=== PATIENT | male | born 1935 | race Caucasian/White ===

== ENCOUNTER 2020-07-11 10:08 | Emergency (ER) | payer OTHER ==
--- OUTSIDE RECORDS SUMMARY | 2020-07-11 10:10 | XMS REPORT | Continuity of Care Document ---
:1935 Author Organization [facility] t Address [address] [place] [address] Dr. L[address] [place] [address] Care Team Providers Name Role Phone Elmo Nj MD Attending Clinician Problems This patient has no known problems. Allergies, Adverse Reactions, Alerts This patient has no known allergies or adverse reactions. Medications This patient has no known medications. Procedures This patient has no known procedures. Encounters Start End Encounter Admission Attending Care Care Encounter Source Date/Time Date/Time Type Type Clinicians Facility Department ID 2020-07-10 2020-07-10 Office RON Nj [id number] 09:38:20 10:08:20 Visit [facility] [id number] Elmo Goldstein [id number] Professkimberly [phone] nal 044 Office [address] One Results This patient has no known results.
--- NOTE | 2020-07-11 11:11 | RAD REPORT ---
EXAM DESCRIPTION: RAD - Chest Single View - 07/11/2020 11:02 am CLINICAL HISTORY: MALAISE Chest pain. COMPARISON: Chest Single View dated 06/30/2017; Chest Pa And Lat (2 Views) dated 07/28/2016; Chest Sing le View dated 01/02/2016; Chest Single View dated 01/01/2016 FINDINGS: Portable technique limits examination quality. The lungs are mildly emphysematous but grossly clear. The heart is moderately enlarged in size. No di splaced fractures.
[2020-07-11 11:32] LABS: Absolute Lymphocytes (CBC) 1.1 K/uL (0.7-4.9); Basophils % 0.8 % (0-1.3); Hematocrit 38.9 % (39.6-49.0); Lymphocytes % 11.7 % (15.3-44.8); MPV 8.4 fL (7.6-11.3); RBC Red Blood Cell Count 4.16 M/uL (4.33-5.43)
[2020-07-11 11:40] LABS: Protime INR 3.34
[2020-07-11 12:02] LABS: Albumin 3.4 g/dL (3.4-5.0); Bilirubin Direct 0.4 mg/dL (0-0.2); Bilirubin Total 1.6 mg/dL (0.2-1.0); Magnesium 2.8 mg/dL (1.8-2.4); Potassium 3.9 mmol/L (3.5-5.1); Protein, Total 7.4 g/dL (6.4-8.2); Troponin (Emerg Dept Use Only) 0.04 ng/mL (0.0-0.045)
[2020-07-11 13:00] LABS: Urine Blood TRACE (NEG); Urine Glucose NEGATIVE (NEG); Urine Protein NEGATIVE (NEG)
[2020-07-11 13:02] LABS: Urine Bacteria NONE SEEN /HPF (NONE SEEN); Urine RBC <5 /HPF (NONE SEEN)
--- NOTE | 2020-07-11 13:24 | RAD REPORT ---
EXAM DESCRIPTION: CT - Abdomen Pelvis Wo Contrast - 07/11/2020 1:06 pm CLINICAL HISTORY: Abdominal pain. hip pain COMPARISON: No comparisons TECHNIQUE: CT imaging of the abdomen and pelvis was performed without contrast. Solid organ, bowel a nd vascular assessment is limited due to lack of IV and oral contrast. All CT scans are performed using dose optimization technique as appropriate and may include automated exposure control or mA/KV adjustment according to patient size. FINDINGS: Small focus of atelectasis is seen in the medial right lung base. The liver, spleen, pancreas, adrenal glands and kidneys within normal limits.No renal stone or hydron ephrosis is seen. 3 cm duodenal diverticulum is noted. There is enlargement of the right iliopsoas muscle relative to the left. There is mild inflammatory c hanges surrounding the iliopsoas in the right lower quadrant. Etiology for this is not clear however there are several focal areas of hyperdensity within the iliopsoas which suggests hematoma. Bilateral fat containing inguinal hernias are present, slightly larger on the right. Lumbar degenerative changes are present.No fracture is evident. IMPRESSION: Moderate enlargement of the right iliopsoas muscle with areas of intramuscular hematoma. This may be related to traumatic muscle injury/strain or less likely spontaneous. A limited non-contrast examination was performed as detailed.
--- NOTE | 2020-07-11 14:09 | EDPHYS ---
Physician Documentation [facility] Name: Blas Ferreira Age: 85 yrs Sex: Male : 1935 Arrival Date: 07/11/2020 Time: 10:11 Bed 7 Private MD: ED Physician Anirudh Blanc HPI: 07/11 15:36 This 85 yrs old Male presents to ER via Wheelchair with complaints of Pain tw4 All Over. 15:36 The patient or guardian reports an injury, pain. that occurred at home, sustained from tw4 a fall, from wheelchair, There is no obvious deformity, The patient is not able to ambulate. occurred 2 weeks ago. The complaints affect the right femoral area and right hip. Onset: The symptoms/episode began/occurred 2 week(s) ago. Modifying factors: The symptoms are alleviated by. Associated signs and symptoms: Loss of consciousness: the patient experienced no loss of consciousness. The patient has not experienced similar symptoms in the past. Historical: - Allergies: 10:29 No Known Allergies; ll1 - PMHx: 10:29 Atrial Fib; CVA (December 2014); CHF; Gout; High Cholesterol; Hypertension; ll1 - PSHx: 10:29 Knee surgery; ll1 - Immunization history:: Flu vaccine is not up to date. - Social history:: Smoking status: Patient denies any tobacco usage or history of. ROS: 15:36 Constitutional: Negative for fever, chills, and weight loss, Eyes: Negative for injury, tw4 pain, redness, and discharge, Cardiovascular: Negative for chest pain, palpitations, and edema, Respiratory: Negative for shortness of breath, cough, wheezing, and pleuritic chest pain, Abdomen/GI: Negative for abdominal pain, nausea, vomiting, diarrhea, and constipation, Back: Negative for injury and pain. 15:36 MS/extremity: Positive for injury or acute deformity, decreased range of motion, ecchymosis, pain, tenderness, Negative for abrasion, bite, deformity, erythema, laceration, paresthesias, puncture, rash, swelling, tingling, warmth. Exam: 15:36 Constitutional: This is a well developed, well nourished patient who is awake, alert, tw4 and in no acute distress. Head/Face: Normocephalic, atraumatic. Chest/axilla: Normal chest wall appearance and motion. Nontender with no deformity. No lesions are appreciated. Cardiovascular: Regular rate and rhythm with a normal S1 and S2. No gallops, murmurs, or rubs. Normal PMI, no JVD. No pulse deficits. Respiratory: Lungs have equal breath sounds bilaterally, clear to auscultation and percussion. No rales, rhonchi or wheezes noted. No increased work of breathing, no retractions or nasal flaring. Abdomen/GI: Soft, non-tender, with normal bowel sounds. No distension or tympany. No guarding or rebound. No evidence of tenderness throughout. Back: No spinal tenderness. No costovertebral tenderness. Full range of motion. Skin: Warm, dry with normal turgor. Normal color with no rashes, no lesions, and no evidence of cellulitis. Neuro: Awake and alert, GCS 15, oriented to person, place, time, and situation. Cranial nerves II-XII grossly intact. Motor strength 5/5 in all extremities. Sensory grossly intact. Cerebellar exam normal. Normal gait. 15:36 Musculoskeletal/extremity: Extremities: noted in the right femoral area and right hip: ecchymosis, swelling, tenderness, There is no evidence of abrasion, bite, deformity, erythema, laceration, puncture, rash. Vital Signs: 10:29 BP 118 / 61; Pulse 70; Resp 19; Temp 97.9; Pulse Ox 95% on R/A; Weight 104.33 kg; ll1 Height 6 ft. 0 in. (182.88 cm); Pain 6/10; 13:27 BP 167 / 89; Pulse 62; Resp 18; Pulse Ox 96% on R/A; ph 14:30 BP 158 / 78; Pulse 68; Resp 18; Temp 98.0; Pulse Ox 95% on R/A; ph 10:29 Body Mass Index 31.19 (104.33 kg, 182.88 cm) ll1 MDM: 14:09 Patient medically screened. tw4 15:36 Differential diagnosis: hip fracture, intertrochanteric fracture. Data reviewed: vital tw4 signs, nurses notes. Data reviewed: lab test result(s), CBC, electrolytes, radiologic studies, CT scan. Data interpreted: Pulse oximetry: Interpretation: normal. Test interpretation: by ED physician or midlevel provider: ECG, plain radiologic studies. Counseling: I had a detailed discussion with the patient and/or guardian regarding: the historical points, exam findings, and any diagnostic results supporting the discharge/admit diagnosis, lab results, radiology results. Special discussion: I discussed with the patient/guardian in detail that at this point there is no indication for admission to the hospital. It is understood, however, that if the symptoms persist or worsen the patient needs to return immediately for re-evaluation. 07/11 10:32 Order name: Basic Metabolic Panel; Complete Time: 12:13 07/11 12:13 Interpretation: Normal except: NA 148; CL 111; GLUC 114; BUN 41; CRE 1.82; GFR 35. 07/11 10:32 Order name: CBC with Diff; Complete Time: 11:39 07/11 10:32 Order name: LFT's; Complete Time: 12:13 07/11 12:14 Interpretation: Normal except: A/G 0.9; BILID 0.4; GLOB 4.0; BILIT 1.6; ALK 123. 07/11 10:32 Order name: Magnesium; Complete Time: 12:13 07/11 10:32 Order name: NT PRO-BNP; Complete Time: 12:13 07/11 12:40 Interpretation: Abnormal: NT PRO-BNP 2855. 07/11 10:32 Order name: PT-INR; Complete Time: 12:13 07/11 12:40 Interpretation: PT 38.9. 07/11 10:32 Order name: Troponin (emerg Dept Use Only); Complete Time: 12:13 07/11 10:32 Order name: XRAY Chest (1 view); Complete Time: 11:39 07/11 10:32 Order name: EKG; Complete Time: 10:33 07/11 10:32 Order name: Cardiac monitoring; Complete Time: 13:58 07/11 10:32 Order name: EKG - Nurse/Tech; Complete Time: 13:58 07/11 12:17 Order name: Urine Microscopic Only; Complete Time: 14:11 07/11 12:45 Order name: CT Abd/Pelvis - Without Contrast; Complete Time: 13:27 07/11 12:58 Order name: Urine Dipstick--Ancillary (enter results); Complete Time: 13:42 mt 07/11 13:42 Interpretation: Normal except: UBLD TRACE. 07/11 10:32 Order name: IV Saline Lock; Complete Time: 11:17 tw4 07/11 10:32 Order name: Labs collected and sent; Complete Time: 11:17 tw4 07/11 10:32 Order name: O2 Per Protocol; Complete Time: 11:17 4 07/11 10:32 Order name: O2 Sat Monitoring; Complete Time: 11:17 4 07/11 12:17 Order name: Urine Dipstick-Ancillary (obtain specimen); Complete Time: 13:56 tw4 EC:36 Rate is 108 beats/min. Rhythm is irregularly irregular, A fib. Left axis deviation tw4 noted. IL interval is normal. QRS interval is normal. QT interval is normal. No Q waves. T waves are Inverted in lead I. No ST changes noted. Clinical impression: Atrial Fibrillation. Interpreted by me. Reviewed by me. Administered Medications: No medications were administered Disposition: 07/11/20 14:09 Discharged to Home. Impression: Low back pain, hematoma thigh. - Condition is Stable. - Discharge Instructions: Chronic Back Pain, Hematoma. - Medication Reconciliation Form, Thank You Letter, Antibiotic Education, Prescription Opioid Use form. - Follow up: Private Physician; When: Upon discharge from the Emergency Department; Reason: Recheck today's complaints, Continuance of care, Re-evaluation by your physician. - Problem is new. - Symptoms have improved. Signatures: Dispatcher [employer] Sherry Dennison RN RN ph Anirudh Blanc MD MD tw4 Zenon Stephens RN RN ll1 Corrections: (The following items were deleted from the chart) 15:04 14:09 07/11/2020 14:09 Discharged to Home. Impression: Low back pain; hematoma thigh. ph Condition is Stable. Forms are Medication Reconciliation Form, Thank You Letter, Antibiotic Education, Prescription Opioid Use. Follow up: Private Physician; When: Upon discharge from the Emergency Department; Reason: Recheck today's complaints, Continuance of care, Re-evaluation by your physician. Problem is new. Symptoms have improved. tw4
--- NOTE | 2020-07-11 14:09 | ER ---
Nurse's Notes [facility] Name: Blas Ferreira Age: 85 yrs Sex: Male : 1935 Arrival Date: 07/11/2020 Time: 10:11 Bed 7 Private MD: Diagnosis: Low back pain;hematoma thigh Presentation: 07/11 10:29 Chief complaint: Patient states: Pain to back and groin area for over 2 weeks. No ll1 fever. Son noticed bruising to R thigh and L foot recently. Has been seen at [place] on the and PCP Dr. Nj on the . CT showed spondylosis. Coronavirus screen: Client denies travel out of the [place] in the last 14 days. At this time, the client does not indicate any symptoms associated with coronavirus-19. Ebola Screen: Patient denies travel to an Ebola-affected area in the 21 days before illness onset. Initial Sepsis Screen: Does the patient meet any 2 criteria? No. Patient's initial sepsis screen is negative. Does the patient have a suspected source of infection? No. Patient's initial sepsis screen is negative. Risk Assessment: Do you want to hurt yourself or someone else? Patient reports no desire to harm self or others. Onset of symptoms was June 29, 2020. 10:29 Method Of Arrival: Wheelchair ll1 10:29 Acuity: KAREL 3 ll1 Historical: - Allergies: 10:29 No Known Allergies; ll1 - PMHx: 10:29 Atrial Fib; CVA (December 2014); CHF; Gout; High Cholesterol; Hypertension; ll1 - PSHx: 10:29 Knee surgery; ll1 - Immunization history:: Flu vaccine is not up to date. - Social history:: Smoking status: Patient denies any tobacco usage or history of. Screenin:17 Abuse screen: Denies threats or abuse. Denies injuries from another. Nutritional ph screening: No deficits noted. Tuberculosis screening: No symptoms or risk factors identified. Fall Risk None identified. Assessment: 11:45 General: Appears in no apparent distress. comfortable, obese, Behavior is. Pain: ph Complains of pain in right femoral area. Neuro: Level of Consciousness is awake, alert, obeys commands, Oriented to person, place. Cardiovascular: Capillary refill < 3 seconds in bilateral fingers Patient's skin is warm and dry. Respiratory: Airway is patent Respiratory effort is even, unlabored. GI: Abdomen is round Patient currently denies abdominal pain, diarrhea, nausea, vomiting. Derm: Skin is intact, is fragile, is thin, Skin is pink, warm \T\ dry. Musculoskeletal: Circulation, motion, and sensation intact. Range of motion: intact in all extremities. 13:27 Reassessment: Patient appears in no apparent distress at this time. Patient and/or ph family updated on plan of care and expected duration. Pain level reassessed. Patient is alert, oriented x 3, equal unlabored respirations, skin warm/dry/pink. 15:04 Reassessment: Patient appears in no apparent distress at this time. Patient and/or ph family updated on plan of care and expected duration. Pain level reassessed. Patient is alert, oriented x 3, equal unlabored respirations, skin warm/dry/pink. Pt d/c home w/son, instructed by Dr Blanc to hold today's dose of warfarin. Vital Signs: 10:29 BP 118 / 61; Pulse 70; Resp 19; Temp 97.9; Pulse Ox 95% on R/A; Weight 104.33 kg; ll1 Height 6 ft. 0 in. (182.88 cm); Pain 6/10; 13:27 BP 167 / 89; Pulse 62; Resp 18; Pulse Ox 96% on R/A; ph 14:30 BP 158 / 78; Pulse 68; Resp 18; Temp 98.0; Pulse Ox 95% on R/A; ph 10:29 Body Mass Index 31.19 (104.33 kg, 182.88 cm) ll1 ED Course: 10:11 Patient arrived in ED. mr 10:27 Arm band placed on Patient placed in an exam room, on a stretcher. ll1 10:30 Anirudh Blanc MD is Attending Physician. tw4 10:32 Triage completed. ll1 10:47 Sherry Martins, NAVIN is Primary Nurse. ph 10:58 Initial lab(s) drawn, by me, sent to lab. Inserted saline lock: 22 gauge in right kj1 antecubital area, using aseptic technique. Blood collected. 11:03 XRAY Chest (1 view) In Process Unspecified. EDMS 11:17 Patient has correct armband on for positive identification. Bed in low position. Call ph light in reach. Side rails up X 1. school bus monitor on. Pulse ox on. NIBP on. 13:05 CT Abd/Pelvis - Without Contrast In Process Unspecified. EDMS 15:02 No provider procedures requiring assistance completed. IV discontinued, intact, ph bleeding controlled, No redness/swelling at site. Pressure dressing applied. Administered Medications: No medications were administered Outcome: 14:09 Discharge ordered by . nagi 15:02 Discharged to home via wheelchair, with family. ph 15:02 Condition: good 15:02 Discharge instructions given to patient, family, Instructed on discharge instructions, follow up and referral plans. instructed to hold today's warfarin dose Demonstrated understanding of instructions, follow-up care. 15:04 Patient left the ED. ph Signatures: Dispatcher [employer] EDHI Joanne Lainez Patricia, RN RN ph Anirudh Blanc MD MD tw4 Lyle, Katiana kj1 Zenon Stephens RN RN ll1
[2020-07-11 15:19] VITALS: BP 158/78; TEMP 98; O2SAT 95
== END 2020-07-11 15:04 | disposition home or self-care (01) ==
LOC: ER 10:08
DX: S70.11XA Contusion of right thigh, initial encounter (principal); I10 Essential (primary) hypertension; Z86.73 Personal history of transient ischemic attack (TIA), and cerebral infarction without residual deficits
CPT/HCPCS: 36415; 71045; 74176; 80048; 80076; 81003; 81015; 83735; 83880; 84484; 85025; 85610; 93005; 99284

== ENCOUNTER 2020-10-14 10:41 | Observation (INO) | payer OTHER ==
--- OUTSIDE RECORDS SUMMARY | 2020-10-14 10:44 | XMS REPORT | Continuity of Care Document ---
:1935 Author Organization [facility] t Address [address] [place] [address] Care Team Providers Name Role Phone Elmo Nj MD Primary Care Physician Elmo Nj MD Attending Clinician Helen SCHAFER Attending Clinician Doctor Unassigned, Name Attending Clinician Unavailable Payers Payer Name Policy Type Policy Effective Date Expiration Date Sour ce Number HUMANA - MANAGED [id number] 2015 Universi ty of MEDICAREHUMANA 00:00:00 [place] [facility] [id number]/ [facility] h 05/2015-PresentMedic are Adv FFS Problems Condition Condition Condition Status Onset Resolution Last Treating Co mments Source Name Details Category Date Date Treatment Clinician Date Acute Acute Disease Active Univers right-side right-side 3-12 it y of d low back d [place] back 00:00[place] pain pain 00 Medical without without Branch sciatica sciatica Allergies, Adverse Reactions, Alerts This patient has no known allergies or adverse reactions. Social History Social Habit Start Date Stop Date Quantity Comments Source History of Cigarette Smoker Universi ty of tobacco use [facility] Exposure to Not sure [facility] SARS-CoV-2 [facility] (event) [place] Tobacco use and 2019-11-16 2019-11-16 Never used Universit y of exposure 00:00:00 00:00:00 [facility] Alcohol intake 2019-11-16 2019-11-16 Ex-drinker [facility] 00:00:00 00:00:00 (finding) [facility] Sex Assigned At [birth year] Universit y of 00:00:00 00:00:00 [facility] Smoking Status Start Date Stop Date Source Former smoker 2019-11-16 00:00:00 2019-11-16 00:00:00 Universi ty of [facility] Medications Ordered Filled Start Stop Current Ordering Indication Dosage Frequency Signature Comments Components Source Medication Medication Date Date Medication? Clinician (SIG) Name Name collagenase Yes Open wound Apply to Univers 250 4-07 of left affected ity of unit/gram 00:00: lower area(s) 2 [place] ointment 00 extremity, (two) Medi diane subsequent times Branch encounter daily. methocarbam Yes Acute 500mg Take 1 Un yeny oL 500 mg 3-12 right-sided tablet by ity of tablet 00:00: [place] back mouth 3 [place] pain (three) Medical without times Branch sciatica daily as needed (back pain). atorvastati Yes 10mg Take 10 mg Univers n 10 mg 3-10 by mouth ity of tablet 14:51: at [place] 15 bedtime. Medical Branch tamsulosin Yes Take by Uni vers 0.4 mg 24 3-10 mouth ity of hr capsule 14:50: daily. [place] [address] Medical Branch warfarin 2019-0 Yes Take by Unive rs sodium 3-10 mouth. 3.5 ity of ([place]ADIN 14:49: mg daily [place] [address] [place] [address] losartan 50 2019-0 Yes 50mg Take 50 mg Univers mg tablet 3-10 by mouth ity of 14:49: daily. [place] [address] Medical Branch pantoprazol 2019-0 Yes 40mg Take 40 mg Univers e 40 mg EC 3-10 by mouth ity o f tablet 14:49: daily. [place] [address] Medical [place] furosemide 2019-0 Yes 40mg Take 40 mg U nivers 40 mg 3-10 by mouth. ity of tablet 14:49: Takes 80 [place] 49 mg am and Medical 40 mg Branch afternoon metoprolol 2019-0 Yes 50mg Take 50 mg U nivers tartrate 50 3-10 by mouth ity of mg tablet 14:49: daily. [address] Branch allopurinoL 2019-0 Yes 300mg Take 300 U nivers 300 mg 3-10 mg by ity of tablet 14:48: mouth [place] 41 daily. Medical Branch Procedures Procedure Date / Time Performed Performing Clinician [facility] e HOME HEALTH - OTHER 2020-08-07 05:01:00 Doctor Unassigned, No [facility] [place] [facility] Plan of Care Planned Activity Planned Date Details Comments Source Future Scheduled 2021-07-10 Depression screening [facility] [place] [facility] 00:00:00 (procedure) [code = Medical Branch [id number]] Future Scheduled 2020-12-30 INFLUENZA VACCINE Univer sity [facility] Test 00:00:00 (Season Ended) [code Medical Branch = INFLUENZA VACCINE (Season Ended)] Future Scheduled 1999 Medicare Annual Universi ty [facility] Test 00:00:00 Wellness Visit Medical [facility] h (procedure) [code = [id number]] Future Scheduled 1999 PNEUMOCOCCAL VACCINES [facility] [place] [facility] Test 00:00:00 65+ (1 of 1 - PPSV23) Medica l Branch [code = PNEUMOCOCCAL VACCINES 65+ (1 of 1 - PPSV23)] Future Scheduled 1984 Zoster Recombinant [facility] [place] [facility] Test 00:00:00 Vaccine (SHINGRIX) (1 Medica l Branch of 2) [code = Zoster Recombinant Vaccine (SHINGRIX) (1 of 2)] Future Scheduled 1953 DTaP,Tdap,and Td Univers ity [facility] Test 00:00:00 Vaccines (1 - Tdap) Medical Branch [code = DTaP,Tdap,and Td Vaccines (1 - Tdap)] Encounters Start End Encounter Admission Attending Care Care Encounter Source Date/Time Date/Time Type Type Clinicians Facility Department ID 2020-10-13 2020-10-13 Telephone [facility] [id number] 00:00:00 00:00:00 [facility] [id number] Elmo Goldstein [id number] Jazmin [id number] nal 044 [address] One 2020-10-12 2020-10-12 [facility] [id number] 16:34:50 16:49:50 ne Visit [facility] [id number] Angelita [id number] Luiio [phone] nal 044 Office [address] 2020-10-09 2020-10-09 Telephone [facility] [id number] 00:00:00 00:00:00 [facility] [id number] [facility] [id number] [facility] [phone] nal 044 Office [address] One Results This patient has no known results.
[2020-10-14 12:28] LABS: Urine Blood Negative (Negative); Urine Glucose Negative (Negative); Urine Protein Negative (Negative); Urine Specific Gravity 1.015 (1.005-1.030)
[2020-10-14 12:31] LABS: Absolute Lymphocytes (CBC) 1.1 K/uL (0.7-4.9); Basophils % 1.2 % (0-1.3); Hematocrit 39.3 % (39.6-49.0); Lymphocytes % 18.3 % (15.3-44.8); MPV 8.4 fL (7.6-11.3); RBC Red Blood Cell Count 4.36 M/uL (4.33-5.43)
[2020-10-14 12:37] LABS: Protime INR 2.49
[2020-10-14 12:51] LABS: Albumin 3.2 g/dL (3.4-5.0); Bilirubin Direct 0.2 mg/dL (0-0.2); Bilirubin Total 0.7 mg/dL (0.2-1.0); Magnesium 2.5 mg/dL (1.8-2.4); Potassium 3.8 mmol/L (3.5-5.1); Protein, Total 6.9 g/dL (6.4-8.2); Troponin (Emerg Dept Use Only) 0.03 ng/mL (0.0-0.045)
[2020-10-14] MEDS ORDERED: LEVALBUTEROL 1.25 MG/3 ML NEB ONE ×2 (13:01→14:33)
--- NOTE | 2020-10-14 13:35 | RAD REPORT ---
EXAM DESCRIPTION: RAD - Chest Single View - 10/14/2020 1:24 pm CLINICAL HISTORY: SOB Chest pain. COMPARISON: Chest Single View dated 07/11/2020; Chest Single View dated 06/30/2017; Chest Pa And Lat (2 Views) dated 07/28/2016; Chest Single View dated 01/02/2016 FINDINGS: Portable technique limits examination quality. Mild interstitial pulmonary edema noted. The heart is moderately enlarged in size. No displaced fract ures. IMPRESSION: Mild CHF.
--- NOTE | 2020-10-14 13:59 | EDPHYS ---
Physician Documentation [facility] Name: Blas Ferreira Age: 85 yrs Sex: Male : 1935 Arrival Date: 10/14/2020 Time: 10:43 Bed 5 Private MD: ED Physician Fede Vizcarra HPI: 10/15 07:21 This 85 yrs old Male presents to ER via Wheelchair with complaints of Chest kdr Congestion, Shortness Of Breath, Cough. 07:21 The patient has shortness of breath at rest. Onset: The symptoms/episode began/occurred kdr gradually, 1 week(s) ago. Duration: The symptoms are continuous, and are steadily getting worse. The patient's shortness of breath is aggravated by exertion, light activity, talking, walking. Associated signs and symptoms: Pertinent positives: productive cough, Pertinent negatives: diaphoresis, dizziness, fever, hemoptysis, loss of consciousness, nausea, numbness in extremities, visual changes, vomiting. Severity of symptoms: At their worst the symptoms were mild moderate just prior to arrival, in the emergency department the symptoms are unchanged. The patient has not experienced similar symptoms in the past. The patient has been recently seen by a physician: the patient's primary care provider. The patient had recently been put on abx and Tessalon Perls by PCP without relief or improvement and the patient seems to be getting worse. He looks uncomfortable and SOB at rest in bed. 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 Pneumococcal vaccine is not up to date, Flu vaccine is not up to date. Patient has never been vaccinated. - Social history:: Smoking status: Patient/guardian denies using tobacco, the patient reports quitting approximately 53 years ago. ROS: 10/15 07:21 Constitutional: Negative for fever, chills, and weight loss, Eyes: Negative for injury, kdr pain, redness, and discharge, ENT: Negative for injury, pain, and discharge, Neck: Negative for injury, pain, and swelling, Cardiovascular: Negative for chest pain, palpitations, and edema, Abdomen/GI: Negative for abdominal pain, nausea, vomiting, diarrhea, and constipation, Back: Negative for injury and pain, : Negative for injury, bleeding, discharge, and swelling, MS/Extremity: Negative for injury and deformity, Skin: Negative for injury, rash, and discoloration, Neuro: Negative for headache, weakness, numbness, tingling, and seizure activity. Psych: Negative for depression, anxiety, suicide ideation, homicidal ideation, and hallucinations, Allergy/Immunology: Negative for hives, rash, and allergies, Endocrine: Negative for neck swelling, polydipsia, polyuria, polyphagia, and marked weight changes, Hematologic/Lymphatic: Negative for swollen nodes, abnormal bleeding, and unusual bruising. Respiratory: Positive for cough, "sounds productive", dyspnea on exertion, shortness of breath, wheezing, expiratory. Exam: 10/14 14:26 ECG was reviewed by the Attending Physician. kdr 10/15 07:21 Constitutional: This is a well developed, well nourished patient who is awake, alert, kdr and in no acute distress. Head/Face: Normocephalic, atraumatic. Eyes: Pupils equal round and reactive to light, extra-ocular motions intact. Lids and lashes normal. Conjunctiva and sclera are non-icteric and not injected. Cornea within normal limits. Periorbital areas with no swelling, redness, or edema. Neck: Trachea midline, no thyromegaly or masses palpated, and no cervical lymphadenopathy. Supple, full range of motion without nuchal rigidity, or vertebral point tenderness. No Meningismus. Chest/axilla: Normal chest wall appearance and motion. Nontender with no deformity. No lesions are appreciated. Cardiovascular: Regular rate and rhythm with a normal S1 and S2. No gallops, murmurs, or rubs. Normal PMI, no JVD. No pulse deficits. Abdomen/GI: Soft, non-tender, with normal bowel sounds. No distension or tympany. No guarding or rebound. No evidence of tenderness throughout. Back: No spinal tenderness. No costovertebral tenderness. Full range of motion. Skin: Warm, dry with normal turgor. Normal color with no rashes, no lesions, and no evidence of cellulitis. MS/ Extremity: Pulses equal, no cyanosis. Neurovascular intact. Full, normal range of motion. Neuro: Awake and alert, GCS 15, oriented to person, place, time, and situation. Cranial nerves II-XII grossly intact. Motor strength 5/5 in all extremities. Sensory grossly intact. Cerebellar exam normal. Normal gait. Respiratory: mild respiratory distress is noted, Respirations: labored breathing, that is mild, that is moderate, Breath sounds: rales, that are moderate, are scattered, bronchial sounds, that are mild, are scattered, are heard diffusely, stridor, is not appreciated, + upper airway congestion. wheezing: expiratory that is moderate, is heard diffusely. Vital Signs: 10/14 11:15 BP 123 / 68; Pulse 80; Resp 18 S; Temp 97.5(TE); Pulse Ox 95% on R/A; Weight 104.33 kg ca1 (R); Height 6 ft. 0 in. (182.88 cm) (R); Pain 0/10; 11:30 BP 124 / 82; Pulse 82; Resp 17; Pulse Ox 98% ; bp 12:30 BP 103 / 79; Pulse 57; Resp 18; Pulse Ox 100% ; bp 13:30 BP 139 / 80; Pulse 92; Resp 19; Pulse Ox 95% ; bp 15:30 BP 127 / 88; Pulse 65; Resp 16; Pulse Ox 97% ; bp 17:30 BP 107 / 64; Pulse 62; Resp 16; Pulse Ox 95% ; bp 19:30 BP 115 / 63; Pulse 55; Resp 19; Pulse Ox 90% ; rr5 11:15 Body Mass Index 31.19 (104.33 kg, 182.88 cm) ca1 MDM: 13:58 Patient medically screened. [facility] 10/15 07:21 Differential diagnosis: asthma, Bronchitis CHF exacerbation, Chronic Obstructive kdr Pulmonary Disease Myocardial Infarction pneumonia, pulmonary edema, reactive airway disease. Data reviewed: vital signs, nurses notes, lab test result(s), radiologic studies. Counseling: I had a detailed discussion with the patient and/or guardian regarding: the historical points, exam findings, and any diagnostic results supporting the discharge/admit diagnosis, lab results, radiology results, the need for further work-up and treatment in the hospital. 10/14 12:01 Order name: Basic Metabolic Panel; Complete Time: 13:36 kdr 10/14 12:01 Order name: CBC with Diff; Complete Time: 13:36 kdr 10/14 12:01 Order name: LFT's; Complete Time: 13:36 [facility] 10/14 12:02 Order name: Magnesium; Complete Time: 13:36 [facility] 10/14 12:02 Order name: NT PRO-BNP; Complete Time: 13:36 [facility] 10/14 12:02 Order name: PT-INR; Complete Time: 13:36 [facility] 10/14 12:02 Order name: Troponin (emerg Dept Use Only); Complete Time: 13:36 [facility] 10/14 12:02 Order name: XRAY Chest (1 view); Complete Time: 13:44 [facility] 10/14 12:27 Order name: Urine Dipstick-Ancillary; Complete Time: 13:36 EDMS 10/14 15:43 Order name: SARS-COV-2 RT PCR EDVT 10/14 12:02 Order name: EKG; Complete Time: 12:02 [facility] 10/14 12:02 Order name: Cardiac monitoring; Complete Time: 12:20 [facility] 10/14 12:02 Order name: EKG - Nurse/Tech; Complete Time: 12:17 [facility] 10/14 12:02 Order name: IV Saline Lock; Complete Time: 12:20 [facility] 10/14 12:02 Order name: Labs collected and sent; Complete Time: 12:20 [facility] 10/14 12:02 Order name: O2 Per Protocol; Complete Time: 12:20 [facility] 10/14 12:02 Order name: O2 Sat Monitoring; Complete Time: 12:06 [facility] 10/14 14:52 Order name: Diet Heart Healthy; Complete Time: 14:53 jm EC/16 14:26 Rate is 96 beats/min. Rhythm is irregularly irregular, A fib with No ectopy. QRS [place] kdr is Normal. [place] interval is normal. QRS interval is normal. Clinical impression: Atrial Fibrillation. Administered Medications: 12:40 Drug: Xopenex (levalbuterol) (3) 1.25 mg Route: Inhalation; bp 14:00 Drug: predniSONE 60 mg Route: PO; bp 14:00 Drug: Lasix (furosemide) 40 mg Route: IVP; Site: right hand; bp 14:00 Drug: Xopenex (levalbuterol) (3) 1.25 mg Route: Inhalation; bp Disposition: 10/14/20 13:58 Hospitalization ordered by Maxi Shields for Inpatient Admission. Preliminary diagnosis is COPD, CHF exacerbation. - Bed requested for Telemetry/MedSurg (Inpatient). - Status is Inpatient Admission. rr5 - Condition is Fair. - Problem is an acute exacerbation. - Symptoms have improved. Signatures: Dispatcher [employer] EDVT Fede Vizcarra MD MD [facility] James Bianchi RN RN bp Delores Bauer Raymond RN RN rr5 Acsavage, Kia RN RN ca1 Corrections: (The following items were deleted from the chart) 14:35 14:04 CORONAVIRUS+MR.LAB.BRZ ordered. [facility] EDVT 18:42 13:58 Hospitalization Ordered by Maxi Shields for Inpatient Admission. Preliminary eb diagnosis is COPD, CHF exacerbation. Bed requested for Telemetry/MedSurg (Inpatient). Status is Inpatient Admission. Condition is Fair. Problem is an acute exacerbation. Symptoms have improved. kdr 19:47 18:42 10/14/2020 13:58 Hospitalization Ordered by Maxi Shields for Inpatient rr5 Admission. Preliminary diagnosis is COPD, CHF exacerbation. Bed requested for Telemetry/MedSurg (Inpatient). Status is Inpatient Admission. Condition is Fair. Problem is an acute exacerbation. Symptoms have improved. eb
--- NOTE | 2020-10-14 13:59 | ER ---
Nurse's Notes [facility] Name: Blas Ferreira Age: 85 yrs Sex: Male : 1935 Arrival Date: 10/14/2020 Time: 10:43 Bed 5 Private MD: Diagnosis: COPD, CHF exacerbation Presentation: 10/14 11:15 Chief complaint: Patient's son or daughter states: Cough and congestion x 1 week. Been ca1 on ABX and Tessalon prescribed by PCP. Reports SOB at this time and S/S not improving. Denies fever. Coronavirus screen: Client denies travel out of the [place] in the last 14 days. congestion, cough unrelated to allergies, Client presents with at least one sign or symptom that may indicate coronavirus-19. Standard/surgical mask placed on the client. Provider contacted for isolation considerations. Ebola Screen: Patient negative for fever greater than or equal to 101.5 degrees Fahrenheit, and additional compatible Ebola Virus Disease symptoms Patient denies exposure to infectious person. Patient denies travel to an Ebola-affected area in the 21 days before illness onset. No symptoms or risks identified at this time. Initial Sepsis Screen: Does the patient meet any 2 criteria? No. Patient's initial sepsis screen is negative. Does the patient have a suspected source of infection? No. Patient's initial sepsis screen is negative. Risk Assessment: Do you want to hurt yourself or someone else? Patient reports no desire to harm self or others. Onset of symptoms was October 14, 2020. 11:15 Method Of Arrival: Wheelchair ca1 11:15 Acuity: KAREL 3 ca1 Triage Assessment: 11:15 General: Appears distressed, uncomfortable, obese, Behavior is cooperative, anxious. bp Pain: Denies pain. EENT: No deficits noted. Neuro: Level of Consciousness is awake, alert, obeys commands, Oriented to person, place. Cardiovascular: No deficits noted. Respiratory: Reports shortness of breath cough that is Breath sounds with crackles Breath sounds with wheezes Onset: The symptoms/episode began/occurred at an unknown time. the patient has moderate shortness of breath. GI: No signs and/or symptoms were reported involving the gastrointestinal system. : No signs and/or symptoms were reported regarding the genitourinary system. Derm: No deficits noted. Musculoskeletal: R SIDED DEFICITS AFTER CVA. Historical: - Allergies: 11:19 No Known Allergies; ca1 - PMHx: 11:19 Atrial Fib; CHF; CVA (December 2014); Gout; High Cholesterol; Hypertension; COPD; ca1 - PSHx: 11:19 Knee surgery; ca1 - Immunization history:: Client reports having NOT received the Covid vaccine. Pneumococcal vaccine is not up to date, Flu vaccine is not up to date. Patient has never been vaccinated. - Social history:: Smoking status: Patient/guardian denies using tobacco, the patient reports quitting approximately 53 years ago. Screenin:02 Abuse screen: Denies threats or abuse. Denies injuries from another. Nutritional bp screening: No deficits noted. Tuberculosis screening: No symptoms or risk factors identified. Fall Risk None identified. Assessment: 11:15 General: SEE TRIAGE NOTE. bp 12:30 Reassessment: RESULTS PENDING. Cardiovascular: Rhythm is sinus bradycardia. bp Respiratory: Airway is patent Respiratory effort is even, labored. 19:30 Reassessment: Patient appears in no apparent distress at this time. Patient is alert, rr5 oriented x 3, equal unlabored respirations, skin warm/dry/pink. sitting on the side of the bed not in distress no complaints made,for transfer to room 426. Vital Signs: 11:15 BP 123 / 68; Pulse 80; Resp 18 S; Temp 97.5(TE); Pulse Ox 95% on R/A; Weight 104.33 kg ca1 (R); Height 6 ft. 0 in. (182.88 cm) (R); Pain 0/10; 11:30 BP 124 / 82; Pulse 82; Resp 17; Pulse Ox 98% ; bp 12:30 BP 103 / 79; Pulse 57; Resp 18; Pulse Ox 100% ; bp 13:30 BP 139 / 80; Pulse 92; Resp 19; Pulse Ox 95% ; bp 15:30 BP 127 / 88; Pulse 65; Resp 16; Pulse Ox 97% ; bp 17:30 BP 107 / 64; Pulse 62; Resp 16; Pulse Ox 95% ; bp 19:30 BP 115 / 63; Pulse 55; Resp 19; Pulse Ox 90% ; rr5 11:15 Body Mass Index 31.19 (104.33 kg, 182.88 cm) ca1 ED Course: 10:43 Patient arrived in ED. as 10:47 Fede Vizcarra MD is Attending Physician. kdr 11:18 Triage completed. ca1 11:19 Arm band placed on right wrist. ca1 11:55 James Bianchi, RN is Primary Nurse. bp 12:02 Patient has correct armband on for positive identification. Bed in low position. Call bp light in reach. Side rails up X2. Adult w/ patient. 12:22 Inserted saline lock: 22 gauge in right wrist, using aseptic technique. bp 13:24 XRAY Chest (1 view) In Process Unspecified. EDMS 13:57 Maxi Shields is Hospitalizing Provider. kdr 19:45 No provider procedures requiring assistance completed. Patient admitted, IV remains in rr5 place. intact, No redness/swelling at site. Administered Medications: 12:40 Drug: Xopenex (levalbuterol) (3) 1.25 mg Route: Inhalation; bp 14:00 Drug: predniSONE 60 mg Route: PO; bp 14:00 Drug: Lasix (furosemide) 40 mg Route: IVP; Site: right hand; bp 14:00 Drug: Xopenex (levalbuterol) (3) 1.25 mg Route: Inhalation; bp Outcome: 13:58 Decision to Hospitalize by Provider. kdr 19:45 Admitted to Tele accompanied by tech, via wheelchair, room 426, with chart, Report rr5 called to jennifer 19:45 Condition: stable 19:45 Instructed on the need for admit. 19:47 Patient left the ED. rr5 Signatures: Dispatcher [employer] EDCO Fede Vizcarra MD MD kdr Shreya Saucedo as James Bianchi, RN RN bp Rene Green RN RN rr5 Kia Cisse RN RN ca1
[2020-10-14] MEDS ORDERED: FUROSEMIDE 40 MG/4 ML VIAL ONE (14:32)
[2020-10-14] MEDS ORDERED: predniSONE 20 MG TAB ONE (14:32)
--- NOTE | 2020-10-14 14:37 | P.HP ---
Certification for Inpatient Patient admitted to: Inpatient With expected LOS: >2 Midnights Practitioner: I am a practitioner with admitting privileges, knowledge of patient current condition, hospital course, and medical plan of care. Services: Services provided to patient in accordance with Admission requirements found in Title 42 Section 412.3 of the Code of Federal Regulations Patient History Date of Service: 10/14/20 Reason for admission: Shortness of breath History of Present Illness: 85-year-old gentleman with a history of systolic heart failure was severe LV dysfunction, history of CVA with right-sided weakness, chronic atrial fibrillation Coumadin anticoagulation was brought to the emergency department due to progressive shortness of breath, associated with wheezing, coughing and congestion. Patient saw his PCP Dr. Alexander this morning who referred him to the emergency department. He denies any chest pain, or palpitation. Chest x-ray done in the ED demonstrated mild CHF, no acute infiltrate. Initial troponin negative. Patient given breathing treatment and IV Lasix in the ED. He is admitted for further management. Allergies NKDA Allergy (Uncoded 06/12/15 20:24) Unknown No Known Allergies Allergy (Uncoded 01/01/16 20:58) Unknown Home Medications: Allopurinol 100 mg PO DAILY 01/28/15 Atorvastatin Calcium [Lipitor*] 10 mg PO BEDTIME 01/02/16 Losartan Potassium [Cozaar] 25 mg PO BID 01/02/16 Warfarin Sodium [Coumadin*] 5 mg PO DAILY 5 PM 01/02/16 Furosemide [Lasix*] 80 mg PO DAILY #30 tab 01/06/16 Metoprolol Tartrate [Lopressor*] 25 mg PO BID 07/28/16 Pantoprazole [Protonix Tab*] 40 mg PO [id number] 07/28/16 Spironolactone [Aldactone] 25 mg PO DAILY #30 tab 07/01/17 Thiamine Mononitrate (Vit B1) [Vitamin B-1] 100 mg PO DAILY #30 tablet 07/01/17 - Past Medical/Surgical History Diabetic: No -: Congetive Heart Failure -: CVA (01/13) -: Hypertension -: A-fib -: High Cholesterol -: Gout -: Right sided weakness -: BILATERAL KNEE REPLACEMENT - Family History Father -: Heart disease, Hypertension - Social History Alcohol use: No CD- Drugs: No Caffeine use: No Review of Systems Other: Except as documented, all other systems reviewed and negative. Physical Examination - Physical Exam General: Alert, In no apparent distress, Oriented x3 HEENT: Atraumatic, PERRLA, Mucous membr. moist/pink, Other (Dobr-yl-alvneif.), EOMI, Sclerae nonicteric Neck: Supple, JVD not distended Respiratory: Normal air movement, Crackles/rales (Bilateral.), Other (Upper airway transmitted sounds) Cardiovascular: No edema, Regular rate/rhythm, Normal S1 S2 Gastrointestinal: Normal bowel sounds, Soft and benign, Non-distended, No tenderness Musculoskeletal: No swelling, No tenderness Integumentary: Erythema (Spots of erythematous rash/scratch lowe on bilateral lower extremities.) Neurological: Normal speech, Normal strength at 5/5 x4 extr, Other (Moves all extremities.) Lymphatics: No axilla or inguinal lymphadenopathy - Studies Laboratory Data (last 24 hrs) 10/14/20 12:20: PT 28.9 H, INR 2.49 10/14/20 12:20: WBC 5.90, Hgb 12.7 L, Hct 39.3 L, Plt Count 169 10/14/20 12:20: Sodium 144, Potassium 3.8, BUN 39 H, Creatinine 1.72 H, Glucose 91, Magnesium 2.5 H, Total Bilirubin 0.7, AST 25, ALT 25, Alkaline Phosphatase 124 H Assessment and Plan - Problems (Diagnosis) (1) Acute on chronic systolic heart failure Current Visit: Yes Status: Acute (2) Chronic atrial fibrillation Current Visit: Yes Status: Acute (3) History of CVA (cerebrovascular accident) Current Visit: Yes Status: Acute (4) Chronic kidney disease, stage 3 Current Visit: Yes Status: Acute (5) Hypertension Onset Date: 01/29/15 Current Visit: No Status: Acute - Plan Admit patient to the medical floor. Start IV Lasix for diuresis. Patient with EF of 10 to 15% on his last echocardiogram. Straight intake and output. Continue to trend troponin. Obtain echocardiogram. Bronchodilators p.r.n.. Continue Coumadin for AFib anticoagulation Monitor PT/INR. - Advance Directives Does patient have a Living Will: Yes Does patient have a Durable POA for Healthcare: Yes
[2020-10-14] MEDS: FUROSEMIDE 40 MG/4 ML VIAL IV SCH (20:03)
[2020-10-14] MEDS ORDERED: ONDANSETRON 4 MG/2 ML VIAL IV PRN (20:03)
[2020-10-14] MEDS ORDERED: WARFARIN SODIUM 5 MG TAB PO SCH (20:03)
[2020-10-14] MEDS: IPRATROPIUM BROM 0.5MG/2.5ML NEB SCH (20:45)
[2020-10-14] MEDS: ALBUTEROL 2.5 MG/3 ML NEB SOL NEB SCH (20:45)
[2020-10-14 21:09] VITALS: BMI 31.1
[2020-10-15] MEDS: ALBUTEROL 2.5 MG/3 ML NEB SOL NEB SCH ×3 (00:10→14:27)
[2020-10-15] MEDS: IPRATROPIUM BROM 0.5MG/2.5ML NEB SCH ×5 (00:10→16:00)
[2020-10-15 05:34] LABS: Absolute Lymphocytes (CBC) 0.5 K/uL (0.7-4.9); Basophils % 0.1 % (0-1.3); Hematocrit 35.6 % (39.6-49.0); MPV 8.1 fL (7.6-11.3); RBC Red Blood Cell Count 4.01 M/uL (4.33-5.43)
[2020-10-15 05:50] LABS: Magnesium 2.5 mg/dL (1.8-2.4); Phosphorus 3.9 mg/dL (2.5-4.9)
[2020-10-15 05:54] LABS: Protime INR 2.37
[2020-10-15 07:10] LABS: Blood Morphology Comment NOT SEEN (NOT SEEN); Platelet Estimate ADEQ; White Blood Cell Scan OK (OK)
[2020-10-15] MEDS ORDERED: PNEUMOCOCCAL VACCINE 0.5 ML IMVAC ONE (08:00)
[2020-10-15] MEDS: FUROSEMIDE 40 MG/4 ML VIAL IV SCH (08:07)
--- NOTE | 2020-10-15 08:19 | EKG ---
Test Date: 2020-10-14 Test Time: 12:13:43 Log Grader: HEMA MEASUREMENT RESULTS: Intervals: Rate: 96 PA: QRSD: 110 QT: 392 QTc: 495 [place]: P: PA: QRS: -46 T: 95 INTERPRETIVE STATEMENTS: Atrial fibrillation Left axis deviation Moderate voltage criteria for LVH, may be normal variant Possible Lateral infarct, age undetermined Inferior infarct, age undetermined Abnormal ECG Compared to ECG 07/11/2020 13:16:03 T-wave abnormality no longer present Possible ischemia no longer present Myocardial infarct finding still present Electronically Signed On 10-15-20 08:18:13 CDT by Toro Chadwick
[2020-10-15 12:41] VITALS: BP 125/67; TEMP 97.7
--- NOTE | 2020-10-15 14:34 | RAD REPORT ---
EXAM DESCRIPTION: RAD - Chest Single View - 10/15/2020 2:27 pm CLINICAL HISTORY: CHF Chest pain. COMPARISON: Chest Single View dated 10/14/2020; Chest Single View dated 07/11/2020; Chest Single View dated 06/30/2017; Chest Pa And Lat (2 Views) dated 07/28/2016 FINDINGS: Portable technique limits examination quality. Mild improvement in pulmonary edema pattern seen since the comparative study. The heart is moderately enlarged with a tortuous thoracic aorta. No displaced fractures. IMPRESSION: Mild improvement in CHF pattern since comparative examination.
--- NOTE | 2020-10-15 15:21 | P.DS ---
Admission Date: 10/14/20 Discharge Date: 10/15/20 Disposition: ROUTINE DISCHARGE Discharge Condition: FAIR Reason for Admission: Shortness of breath - Problems (1) Acute on chronic systolic heart failure Current Visit: Yes Status: Acute (2) Chronic atrial fibrillation Current Visit: Yes Status: Acute (3) History of CVA (cerebrovascular accident) Current Visit: Yes Status: Acute (4) Chronic kidney disease, stage 3 Current Visit: Yes Status: Acute (5) Hypertension Onset Date: 01/29/15 Current Visit: No Status: Acute Brief History of Present Illness: 85-year-old gentleman with a history of systolic heart failure was severe LV dysfunction, history of CVA with right-sided weakness, chronic atrial fibrillation Coumadin anticoagulation was brought to the emergency department due to progressive shortness of breath, associated with wheezing, coughing and congestion. Patient saw his PCP Dr. Alexander this morning who referred him to the emergency department. He denies any chest pain, or palpitation. Chest x-ray done in the ED demonstrated mild CHF, no acute infiltrate. Initial troponin negative. Patient given breathing treatment and IV Lasix in the ED. He was hospitalized for further management. Hospital Course: Patient placed under observation on the medical floor. His troponin trended negative. He was treated with IV Lasix for diuresis. Patient symptoms resolved with diuresis. He feels he is back to baseline. He denies any complain today. He is not orthopneic. Repeat chest x-ray shows improvement in the vascular congestion. Patient requested to go home. He is stable for discharge. No changes made in his home dose Lasix and other medications. Echocardiogram was done and the result is pending to be followed as an outpatient. Vital Signs/Physical Exam: Temp Pulse Resp BP Pulse Ox 97.7 F 108 H 22 H 125/67 94 10/15/20 12:00 10/15/20 12:00 10/15/20 12:00 10/15/20 12:00 10/15/20 12:00 General: Alert, In no apparent distress, Oriented x3 HEENT: Mucous membr. moist/pink Neck: JVD not distended Respiratory: Clear to auscultation bilaterally, Diminished Cardiovascular: No edema, Regular rate/rhythm, Normal S1 S2 Gastrointestinal: Normal bowel sounds, Soft and benign, Non-distended, No tender ness Musculoskeletal: No contractures, No tenderness Neurological: Other (Mild right-sided weakness.) Laboratory Data at Discharge: WBC 5.80 K/uL (4.3-10.9) 10/15/20 04:58 Hgb 12.2 g/dL (13.6-17.9) L 10/15/20 04:58 Hct 35.6 % (39.6-49.0) L 10/15/20 04:58 Plt Count 161 K/uL (152-406) 10/15/20 04:58 PT 27.5 SECONDS (9.5-12.5) H 10/15/20 04:58 INR 2.37 10/15/20 04:58 Sodium 144 mmol/L (136-145) 10/15/20 04:58 Potassium 4.0 mmol/L (3.5-5.1) 10/15/20 04:58 BUN 40 mg/dL (7-18) H 10/15/20 04:58 Creatinine 1.83 mg/dL (0.55-1.3) H 10/15/20 04:58 Glucose 163 mg/dL (74-106) H 10/15/20 04:58 Phosphorus 3.9 mg/dL (2.5-4.9) 10/15/20 04:58 Magnesium 2.5 mg/dL (1.8-2.4) H 10/15/20 04:58 Total Bilirubin 0.7 mg/dL (0.2-1.0) 10/14/20 12:20 AST 25 U/L (15-37) 10/14/20 12:20 ALT 25 U/L (12-78) 10/14/20 12:20 Alkaline Phosphatase 124 U/L (45-117) H 10/14/20 12:20 Troponin I 0.04 ng/mL (0.0-0.045) 10/15/20 00:52 Home Medications: Allopurinol 100 mg PO DAILY 01/28/15 Atorvastatin Calcium [Lipitor*] 10 mg PO BEDTIME 01/02/16 Losartan Potassium [Cozaar] 25 mg PO DAILY 6PM 01/02/16 Warfarin Sodium [Coumadin*] 3.5 mg PO DAILY 01/02/16 Furosemide [Lasix*] 80 mg PO DAILY #30 tab 01/06/16 Metoprolol Tartrate [Lopressor*] 25 mg PO DAILY 6PM 07/28/16 Pantoprazole [Protonix Tab*] 40 mg PO [id number] 07/28/16 Cranberry Fruit Concentrate [Azo Cranberry] 250 mg PO TID 10/14/20 L.acidoph,Paracsamsoni, B.lactis [Probiotic] 1 cap BREAKFAST 10/14/20 Mecobalamin [B12 Active] 5,000 mcg PO DAILY 10/14/20 Tamsulosin HCl [Flomax] 0.4 mg PO BEDTIME 10/14/20 Ubidecarenone/Vit E Acet [Co Q-10 100 mg Softgel] 100 mg PO BID 10/14/20 Furosemide [Lasix] 40 mg PO BEDTIME #30 10/15/20 New Medications: Furosemide [Lasix] 40 mg PO BEDTIME #30 Physician Discharge Instructions: Place adhere to low-salt diet and restrict fluid to 2000 mL per day. Diet: AHA Activity: Ad ina Followup: Jamie Nj MD [Primary Care Provider] - 1 Week
[2020-10-15 15:36] VITALS: O2SAT 96
--- NOTE | 2020-10-16 08:51 | ECHO ---
HEIGHT: 6 ft 0 in WEIGHT: 230 lb 0 oz DATE OF STUDY: 10/15/[address]: shae warner 2-DIMENSIONAL: YES M.MODE: YES DOPPLER: YES COLOR FLOW: YES TDS: NO PORTABLE: NO DEFINITY: NO BUBBLE STUDY: NO DIAGNOSIS: CONESTIVE HEART FAILURE EXACERBATION CARDIAC HISTORY: CATHERIZATION: NO SURGERY: NO PROSTHETIC VALVE: NO PACEMAKER: NO MEASUREMENTS (cm) DIASTOLIC (NORMALS) SYSTOLIC (NORMALS) IVSd 1.3 (0.6-1.2) LA Diam 3.4 (1.9-4.0) LVEF 24% LVIDd 5.5 (3.5-5.7) LVIDs 4.9 (2.0-3.5) %FS 11% LVPWd 1.3 (0.6-1.2) Ao Diam (2.0-3.7) 2 DIMENSIONAL ASSESSMENT: RIGHT ATRIUM: NORMAL LEFT ATRIUM: NORMAL RIGHT VENTRICLE: NORMAL LEFT VENTRICLE: NORMAL SIZE TRICUSPID VALVE: NORMAL MITRAL VALVE: NORMAL PULMONIC VALVE: NORMAL AORTIC VALVE: SCLEROSIS PERICARDIAL EFFUSION: NONE AORTIC ROOT: NORMAL LEFT VENTRICULAR WALL MOTION: SEVERE GLOBAL HYPOKINESIS. DOPPLER/COLOR FLOW: MILD MITRAL AND TRICUSPID REGURGITATION. COMMENTS: SEVERE GLOBAL HYPOKINESIS. MILD MITRAL AND TRICUSPID REGURGITATION. LEFT VENTRICULAR EJECTION FRACTION 20-25%. TECHNOLOGIST: Rui PANIAGUA
== END 2020-10-15 17:00 | disposition home or self-care (01) ==
LOC: ER 10:41 → ERHOLD 14:30 → 4TH 19:19
PROVIDERS: ADMIT Internal Medicine; ATTEND Internal Medicine
DX: I13.0 Hypertensive heart and chronic kidney disease with heart failure and stage 1 through stage 4 chronic kidney disease, or unspecified chronic kidney disease (principal); I50.23 Acute on chronic systolic (congestive) heart failure; N18.30 Chronic kidney disease, stage 3 unspecified; I48.20 Chronic atrial fibrillation, unspecified; I69.351 Hemiplegia and hemiparesis following cerebral infarction affecting right dominant side; Z79.01 Long term (current) use of anticoagulants; Z20.822 Contact with and (suspected) exposure to COVID-19; E78.00 Pure hypercholesterolemia, unspecified; M10.9 Gout, unspecified; Z96.653 Presence of artificial knee joint, bilateral
CPT/HCPCS: 93005; 93306; 85025 ×2; 80048 ×2; 36415; 83735 ×2; 84100; 85610 ×2; 80076; 81003; 84484 ×3; 83880; 71045 ×2; 97161; 97530 ×2; 94640; 94760 ×3; U0003; J1940 ×2; G0378 ×3; 96374; 99285; J7512

== ENCOUNTER 2022-10-14 11:36 | Inpatient (IN) | payer OTHER ==
--- OUTSIDE RECORDS SUMMARY | 2022-10-14 11:58 | XMS REPORT | Continuity of Care Document ---
:1935 Author Organization [facility] t Address [address] [place] [address] [address] [place] [address] Care Team Providers Name Role Phone Raymond Comer MD Primary Care Physician [phone] RAYMOND COMER Attending Clinician Unavailable FERNANDA VALENTINE Attending Clinician Unavailable MARIAMA CERVANTES Attending Clinician Unavailable Raymond Comer MD Attending Clinician CLEVELAND ROBLEDO Attending Clinician Unavailable CLEVELAND ROBLEDO Attending Clinician Unavailable Cleveland Robledo MD Attending Clinician Colin Roger Attending Clinician Unavailable Mariama Walton Attending Clinician Doctor Unassigned, [place] Attending Clinician Unavailable OSACR CHAPA Attending Clinician Unavailable ARLETTE GREEN Attending Clinician Unavailable [facility] Attending Clinician Unavailable Arlette Irvin Attending Clinician Jenn Gallegos MD Attending Clinician RAYMOND COMER Admitting Clinician Unavailable Payers Payer Name Policy Type Policy Number Effective Date Expiration Date [place] [employer] MEDICARE [id number] 2015 00:00:00 Problems Condition Condition Condition Status Onset Resolution Last Treating Co mments Source Name Details Category Date Date Treatment Clinician Date Acute Acute Disease Active Univers right-side right-side 3-12 it y of d [place] 00:[place] pain pain 00 Medical without without Branch sciatica sciatica No known No known Disease Unive rs active active ity of problems problems [facility] Allergies, Adverse Reactions, Alerts Allergy Allergy Status Severity Reaction(s) Onset Inactive Treating Comm ents Source Name Type Date Date Clinician NO KNOWN Drug Active Univers ALLERGIE Class ity of S [facility] Social History Social Habit Start Date Stop Date Quantity Comments Source History of Cigarette Smoker Universi ty of tobacco use [facility] Alcohol intake 2022-10-03 2022-10-03 Ex-drinker [facility] 00:00:00 00:00:00 (finding) [facility] Exposure to 2022-09-10 2022-09-20 Not sure [facility] SARS-CoV-2 00:00:00 12:32:00 [facility] (event) [place] Tobacco use and 2022-06-02 2022-06-02 Smokeless tobacco Un iversity of exposure 00:00:00 00:00:00 non-user [facility] Sex Assigned [birth year] Universit y of 00:00:00 00:00:00 [facility] Smoking Status Start Date Stop Date Source Ex-smoker 2022-06-02 00:00:00 2022-06-02 00:00:00 Universi of [facility] Medications Ordered Filled Start Stop Current Ordering Indication Dosage Frequency Signature Comments Components Source Medication Medication Date Date Medication? Clinician (SIG) Name Name warfarin Yes Take by Univer s sodium 5-23 mouth. 3.5 ity of ([place] 13[place] [facility] warfarin Yes Take by Univer s sodium 5-23 mouth. 3.5 ity of [place] 13:[place] [facility] warfarin Yes Take by Univer s sodium 5-23 mouth. 3.5 ity of [place] 13:[place] [facility] warfarin Yes Take by Univer s sodium 5-23 mouth. 3.5 ity of [place] 13:[place] [facility] warfarin Yes Take by Univer s sodium 5-23 mouth. 3.5 ity of ([place] 13:11: [place] 19 [facility] warfarin 2022-0 Yes Take by Univer s sodium 5-23 mouth. 3.5 ity of ([place] 13:11: [place] 19 [facility] warfarin 2022-0 Yes Take by Univer s sodium 5-23 mouth. 3.5 ity of ([place] 13:11: [place] 19 [facility] warfarin 2022-0 Yes Take by Univer s sodium 5-23 mouth. 3.5 ity of ([place] 13:11: [place] 19 [facility] warfarin 2022-0 Yes Take by Univer s sodium 5-23 mouth. 3.5 ity of ([place] 13:11: [place] 19 [facility] cephALEXin 2023-0 Yes [id number] 500mg Take 1 [facility] 500 mg 5-23 capsule by ity of capsule 00:00: mouth in [address] and 1 capsule at noon and 1 capsule in the evening. cephALEXin 2023-0 Yes [id number] 500mg Take 1 [facility] 500 mg 5-23 capsule by ity of capsule 00:00: mouth in [address] and 1 capsule at noon and 1 capsule in the evening. cephALEXin 2023-0 Yes [id number] 500mg Take 1 [facility] 500 mg 5-23 capsule by ity of capsule 00:00: mouth in [address] and 1 capsule at noon and 1 capsule in the evening. cephALEXin 2023-0 Yes [id number] 500mg Take 1 [facility] 500 mg 5-23 capsule by ity of capsule 00:00: mouth in [address] and 1 capsule at noon and 1 capsule in the evening. cephALEXin 2023-0 Yes [id number] 500mg Take 1 [facility] 500 mg 5-23 capsule by ity of capsule 00:00: mouth in [address] and 1 capsule at noon and 1 capsule in the evening. cephALEXin 2023-0 Yes [id number] 500mg Take 1 [facility] 500 mg 5-23 capsule by ity of capsule 00:00: mouth in [address] and 1 capsule at noon and 1 capsule in the evening. cephALEXin 2023-0 Yes [id number] 500mg Take 1 [facility] 500 mg 5-23 capsule by ity of capsule 00:00: mouth in [place] 00 the Medical morning Branch and 1 capsule at noon and 1 capsule in the evening. cephALEXin 3-0 Yes [id number] 500mg Take 1 [facility] 500 mg 5-23 capsule by ity of capsule 00:00: mouth in [place] 00 the Medical morning Branch and 1 capsule at noon and 1 capsule in the evening. cephALEXin 3-0 Yes [id number] 500mg Take 1 [facility] 500 mg 5-23 capsule by ity of capsule 00:00: mouth in [place] 00 the Medical morning Branch and 1 capsule at noon and 1 capsule in the evening. mirtazapine 2022-0 Yes [id number] 15mg Take 1 Univers 15 mg 5-15 tablet by ity of tablet 00:00: mouth at [place] [address] [facility] mirtazapine 2022-0 Yes [id number] 15mg Take 1 Univers 15 mg 5-15 tablet by ity of tablet 00:00: mouth at [place] [address] [facility] mirtazapine 2022-0 Yes [id number] 15mg Take 1 Univers 15 mg 5-15 tablet by ity of tablet 00:00: mouth at [place] [address] [facility] mirtazapine 2022-0 Yes [id number] 15mg Take 1 Univers 15 mg 5-15 tablet by ity of tablet 00:00: mouth at [place] [address] [facility] mirtazapine 2022-0 Yes [id number] 15mg Take 1 Univers 15 mg 5-15 tablet by ity of tablet 00:00: mouth at [place] [address] [facility] mirtazapine 2022-0 3- No [id number] 15mg Take 1 Univers 15 mg 5-15 05-23 tablet by ity of tablet 00:00: 00:00 mouth at [place] 00 :[address] [facility] mirtazapine 2022-0 3- No [id number] 15mg Take 1 Univers 15 mg 5-15 05-23 tablet by ity of tablet 00:00: 00:00 mouth at [place] 00 :[address] [facility] mirtazapine 3-0 2023- No [id number] 15mg Take 1 Univers 15 mg 5-15 05-23 tablet by ity of tablet 00:00: 00:00 mouth at [place] 00 :00 bedtime. Medical Branch furosemide 2023-0 2023- No 40mg Take 40 mg Univers 40 mg 06-02 by mouth. ity of tablet 11:41: 00:00 Takes 80 [place] 48 :00 mg am and Medical 40 mg Branch afternoon furosemide 2023-0 2023- No 40mg Take 40 mg Univers 40 mg 06-02 by mouth. ity of tablet 11:41: 00:00 Takes 80 [place] 48 :00 mg am and Medical 40 mg Branch afternoon furosemide 2023-0 Yes 40mg Take 1 Unive rs 40 mg 2-02 tablet by ity of tablet 00:00: mouth. 00 Takes 80 Medical mg am and Branch 40 mg afternoon Take 40 mg by mouth. Takes 80 mg am and 40 mg afternoon furosemide 2023-0 Yes 40mg Take 1 Unive rs 40 mg 2-02 tablet by ity of tablet 00:00: mouth. [place] 00 Takes 80 Medical mg am and Branch 40 mg afternoon Take 40 mg by mouth. Takes 80 mg am and 40 mg afternoon furosemide 2023-0 Yes 40mg Take 1 Unive rs 40 mg 2-02 tablet by ity of tablet 00:00: mouth. [place] 00 Takes 80 Medical mg am and Branch 40 mg afternoon Take 40 mg by mouth. Takes 80 mg am and 40 mg afternoon furosemide 2023-0 Yes 40mg Take 1 Unive rs 40 mg 2-02 tablet by ity of tablet 00:00: mouth. [place] 00 Takes 80 Medical mg am and Branch 40 mg afternoon Take 40 mg by mouth. Takes 80 mg am and 40 mg afternoon furosemide 2023-0 Yes 40mg Take 1 Unive rs 40 mg 2-02 tablet by ity of tablet 00:00: mouth. [place] 00 Takes 80 Medical mg am and Branch 40 mg afternoon Take 40 mg by mouth. Takes 80 mg am and 40 mg afternoon furosemide 2023-0 Yes 40mg Take 1 Unive rs 40 mg 2-02 tablet by ity of tablet 00:00: mouth. [place] 00 Takes 80 Medical mg am and Branch 40 mg afternoon Take 40 mg by mouth. Takes 80 mg am and 40 mg afternoon furosemide 2023-0 Yes 40mg Take 1 Unive rs 40 mg 2-02 tablet by ity of tablet 00:00: mouth. [place] 00 Takes 80 Medical mg am and Branch 40 mg afternoon Take 40 mg by mouth. Takes 80 mg am and 40 mg afternoon furosemide 2023-0 Yes 40mg Take 1 Unive rs 40 mg 2-02 tablet by ity of tablet 00:00: mouth. 00 Takes 80 Medical mg am and Branch 40 mg afternoon Take 40 mg by mouth. Takes 80 mg am and 40 mg afternoon furosemide 2023-0 Yes 40mg Take 1 Unive rs 40 mg 2-02 tablet by ity of tablet 00:00: mouth. Takes 80 Medical mg am and Branch 40 mg afternoon Take 40 mg by mouth. Takes 80 mg am and 40 mg afternoon furosemide 2023-0 Yes 40mg Take 1 Unive rs 40 mg 2-02 tablet by ity of tablet 00:00: mouth. Takes 80 Medical mg am and Branch 40 mg afternoon Take 40 mg by mouth. Takes 80 mg am and 40 mg afternoon furosemide 2023-0 Yes 40mg Take 1 Unive rs 40 mg 2-02 tablet by ity of tablet 00:00: mouth. Takes 80 Medical mg am and Branch 40 mg afternoon Take 40 mg by mouth. Takes 80 mg am and 40 mg afternoon furosemide 2023-0 Yes 40mg Take 1 Unive rs 40 mg 2-02 tablet by ity of tablet 00:00: mouth. Takes 80 Medical mg am and Branch 40 mg afternoon Take 40 mg by mouth. Takes 80 mg am and 40 mg afternoon furosemide 2023-0 Yes 40mg Take 1 Unive rs 40 mg 2-02 tablet by ity of tablet 00:00: mouth. Takes 80 Medical mg am and Branch 40 mg afternoon Take 40 mg by mouth. Takes 80 mg am and 40 mg afternoon furosemide 2023-0 Yes 40mg Take 1 Unive rs 40 mg 2-02 tablet by ity of tablet 00:00: mouth. Takes 80 Medical mg am and Branch 40 mg afternoon Take 40 mg by mouth. Takes 80 mg am and 40 mg afternoon furosemide 2023-0 Yes 40mg Take 1 Unive rs 40 mg 2-02 tablet by ity of tablet 00:00: mouth. Takes 80 Medical mg am and Branch 40 mg afternoon Take 40 mg by mouth. Takes 80 mg am and 40 mg afternoon furosemide 2023-0 Yes 40mg Take 1 Unive rs 40 mg 2-02 tablet by ity of tablet 00:00: mouth. Takes 80 Medical mg am and Branch 40 mg afternoon Take 40 mg by mouth. Takes 80 mg am and 40 mg afternoon furosemide 2023-0 Yes 40mg Take 1 Unive rs 40 mg 2-02 tablet by ity of tablet 00:00: mouth. Takes 80 Medical mg am and Branch 40 mg afternoon Take 40 mg by mouth. Takes 80 mg am and 40 mg afternoon furosemide 3-0 Yes 40mg Take 1 Unive rs 40 mg 2-02 tablet by ity of tablet 00:00: mouth. Takes 80 Medical mg am and Branch 40 mg afternoon Take 40 mg by mouth. Takes 80 mg am and 40 mg afternoon furosemide 3-0 Yes 40mg Take 1 Unive rs 40 mg 2-02 tablet by ity of tablet 00:00: mouth. Takes 80 Medical mg am and Branch 40 mg afternoon Take 40 mg by mouth. Takes 80 mg am and 40 mg afternoon furosemide 3-0 Yes 40mg Take 1 Unive rs 40 mg 2-02 tablet by ity of tablet 00:00: mouth. Takes 80 Medical mg am and Branch 40 mg afternoon Take 40 mg by mouth. Takes 80 mg am and 40 mg afternoon furosemide 3-0 Yes 40mg Take 1 Unive rs 40 mg 2-02 tablet by ity of tablet 00:00: mouth. Takes 80 Medical mg am and Branch 40 mg afternoon Take 40 mg by mouth. Takes 80 mg am and 40 mg afternoon furosemide 3-0 Yes 40mg Take 1 Unive rs 40 mg 2-02 tablet by ity of tablet 00:00: mouth. Takes 80 Medical mg am and Branch 40 mg afternoon Take 40 mg by mouth. Takes 80 mg am and 40 mg afternoon furosemide 3-0 Yes 40mg Take 1 Unive rs 40 mg 2-02 tablet by ity of tablet 00:00: mouth. Takes 80 Medical mg am and Branch 40 mg afternoon Take 40 mg by mouth. Takes 80 mg am and 40 mg afternoon cefUROXime 2020-05- No 500mg Take 1 Uni vers 500 mg 2-30 - tablet by ity of tablet 00:00: 05:59 mouth 2 [place] 00 :00 (two) Medical times Branch daily for 10 days. benzonatate 2020- No [id number] 100mg Take 1 Univers (TESSALON 6-14 - capsule by ity of [place]) 100 00:00: 04:59 mouth 3 [place] mg capsule 00 :00 (three) Medica l times Branch daily for 14 days. benzonatate 2020- No [id number] 100mg Take 1 Univers (TESSALON 6-14 -29 capsule by itdave of [place]) 100 00:00: 04:59 mouth 3 [place] mg capsule 00 :00 (three) Medica l times Branch daily for 14 days. benzonatate 2020- No [id number] 100mg Take 1 Univers (TESSALON 6-14 - capsule by itdave of [place]) 100 00:00: 04:59 mouth 3 [place] mg capsule 00 :00 (three) Medica l times Branch daily for 14 days. benzonatate 2020- No [id number] 100mg Take 1 Univers (TESSALON 610-27 capsule by itdave [place]) 100 00:00: 04:59 mouth 3 [place] mg capsule 00 :00 (three) Medica l times Branch daily for 14 days. azithromyci Yes [id number] 500mg Take 1 Univers n 500 mg 6-11 tablet by ity of tablet 00:00: mouth [place] 00 daily. Medical Branch azithromyci 0 Yes [id number] 500mg Take 1 Univers n 500 mg 6-11 tablet by ity of tablet 00:00: mouth [place] 00 daily. Medical Branch azithromyci 0 Yes [id number] 500mg Take 1 Univers n 500 mg 6-11 tablet by ity of tablet 00:00: mouth [place] 00 daily. Medical Branch azithromyci 0 Yes [id number] 500mg Take 1 Univers n 500 mg 6-11 tablet by ity of tablet 00:00: mouth [place] 00 daily. Medical Branch azithromyci 0 Yes [id number] 500mg Take 1 Univers n 500 mg 6-11 tablet by ity of tablet 00:00: mouth [place] 00 daily. Medical Branch azithromyci 0 Yes [id number] 500mg Take 1 Univers n 500 mg 6-11 tablet by ity of tablet 00:00: mouth [place] 00 daily. Medical Branch azithromyci 2020-0 Yes [id number] 500mg Take 1 Univers n 500 mg 6-11 tablet by ity of tablet 00:00: mouth [place] 00 daily. [facility] 2020-0 Yes [id number] 500mg Take 1 Univers n 500 mg 6-11 tablet by ity of tablet 00:00: mouth [place] [address] [facility] 2020-0 Yes [id number] 500mg Take 1 Univers n 500 mg 6-11 tablet by ity of tablet 00:00: mouth [place] 00 daily. [facility] 2020-0 Yes [id number] 500mg Take 1 Univers n 500 mg 6-11 tablet by ity of tablet 00:00: mouth [place] 00 daily. [facility] 2020-0 Yes [id number] 500mg Take 1 Univers n 500 mg 6-11 tablet by ity of tablet 00:00: mouth [place] 00 daily. [facility] 2020-0 Yes [id number] 500mg Take 1 Univers n 500 mg 6-11 tablet by ity of tablet 00:00: mouth [place] 00 daily. [facility] 2020-0 Yes [id number] 500mg Take 1 Univers n 500 mg 6-11 tablet by ity of tablet 00:00: mouth [place] 00 daily. [facility] 2020-0 Yes [id number] 500mg Take 1 Univers n 500 mg 6-11 tablet by ity of tablet 00:00: mouth [place] 00 daily. [facility] 2020-0 Yes [id number] 500mg Take 1 Univers n 500 mg 6-11 tablet by ity of tablet 00:00: mouth [place] 00 daily. [facility] 2020-0 Yes [id number] 500mg Take 1 Univers n 500 mg 6-11 tablet by ity of tablet 00:00: mouth [place] 00 daily. [facility] 2020-0 Yes [id number] 500mg Take 1 Univers n 500 mg 6-11 tablet by ity of tablet 00:00: mouth [place] 00 daily. [facility] 2020-0 Yes [id number] 500mg Take 1 Univers n 500 mg 6-11 tablet by ity of tablet 00:00: mouth [place] 00 daily. [facility] 2020-0 Yes [id number] 500mg Take 1 Univers n 500 mg 6-11 tablet by ity of tablet 00:00: mouth [place] 00 daily. Medical Branch azithromyci 2020-3- No [id number] 500mg Take 1 Univers n 500 mg 606-02 tablet by ity o f tablet 00:00: 00:00 mouth [place] 00 :00 daily. Medical Branch azithromyci 3- No [id number] 500mg Take 1 Univers n 500 mg 606-02 tablet by ity o f tablet 00:00: 00:00 mouth [place] 00 :00 daily. Medical Branch collagenase 2020-0 Yes [id number] Apply to Univers 250 4-07 affected ity of unit/gram 00:00: area(s) 2 [place] ointment 00 (two) Medical times Branch daily. collagenase 2020-0 Yes [id number] Apply to Univers 250 4-07 affected ity of unit/gram 00:00: area(s) 2 [place] ointment 00 (two) Medical times Branch daily. collagenase 2020-0 Yes [id number] Apply to Univers 250 4-07 affected ity of unit/gram 00:00: area(s) 2 [place] ointment 00 (two) Medical times Branch daily. collagenase 2020-0 Yes [id number] Apply to Univers 250 4-07 affected ity of unit/gram 00:00: area(s) 2 [place] ointment 00 (two) Medical times Branch daily. collagenase 2020-0 Yes [id number] Apply to Univers 250 4-07 affected ity of unit/gram 00:00: area(s) 2 [place] ointment 00 (two) Medical times Branch daily. collagenase 2020-0 Yes [id number] Apply to Univers 250 4-07 affected ity of unit/gram 00:00: area(s) 2 [place] as ointment 00 (two) Medical times Branch daily. collagenase 2020-0 Yes [id number] Apply to Univers 250 4-07 affected ity of unit/gram 00:00: area(s) 2 [place] as ointment 00 (two) Medical times Branch daily. collagenase 2020-0 Yes [id number] Apply to Univers 250 4-07 affected ity of unit/gram 00:00: area(s) 2 [place] ointment 00 (two) Medical times Branch daily. collagenase 2020-0 Yes [id number] Apply to Univers 250 4-07 affected ity of unit/gram 00:00: area(s) 2 [place] ointment 00 (two) Medical times Branch daily. collagenase 2020-0 Yes [id number] Apply to Univers 250 4-07 affected ity of unit/gram 00:00: area(s) 2 [place] as ointment 00 (two) Medical times Branch daily. collagenase 2020-0 Yes [id number] Apply to Univers 250 4-07 affected ity of unit/gram 00:00: area(s) 2 [place] as ointment 00 (two) Medical times Branch daily. collagenase 2020-0 Yes [id number] Apply to Univers 250 4-07 affected ity of unit/gram 00:00: area(s) 2 [place] ointment 00 (two) Medical times Branch daily. collagenase 2020-0 Yes [id number] Apply to Univers 250 4-07 affected ity of unit/gram 00:00: area(s) 2 [place] ointment 00 (two) Medical times Branch daily. collagenase 2020-0 Yes [id number] Apply to Univers 250 4-07 affected ity of unit/gram 00:00: area(s) 2 [place] oint[place] 00 (two) Medical times Branch daily. collagenase 2020-0 Yes [id number] Apply to Univers 250 4-07 affected ity of unit/gram 00:00: area(s) 2 [place] oint[place] 00 (two) Medical times Branch daily. collagenase 2020-0 Yes [id number] Apply to Univers 250 4-07 affected ity of unit/gram 00:00: area(s) 2 [place] oint[place] 00 (two) Medical times Branch daily. collagenase 2020-0 Yes [id number] Apply to Univers 250 4-07 affected ity of unit/gram 00:00: area(s) 2 [place] ointment 00 (two) Medical times Branch daily. collagenase 2020-0 Yes [id number] Apply to Univers 250 4-07 affected ity of unit/gram 00:00: area(s) 2 [place] ointment 00 (two) Medical times Branch daily. collagenase 202-0 Yes [id number] Apply to Univers 250 4-07 affected ity of unit/gram 00:00: area(s) 2 [place] as ointment 00 (two) Medical times Branch daily. collagenase 202-0 Yes [id number] Apply to Univers 250 4-07 affected ity of unit/gram 00:00: area(s) 2 [place]x as ointment 00 (two) Medical times Branch daily. collagenase 2020-0 Yes [id number] Apply to Univers 250 4-07 affected ity of unit/gram 00:00: area(s) 2 [place]x as ointment 00 (two) Medical times Branch daily. collagenase 0 Yes [id number] Apply to Univers 250 4-07 affected ity of unit/gram 00:00: area(s) 2 [place] as ointment 00 (two) Medical times Branch daily. collagenase 0 Yes [id number] Apply to Univers 250 4-07 affected ity of unit/gram 00:00: area(s) 2 Maxx as ointment 00 (two) Medical times Branch daily. collagenase 0 Yes [id number] Apply to [facility] 250 4-07 affected ity of unit/gram 00:00: area(s) 2 Maxx as ointment 00 (two) Medical times Branch daily. collagenase 0 Yes [id number] Apply to Univers 250 4-07 affected ity of unit/gram 00:00: area(s) 2 Maxx as ointment 00 (two) Medical times Branch daily. collagenase 0 Yes [id number] Apply to [facility] 250 4-07 affected ity of unit/gram 00:00: area(s) 2 Maxx as ointment 00 (two) Medical times Branch daily. collagenase 0 Yes [id number] Apply to [facility] 250 4-07 affected ity of unit/gram 00:00: area(s) 2 Maxx as ointment 00 (two) Medical times Branch daily. collagenase 2020-0 2022- No [id number] Apply to [place] [address] 4-07 -02 affected ity of unit/gram 00:00: 00:00 area(s) 2 [place] ointment 00 :00 (two) Medical times Branch daily. collagenase 2020-0 2022- No [id number] Apply to [place] [address] 4-07 -02 affected ity of unit/gram 00:00: 00:00 area(s) 2 [place] ointment 00 :00 (two) Medical times Branch daily. methocarbam 2020-0 Yes [id number] 500mg Take 1 Univers oL 500 mg 3-12 tablet by ity o f tablet 00:00: mouth (three) Medical times Branch daily as needed (back pain). methocarbam 2020-0 Yes [id number] 500mg Take 1 Univers oL 500 mg 3-12 tablet by ity o f tablet 00:00: mouth 3 (three) Medical times Branch daily as needed (back pain). methocarbam 2020-0 Yes [id number] 500mg Take 1 Univers oL 500 mg 3-12 tablet by ity o f tablet 00:00: mouth (three) Medical times Branch daily as needed (back pain). methocarbam 2020-0 Yes [id number] 500mg Take 1 Univers oL 500 mg 3-12 tablet by ity o f tablet 00:00: mouth (three) Medical times Branch daily as needed (back pain). methocarbam 2020-0 Yes [id number] 500mg Take 1 Univers oL 500 mg 3-12 tablet by ity o f tablet 00:00: mouth (three) Medical times Branch daily as needed (back pain). methocarbam 2020-0 Yes [id number] 500mg Take 1 Univers oL 500 mg 3-12 tablet by ity o f tablet 00:00: mouth (three) Medical times Branch daily as needed (back pain). methocarbam 2020-0 Yes [id number] 500mg Take 1 Univers oL 500 mg 3-12 tablet by ity o f tablet 00:00: mouth (three) Medical times Branch daily as needed (back pain). methocarbam 2020-0 Yes [id number] 500mg Take 1 Univers oL 500 mg 3-12 tablet by ity o f tablet 00:00: mouth (three) Medical times Branch daily as needed (back pain). methocarbam 2020-0 Yes [id number] 500mg Take 1 Univers oL 500 mg 3-12 tablet by ity o f tablet 00:00: mouth (three) Medical times Branch daily as needed (back pain). methocarbam 1-0 Yes [id number] 500mg Take 1 Univers oL 500 mg 3-12 tablet by ity o f tablet 00:00: mouth (three) Medical times Branch daily as needed (back pain). methocarbam 2020-0 Yes [id number] 500mg Take 1 Univers oL 500 mg 3-12 tablet by ity o f tablet 00:00: mouth (three) Medical times Branch daily as needed (back pain). methocarbam 2020-0 Yes [id number] 500mg Take 1 Univers oL 500 mg 3-12 tablet by ity o f tablet 00:00: mouth 3 (three) Medical times Branch daily as needed (back pain). methocarbam 2020-0 Yes [id number] 500mg Take 1 Univers oL 500 mg 3-12 tablet by ity o f tablet 00:00: mouth (three) Medical times Branch daily as needed (back pain). methocarbam 2020-0 Yes [id number] 500mg Take 1 Univers oL 500 mg 3-12 tablet by ity o f tablet 00:00: mouth (three) Medical times Branch daily as needed (back pain). methocarbam 2020-0 Yes [id number] 500mg Take 1 Univers oL 500 mg 3-12 tablet by ity o f tablet 00:00: mouth (three) Medical times Branch daily as needed (back pain). methocarbam 2020-0 Yes [id number] 500mg Take 1 Univers oL 500 mg 3-12 tablet by ity o f tablet 00:00: mouth (three) Medical times Branch daily as needed (back pain). methocarbam 2020-0 Yes [id number] 500mg Take 1 Univers oL 500 mg 3-12 tablet by ity o f tablet 00:00: mouth (three) Medical times Branch daily as needed (back pain). methocarbam 2020-0 Yes [id number] 500mg Take 1 [facility] oL 500 mg 3-12 tablet by ity o f tablet 00:00: mouth (three) Medical times Branch daily as needed (back pain). methocarbam 2020-0 Yes [id number] 500mg Take 1 [facility] oL 500 mg 3-12 tablet by ity o f tablet 00:00: mouth (three) Medical times Branch daily as needed (back pain). methocarbam 1-0 Yes [id number] 500mg Take 1 Univers oL 500 mg 3-12 tablet by ity o f tablet 00:00: mouth (three) Medical times Branch daily as needed (back pain). methocarbam 2020-0 Yes [id number] 500mg Take 1 Univers oL 500 mg 3-12 tablet by ity o f tablet 00:00: mouth (three) Medical times Branch daily as needed (back pain). methocarbam 2020-0 Yes [id number] 500mg Take 1 [facility] oL 500 mg 3-12 tablet by ity o f tablet 00:00: mouth (three) Medical times Branch daily as needed (back pain). methocarbam 2020-0 Yes [id number] 500mg Take 1 [facility] oL 500 mg 3-12 tablet by ity o f tablet 00:00: mouth (three) Medical times Branch daily as needed (back pain). methocarbam 1-0 Yes [id number] 500mg Take 1 [facility] 500 mg 3-12 tablet by [facility] o f tablet 00:00: mouth (three) Medical times Branch daily as needed (back pain). methocarbam 2020-0 Yes [id number] 500mg Take 1 [facility] o[facility] 500 mg 3-12 tablet by [facility] o f tablet 00:00: mouth (three) Medical times Branch daily as needed (back pain). methocarbam 2020-0 Yes [id number] 500mg Take 1 [facility] o[facility] 500 mg 3-12 tablet by [facility] o f tablet 00:00: mouth (three) Medical times Branch daily as needed (back pain). methocarbam 1-0 Yes [id number] 500mg Take 1 [facility] o[facility] 500 mg 3-12 tablet by [facility]y o f tablet 00:00: mouth (three) Medical times Branch daily as needed (back pain). methocarbam 1-0 Yes [id number] 500mg Take 1 [facility] oL 500 mg 3-12 tablet by ity o f tablet 00:00: mouth (three) Medical times Branch daily as needed (back pain). methocarbam 2021-0 Yes [id number] 500mg Take 1 [facility] o[facility] 500 mg 3-12 tablet by ity o f tablet 00:00: mouth (three) Medical times Branch daily as needed (back pain). methocarbam 1-0 Yes [id number] 500mg Take 1 [facility] o[facility] 500 mg 3-12 tablet by ity o f tablet 00:00: mouth 3 (three) Medical times Branch daily as needed (back pain). methocarbam 2020-0 Yes [id number] 500mg Take 1 [facility] o[facility] 500 mg 3-12 tablet by [facility]y o f tablet 00:00: mouth 3 (three) Medical times Branch daily as needed (back pain). methocarbam 2020-0 Yes [id number] 500mg Take 1 [facility] o[facility] 500 mg 3-12 tablet by ity o f tablet 00:00: mouth (three) Medical times Branch daily as needed (back pain). methocarbam 2020-0 Yes [id number] 500mg Take 1 [facility] o[facility] 500 mg 3-12 tablet by ity o f tablet 00:00: mouth (three) Medical times Branch daily as needed (back pain). methocarbam 2020-0 Yes [id number] 500mg Take 1 [facility] o[facility] 500 mg 3-12 tablet by ity o f tablet 00:00: mouth (three) Medical times Branch daily as needed (back pain). methocarbam 2020-0 Yes [id number] 500mg Take 1 [facility] o[facility] 500 mg 3-12 tablet by ity o f tablet 00:00: mouth (three) Medical times Branch daily as needed (back pain). methocarbam 2020-0 Yes [id number] 500mg Take 1 [facility] o[facility] 500 mg 3-12 tablet by ity o f tablet 00:00: mouth (three) Medical times Branch daily as needed (back pain). methocarbam 2020-0 Yes [id number] 500mg Take 1 [facility] o[facility] 500 mg 3-12 tablet by ity o f tablet 00:00: mouth (three) Medical times Branch daily as needed (back pain). methocarbam 2020-0 Yes [id number] 500mg Take 1 [facility] o[facility] 500 mg 3-12 tablet by [facility]y o f tablet 00:00: mouth (three) Medical times Branch daily as needed (back pain). methocarbam 2020-0 Yes [id number] 500mg Take 1 [facility] o[facility] 500 mg 3-12 tablet by ity o f tablet 00:00: mouth (three) Medical times Branch daily as needed (back pain). methocarbam 2020-0 Yes [id number] 500mg Take 1 [facility] o[facility] 500 mg 3-12 tablet by ity o f tablet 00:00: mouth 3 (three) Medical times Branch daily as needed (back pain). methocarbam 2020-0 Yes [id number] 500mg Take 1 [facility] o[facility] 500 mg 3-12 tablet by [facility]y o f tablet 00:00: mouth 3 00 (three) Medical times Branch daily as needed (back pain). methocarbam 2020-0 Yes [id number] 500mg Take 1 [facility] o[facility] 500 mg 3-12 tablet by ity o f tablet 00:00: mouth 3 00 (three) Medical times Branch daily as needed (back pain). methocarbam 2020-0 Yes [id number] 500mg Take 1 [facility] o[facility] 500 mg 3-12 tablet by ity o f tablet 00:00: mouth 3 (three) Medical times Branch daily as needed (back pain). methocarbam 2020-0 Yes [id number] 500mg Take 1 [facility] o[facility] 500 mg 3-12 tablet by ity o f tablet 00:00: mouth (three) Medical times Branch daily as needed (back pain). methocarbam 0 Yes [id number] 500mg Take 1 [facility] o[facility] 500 mg 3-12 tablet by ity o f tablet 00:00: mouth (three) Medical times Branch daily as needed (back pain). methocarbam 2020-0 Yes [id number] 500mg Take 1 [facility] o[facility] 500 mg 3-12 tablet by ity o f tablet 00:00: mouth 3 (three) Medical times Branch daily as needed (back pain). methocarbam 0 3- No [id number] 500mg Take 1 [facility] o[facility] 500 mg 3-12 02-02 tablet by ity of tablet 00:00: 00:00 mouth 3 [place] 00 :00 (three) Medical times Branch daily as needed (back pain). methocarbam 2020-0 3- No [id number] 500mg Take 1 [facility] o[facility] 500 mg 3-12 02-02 tablet by ity of tablet 00:00: 00:00 mouth 3 [place] 00 :00 (three) Medical times Branch daily as needed (back pain). ketorolac 2021-0 2021- No 15mg 15 mg, [facility] rs (TORADOL) 07-05- Slow IV ity of injection 21:45: 20:50 Push, [place] 15 mg 00 :00 ONCE, 1 Medical dose, [place] [facility] 07/05/20 at 1545, HIGINIO
[facility] member approving Restricted medication : JENN GALLEGOS methocarbam Yes [id number] 500mg Take 1 [facility] oL 500 mg - tablet by ity o f tablet 00:00: mouth 4 [place] 00 (four) Medical times Branch daily. predniSONE Yes [id number] 10mg Take 1 [facility] 10 mg - tablet by ity of tablet 00:00: mouth [place] 00 daily. Medical Branch methocarbam 2020- No [id number] 500mg Take 1 [facility] oL 500 mg 07-05-12 tablet by ity of tablet 00:00: 00:00 mouth 4 [place] 00 :00 (four) Medical times Branch daily. predniSONE 2020- No [id number] 10mg Take 1 [facility] 10 mg 07-05-12 tablet by ity of tablet 00:00: 00:00 mouth [place] 00 :00 daily. Medical Branch methocarbam 2020- No [id number] 500mg Take 1 [facility] oL 500 mg 07-05- tablet by ity of tablet 00:00: 00:00 mouth 4 [place] 00 :00 (four) Medical times Branch daily. predniSONE 2020- No [id number] 10mg Take 1 [facility] 10 mg 07-05-12 tablet by ity of tablet 00:00: 00:00 mouth [place] 00 :00 daily. Medical Branch cephALEXin 2020- No [id number] 500mg Take 1 [facility] 500 mg 11-15- capsule by ity of capsule 00:00: 04:59 mouth 2 [place] 00 :00 (two) Medical times Branch daily for 7 days. atorvastati Yes 10mg Take 10 mg [facility] n 10 mg 3-10 by mouth ity of tablet 14:51: at [place] 15 bedtime. Medical Branch atorvastati Yes 10mg Take 10 mg [facility] n 10 mg 3-10 by mouth ity of tablet 14:51: at [place] 15 bedtime. Medical Branch atorvastati 2020-0 Yes 10mg Take 10 mg [facility] n 10 mg 3-10 by mouth ity of tablet 14:51: at [place] 15 bedtime. Medical Branch atorvastati 2020-0 Yes 10mg Take 10 mg [facility] n 10 mg 3-10 by mouth ity of tablet 14:51: at [place] 15 bedtime. Medical Branch atorvastati 2020-0 Yes 10mg Take 10 mg [facility] n 10 mg 3-10 by mouth ity of tablet 14:51: at [place] 15 bedtime. Medical Branch atorvastati 2020-0 Yes 10mg Take 10 mg [facility] n 10 mg 3-10 by mouth ity of tablet 14:51: at [place] 15 bedtime. Medical Branch atorvastati 2020-0 Yes 10mg Take 10 mg [facility] n 10 mg 3-10 by mouth ity of tablet 14:51: at [place] 15 bedtime. Medical Branch atorvastati 2020-0 Yes 10mg Take 10 mg [facility] n 10 mg 3-10 by mouth ity of tablet 14:51: at [place] 15 bedtime. Medical Branch atorvastati 2020-0 Yes 10mg Take 10 mg [facility] n 10 mg 3-10 by mouth ity of tablet 14:51: at [place] 15 bedtime. Medical Branch atorvastati 2020-0 Yes 10mg Take 10 mg [facility] n 10 mg 3-10 by mouth ity of tablet 14:51: at [place] 15 bedtime. Medical Branch atorvastati 2020-0 Yes 10mg Take 10 mg [facility] n 10 mg 3-10 by mouth ity of tablet 14:51: at [place] 15 bedtime. Medical Branch atorvastati 2020-0 Yes 10mg Take 10 mg [facility] n 10 mg 3-10 by mouth ity of tablet 14:51: at [place] 15 bedtime. Medical Branch atorvastati 2020-0 Yes 10mg Take 10 mg [facility] n 10 mg 3-10 by mouth ity of tablet 14:51: at [place] 15 bedtime. Medical Branch atorvastati 2020-0 Yes 10mg Take 10 mg [facility] n 10 mg 3-10 by mouth ity of tablet 14:51: at [place] 15 bedtime. Medical Branch atorvastati 2020-0 Yes 10mg Take 10 mg [facility] n 10 mg 3-10 by mouth ity of tablet 14:51: at [place] 15 bedtime. Medical Branch atorvastati 2020-0 Yes 10mg Take 10 mg [facility] n 10 mg 3-10 by mouth ity of tablet 14:51: at [place] 15 bedtime. Medical Branch atorvastati 2020-0 Yes 10mg Take 10 mg [facility] n 10 mg 3-10 by mouth ity of tablet 14:51: at [place] 15 bedtime. Medical Branch atorvastati 2020-0 Yes 10mg Take 10 mg [facility] n 10 mg 3-10 by mouth ity of tablet 14:51: at [place] 15 bedtime. Medical Branch atorvastati 2020-0 Yes 10mg Take 10 mg [facility] n 10 mg 3-10 by mouth ity of tablet 14:51: at [place] 15 bedtime. Medical Branch atorvastati 2020-0 Yes 10mg Take 10 mg [facility] n 10 mg 3-10 by mouth ity of tablet 14:51: at [place] 15 bedtime. Medical Branch atorvastati 2020-0 Yes 10mg Take 10 mg [facility] n 10 mg 3-10 by mouth ity of tablet 14:51: at [place] 15 bedtime. Medical Branch atorvastati 2020-0 Yes 10mg Take 10 mg [facility] n 10 mg 3-10 by mouth ity of tablet 14:51: at [place] 15 bedtime. Medical Branch atorvastati 2020-0 Yes 10mg Take 10 mg [facility] n 10 mg 3-10 by mouth ity of tablet 14:51: at [place] 15 bedtime. Medical Branch atorvastati 2020-0 Yes 10mg Take 10 mg [facility] n 10 mg 3-10 by mouth ity of tablet 14:51: at [place] 15 bedtime. Medical Branch atorvastati 2020-0 Yes 10mg Take 10 mg [facility] n 10 mg 3-10 by mouth ity of tablet 14:51: at [place] 15 bedtime. Medical Branch atorvastati 2020-0 Yes 10mg Take 10 mg [facility] n 10 mg 3-10 by mouth ity of tablet 14:51: at [place] 15 bedtime. Medical Branch atorvastati 2020-0 Yes 10mg Take 10 mg [facility] n 10 mg 3-10 by mouth ity of tablet 14:51: at [place] 15 bedtime. Medical Branch atorvastati 2020-0 Yes 10mg Take 10 mg [facility] n 10 mg 3-10 by mouth ity of tablet 14:51: at [place] 15 bedtime. Medical Branch atorvastati 2020-0 Yes 10mg Take 10 mg [facility] n 10 mg 3-10 by mouth ity of tablet 14:51: at [place] 15 bedtime. Medical Branch atorvastati 2020-0 Yes 10mg Take 10 mg [facility] n 10 mg 3-10 by mouth ity of tablet 14:51: at [place] 15 bedtime. Medical Branch atorvastati 2020-0 Yes 10mg Take 10 mg [facility] n 10 mg 3-10 by mouth ity of tablet 14:51: at [place] 15 bedtime. Medical Branch atorvastati 2020-0 Yes 10mg Take 10 mg [facility] n 10 mg 3-10 by mouth ity of tablet 14:51: at [place] 15 bedtime. Medical Branch atorvastati 2020-0 Yes 10mg Take 10 mg [facility] n 10 mg 3-10 by mouth ity of tablet 14:51: at [place] 15 bedtime. Medical Branch atorvastati 2020-0 Yes 10mg Take 10 mg [facility] n 10 mg 3-10 by mouth ity of tablet 14:51: at [place] 15 bedtime. Medical Branch atorvastati 2020-0 Yes 10mg Take 10 mg [facility] n 10 mg 3-10 by mouth ity of tablet 14:51: at [place] 15 bedtime. Medical Branch atorvastati 2020-0 Yes 10mg Take 10 mg [facility] n 10 mg 3-10 by mouth ity of tablet 14:51: at [place] 15 bedtime. Medical Branch atorvastati 2020-0 Yes 10mg Take 10 mg [facility] n 10 mg 3-10 by mouth ity of tablet 14:51: at [place] 15 bedtime. Medical Branch atorvastati 2020-0 Yes 10mg Take 10 mg [facility] n 10 mg 3-10 by mouth ity of tablet 14:51: at [place] 15 bedtime. Medical Branch atorvastati 2020-0 Yes 10mg Take 10 mg [facility] n 10 mg 3-10 by mouth ity of tablet 14:51: at [place] 15 bedtime. Medical Branch atorvastati 2020-0 Yes 10mg Take 10 mg [facility] n 10 mg 3-10 by mouth ity of tablet 14:51: at [place] 15 bedtime. Medical Branch atorvastati 2020-0 Yes 10mg Take 10 mg [facility] n 10 mg 3-10 by mouth ity of tablet 14:51: at [place] 15 bedtime. Medical Branch atorvastati 2020-0 Yes 10mg Take 10 mg [facility] n 10 mg 3-10 by mouth ity of tablet 14:51: at [place] 15 bedtime. Medical Branch atorvastati 2020-0 Yes 10mg Take 10 mg [facility] n 10 mg 3-10 by mouth ity of tablet 14:51: at [place] 15 bedtime. Medical Branch tamsulosin 2020-0 Yes Take by [facility] ers 0.4 mg 24 3-10 mouth ity of hr capsule 14:50: daily. [place] [address] Medical Branch tamsulosin 2020-0 Yes Take by [facility] ers 0.4 mg 24 3-10 mouth ity of hr capsule 14:50: daily. [place] [address] [facility] Branch tamsulosin 2020-0 Yes Take by [facility] ers 0.4 mg 24 3-10 mouth ity of hr capsule 14:50: daily. [place] [address] [facility] Branch tamsulosin 2020-0 Yes Take by [facility] ers 0.4 mg 24 3-10 mouth ity of hr capsule 14:50: daily. [place] [address] [facility] Branch tamsulosin 2020-0 Yes Take by [facility] ers 0.4 mg 24 3-10 mouth ity of hr capsule 14:50: daily. [place] [address] [facility] Branch tamsulosin 2020-0 Yes Take by [facility] ers 0.4 mg 24 3-10 mouth ity of hr capsule 14:50: daily. [place] [address] [facility] Branch tamsulosin 2020-0 Yes Take by [facility] ers 0.4 mg 24 3-10 mouth ity of hr capsule 14:50: daily. [place] [address] Medical Branch tamsulosin 2020-0 Yes Take by [facility] ers 0.4 mg 24 3-10 mouth ity of hr capsule 14:50: daily. [place] [address] Medical Branch tamsulosin 2020-0 Yes Take by [facility] ers 0.4 mg 24 3-10 mouth ity of hr capsule 14:50: daily. [place] [address] Medical Branch tamsulosin 2020-0 Yes Take by [facility] ers 0.4 mg 24 3-10 mouth ity of hr capsule 14:50: daily. [place] [address] [facility] Branch tamsulosin 2020-0 Yes Take by [facility] ers 0.4 mg 24 3-10 mouth ity of hr capsule 14:50: daily. [place] [address] Medical Branch tamsulosin 2020-0 Yes Take by [facility] ers 0.4 mg 24 3-10 mouth ity of hr capsule 14:50: daily. [place] [address] Medical Branch tamsulosin 2020-0 Yes Take by [facility] ers 0.4 mg 24 3-10 mouth ity of hr capsule 14:50: daily. [place] [address] [facility] Branch tamsulosin 2020-0 Yes Take by [facility] ers 0.4 mg 24 3-10 mouth ity of hr capsule 14:50: daily. [place] [address] [facility] Branch tamsulosin 2020-0 Yes Take by [facility] ers 0.4 mg 24 3-10 mouth ity of hr capsule 14:50: daily. [place] [address] [facility] Branch tamsulosin 2020-0 Yes Take by [facility] ers 0.4 mg 24 3-10 mouth ity of hr capsule 14:50: daily. [place] [address] [facility] Branch tamsulosin 2020-0 Yes Take by [facility] ers 0.4 mg 24 3-10 mouth ity of hr capsule 14:50: daily. [place] [address] [facility] Branch tamsulosin 2020-0 Yes Take by [facility] ers 0.4 mg 24 3-10 mouth ity of hr capsule 14:50: daily. [place] [address] [facility] Branch tamsulosin 2020-0 Yes Take by [facility] ers 0.4 mg 24 3-10 mouth ity of hr capsule 14:50: daily. [place] [address] [facility] Branch tamsulosin 2020-0 Yes Take by [facility] ers 0.4 mg 24 3-10 mouth ity of hr capsule 14:50: daily. [place] [address] [facility] Branch tamsulosin 2020-0 Yes Take by [facility] ers 0.4 mg 24 3-10 mouth ity of hr capsule 14:50: daily. [place] [address] [facility] Branch tamsulosin 2020-0 Yes Take by [facility] ers 0.4 mg 24 3-10 mouth ity of hr capsule 14:50: daily. [place] [address] [facility] Branch tamsulosin 2020-0 Yes Take by [facility] ers 0.4 mg 24 3-10 mouth ity of hr capsule 14:50: daily. [place] [address] [facility] Branch tamsulosin 2020-0 Yes Take by [facility] ers 0.4 mg 24 3-10 mouth ity of hr capsule 14:50: daily. [place] [address] [facility] Branch tamsulosin 2020-0 Yes Take by [facility] ers 0.4 mg 24 3-10 mouth ity of hr capsule 14:50: daily. [place] [address] [facility] Branch tamsulosin 2020-0 Yes Take by [facility] ers 0.4 mg 24 3-10 mouth ity of hr capsule 14:50: daily. [place] [address] [facility] Branch tamsulosin 2020-0 Yes Take by [facility] ers 0.4 mg 24 3-10 mouth ity of hr capsule 14:50: daily. [place] [address] [facility] Branch tamsulosin 2020-0 Yes Take by [facility] ers 0.4 mg 24 3-10 mouth ity of hr capsule 14:50: daily. [place] [address] [facility] Branch tamsulosin 2020-0 Yes Take by [facility] ers 0.4 mg 24 3-10 mouth ity of hr capsule 14:50: daily. [place] [address] [facility] Branch tamsulosin 2020-0 Yes Take by [facility] ers 0.4 mg 24 3-10 mouth ity of hr capsule 14:50: daily. [place] [address] [facility] Branch tamsulosin 2020-0 Yes Take by [facility] ers 0.4 mg 24 3-10 mouth ity of hr capsule 14:50: daily. [place] [address] [facility] Branch tamsulosin 2020-0 Yes Take by [facility] ers 0.4 mg 24 3-10 mouth ity of hr capsule 14:50: daily. [place] [address] [facility] Branch tamsulosin 2020-0 Yes Take by [facility] ers 0.4 mg 24 3-10 mouth ity of hr capsule 14:50: daily. [place] [address] [facility] Branch tamsulosin 2020-0 Yes Take by [facility] ers 0.4 mg 24 3-10 mouth ity of hr capsule 14:50: daily. [place] [address] [facility] Branch tamsulosin 2020-0 Yes Take by [facility] ers 0.4 mg 24 3-10 mouth ity of hr capsule 14:50: daily. [place] [address] [facility] Branch tamsulosin 2020-0 Yes Take by [facility] ers 0.4 mg 24 3-10 mouth ity of hr capsule 14:50: daily. [place] [address] [facility] Branch tamsulosin 2020-0 Yes Take by [facility] ers 0.4 mg 24 3-10 mouth ity of hr capsule 14:50: daily. [place] [address] [facility] Branch tamsulosin 2020-0 Yes Take by [facility] ers 0.4 mg 24 3-10 mouth ity of hr capsule 14:50: daily. [place] [address] [facility] Branch tamsulosin 2020-0 Yes Take by [facility] ers 0.4 mg 24 3-10 mouth ity of hr capsule 14:50: daily. [place] [address] Medical Branch tamsulosin 2020-0 Yes Take by [facility] ers 0.4 mg 24 3-10 mouth ity of hr capsule 14:50: daily. [place] [address] Medical Branch tamsulosin 2020-0 Yes Take by [facility] ers 0.4 mg 24 3-10 mouth ity of hr capsule 14:50: daily. [place] [address] [facility] Branch tamsulosin 2020-0 Yes Take by [facility] ers 0.4 mg 24 3-10 mouth ity of hr capsule 14:50: daily. [place] [address] [facility] Branch tamsulosin 2020-0 Yes Take by [facility] ers 0.4 mg 24 3-10 mouth ity of hr capsule 14:50: daily. [address] furosemide 2020-0 Yes 40mg Take 40 mg U nivers 40 mg 3-10 by mouth. ity of tablet 14:49: Takes 80 [place] 49 mg am and Medical 40 mg Branch afternoon metoprolol 2020-0 Yes 50mg Take 50 mg U nivers tartrate 50 3-10 by mouth ity of mg tablet 14:49: daily. [address] warfarin 2020-0 Yes Take by [facility] s sodium 3-10 mouth. 3.5 ity of (COUMADIN 14:49: mg daily [place]AL[place] [address] [place] [address] losartan 50 2020-0 Yes 50mg Take 50 mg [facility] mg tablet 3-10 by mouth ity of 14:49: daily. [address] pantoprazol 2020-0 Yes 40mg Take 40 mg [facility] e 40 mg EC 3-10 by mouth ity o f tablet 14:49: daily. [address] furosemide 2020-0 Yes 40mg Take 40 mg U nivers 40 mg 3-10 by mouth. ity of tablet 14:49: Takes 80 [place] 49 mg am and Medical 40 mg Branch afternoon metoprolol 2020-0 Yes 50mg Take 50 mg U nivers tartrate 50 3-10 by mouth ity of mg tablet 14:49: daily. [address] warfarin 2020-0 Yes Take by [facility] s sodium 3-10 mouth. 3.5 ity of (COUMADIN 14:49: mg daily [place] [address] [place] [address] losartan 50 2020-0 Yes 50mg Take 50 mg [facility] mg tablet 3-10 by mouth ity of 14:49: daily. [address] pantoprazol 2020-0 Yes 40mg Take 40 mg [facility] e 40 mg EC 3-10 by mouth ity o f tablet 14:49: daily. [address] furosemide 2020-0 Yes 40mg Take 40 mg U nivers 40 mg 3-10 by mouth. ity of tablet 14:49: Takes 80 [place] 49 mg am and Medical 40 mg Branch afternoon metoprolol 2020-0 Yes 50mg Take 50 mg U nivers tartrate 50 3-10 by mouth ity of mg tablet 14:49: daily. [place] [address] [facility] Branch warfarin 2020-0 Yes Take by [facility] sodium 3-10 mouth. 3.5 ity of (COUMADIN 14:49: mg daily [place]AL[place] [facility] losartan 50 2020-0 Yes 50mg Take 50 mg [facility] mg tablet 3-10 by mouth ity of 14:49: daily. [place] [address] [facility] Branch pantoprazol 2020-0 Yes 40mg Take 40 mg [facility] e 40 mg EC 3-10 by mouth ity o f tablet 14:49: daily. [place] [address] [facility] Branch furosemide 2020-0 Yes 40mg Take 40 mg U nivers 40 mg 3-10 by mouth. ity of tablet 14:49: Takes 80 [place] 49 mg am and Medical 40 mg Branch afternoon metoprolol 2020-0 Yes 50mg Take 50 mg U nivers tartrate 50 3-10 by mouth ity of mg tablet 14:49: daily. [address] warfarin 2020-0 Yes Take by [facility] sodium 3-10 mouth. 3.5 ity of (COUMADIN 14:49: mg daily [place] [facility] [place] losartan 50 2020-0 Yes 50mg Take 50 mg [facility] mg tablet 3-10 by mouth ity of 14:49: daily. [address] pantoprazol 2020-0 Yes 40mg Take 40 mg [facility] e 40 mg EC 3-10 by mouth ity o f tablet 14:49: daily. [address] furosemide 2020-0 Yes 40mg Take 40 mg U nivers 40 mg 3-10 by mouth. ity of tablet 14:49: Takes 80 [place] 49 mg am and Medical 40 mg Branch afternoon metoprolol 2020-0 Yes 50mg Take 50 mg U nivers tartrate 50 3-10 by mouth ity of mg tablet 14:49: daily. [address] warfarin 2020-0 Yes Take by [facility] sodium 3-10 mouth. 3.5 ity of (COUMADIN 14:49: mg daily [place]AL[place] [facility] losartan 50 2020-0 Yes 50mg Take 50 mg [facility] mg tablet 3-10 by mouth ity of 14:49: daily. [address] pantoprazol 2020-0 Yes 40mg Take 40 mg [facility] e 40 mg EC 3-10 by mouth ity o f tablet 14:49: daily. [place] 49 [facility] Branch furosemide 2020-0 Yes 40mg Take 40 mg U nivers 40 mg 3-10 by mouth. ity of tablet 14:49: Takes 80 [place] 49 mg am and Medical 40 mg Branch afternoon metoprolol 2020-0 Yes 50mg Take 50 mg U nivers tartrate 50 3-10 by mouth ity of mg tablet 14:49: daily. [place] [address] [facility] warfarin 2020-0 Yes Take by [facility] sodium 3-10 mouth. 3.5 ity of (COUMADIN 14:49: mg daily [place]AL[place] [facility] losartan 50 2020-0 Yes 50mg Take 50 mg [facility] mg tablet 3-10 by mouth ity of 14:49: daily. [place] [address] [facility] Branch pantoprazol 2020-0 Yes 40mg Take 40 mg [facility] e 40 mg EC 3-10 by mouth ity o f tablet 14:49: daily. [place] [address] [facility] furosemide 2020-0 Yes 40mg Take 40 mg U nivers 40 mg 3-10 by mouth. ity of tablet 14:49: Takes 80 [place] 49 mg am and Medical 40 mg Branch afternoon metoprolol 2020-0 Yes 50mg Take 50 mg U nivers tartrate 50 3-10 by mouth ity of mg tablet 14:49: daily. [place] [address] [facility] Branch warfarin 2020-0 Yes Take by [facility] sodium 3-10 mouth. 3.5 ity of (COUMADIN 14:49: mg daily [place]AL[place] [facility] losartan 50 2020-0 Yes 50mg Take 50 mg [facility] mg tablet 3-10 by mouth ity of 14:49: daily. [place] [address] [facility] Branch pantoprazol 2020-0 Yes 40mg Take 40 mg [facility] e 40 mg EC 3-10 by mouth ity o f tablet 14:49: daily. [place] [address] [facility] Branch furosemide 2020-0 Yes 40mg Take 40 mg U nivers 40 mg 3-10 by mouth. ity of tablet 14:49: Takes 80 [place] 49 mg am and Medical 40 mg Branch afternoon metoprolol 2020-0 Yes 50mg Take 50 mg U nivers tartrate 50 3-10 by mouth ity of mg tablet 14:49: daily. [place] [address] [facility] Branch warfarin 2020-0 Yes Take by [facility] sodium 3-10 mouth. 3.5 ity of (COUMADIN 14:49: mg daily [place]AL[place] [facility] losartan 50 2020-0 Yes 50mg Take 50 mg [facility] mg tablet 3-10 by mouth ity of 14:49: daily. [address] pantoprazol 2020-0 Yes 40mg Take 40 mg [facility] e 40 mg EC 3-10 by mouth ity o f tablet 14:49: daily. [address] furosemide 2020-0 Yes 40mg Take 40 mg U nivers 40 mg 3-10 by mouth. ity of tablet 14:49: Takes 80 [place] 49 mg am and Medical 40 mg Branch afternoon metoprolol 2020-0 Yes 50mg Take 50 mg U nivers tartrate 50 3-10 by mouth ity of mg tablet 14:49: daily. [address] warfarin 2020-0 Yes Take by [facility] sodium 3-10 mouth. 3.5 ity of (COUMADIN 14:49: mg daily [place] [address] [place] [address] losartan 50 2020-0 Yes 50mg Take 50 mg [facility] mg tablet 3-10 by mouth ity of 14:49: daily. [address] pantoprazol 2020-0 Yes 40mg Take 40 mg [facility] e 40 mg EC 3-10 by mouth ity o f tablet 14:49: daily. [address] furosemide 2020-0 Yes 40mg Take 40 mg U nivers 40 mg 3-10 by mouth. ity of tablet 14:49: Takes 80 [place] 49 mg am and Medical 40 mg Branch afternoon metoprolol 2020-0 Yes 50mg Take 50 mg U nivers tartrate 50 3-10 by mouth ity of mg tablet 14:49: daily. [address] warfarin 2020-0 Yes Take by [facility] sodium 3-10 mouth. 3.5 ity of (COUMADIN 14:49: mg daily [place] [address] [place] [address] losartan 50 2020-0 Yes 50mg Take 50 mg [facility] mg tablet 3-10 by mouth ity of 14:49: daily. [address] pantoprazol 2020-0 Yes 40mg Take 40 mg [facility] e 40 mg EC 3-10 by mouth ity o f tablet 14:49: daily. [address] furosemide 2020-0 Yes 40mg Take 40 mg U nivers 40 mg 3-10 by mouth. ity of tablet 14:49: Takes 80 [place] 49 mg am and Medical 40 mg Branch afternoon metoprolol 2020-0 Yes 50mg Take 50 mg U nivers tartrate 50 3-10 by mouth ity of mg tablet 14:49: daily. [address] warfarin 2020-0 Yes Take by [facility] sodium 3-10 mouth. 3.5 ity of (COUMADIN 14:49: mg daily [place] [facility] losartan 50 2020-0 Yes 50mg Take 50 mg [facility] mg tablet 3-10 by mouth ity of 14:49: daily. [address] Branch pantoprazol 2020-0 Yes 40mg Take 40 mg [facility] e 40 mg EC 3-10 by mouth ity o f tablet 14:49: daily. [place] [address] Medical [place] furosemide 2020-0 Yes 40mg Take 40 mg U nivers 40 mg 3-10 by mouth. ity of tablet 14:49: Takes 80 [place] 49 mg am and Medical 40 mg Branch afternoon metoprolol 2020-0 Yes 50mg Take 50 mg U nivers tartrate 50 3-10 by mouth ity of mg tablet 14:49: daily. [address] warfarin 2020-0 Yes Take by [facility] sodium 3-10 mouth. 3.5 ity of (COUMADIN 14:49: mg daily [place] [address] [place] [id number] losartan 50 2020-0 Yes 50mg Take 50 mg [facility] mg tablet 3-10 by mouth ity of 14:49: daily. [address] pantoprazol 2020-0 Yes 40mg Take 40 mg [facility] 40 mg EC 3-10 by mouth ity o f tablet 14:49: daily. [address] furosemide 2020-0 Yes 40mg Take 40 mg [facility] 40 mg 3-10 by mouth. ity of tablet 14:49: Takes 80 [place] 49 mg am and [facility] 40 mg Branch afternoon metoprolol 2020-0 Yes 50mg Take 50 mg [facility] tartrate 50 3-10 by mouth ity of mg tablet 14:49: daily. [address] warfarin 2020-0 Yes Take by [facility] sodium 3-10 mouth. 3.5 ity of (COUMADIN 14:49: mg daily [place] [facility] [facility] losartan 50 2020-0 Yes 50mg Take 50 mg [facility] mg tablet 3-10 by mouth ity of 14:49: daily. [address] pantoprazol 2020-0 Yes 40mg Take 40 mg [facility] 40 mg EC 3-10 by mouth ity o f tablet 14:49: daily. [address] furosemide 2020-0 Yes 40mg Take 40 mg [facility] 40 mg 3-10 by mouth. ity of tablet 14:49: Takes 80 [place] 49 mg am and [facility] 40 mg Branch afternoon metoprolol 2020-0 Yes 50mg Take 50 mg [facility] tartrate 50 3-10 by mouth ity of mg tablet 14:49: daily. [place] [address] [facility] warfarin 2020-0 Yes Take by [facility] sodium 3-10 mouth. 3.5 ity of (COUMADIN 14:49: mg daily [place] [facility] losartan 50 2020-0 Yes 50mg Take 50 mg [facility] mg tablet 3-10 by mouth ity of 14:49: daily. [place] [address] [facility] pantoprazol 2020-0 Yes 40mg Take 40 mg [facility] 40 mg EC 3-10 by mouth ity o f tablet 14:49: daily. [place] [address] [facility] furosemide 2020-0 Yes 40mg Take 40 mg [facility] 40 mg 3-10 by mouth. ity of tablet 14:49: Takes 80 [place] 49 mg am and [facility] 40 mg Branch afternoon metoprolol 2020-0 Yes 50mg Take 50 mg [facility] tartrate 50 3-10 by mouth ity of mg tablet 14:49: daily. [place] [address] [facility] [place] warfarin 2020-0 Yes Take by [facility] sodium 3-10 mouth. 3.5 ity of (COUMADIN 14:49: mg daily [place] [facility] [facility] losartan 50 2020-0 Yes 50mg Take 50 mg [facility] mg tablet 3-10 by mouth ity of 14:49: daily. [place] [address] [facility] pantoprazol 2020-0 Yes 40mg Take 40 mg [facility] 40 mg EC 3-10 by mouth ity o f tablet 14:49: daily. [place] [address] [facility] furosemide 2020-0 Yes 40mg Take 40 mg [facility] 40 mg 3-10 by mouth. ity of tablet 14:49: Takes 80 [place] 49 mg am and [facility] 40 mg Branch afternoon metoprolol 2020-0 Yes 50mg Take 50 mg [facility] tartrate 50 3-10 by mouth ity of mg tablet 14:49: daily. [place] [address] [facility] warfarin 2020-0 Yes Take by [facility] sodium 3-10 mouth. 3.5 ity of (COUMADIN 14:49: mg daily [place] [facility] losartan 50 2020-0 Yes 50mg Take 50 mg [facility] mg tablet 3-10 by mouth ity of 14:49: daily. [address] pantoprazol 2020-0 Yes 40mg Take 40 mg [facility] 40 mg EC 3-10 by mouth ity o f tablet 14:49: daily. [address] furosemide 2020-0 Yes 40mg Take 40 mg [facility] 40 mg 3-10 by mouth. ity of tablet 14:49: Takes 80 [place] 49 mg am and [facility] 40 mg Branch afternoon metoprolol 2020-0 Yes 50mg Take 50 mg [facility] tartrate 50 3-10 by mouth ity of mg tablet 14:49: daily. [address] warfarin 2020-0 Yes Take by [facility] sodium 3-10 mouth. 3.5 ity of (COUMADIN 14:49: mg daily [place] [address] [place] [address] losartan 50 2020-0 Yes 50mg Take 50 mg [facility] mg tablet 3-10 by mouth ity of 14:49: daily. [address] pantoprazol 2020-0 Yes 40mg Take 40 mg [facility] 40 mg EC 3-10 by mouth ity o f tablet 14:49: daily. [address] furosemide 2020-0 Yes 40mg Take 40 mg [facility] 40 mg 3-10 by mouth. ity of tablet 14:49: Takes 80 [place] 49 mg am and [facility] 40 mg Branch afternoon metoprolol 2020-0 Yes 50mg Take 50 mg [facility] tartrate 50 3-10 by mouth ity of mg tablet 14:49: daily. [address] warfarin 2020-0 Yes Take by [facility] sodium 3-10 mouth. 3.5 ity of (COUMADIN 14:49: mg daily [place] [address] [place] [id number] losartan 50 2020-0 Yes 50mg Take 50 mg [facility] mg tablet 3-10 by mouth ity of 14:49: daily. [address] pantoprazol 2020-0 Yes 40mg Take 40 mg [facility] 40 mg EC 3-10 by mouth ity o f tablet 14:49: daily. [address] furosemide 2020-0 Yes 40mg Take 40 mg [facility] 40 mg 3-10 by mouth. ity of tablet 14:49: Takes 80 [place] 49 mg am and [facility] 40 mg Branch afternoon metoprolol 2020-0 Yes 50mg Take 50 mg [facility] tartrate 50 3-10 by mouth ity of mg tablet 14:49: daily. [address] warfarin 2020-0 Yes Take by [facility] sodium 3-10 mouth. 3.5 ity of (COUMADIN 14:49: mg daily [place] [address] [place] [id number] losartan 50 2020-0 Yes 50mg Take 50 mg [facility] mg tablet 3-10 by mouth ity of 14:49: daily. [address] pantoprazol 2020-0 Yes 40mg Take 40 mg [facility] 40 mg EC 3-10 by mouth ity o f tablet 14:49: daily. [address] furosemide 2020-0 Yes 40mg Take 40 mg [facility] 40 mg 3-10 by mouth. ity of tablet 14:49: Takes 80 [place] 49 mg am and [facility] 40 mg Branch afternoon metoprolol 2020-0 Yes 50mg Take 50 mg [facility] tartrate 50 3-10 by mouth ity of mg tablet 14:49: daily. [address] warfarin 2020-0 Yes Take by [facility] sodium 3-10 mouth. 3.5 ity of (COUMADIN 14:49: mg daily [place] [address] [place] [id number] losartan 50 2020-0 Yes 50mg Take 50 mg [facility] mg tablet 3-10 by mouth ity of 14:49: daily. [address] pantoprazol 2020-0 Yes 40mg Take 40 mg [facility] 40 mg EC 3-10 by mouth ity o f tablet 14:49: daily. [address] furosemide 2020-0 Yes 40mg Take 40 mg [facility] 40 mg 3-10 by mouth. ity of tablet 14:49: Takes 80 [place] 49 mg am and [facility] 40 mg Branch afternoon metoprolol 2020-0 Yes 50mg Take 50 mg [facility] tartrate 50 3-10 by mouth ity of mg tablet 14:49: daily. [address] warfarin 2020-0 Yes Take by [facility] sodium 3-10 mouth. 3.5 ity of (COUMADIN 14:49: mg daily [place] [address] [place] [address] losartan 50 2020-0 Yes 50mg Take 50 mg [facility] mg tablet 3-10 by mouth ity of 14:49: daily. [address] pantoprazol 2020-0 Yes 40mg Take 40 mg [facility] 40 mg EC 3-10 by mouth ity o f tablet 14:49: daily. [address] furosemide 2020-0 Yes 40mg Take 40 mg [facility] 40 mg 3-10 by mouth. ity of tablet 14:49: Takes 80 [place] 49 mg am and [facility] 40 mg Branch afternoon metoprolol 2020-0 Yes 50mg Take 50 mg [facility] tartrate 50 3-10 by mouth ity of mg tablet 14:49: daily. [place] [address] [facility] warfarin 2020-0 Yes Take by [facility] sodium 3-10 mouth. 3.5 ity of (COUMADIN 14:49: mg daily [place] [facility] [facility] losartan 50 2020-0 Yes 50mg Take 50 mg [facility] mg tablet 3-10 by mouth ity of 14:49: daily. [place] [address] [facility] pantoprazol 2020-0 Yes 40mg Take 40 mg [facility] 40 mg EC 3-10 by mouth ity o f tablet 14:49: daily. [place] [address] [facility] furosemide 2020-0 Yes 40mg Take 40 mg [facility] 40 mg 3-10 by mouth. ity of tablet 14:49: Takes 80 [place] 49 mg am and [facility] 40 mg Branch afternoon metoprolol 2020-0 Yes 50mg Take 50 mg [facility] tartrate 50 3-10 by mouth ity of mg tablet 14:49: daily. [place] [address] [facility] warfarin 2020-0 Yes Take by [facility] sodium 3-10 mouth. 3.5 ity of (COUMADIN 14:49: mg daily [place] [facility] [facility] losartan 50 2020-0 Yes 50mg Take 50 mg [facility] mg tablet 3-10 by mouth ity of 14:49: daily. [place] [address] [facility] pantoprazol 2020-0 Yes 40mg Take 40 mg [facility] 40 mg EC 3-10 by mouth ity o f tablet 14:49: daily. [place] [address] [facility] furosemide 2020-0 Yes 40mg Take 40 mg [facility] 40 mg 3-10 by mouth. ity of tablet 14:49: Takes 80 [place] 49 mg am and [facility] 40 mg Branch afternoon metoprolol 2020-0 Yes 50mg Take 50 mg [facility] tartrate 50 3-10 by mouth ity of mg tablet 14:49: daily. [place] [address] [facility] warfarin 2020-0 Yes Take by [facility] sodium 3-10 mouth. 3.5 ity of (COUMADIN 14:49: mg daily [place] [facility] [facility] losartan 50 2020-0 Yes 50mg Take 50 mg [facility] mg tablet 3-10 by mouth ity of 14:49: daily. [address] pantoprazol 2020-0 Yes 40mg Take 40 mg [facility] 40 mg EC 3-10 by mouth ity o f tablet 14:49: daily. [address] furosemide 2020-0 Yes 40mg Take 40 mg [facility] 40 mg 3-10 by mouth. ity of tablet 14:49: Takes 80 [place] 49 mg am and [facility] 40 mg Branch afternoon metoprolol 2020-0 Yes 50mg Take 50 mg [facility] tartrate 50 3-10 by mouth ity of mg tablet 14:49: daily. [address] warfarin 2020-0 Yes Take by [facility] sodium 3-10 mouth. 3.5 ity of (COUMADIN 14:49: mg daily [place] [address] [place] [address] losartan 50 2020-0 Yes 50mg Take 50 mg [facility] mg tablet 3-10 by mouth ity of 14:49: daily. [address] pantoprazol 2020-0 Yes 40mg Take 40 mg [facility] 40 mg EC 3-10 by mouth ity o f tablet 14:49: daily. [address] furosemide 2020-0 Yes 40mg Take 40 mg [facility] 40 mg 3-10 by mouth. ity of tablet 14:49: Takes 80 [place] 49 mg am and [facility] 40 mg Branch afternoon metoprolol 2020-0 Yes 50mg Take 50 mg [facility] tartrate 50 3-10 by mouth ity of mg tablet 14:49: daily. [address] warfarin 2020-0 Yes Take by [facility] sodium 3-10 mouth. 3.5 ity of (COUMADIN 14:49: mg daily [place] [address] [place] [id number] losartan 50 2020-0 Yes 50mg Take 50 mg [facility] mg tablet 3-10 by mouth ity of 14:49: daily. [address] pantoprazol 2020-0 Yes 40mg Take 40 mg [facility] 40 mg EC 3-10 by mouth ity o f tablet 14:49: daily. [address] furosemide 2020-0 Yes 40mg Take 40 mg [facility] 40 mg 3-10 by mouth. ity of tablet 14:49: Takes 80 [place] 49 mg am and [facility] 40 mg Branch afternoon metoprolol 2020-0 Yes 50mg Take 50 mg [facility] tartrate 50 3-10 by mouth ity of mg tablet 14:49: daily. [address] warfarin 2020-0 Yes Take by [facility] sodium 3-10 mouth. 3.5 ity of (COUMADIN 14:49: mg daily [place] [address] [place] [id number] losartan 50 2020-0 Yes 50mg Take 50 mg [facility] mg tablet 3-10 by mouth ity of 14:49: daily. [address] pantoprazol 2020-0 Yes 40mg Take 40 mg [facility] 40 mg EC 3-10 by mouth ity o f tablet 14:49: daily. [address] furosemide 2020-0 Yes 40mg Take 40 mg [facility] 40 mg 3-10 by mouth. ity of tablet 14:49: Takes 80 [place] 49 mg am and [facility] 40 mg Branch afternoon metoprolol 2020-0 Yes 50mg Take 50 mg [facility] tartrate 50 3-10 by mouth ity of mg tablet 14:49: daily. [address] warfarin 2020-0 Yes Take by [facility] sodium 3-10 mouth. 3.5 ity of (COUMADIN 14:49: mg daily [place] [address] [place] [address] losartan 50 2020-0 Yes 50mg Take 50 mg [facility] mg tablet 3-10 by mouth ity of 14:49: daily. [address] pantoprazol 2020-0 Yes 40mg Take 40 mg [facility] 40 mg EC 3-10 by mouth ity o f tablet 14:49: daily. [address] furosemide 2020-0 Yes 40mg Take 40 mg [facility] 40 mg 3-10 by mouth. ity of tablet 14:49: Takes 80 [place] 49 mg am and [facility] 40 mg Branch afternoon metoprolol 2020-0 Yes 50mg Take 50 mg [facility] tartrate 50 3-10 by mouth ity of mg tablet 14:49: daily. [address] warfarin 2020-0 Yes Take by [facility] sodium 3-10 mouth. 3.5 ity of (COUMADIN 14:49: mg daily [place] [address] [place] [address] losartan 50 2020-0 Yes 50mg Take 50 mg [facility] mg tablet 3-10 by mouth ity of 14:49: daily. [address] pantoprazol 2020-0 Yes 40mg Take 40 mg [facility] 40 mg EC 3-10 by mouth ity o f tablet 14:49: daily. [address] furosemide 2020-0 Yes 40mg Take 40 mg [facility] 40 mg 3-10 by mouth. ity of tablet 14:49: Takes 80 [place] 49 mg am and [facility] 40 mg Branch afternoon metoprolol 2020-0 Yes 50mg Take 50 mg [facility] tartrate 50 3-10 by mouth ity of mg tablet 14:49: daily. [place] [address] [facility] warfarin 2020-0 Yes Take by [facility] sodium 3-10 mouth. 3.5 ity of (COUMADIN 14:49: mg daily [place] [facility] [facility] losartan 50 2020-0 Yes 50mg Take 50 mg [facility] mg tablet 3-10 by mouth ity of 14:49: daily. [place] [address] [facility] pantoprazol 2020-0 Yes 40mg Take 40 mg [facility] e 40 mg EC 3-10 by mouth ity o f tablet 14:49: daily. [place] [address] [facility] furosemide 2020-0 Yes 40mg Take 40 mg [facility] 40 mg 3-10 by mouth. ity of tablet 14:49: Takes 80 [place] 49 mg am and Medical 40 mg Branch afternoon metoprolol 2020-0 Yes 50mg Take 50 mg [facility] tartrate 50 3-10 by mouth ity of mg tablet 14:49: daily. [place] [address] [facility] warfarin 2020-0 Yes Take by [facility] sodium 3-10 mouth. 3.5 ity of (COUMADIN 14:49: mg daily [place] [facility] [facility] losartan 50 2020-0 Yes 50mg Take 50 mg [facility] mg tablet 3-10 by mouth ity of 14:49: daily. [place] [address] [facility] pantoprazol 2020-0 Yes 40mg Take 40 mg [facility] 40 mg EC 3-10 by mouth ity o f tablet 14:49: daily. [place] [address] [facility] furosemide 2020-0 Yes 40mg Take 40 mg [facility] 40 mg 3-10 by mouth. ity of tablet 14:49: Takes 80 [place] 49 mg am and [facility] 40 mg Branch afternoon metoprolol 2020-0 Yes 50mg Take 50 mg [facility] tartrate 50 3-10 by mouth ity of mg tablet 14:49: daily. [place] [address] [facility] warfarin 2020-0 Yes Take by [facility] sodium 3-10 mouth. 3.5 ity of (COUMADIN 14:49: mg daily [place] [facility] [facility] losartan 50 2020-0 Yes 50mg Take 50 mg [facility] mg tablet 3-10 by mouth ity of 14:49: daily. [address] pantoprazol 2020-0 Yes 40mg Take 40 mg [facility] e 40 mg EC 3-10 by mouth ity o f tablet 14:49: daily. [address] furosemide 2020-0 Yes 40mg Take 40 mg [facility] 40 mg 3-10 by mouth. ity of tablet 14:49: Takes 80 [place] 49 mg am and [facility] 40 mg Branch afternoon metoprolol 2020-0 Yes 50mg Take 50 mg [facility] tartrate 50 3-10 by mouth ity of mg tablet 14:49: daily. [address] warfarin 2020-0 Yes Take by [facility] sodium 3-10 mouth. 3.5 ity of (COUMADIN 14:49: mg daily [place] [address] [place] [address] losartan 50 2020-0 Yes 50mg Take 50 mg [facility] mg tablet 3-10 by mouth ity of 14:49: daily. [address] pantoprazol 2020-0 Yes 40mg Take 40 mg [facility] 40 mg EC 3-10 by mouth ity o f tablet 14:49: daily. [address] furosemide 2020-0 Yes 40mg Take 40 mg [facility] 40 mg 3-10 by mouth. ity of tablet 14:49: Takes 80 [place] 49 mg am and [facility] 40 mg Branch afternoon metoprolol 2020-0 Yes 50mg Take 50 mg [facility] tartrate 50 3-10 by mouth ity of mg tablet 14:49: daily. [address] warfarin 2020-0 Yes Take by [facility] sodium 3-10 mouth. 3.5 ity of (COUMADIN 14:49: mg daily [place] [facility] [address] [place] [address] losartan 50 2020-0 Yes 50mg Take 50 mg [facility] mg tablet 3-10 by mouth ity of 14:49: daily. [address] pantoprazol 2020-0 Yes 40mg Take 40 mg [facility] 40 mg EC 3-10 by mouth ity o f tablet 14:49: daily. [address] furosemide 2020-0 Yes 40mg Take 40 mg [facility] 40 mg 3-10 by mouth. ity of tablet 14:49: Takes 80 [place] 49 mg am and Medical 40 mg Branch afternoon metoprolol 2020-0 Yes 50mg Take 50 mg [facility] tartrate 50 3-10 by mouth ity of mg tablet 14:49: daily. [place] 49 [facility] warfarin 2020-0 Yes Take by [facility] sodium 3-10 mouth. 3.5 ity of (COUMADIN 14:49: mg daily [place] [facility] [facility] [place] losartan 50 2020-0 Yes 50mg Take 50 mg [facility] mg tablet 3-10 by mouth ity of 14:49: daily. [address] Branch pantoprazol 2020-0 Yes 40mg Take 40 mg [facility] e 40 mg EC 3-10 by mouth ity o f tablet 14:49: daily. [place] [address] [facility] furosemide 2020-0 Yes 40mg Take 40 mg [facility] 40 mg 3-10 by mouth. ity of tablet 14:49: Takes 80 [place] 49 mg am and Medical 40 mg Branch afternoon metoprolol 2020-0 Yes 50mg Take 50 mg [facility] tartrate 50 3-10 by mouth ity of mg tablet 14:49: daily. [address] warfarin 2020-0 Yes Take by [facility] sodium 3-10 mouth. 3.5 ity of (COUMADIN 14:49: mg daily [place] [address] [place] [id number] losartan 50 2020-0 Yes 50mg Take 50 mg [facility] mg tablet 3-10 by mouth ity of 14:49: daily. [address] pantoprazol 2020-0 Yes 40mg Take 40 mg [facility] 40 mg EC 3-10 by mouth ity o f tablet 14:49: daily. [address] furosemide 2020-0 Yes 40mg Take 40 mg [facility] 40 mg 3-10 by mouth. ity of tablet 14:49: Takes 80 [place] 49 mg am and [facility] 40 mg Branch afternoon metoprolol 2020-0 Yes 50mg Take 50 mg [facility] tartrate 50 3-10 by mouth ity of mg tablet 14:49: daily. [address] warfarin 2020-0 Yes Take by [facility] sodium 3-10 mouth. 3.5 ity of (COUMADIN 14:49: mg daily [place] [address] [place] [id number] losartan 50 2020-0 Yes 50mg Take 50 mg [facility] mg tablet 3-10 by mouth ity of 14:49: daily. [address] pantoprazol 2020-0 Yes 40mg Take 40 mg [facility] e 40 mg EC 3-10 by mouth ity o f tablet 14:49: daily. [address] furosemide 2020-0 Yes 40mg Take 40 mg [facility] 40 mg 3-10 by mouth. ity of tablet 14:49: Takes 80 [place] 49 mg am and [facility] 40 mg Branch afternoon metoprolol 2020-0 Yes 50mg Take 50 mg [facility] tartrate 50 3-10 by mouth ity of mg tablet 14:49: daily. [place] [address] [facility] warfarin 2020-0 Yes Take by [facility] sodium 3-10 mouth. 3.5 ity of (COUMADIN 14:49: mg daily [place] [facility] losartan 50 2020-0 Yes 50mg Take 50 mg [facility] mg tablet 3-10 by mouth ity of 14:49: daily. [place] [address] [facility] pantoprazol 2020-0 Yes 40mg Take 40 mg [facility] e 40 mg EC 3-10 by mouth ity o f tablet 14:49: daily. [place] [address] [facility] furosemide 2020-0 Yes 40mg Take 40 mg [facility] 40 mg 3-10 by mouth. ity of tablet 14:49: Takes 80 [place] 49 mg am and Medical 40 mg Branch afternoon metoprolol 2020-0 Yes 50mg Take 50 mg [facility] tartrate 50 3-10 by mouth ity of mg tablet 14:49: daily. [place] [address] [facility] warfarin 2020-0 Yes Take by [facility] sodium 3-10 mouth. 3.5 ity of (COUMADIN 14:49: mg daily [place] [facility] [facility] losartan 50 2020-0 Yes 50mg Take 50 mg [facility] mg tablet 3-10 by mouth ity of 14:49: daily. [place] [address] [facility] [place] pantoprazol 2020-0 Yes 40mg Take 40 mg [facility] e 40 mg EC 3-10 by mouth ity o f tablet 14:49: daily. [place] [address] [facility] furosemide 2020-0 Yes 40mg Take 40 mg [facility] 40 mg 3-10 by mouth. ity of tablet 14:49: Takes 80 [place] 49 mg am and [facility] 40 mg Branch afternoon metoprolol 2020-0 Yes 50mg Take 50 mg [facility] tartrate 50 3-10 by mouth ity of mg tablet 14:49: daily. [place] [address] [facility] [place] warfarin 2020-0 Yes Take by [facility] sodium 3-10 mouth. 3.5 ity of (COUMADIN 14:49: mg daily [place] [facility] losartan 50 2020-0 Yes 50mg Take 50 mg [facility] mg tablet 3-10 by mouth ity of 14:49: daily. [address] pantoprazol 2020-0 Yes 40mg Take 40 mg [facility] e 40 mg EC 3-10 by mouth ity o f tablet 14:49: daily. [place] [address] [facility] furosemide 2020-0 Yes 40mg Take 40 mg [facility] 40 mg 3-10 by mouth. ity of tablet 14:49: Takes 80 [place] 49 mg am and [facility] 40 mg Branch afternoon metoprolol 2020-0 Yes 50mg Take 50 mg [facility] tartrate 50 3-10 by mouth ity of mg tablet 14:49: daily. [address] warfarin 2020-0 Yes Take by [facility] sodium 3-10 mouth. 3.5 ity of (COUMADIN 14:49: mg daily [place] [address] [place] [id number] losartan 50 2020-0 Yes 50mg Take 50 mg [facility] mg tablet 3-10 by mouth ity of 14:49: daily. [address] pantoprazol 2020-0 Yes 40mg Take 40 mg [facility] e 40 mg EC 3-10 by mouth ity o f tablet 14:49: daily. [address] furosemide 2020-0 Yes 40mg Take 40 mg [facility] 40 mg 3-10 by mouth. ity of tablet 14:49: Takes 80 [place] 49 mg am and [facility] 40 mg Branch afternoon metoprolol 2020-0 Yes 50mg Take 50 mg [facility] tartrate 50 3-10 by mouth ity of mg tablet 14:49: daily. [address] warfarin 2020-0 Yes Take by [facility] sodium 3-10 mouth. 3.5 ity of (COUMADIN 14:49: mg daily [place] [address] [place] [id number] losartan 50 2020-0 Yes 50mg Take 50 mg [facility] mg tablet 3-10 by mouth ity of 14:49: daily. [address] pantoprazol 2020-0 Yes 40mg Take 40 mg [facility] e 40 mg EC 3-10 by mouth ity o f tablet 14:49: daily. [address] furosemide 2020-0 Yes 40mg Take 40 mg [facility] 40 mg 3-10 by mouth. ity of tablet 14:49: Takes 80 [place] 49 mg am and Medical 40 mg Branch afternoon metoprolol 2020-0 Yes 50mg Take 50 mg [facility] tartrate 50 3-10 by mouth ity of mg tablet 14:49: daily. [address] warfarin 2020-0 Yes Take by [facility] sodium 3-10 mouth. 3.5 ity of (COUMADIN 14:49: mg daily [place] [facility] losartan 50 2020-0 Yes 50mg Take 50 mg [facility] mg tablet 3-10 by mouth ity of 14:49: daily. [place] [address] [facility] pantoprazol 2020-0 Yes 40mg Take 40 mg [facility] e 40 mg EC 3-10 by mouth ity o f tablet 14:49: daily. [place] [address] [facility] allopurinoL 2020-0 Yes 300mg Take 300 [facility] 300 mg 3-10 mg by ity of tablet 14:48: mouth [place] 41 daily. [facility] allopurinoL 2020-0 Yes 300mg Take 300 [facility] 300 mg 3-10 mg by ity of tablet 14:48: mouth [place] 41 daily. [facility] allopurinoL 2020-0 Yes 300mg Take 300 [facility] 300 mg 3-10 mg by ity of tablet 14:48: mouth [place] 41 daily. [facility] allopurinoL 2020-0 Yes 300mg Take 300 [facility] 300 mg 3-10 mg by ity of tablet 14:48: mouth [place] 41 daily. [facility] allopurinoL 2020-0 Yes 300mg Take 300 [facility] 300 mg 3-10 mg by ity of tablet 14:48: mouth [place] 41 daily. [facility] allopurinoL 2020-0 Yes 300mg Take 300 [facility] 300 mg 3-10 mg by ity of tablet 14:48: mouth [place] 41 daily. [facility] allopurinoL 2020-0 Yes 300mg Take 300 [facility] 300 mg 3-10 mg by ity of tablet 14:48: mouth [place] 41 daily. [facility] allopurinoL 2020-0 Yes 300mg Take 300 [facility] 300 mg 3-10 mg by ity of tablet 14:48: mouth [place] 41 daily. [facility] allopurinoL 2020-0 Yes 300mg Take 300 [facility] 300 mg 3-10 mg by ity of tablet 14:48: mouth [place] 41 daily. [facility] allopurinoL 2020-0 Yes 300mg Take 300 [facility] 300 mg 3-10 mg by ity of tablet 14:48: mouth [place] 41 daily. [facility] allopurinoL 2020-0 Yes 300mg Take 300 [facility] 300 mg 3-10 mg by ity of tablet 14:48: mouth [place] 41 daily. [facility] allopurinoL 2020-0 Yes 300mg Take 300 [facility] 300 mg 3-10 mg by ity of tablet 14:48: mouth [place] 41 daily. [facility] allopurinoL 2020-0 Yes 300mg Take 300 [facility] 300 mg 3-10 mg by ity of tablet 14:48: mouth [place] 41 daily. [facility] allopurinoL 2020-0 Yes 300mg Take 300 [facility] 300 mg 3-10 mg by ity of tablet 14:48: mouth [place] 41 daily. [facility] allopurinoL 2020-0 Yes 300mg Take 300 [facility] 300 mg 3-10 mg by ity of tablet 14:48: mouth [place] 41 daily. [facility] allopurinoL 2020-0 Yes 300mg Take 300 [facility] 300 mg 3-10 mg by ity of tablet 14:48: mouth [place] 41 daily. [facility] allopurinoL 2020-0 Yes 300mg Take 300 [facility] 300 mg 3-10 mg by ity of tablet 14:48: mouth [place] 41 daily. [facility] allopurinoL 2020-0 Yes 300mg Take 300 [facility] 300 mg 3-10 mg by ity of tablet 14:48: mouth [place] 41 daily. [facility] allopurinoL 2020-0 Yes 300mg Take 300 [facility] 300 mg 3-10 mg by ity of tablet 14:48: mouth [place] 41 daily. [facility] allopurinoL 2020-0 Yes 300mg Take 300 [facility] 300 mg 3-10 mg by ity of tablet 14:48: mouth [place] 41 daily. [facility] allopurinoL 2020-0 Yes 300mg Take 300 [facility] 300 mg 3-10 mg by ity of tablet 14:48: mouth [place] 41 daily. [facility] allopurinoL 2020-0 Yes 300mg Take 300 [facility] 300 mg 3-10 mg by ity of tablet 14:48: mouth [place] 41 daily. [facility] allopurinoL 2020-0 Yes 300mg Take 300 [facility] 300 mg 3-10 mg by ity of tablet 14:48: mouth [place] 41 daily. [facility] allopurinoL 2020-0 Yes 300mg Take 300 [facility] 300 mg 3-10 mg by ity of tablet 14:48: mouth [place] 41 daily. [facility] allopurinoL 2020-0 Yes 300mg Take 300 [facility] 300 mg 3-10 mg by ity of tablet 14:48: mouth [place] 41 daily. [facility] allopurinoL 2020-0 Yes 300mg Take 300 [facility] 300 mg 3-10 mg by ity of tablet 14:48: mouth [place] 41 daily. [facility] allopurinoL 2020-0 Yes 300mg Take 300 [facility] 300 mg 3-10 mg by ity of tablet 14:48: mouth [place] 41 daily. [facility] allopurinoL 2020-0 Yes 300mg Take 300 [facility] 300 mg 3-10 mg by ity of tablet 14:48: mouth [place] 41 daily. [facility] allopurinoL 2020-0 Yes 300mg Take 300 [facility] n[facility] 300 mg 3-10 mg by ity of tablet 14:48: mouth [place] 41 daily. [facility] allopurinoL 2020-0 Yes 300mg Take 300 U nivers 300 mg 3-10 mg by ity of tablet 14:48: mouth [place] 41 daily. [facility] allopurinoL 2020-0 Yes 300mg Take 300 [facility] nivers 300 mg 3-10 mg by ity of tablet 14:48: mouth [place] 41 daily. [facility] allopurinoL 2020-0 Yes 300mg Take 300 [facility] n[facility] 300 mg 3-10 mg by ity of tablet 14:48: mouth [place] 41 daily. [facility] allopurinoL 2020-0 Yes 300mg Take 300 [facility] n[facility] 300 mg 3-10 mg by ity of tablet 14:48: mouth [place] 41 daily. [facility] allopurinoL 2020-0 Yes 300mg Take 300 [facility] nivers 300 mg 3-10 mg by ity of tablet 14:48: mouth [place] 41 daily. [facility] allopurinoL 2020-0 Yes 300mg Take 300 [facility] nivers 300 mg 3-10 mg by ity of tablet 14:48: mouth [place] 41 daily. [facility] allopurinoL 2020-0 Yes 300mg Take 300 [facility] nivers 300 mg 3-10 mg by ity of tablet 14:48: mouth [place] 41 daily. [facility] allopurinoL 2020-0 Yes 300mg Take 300 [facility] nivers 300 mg 3-10 mg by ity of tablet 14:48: mouth [place] 41 daily. [facility] allopurinoL 2020-0 Yes 300mg Take 300 [facility] nivers 300 mg 3-10 mg by ity of tablet 14:48: mouth [place] 41 daily. [facility] allopurinoL 2020-0 Yes 300mg Take 300 [facility] nivers 300 mg 3-10 mg by ity of tablet 14:48: mouth [place] 41 daily. [facility] allopurinoL 2020-0 Yes 300mg Take 300 [facility] nivers 300 mg 3-10 mg by ity of tablet 14:48: mouth [place] 41 daily. [facility] allopurinoL 2020-0 Yes 300mg Take 300 [facility] nivers 300 mg 3-10 mg by ity of tablet 14:48: mouth [place] 41 daily. [facility] allopurinoL 2020-0 Yes 300mg Take 300 [facility] nivers 300 mg 3-10 mg by ity of tablet 14:48: mouth [place] 41 daily. [facility] allopurinoL 2020-0 Yes 300mg Take 300 [facility] nivers 300 mg 3-10 mg by ity of tablet 14:48: mouth [place] 41 daily. [facility] atorvastati 2020-0 Yes 10mg Take 10 mg [facility] n 10 mg 3-10 by mouth ity of tablet 09:51: at [place] 15 bedtime. [facility] atorvastati 2020-0 Yes 10mg Take 10 mg [facility] n 10 mg 3-10 by mouth ity of tablet 09:51: at [place] 15 bedtime. [facility] atorvastati 2020-0 Yes 10mg Take 10 mg [facility] n 10 mg 3-10 by mouth ity of tablet 09:51: at [place] 15 bedtime. [facility] atorvastati 2020-0 Yes 10mg Take 10 mg [facility] n 10 mg 3-10 by mouth ity of tablet 09:51: at [place] 15 bedtime. [facility] atorvastati 2020-0 Yes 10mg Take 10 mg [facility] n 10 mg 3-10 by mouth ity of tablet 09:51: at [place] 15 bedtime. [facility] atorvastati 2020-0 Yes 10mg Take 10 mg [facility] n 10 mg 3-10 by mouth ity of tablet 09:51: at [place] 15 bedtime. [facility] atorvastati 2020-0 Yes 10mg Take 10 mg [facility] n 10 mg 3-10 by mouth ity of tablet 09:51: at [place] 15 bedtime. [facility] atorvastati 2020-0 Yes 10mg Take 10 mg [facility] n 10 mg 3-10 by mouth ity of tablet 09:51: at [place] 15 bedtime. [facility] atorvastati 2020-0 Yes 10mg Take 10 mg [facility] n 10 mg 3-10 by mouth ity of tablet 09:51: at [place] 15 bedtime. [facility] atorvastati 2020-0 Yes 10mg Take 10 mg [facility] n 10 mg 3-10 by mouth ity of tablet 09:51: at [place] 15 bedtime. [facility] atorvastati 2020-0 Yes 10mg Take 10 mg [facility] n 10 mg 3-10 by mouth ity of tablet 09:51: at [place] 15 bedtime. [facility] atorvastati 2020-0 Yes 10mg Take 10 mg [facility] n 10 mg 3-10 by mouth ity of tablet 09:51: at [place] 15 bedtime. [facility] atorvastati 2020-0 Yes 10mg Take 10 mg [facility] n 10 mg 3-10 by mouth ity of tablet 09:51: at [place] 15 bedtime. [facility] atorvastati 2020-0 Yes 10mg Take 10 mg [facility] n 10 mg 3-10 by mouth ity of tablet 09:51: at [place] 15 bedtime. [facility] atorvastati 2020-0 Yes 10mg Take 10 mg [facility] n 10 mg 3-10 by mouth ity of tablet 09:51: at [place] 15 bedtime. [facility] atorvastati 2020-0 Yes 10mg Take 10 mg [facility] n 10 mg 3-10 by mouth ity of tablet 09:51: at [place] 15 bedtime. [facility] atorvastati 2020-0 Yes 10mg Take 10 mg [facility] n 10 mg 3-10 by mouth ity of tablet 09:51: at [place] 15 bedtime. [facility] atorvastati 2020-0 Yes 10mg Take 10 mg [facility] n 10 mg 3-10 by mouth ity of tablet 09:51: at [place] 15 bedtime. [facility] atorvastati 2020-0 Yes 10mg Take 10 mg [facility] n 10 mg 3-10 by mouth ity of tablet 09:51: at [place] 15 bedtime. [facility] atorvastati 2020-0 Yes 10mg Take 10 mg [facility] n 10 mg 3-10 by mouth ity of tablet 09:51: at [place] 15 bedtime. [facility] atorvastati 2020-0 Yes 10mg Take 10 mg [facility] n 10 mg 3-10 by mouth ity of tablet 09:51: at [place] 15 bedtime. [facility] atorvastati 2020-0 Yes 10mg Take 10 mg [facility] n 10 mg 3-10 by mouth ity of tablet 09:51: at [place] 15 bedtime. [facility] atorvastati 2020-0 Yes 10mg Take 10 mg [facility] n 10 mg 3-10 by mouth ity of tablet 09:51: at [place] 15 bedtime. [facility] atorvastati 2020-0 Yes 10mg Take 10 mg [facility] n 10 mg 3-10 by mouth ity of tablet 09:51: at [place] 15 bedtime. [facility] atorvastati 2020-0 Yes 10mg Take 10 mg [facility] n 10 mg 3-10 by mouth ity of tablet 09:51: at [place] 15 bedtime. [facility] atorvastati 2020-0 Yes 10mg Take 10 mg [facility] n 10 mg 3-10 by mouth ity of tablet 09:51: at [place] 15 bedtime. [facility] atorvastati 2020-0 Yes 10mg Take 10 mg [facility] n 10 mg 3-10 by mouth ity of tablet 09:51: at [place] 15 bedtime. [facility] atorvastati 2020-0 Yes 10mg Take 10 mg [facility] n 10 mg 3-10 by mouth ity of tablet 09:51: at [place] 15 bedtime. [facility] atorvastati 2020-0 Yes 10mg Take 10 mg [facility] n 10 mg 3-10 by mouth ity of tablet 09:51: at [place] 15 bedtime. [facility] atorvastati 2020-0 Yes 10mg Take 10 mg [facility] n 10 mg 3-10 by mouth ity of tablet 09:51: at [place] 15 bedtime. [facility] atorvastati 2020-0 Yes 10mg Take 10 mg [facility] n 10 mg 3-10 by mouth ity of tablet 09:51: at [place] 15 bedtime. [facility] atorvastati 2020-0 Yes 10mg Take 10 mg [facility] n 10 mg 3-10 by mouth ity of tablet 09:51: at [place] 15 bedtime. [facility] atorvastati 2020-0 Yes 10mg Take 10 mg [facility] n 10 mg 3-10 by mouth ity of tablet 09:51: at [place] 15 bedtime. [facility] tamsulosin 2020-0 Yes Take by [facility] ers 0.4 mg 24 3-10 mouth ity of hr capsule 09:50: daily. [place] [address] [facility] tamsulosin 2020-0 Yes Take by [facility] ers 0.4 mg 24 3-10 mouth ity of hr capsule 09:50: daily. [place] [address] [facility] tamsulosin 2020-0 Yes Take by [facility] ers 0.4 mg 24 3-10 mouth ity of hr capsule 09:50: daily. [place] [address] [facility] tamsulosin 2020-0 Yes Take by [facility] ers 0.4 mg 24 3-10 mouth ity of hr capsule 09:50: daily. [place] [address] [facility] tamsulosin 2020-0 Yes Take by [facility] 0.4 mg 24 3-10 mouth ity of hr capsule 09:50: daily. [place] [address] [facility] tamsulosin 2020-0 Yes Take by [facility] 0.4 mg 24 3-10 mouth ity of hr capsule 09:50: daily. [place] [address] [facility] tamsulosin 2020-0 Yes Take by [facility] 0.4 mg 24 3-10 mouth ity of hr capsule 09:50: daily. [place] [address] [facility] tamsulosin 2020-0 Yes Take by [facility] 0.4 mg 24 3-10 mouth ity of hr capsule 09:50: daily. [place] [address] [facility] tamsulosin 2020-0 Yes Take by [facility] 0.4 mg 24 3-10 mouth ity of hr capsule 09:50: daily. [place] [address] [facility] tamsulosin 2020-0 Yes Take by [facility] 0.4 mg 24 3-10 mouth ity of hr capsule 09:50: daily. [place] [address] [facility] tamsulosin 2020-0 Yes Take by [facility] 0.4 mg 24 3-10 mouth ity of hr capsule 09:50: daily. [place] [address] [facility] tamsulosin 2020-0 Yes Take by [facility] 0.4 mg 24 3-10 mouth ity of hr capsule 09:50: daily. [place] [address] [facility] tamsulosin 2020-0 Yes Take by [facility] 0.4 mg 24 3-10 mouth ity of hr capsule 09:50: daily. [place] [address] [facility] tamsulosin 2020-0 Yes Take by [facility] 0.4 mg 24 3-10 mouth ity of hr capsule 09:50: daily. [place] [address] [facility] tamsulosin 2020-0 Yes Take by [facility] 0.4 mg 24 3-10 mouth ity of hr capsule 09:50: daily. [place] [address] [facility] tamsulosin 2020-0 Yes Take by [facility] 0.4 mg 24 3-10 mouth ity of hr capsule 09:50: daily. [place] [address] [facility] tamsulosin 2020-0 Yes Take by [facility] 0.4 mg 24 3-10 mouth ity of hr capsule 09:50: daily. [place] [address] [facility] tamsulosin 2020-0 Yes Take by Uni vers 0.4 mg 24 3-10 mouth ity of hr capsule 09:50: daily. [place] [address] [facility] tamsulosin 2020-0 Yes Take by [facility] 0.4 mg 24 3-10 mouth ity of hr capsule 09:50: daily. [place] [address] [facility] tamsulosin 2020-0 Yes Take by [facility] 0.4 mg 24 3-10 mouth ity of hr capsule 09:50: daily. [place] [address] [facility] tamsulosin 2020-0 Yes Take by [facility] 0.4 mg 24 3-10 mouth ity of hr capsule 09:50: daily. [place] [address] [facility] tamsulosin 2020-0 Yes Take by [facility] 0.4 mg 24 3-10 mouth ity of hr capsule 09:50: daily. [place] [address] [facility] tamsulosin 2020-0 Yes Take by [facility] 0.4 mg 24 3-10 mouth ity of hr capsule 09:50: daily. [place] [address] [facility] tamsulosin 2020-0 Yes Take by [facility] 0.4 mg 24 3-10 mouth ity of hr capsule 09:50: daily. [place] [address] [facility] tamsulosin 2020-0 Yes Take by [facility] 0.4 mg 24 3-10 mouth ity of hr capsule 09:50: daily. [place] [address] [facility] tamsulosin 2020-0 Yes Take by [facility] 0.4 mg 24 3-10 mouth ity of hr capsule 09:50: daily. [place] [address] [facility] tamsulosin 2020-0 Yes Take by [facility] 0.4 mg 24 3-10 mouth ity of hr capsule 09:50: daily. [place] [address] [facility] tamsulosin 2020-0 Yes Take by [facility] 0.4 mg 24 3-10 mouth ity of hr capsule 09:50: daily. [place] [address] [facility] tamsulosin 2020-0 Yes Take by [facility] 0.4 mg 24 3-10 mouth ity of hr capsule 09:50: daily. [place] [address] [facility] tamsulosin 2020-0 Yes Take by [facility] 0.4 mg 24 3-10 mouth ity of hr capsule 09:50: daily. [place] [address] [facility] tamsulosin 2020-0 Yes Take by [facility] 0.4 mg 24 3-10 mouth ity of hr capsule 09:50: daily. [place] [address] [facility] tamsulosin 2020-0 Yes Take by [facility] 0.4 mg 24 3-10 mouth ity of hr capsule 09:50: daily. [place] 23 [facility] tamsulosin 2020-0 Yes Take by [facility] 0.4 mg 24 3-10 mouth ity of hr capsule 09:50: daily. [place] 23 [facility] metoprolol 2020-0 Yes 50mg Take 50 mg [facility] nivers tartrate 50 3-10 by mouth ity of mg tablet 09:49: daily. [place] [address] [facility] warfarin 2020-0 Yes Take by [facility] sodium 3-10 mouth. 3.5 ity of (COUMADIN 09:49: mg [place] [facility] losartan 50 2020-0 Yes 50mg Take 50 mg [facility] mg tablet 3-10 by mouth ity of 09:49: daily. [place] [address] [facility] pantoprazol 2020-0 Yes 40mg Take 40 mg [facility] e 40 mg EC 3-10 by mouth ity o f tablet 09:49: daily. [place] [address] [facility] metoprolol 2020-0 Yes 50mg Take 50 mg [facility] nivers tartrate 50 3-10 by mouth ity of mg tablet 09:49: daily. [place] [address] [facility] warfarin 2020-0 Yes Take by [facility] sodium 3-10 mouth. 3.5 ity of (COUMADIN 09:49: mg [place] [facility] losartan 50 2020-0 Yes 50mg Take 50 mg [facility] mg tablet 3-10 by mouth ity of 09:49: daily. [place] [address] [facility] pantoprazol 2020-0 Yes 40mg Take 40 mg [facility] e 40 mg EC 3-10 by mouth ity o f tablet 09:49: daily. [place] [address] [facility] metoprolol 2020-0 Yes 50mg Take 50 mg [facility] nivers tartrate 50 3-10 by mouth ity of mg tablet 09:49: daily. [place] [address] [facility] warfarin 2020-0 Yes Take by [facility] sodium 3-10 mouth. 3.5 ity of (COUMADIN 09:49: mg daily [place] [facility] losartan 50 2020-0 Yes 50mg Take 50 mg [facility] mg tablet 3-10 by mouth ity of 09:49: daily. [place] [address] [facility] pantoprazol 2020-0 Yes 40mg Take 40 mg [facility] e 40 mg EC 3-10 by mouth ity o f tablet 09:49: daily. [place] [address] [facility] metoprolol 2020-0 Yes 50mg Take 50 mg [facility] nivers tartrate 50 3-10 by mouth ity of mg tablet 09:49: daily. [place] [address] [facility] warfarin 2020-0 Yes Take by [facility] sodium 3-10 mouth. 3.5 ity of (COUMADIN 09:49: mg [place] [facility] losartan 50 2020-0 Yes 50mg Take 50 mg [facility] mg tablet 3-10 by mouth ity of 09:49: daily. [place] [address] [facility] pantoprazol 2020-0 Yes 40mg Take 40 mg [facility] e 40 mg EC 3-10 by mouth ity o f tablet 09:49: daily. [place] [address] [facility] metoprolol 2020-0 Yes 50mg Take 50 mg [facility] nivers tartrate 50 3-10 by mouth ity of mg tablet 09:49: daily. [place] [address] [facility] warfarin 2020-0 Yes Take by [facility] sodium 3-10 mouth. 3.5 ity of (COUMADIN 09:49: mg [place] [facility] losartan 50 2020-0 Yes 50mg Take 50 mg [facility] mg tablet 3-10 by mouth ity of 09:49: daily. [place] [address] [facility] pantoprazol 2020-0 Yes 40mg Take 40 mg [facility] e 40 mg EC 3-10 by mouth ity o f tablet 09:49: daily. [place] [address] [facility] metoprolol 2020-0 Yes 50mg Take 50 mg [facility] nivers tartrate 50 3-10 by mouth ity of mg tablet 09:49: daily. [place] [address] [facility] warfarin 2020-0 Yes Take by [facility] sodium 3-10 mouth. 3.5 ity of (COUMADIN 09:49: mg daily [place] [facility] losartan 50 2020-0 Yes 50mg Take 50 mg [facility] mg tablet 3-10 by mouth ity of 09:49: daily. [place] [address] [facility] pantoprazol 2020-0 Yes 40mg Take 40 mg [facility] e 40 mg EC 3-10 by mouth ity o f tablet 09:49: daily. [place] [address] [facility] metoprolol 2020-0 Yes 50mg Take 50 mg [facility] nivers tartrate 50 3-10 by mouth ity of mg tablet 09:49: daily. [place] [address] [facility] warfarin 2020-0 Yes Take by [facility] sodium 3-10 mouth. 3.5 ity of (COUMADIN 09:49: mg daily [place] [facility] losartan 50 2020-0 Yes 50mg Take 50 mg [facility] mg tablet 3-10 by mouth ity of 09:49: daily. [place] [address] [facility] pantoprazol 2020-0 Yes 40mg Take 40 mg [facility] e 40 mg EC 3-10 by mouth ity o f tablet 09:49: daily. [place] [address] [facility] metoprolol 2020-0 Yes 50mg Take 50 mg [facility] nivers tartrate 50 3-10 by mouth ity of mg tablet 09:49: daily. [place] [address] [facility] warfarin 2020-0 Yes Take by [facility] sodium 3-10 mouth. 3.5 ity of (COUMADIN 09:49: mg daily [place] [facility] losartan 50 2020-0 Yes 50mg Take 50 mg [facility] mg tablet 3-10 by mouth ity of 09:49: daily. [place] [address] [facility] pantoprazol 2020-0 Yes 40mg Take 40 mg [facility] e 40 mg EC 3-10 by mouth ity o f tablet 09:49: daily. [place] [address] [facility] metoprolol 2020-0 Yes 50mg Take 50 mg [facility] nivers tartrate 50 3-10 by mouth ity of mg tablet 09:49: daily. [place] [address] [facility] warfarin 2020-0 Yes Take by [facility] sodium 3-10 mouth. 3.5 ity of (COUMADIN 09:49: mg daily [place] [facility] losartan 50 2020-0 Yes 50mg Take 50 mg [facility] mg tablet 3-10 by mouth ity of 09:49: daily. [place] [address] [facility] pantoprazol 2020-0 Yes 40mg Take 40 mg [facility] e 40 mg EC 3-10 by mouth ity o f tablet 09:49: daily. [place] [address] [facility] metoprolol 2020-0 Yes 50mg Take 50 mg [facility] nivers tartrate 50 3-10 by mouth ity of mg tablet 09:49: daily. [place] [address] [facility] warfarin 2020-0 Yes Take by [facility] sodium 3-10 mouth. 3.5 ity of (COUMADIN 09:49: mg daily [place] [facility] losartan 50 2020-0 Yes 50mg Take 50 mg [facility] mg tablet 3-10 by mouth ity of 09:49: daily. [place] [address] [facility] pantoprazol 2020-0 Yes 40mg Take 40 mg [facility] e 40 mg EC 3-10 by mouth ity o f tablet 09:49: daily. [place] [address] [facility] metoprolol 2020-0 Yes 50mg Take 50 mg [facility] nivers tartrate 50 3-10 by mouth ity of mg tablet 09:49: daily. [place] [address] [facility] warfarin 2020-0 Yes Take by [facility] sodium 3-10 mouth. 3.5 ity of (COUMADIN 09:49: mg daily [place] [facility] losartan 50 2020-0 Yes 50mg Take 50 mg [facility] mg tablet 3-10 by mouth ity of 09:49: daily. [place] [address] [facility] pantoprazol 2020-0 Yes 40mg Take 40 mg [facility] e 40 mg EC 3-10 by mouth ity o f tablet 09:49: daily. [place] [address] [facility] metoprolol 2020-0 Yes 50mg Take 50 mg [facility] nivers tartrate 50 3-10 by mouth ity of mg tablet 09:49: daily. [place] [address] [facility] warfarin 2020-0 Yes Take by [facility] sodium 3-10 mouth. 3.5 ity of (COUMADIN 09:49: mg daily [place] [facility] losartan 50 2020-0 Yes 50mg Take 50 mg [facility] mg tablet 3-10 by mouth ity of 09:49: daily. [place] [address] [facility] pantoprazol 2020-0 Yes 40mg Take 40 mg [facility] e 40 mg EC 3-10 by mouth ity o f tablet 09:49: daily. [place] [address] [facility] metoprolol 2020-0 Yes 50mg Take 50 mg [facility] nivers tartrate 50 3-10 by mouth ity of mg tablet 09:49: daily. [place] [address] [facility] warfarin 2020-0 Yes Take by [facility] sodium 3-10 mouth. 3.5 ity of (COUMADIN 09:49: mg daily [place] [facility] losartan 50 2020-0 Yes 50mg Take 50 mg [facility] mg tablet 3-10 by mouth ity of 09:49: daily. [place] [address] [facility] pantoprazol 2020-0 Yes 40mg Take 40 mg [facility] e 40 mg EC 3-10 by mouth ity o f tablet 09:49: daily. [place] [address] [facility] metoprolol 2020-0 Yes 50mg Take 50 mg [facility] nivers tartrate 50 3-10 by mouth ity of mg tablet 09:49: daily. [place] [address] [facility] [place] warfarin 2020-0 Yes Take by [facility] sodium 3-10 mouth. 3.5 ity of (COUMADIN 09:49: mg daily [place] [facility] losartan 50 2020-0 Yes 50mg Take 50 mg [facility] mg tablet 3-10 by mouth ity of 09:49: daily. [address] Branch pantoprazol 2020-0 Yes 40mg Take 40 mg [facility] e 40 mg EC 3-10 by mouth ity o f tablet 09:49: daily. [address] metoprolol 2020-0 Yes 50mg Take 50 mg [facility] nivers tartrate 50 3-10 by mouth ity of mg tablet 09:49: daily. [address] warfarin 2020-0 Yes Take by [facility] sodium 3-10 mouth. 3.5 ity of (COUMADIN 09:49: mg daily [place] [address] [place] [id number] losartan 50 2020-0 Yes 50mg Take 50 mg [facility] mg tablet 3-10 by mouth ity of 09:49: daily. [address] pantoprazol 2020-0 Yes 40mg Take 40 mg [facility] e 40 mg EC 3-10 by mouth ity o f tablet 09:49: daily. [address] metoprolol 2020-0 Yes 50mg Take 50 mg [facility] nivers tartrate 50 3-10 by mouth ity of mg tablet 09:49: daily. [address] losartan 50 2020-0 Yes 50mg Take 50 mg [facility] mg tablet 3-10 by mouth ity of 09:49: daily. [address] pantoprazol 2020-0 Yes 40mg Take 40 mg [facility] e 40 mg EC 3-10 by mouth ity o f tablet 09:49: daily. [address] metoprolol 2020-0 Yes 50mg Take 50 mg [facility] nivers tartrate 50 3-10 by mouth ity of mg tablet 09:49: daily. [address] losartan 50 2020-0 Yes 50mg Take 50 mg [facility] mg tablet 3-10 by mouth ity of 09:49: daily. [address] pantoprazol 2020-0 Yes 40mg Take 40 mg [facility] e 40 mg EC 3-10 by mouth ity o f tablet 09:49: daily. [address] metoprolol 2020-0 Yes 50mg Take 50 mg [facility] nivers tartrate 50 3-10 by mouth ity of mg tablet 09:49: daily. [address] losartan 50 2020-0 Yes 50mg Take 50 mg [facility] mg tablet 3-10 by mouth ity of 09:49: daily. [address] pantoprazol 2020-0 Yes 40mg Take 40 mg [facility] e 40 mg EC 3-10 by mouth ity o f tablet 09:49: daily. [address] metoprolol 2020-0 Yes 50mg Take 50 mg [facility] nivers tartrate 50 3-10 by mouth ity of mg tablet 09:49: daily. [address] losartan 50 2020-0 Yes 50mg Take 50 mg [facility] mg tablet 3-10 by mouth ity of 09:49: daily. [address] pantoprazol 2020-0 Yes 40mg Take 40 mg [facility] e 40 mg EC 3-10 by mouth ity o f tablet 09:49: daily. [address] metoprolol 2020-0 Yes 50mg Take 50 mg [facility] nivers tartrate 50 3-10 by mouth ity of mg tablet 09:49: daily. [address] losartan 50 2020-0 Yes 50mg Take 50 mg [facility] mg tablet 3-10 by mouth ity of 09:49: daily. [address] pantoprazol 2020-0 Yes 40mg Take 40 mg [facility] e 40 mg EC 3-10 by mouth ity o f tablet 09:49: daily. [address] metoprolol 2020-0 Yes 50mg Take 50 mg [facility] nivers tartrate 50 3-10 by mouth ity of mg tablet 09:49: daily. [address] losartan 50 2020-0 Yes 50mg Take 50 mg [facility] mg tablet 3-10 by mouth ity of 09:49: daily. [address] pantoprazol 2020-0 Yes 40mg Take 40 mg [facility] e 40 mg EC 3-10 by mouth ity o f tablet 09:49: daily. [address] metoprolol 2020-0 Yes 50mg Take 50 mg [facility] nivers tartrate 50 3-10 by mouth ity of mg tablet 09:49: daily. [address] losartan 50 2020-0 Yes 50mg Take 50 mg [facility] mg tablet 3-10 by mouth ity of 09:49: daily. [address] pantoprazol 2020-0 Yes 40mg Take 40 mg [facility] e 40 mg EC 3-10 by mouth ity o f tablet 09:49: daily. [place] 49 [facility] metoprolol 2020-0 Yes 50mg Take 50 mg [facility] nivers tartrate 50 3-10 by mouth ity of mg tablet 09:49: daily. [place] [address] [facility] losartan 50 2020-0 Yes 50mg Take 50 mg [facility] mg tablet 3-10 by mouth ity of 09:49: daily. [address] Branch pantoprazol 2020-0 Yes 40mg Take 40 mg [facility] e 40 mg EC 3-10 by mouth ity o f tablet 09:49: daily. [place] [address] [facility] metoprolol 2020-0 Yes 50mg Take 50 mg [facility] nivers tartrate 50 3-10 by mouth ity of mg tablet 09:49: daily. [address] losartan 50 2020-0 Yes 50mg Take 50 mg [facility] mg tablet 3-10 by mouth ity of 09:49: daily. [address] pantoprazol 2020-0 Yes 40mg Take 40 mg [facility] e 40 mg EC 3-10 by mouth ity o f tablet 09:49: daily. [address] furosemide 2020-0 Yes 40mg Take 40 mg [facility] n[facility] 40 mg 3-10 by mouth. ity of tablet 09:49: Takes 80 [place] 49 mg am and Medical 40 mg Branch afternoon metoprolol 2020-0 Yes 50mg Take 50 mg [facility] nivers tartrate 50 3-10 by mouth ity of mg tablet 09:49: daily. [address] warfarin 2020-0 Yes Take by [facility] sodium 3-10 mouth. 3.5 ity of (COUMADIN 09:49: mg daily [place] [facility] losartan 50 2020-0 Yes 50mg Take 50 mg [facility] mg tablet 3-10 by mouth ity of 09:49: daily. [address] pantoprazol 2020-0 Yes 40mg Take 40 mg [facility] e 40 mg EC 3-10 by mouth ity o f tablet 09:49: daily. [place] [address] [facility] furosemide 2020-0 Yes 40mg Take 40 mg [facility] n[facility] 40 mg 3-10 by mouth. ity of tablet 09:49: Takes 80 [place] 49 mg am and Medical 40 mg Branch afternoon metoprolol 2020-0 Yes 50mg Take 50 mg [facility] nivers tartrate 50 3-10 by mouth ity of mg tablet 09:49: daily. [address] warfarin 2020-0 Yes Take by [facility] sodium 3-10 mouth. 3.5 ity of (COUMADIN 09:49: mg daily [place] [facility] losartan 50 2020-0 Yes 50mg Take 50 mg [facility] mg tablet 3-10 by mouth ity of 09:49: daily. [place] [address] [facility] pantoprazol 2020-0 Yes 40mg Take 40 mg [facility] e 40 mg EC 3-10 by mouth ity o f tablet 09:49: daily. [place] [address] [facility] furosemide 2020-0 Yes 40mg Take 40 mg [facility] 40 mg 3-10 by mouth. ity of tablet 09:49: Takes 80 [place] 49 mg am and Medical 40 mg Branch afternoon metoprolol 2020-0 Yes 50mg Take 50 mg [facility] nivers tartrate 50 3-10 by mouth ity of mg tablet 09:49: daily. [place] [address] [facility] warfarin 2020-0 Yes Take by [facility] sodium 3-10 mouth. 3.5 ity of (COUMADIN 09:49: mg daily [place] [facility] losartan 50 2020-0 Yes 50mg Take 50 mg [facility] mg tablet 3-10 by mouth ity of 09:49: daily. [place] [address] [facility] pantoprazol 2020-0 Yes 40mg Take 40 mg [facility] e 40 mg EC 3-10 by mouth ity o f tablet 09:49: daily. [place] [address] [facility] [place] furosemide 2020-0 Yes 40mg Take 40 mg [facility] nivers 40 mg 3-10 by mouth. ity of tablet 09:49: Takes 80 [place] 49 mg am and Medical 40 mg Branch afternoon metoprolol 2020-0 Yes 50mg Take 50 mg [facility] nivers tartrate 50 3-10 by mouth ity of mg tablet 09:49: daily. [address] warfarin 2020-0 Yes Take by [facility] sodium 3-10 mouth. 3.5 ity of (COUMADIN 09:49: mg daily [place] [address] [place] [id number] losartan 50 2020-0 Yes 50mg Take 50 mg [facility] mg tablet 3-10 by mouth ity of 09:49: daily. [place] [address] [facility] pantoprazol 2020-0 Yes 40mg Take 40 mg [facility] e 40 mg EC 3-10 by mouth ity o f tablet 09:49: daily. [place] [address] [facility] [place] furosemide 2020-0 Yes 40mg Take 40 mg [facility] nivers 40 mg 3-10 by mouth. ity of tablet 09:49: Takes 80 [place] 49 mg am and Medical 40 mg Branch afternoon metoprolol 2020-0 Yes 50mg Take 50 mg [facility] nivers tartrate 50 3-10 by mouth ity of mg tablet 09:49: daily. [place] [address] [facility] warfarin 2020-0 Yes Take by Univer s sodium 3-10 mouth. 3.5 ity of ([place] 09:[place] 49 [facility] losartan 50 2020-0 Yes 50mg Take 50 mg Univers mg tablet 3-10 by mouth ity of 09:49: daily. [place] [address] [facility] pantoprazol 2020-0 Yes 40mg Take 40 mg Univers e 40 mg EC 3-10 by mouth ity o f tablet 09:49: daily. [place] [address] [facility] furosemide 2020-0 Yes 40mg Take 40 mg U nivers 40 mg 3-10 by mouth. ity of tablet 09:49: Takes 80 [place] 49 mg am and Medical 40 mg Branch afternoon metoprolol 2020-0 Yes 50mg Take 50 mg U nivers tartrate 50 3-10 by mouth ity of mg tablet 09:49: daily. [place] [address] [facility] [place] warfarin 2020-0 Yes Take by Univer s sodium 3-10 mouth. 3.5 ity of ([place]OU[place] 09:[place]: [place] [facility] losartan 50 2020-0 Yes 50mg Take 50 mg Univers mg tablet 3-10 by mouth ity of 09:49: daily. [place] [address] [facility] pantoprazol 2020-0 Yes 40mg Take 40 mg Univers e 40 mg EC 3-10 by mouth ity o f tablet 09:49: daily. [place] [address] [facility] [place] furosemide 2020-0 Yes 40mg Take 40 mg U nivers 40 mg 3-10 by mouth. ity of tablet 09:49: Takes 80 [place] 49 mg am and Medical 40 mg Branch afternoon metoprolol 2020-0 Yes 50mg Take 50 mg U nivers tartrate 50 3-10 by mouth ity of mg tablet 09:49: daily. [place] [address] [facility] warfarin 2020-0 Yes Take by Univer s sodium 3-10 mouth. 3.5 ity of ([place] 09:[place]: [place] [facility] losartan 50 2020-0 Yes 50mg Take 50 mg Univers mg tablet 3-10 by mouth ity of 09:49: daily. [place] [address] [facility] pantoprazol 2020-0 Yes 40mg Take 40 mg Univers e 40 mg EC 3-10 by mouth ity o f tablet 09:49: daily. [place] [address] [facility] furosemide 2020-0 Yes 40mg Take 40 mg U nivers 40 mg 3-10 by mouth. ity of tablet 09:49: Takes 80 [place] 49 mg am and Medical 40 mg Branch afternoon metoprolol 2020-0 Yes 50mg Take 50 mg U nivers tartrate 50 3-10 by mouth ity of mg tablet 09:49: daily. [place] [address] [facility] warfarin 2020-0 Yes Take by Univer s sodium 3-10 mouth. 3.5 ity of ([place] 09:[place]: [place] [facility] losartan 50 2020-0 Yes 50mg Take 50 mg Univers mg tablet 3-10 by mouth ity of 09:49: daily. [place] [address] [facility] pantoprazol 2020-0 Yes 40mg Take 40 mg Univers e 40 mg EC 3-10 by mouth ity o f tablet 09:49: daily. [place] [address] [facility] furosemide 2020-0 Yes 40mg Take 40 mg U nivers 40 mg 3-10 by mouth. ity of tablet 09:49: Takes 80 [place] 49 mg am and Medical 40 mg Branch afternoon metoprolol 2020-0 Yes 50mg Take 50 mg U nivers tartrate 50 3-10 by mouth ity of mg tablet 09:49: daily. [place] [address] [facility] warfarin 2020-0 Yes Take by Univer s sodium 3-10 mouth. 3.5 ity of ([place] 09:[place]: [place] [facility] losartan 50 2020-0 Yes 50mg Take 50 mg Univers mg tablet 3-10 by mouth ity of 09:49: daily. [place] [address] [facility] pantoprazol 2020-0 Yes 40mg Take 40 mg Univers e 40 mg EC 3-10 by mouth ity o f tablet 09:49: daily. [place] [address] [facility] furosemide 2020-0 Yes 40mg Take 40 mg U nivers 40 mg 3-10 by mouth. ity of tablet 09:49: Takes 80 [place] 49 mg am and Medical 40 mg Branch afternoon allopurinoL 2020-0 Yes 300mg Take 300 U nivers 300 mg 3-10 mg by ity of tablet 09:48: mouth [place] 41 daily. Medical Branch allopurinoL 2020-0 Yes 300mg Take 300 U nivers 300 mg 3-10 mg by ity of tablet 09:48: mouth [place] 41 daily. Medical Branch allopurinoL 2020-0 Yes 300mg Take 300 U nivers 300 mg 3-10 mg by ity of tablet 09:48: mouth [place] 41 daily. Medical Branch allopurinoL 2020-0 Yes 300mg Take 300 U nivers 300 mg 3-10 mg by ity of tablet 09:48: mouth [place] 41 daily. Medical Branch allopurinoL 2020-0 Yes 300mg Take 300 U nivers 300 mg 3-10 mg by ity of tablet 09:48: mouth [place] 41 daily. Medical Branch allopurinoL 2020-0 Yes 300mg Take 300 U nivers 300 mg 3-10 mg by ity of tablet 09:48: mouth [place] 41 daily. Medical Branch allopurinoL 2020-0 Yes 300mg Take 300 U nivers 300 mg 3-10 mg by ity of tablet 09:48: mouth [place] 41 daily. Medical Branch allopurinoL 2020-0 Yes 300mg Take 300 U nivers 300 mg 3-10 mg by ity of tablet 09:48: mouth [place] 41 daily. Medical Branch allopurinoL 2020-0 Yes 300mg Take 300 U nivers 300 mg 3-10 mg by ity of tablet 09:48: mouth [place] 41 daily. Medical Branch allopurinoL 2020-0 Yes 300mg Take 300 U nivers 300 mg 3-10 mg by ity of tablet 09:48: mouth [place] 41 daily. Medical Branch allopurinoL 2020-0 Yes 300mg Take 300 U nivers 300 mg 3-10 mg by ity of tablet 09:48: mouth [place] 41 daily. Medical Branch allopurinoL 2020-0 Yes 300mg Take 300 U nivers 300 mg 3-10 mg by ity of tablet 09:48: mouth [place] 41 daily. Medical Branch allopurinoL 2020-0 Yes 300mg Take 300 U nivers 300 mg 3-10 mg by ity of tablet 09:48: mouth [place] 41 daily. Medical Branch allopurinoL 2020-0 Yes 300mg Take 300 U nivers 300 mg 3-10 mg by ity of tablet 09:48: mouth [place] 41 daily. Medical Branch allopurinoL 2020-0 Yes 300mg Take 300 U nivers 300 mg 3-10 mg by ity of tablet 09:48: mouth [place] 41 daily. Medical Branch allopurinoL 2020-0 Yes 300mg Take 300 U nivers 300 mg 3-10 mg by ity of tablet 09:48: mouth [place] 41 daily. Medical Branch allopurinoL 2020-0 Yes 300mg Take 300 U nivers 300 mg 3-10 mg by ity of tablet 09:48: mouth [place] 41 daily. Medical Branch allopurinoL 2020-0 Yes 300mg Take 300 U nivers 300 mg 3-10 mg by ity of tablet 09:48: mouth [place] 41 daily. Medical Branch allopurinoL 2020-0 Yes 300mg Take 300 U nivers 300 mg 3-10 mg by ity of tablet 09:48: mouth [place] 41 daily. Medical Branch allopurinoL 2020-0 Yes 300mg Take 300 U nivers 300 mg 3-10 mg by ity of tablet 09:48: mouth [place] 41 daily. Medical Branch allopurinoL 2020-0 Yes 300mg Take 300 U nivers 300 mg 3-10 mg by ity of tablet 09:48: mouth [place] 41 daily. Medical Branch allopurinoL 2020-0 Yes 300mg Take 300 U nivers 300 mg 3-10 mg by ity of tablet 09:48: mouth [place] 41 daily. Medical Branch allopurinoL 2020-0 Yes 300mg Take 300 U nivers 300 mg 3-10 mg by ity of tablet 09:48: mouth [place] 41 daily. Medical Branch allopurinoL 2020-0 Yes 300mg Take 300 U nivers 300 mg 3-10 mg by ity of tablet 09:48: mouth [place] 41 daily. Medical Branch allopurinoL 2020-0 Yes 300mg Take 300 U nivers 300 mg 3-10 mg by ity of tablet 09:48: mouth [place] 41 daily. Medical Branch allopurinoL 2020-0 Yes 300mg Take 300 U nivers 300 mg 3-10 mg by ity of tablet 09:48: mouth [place] 41 daily. Medical Branch allopurinoL 2020-0 Yes 300mg Take 300 U nivers 300 mg 3-10 mg by ity of tablet 09:48: mouth [place] 41 daily. Medical Branch allopurinoL 2020-0 Yes 300mg Take 300 U nivers 300 mg 3-10 mg by ity of tablet 09:48: mouth [place] 41 daily. Medical Branch allopurinoL 2020-0 Yes 300mg Take 300 U nivers 300 mg 3-10 mg by ity of tablet 09:48: mouth [place] 41 daily. Medical Branch allopurinoL 2020-0 Yes 300mg Take 300 U nivers 300 mg 3-10 mg by ity of tablet 09:48: mouth [place] 41 daily. Medical Branch allopurinoL 2020-0 Yes 300mg Take 300 U nivers 300 mg 3-10 mg by ity of tablet 09:48: mouth [place] 41 daily. Medical Branch allopurinoL 2020-0 Yes 300mg Take 300 U nivers 300 mg 3-10 mg by ity of tablet 09:48: mouth [place] 41 daily. Medical Branch allopurinoL 2020-0 Yes 300mg Take 300 U nivers 300 mg 3-10 mg by ity of tablet 09:48: mouth [place] [address] [facility] Vital Signs Vital Name Observation Time Observation Value Comments Source Systolic blood 2022-10-03 15:32:00 134 mm[Hg] Univer sity of [facility] Diastolic blood 2022-10-03 15:32:00 82 mm[Hg] [facility] Heart rate 2022-10-03 15:32:00 93 /min [facility] Respiratory rate 2022-10-03 15:32:00 18 /min [facility] Body height 2022-10-03 15:32:00 182.9 cm [facility] Body weight 2022-10-03 15:32:00 104.327 kg [facility] BMI 2022-10-03 15:32:00 31.19 kg/m2 [facility] Oxygen saturation in 2022-10-03 15:32:00 100 /min [facility] Arterial blood by [facility] Pulse oximetry Branch Systolic blood 2022-09-20 18:10:00 103 mm[Hg] Univer sity of [facility] Diastolic blood 2022-09-20 18:10:00 63 mm[Hg] Unive rsity of [facility] Heart rate 2022-09-20 18:10:00 89 /min [facility] Body temperature 2022-09-20 18:10:00 36.28 Amber [facility] Systolic blood 2022-09-12 19:06:00 102 mm[Hg] Univer sity of [facility] Diastolic blood 2022-09-12 19:06:00 65 mm[Hg] Unive rsity of [facility] Heart rate 2022-09-12 19:06:00 103 /min Universi ty [facility] [place] [facility] Body temperature 2022-09-12 19:06:00 36.72 Amber Univ ersity of [place] [facility] Body height 2022-09-12 19:06:00 182.9 cm Universi ty [facility] [place] [facility] Oxygen saturation in 2022-09-12 19:06:00 93 /min University of Arterial blood by [facility] Pulse oximetry Branch Systolic blood 2022-07-25 16:29:00 121 mm[Hg] Univer sity of pressure [place] [facility] Diastolic blood 2022-07-25 16:29:00 60 mm[Hg] Unive rsity of pressure [place] [facility] Heart rate 2022-07-25 16:29:00 89 /min Universi ty [facility] [place] [facility] Body temperature 2022-07-25 16:29:00 36.11 Amber Univ ers[facility] [place] [facility] Systolic blood 2022-07-20 15:38:00 108 mm[Hg] Univer sity of pressure [place] [facility] Diastolic blood 2022-07-20 15:38:00 65 mm[Hg] Unive rsity of pressure [place] [facility] Heart rate 2022-07-20 15:38:00 100 /min [facility]i ty [facility] [place] [facility] Body temperature 2022-07-20 15:38:00 36.33 Amber Univ ers[facility] [place] [facility] Body height 2022-07-20 15:38:00 177.8 cm Universi ty [facility] [place] [facility] Oxygen saturation in 2022-07-20 15:38:00 95 /min University of Arterial blood by [facility] Pulse oximetry Branch Systolic blood 2022-06-02 17:30:00 130 mm[Hg] Univer sity of pressure [place] [facility] Diastolic blood 2022-06-02 17:30:00 78 mm[Hg] Unive rsity of pressure [place] [facility] Heart rate 2022-06-02 17:30:00 90 /min Universi ty [facility] [place] [facility] Oxygen saturation in 2022-06-02 17:30:00 96 /min University of Arterial blood by [facility] Pulse oximetry Branch Heart rate 2020-10-14 14:36:00 76 /min Universi ty [facility] [place] [facility] Oxygen saturation in 2020-10-14 14:36:00 94 /min University of Arterial blood by [facility] Pulse oximetry Branch Systolic blood 2020-10-14 14:17:00 123 mm[Hg] Univer sity of pressure [place] [facility] Diastolic blood 2020-10-14 14:17:00 71 mm[Hg] Unive rsity of pressure [place] [facility] Body temperature 2020-10-14 14:17:00 36.67 Amber Univ ersity [facility] [place] [facility] Respiratory rate 2020-10-14 14:17:00 17 /min Univ ersity [facility] [place] [facility] Body height 2020-10-14 14:17:00 182.9 cm [facility]i ty [facility] [place] [facility] Body weight 2020-10-14 14:17:00 104.327 kg [facility]i [facility] [place] [facility] BMI 2020-10-14 14:17:00 31.19 kg/m2 [facility] [place] [facility] Systolic blood 2020-07-24 14:05:00 103 mm[Hg] Univer sity of pressure [place] [facility] Diastolic blood 2020-07-24 14:05:00 74 mm[Hg] Unive rsity of pressure [place] [facility] Heart rate 2020-07-24 14:05:00 79 /min [facility]i ty [facility] [place] [facility] Body temperature 2020-07-24 14:05:00 36.33 Amber Univ ers[facility] [place] [facility] Systolic blood 2020-07-10 15:50:00 111 mm[Hg] Univer sity of [facility] [place] [facility] Diastolic blood 2020-07-10 15:50:00 73 mm[Hg] Unive rsity of pressure [place] [facility] Heart rate 2020-07-10 15:50:00 86 /min Universi ty [facility] [place] [facility] Body temperature 2020-07-10 15:50:00 36.89 Amber Univ ers[facility] [place] [facility] Systolic blood 2020-07-05 20:40:00 133 mm[Hg] Univer sity of pressure [place] [facility] Diastolic blood 2020-07-05 20:40:00 91 mm[Hg] Unive rsity of pressure [place] [facility] Heart rate 2020-07-05 20:40:00 107 /min Universi ty [facility] [place] [facility] Respiratory rate 2020-07-05 20:40:00 26 /min Univ ersity of [place] [facility] Oxygen saturation in 2020-07-05 20:40:00 97 /min University of Arterial blood by [facility] Pulse oximetry Branch Body temperature 2020-07-05 19:21:00 36.5 Amber Univ ersity of [place] [facility] [place] Body weight 2020-07-05 19:21:00 104.327 kg Universi ty of [facility] BMI 2020-07-05 19:21:00 31.19 kg/m2 Universi ty of [facility] Systolic blood 2019-11-16 17:56:00 107 mm[Hg] Univer sity of pressure [place] [facility] Diastolic blood 2019-11-16 17:56:00 63 mm[Hg] Unive rsity of pressure [facility] Heart rate 2019-11-16 17:56:00 89 /min Universi ty of [facility] Body temperature 2019-11-16 17:56:00 37.44 Amber Univ ersity of [facility] Respiratory rate 2019-11-16 17:56:00 20 /min Univ ersity of [facility] Body height 2019-11-16 17:56:00 182.9 cm Universi ty of [facility] Body weight 2019-11-16 17:56:00 104.327 kg Universi ty [facility] [place] [facility] BMI 2019-11-16 17:56:00 31.19 kg/m2 Universi ty of [facility] Branch Oxygen saturation in 2019-11-16 17:56:00 96 /min University of Arterial blood by [facility] Pulse oximetry Branch Systolic blood 2019-07-09 14:38:00 93 mm[Hg] Univer sity of pressure [facility] Diastolic blood 2019-07-09 14:38:00 68 mm[Hg] Unive rsity of pressure [facility] Heart rate 2019-07-09 14:38:00 83 /min [facility]i ty [facility] [place] [facility] [place] Body temperature 2019-07-09 14:38:00 36.61 Amber Univ ersity of [facility] Body weight 2019-07-09 14:38:00 104.327 kg Universi ty of [facility] Oxygen saturation in 2019-07-09 14:38:00 98 /min University of Arterial blood by [facility] Pulse oximetry Branch Procedures Procedure Date / Time Performing Clinician Source Performed POCT URINALYSIS 2022-09-12 18:50:00 Helen [facility] o f [facility] EXTERNAL PROVIDER RECORDS 2022-08-24 05:01:00 Doctor Unassigned, [facility] [place] [facility] PATIENT FINANCIAL 2022-07-25 16:33:35 Doctor Unassigned, [facility] POLICY [place] [facility] POCT URINALYSIS 2022-07-25 00:00:00 Raymond Comer [place] christine vee [facility] [place] ASSIGNMENT OF BENEFITS 2022-06-02 17:08:18 Doctor Unassigned, [facility] [place] [facility] PHYSICIAN ORDERS 2021-06-01 06:01:00 Doctor Unassigned, [facility] [place] [facility] PHYSICIAN ORDERS 2021-05-07 06:01:00 Doctor Unassigned, [facility] [place] [facility] HOME HEALTH - OTHER 2021 06:01:00 Doctor Unassigned, [facility] [place] [facility] 2021-03-23 06:01:00 Doctor Unassigned, [facility] [place] [facility] PHYSICIAN ORDERS 2021-01-18 05:01:00 Doctor Unassigned, [facility] [place] [facility] HOME HEALTH 485 2020-11-23 05:01:00 Doctor Unassigned, [facility] [place] [facility] EXTERNAL PROVIDER RECORDS 2020-11-13 05:01:00 Doctor Unassigned, [facility] [place] [facility] HOME HEALTH - OTHER 2020-11-03 05:01:00 Doctor Unassigned, [facility] [place] [facility] EXTERNAL PROVIDER RECORDS 2020-10-22 05:01:00 Doctor Unassigned, [facility] [place] [facility] EXTERNAL PROVIDER RECORDS 2020-10-03 05:01:00 Doctor Unassigned, [facility] [place] [facility] INSURANCE CORRESPONDENCE 2020-09-22 05:01:00 Doctor Unassigned, [facility] [place] [facility] EXTERNAL PROVIDER RECORDS 2020-09-02 05:01:00 Doctor Unassigned, [facility] [place] [facility] HOME HEALTH - OTHER 2020-08-07 05:01:00 Doctor Unassigned, [facility] [place] [facility] EXTERNAL PROVIDER RECORDS 2020-07-24 05:01:00 Doctor Unassigned, [facility] [place] [facility] PHYSICIAN ORDERS 2020-07-15 05:01:00 Doctor Unassigned, [facility] [place] [facility] CT LUMBAR SPINE WO 2020-07-05 20:10:44 Jenn Gallegos [facility] CONTRAST [facility] HEPATIC FUNCTION PANEL 2020-07-05 19:43:00 Jenn Gallegos [facility] ([id number]) (ALB,T.PRO,BILI Medical Branch T,BU/BC,ALT,AST,ALK PHOS) BASIC METABOLIC PANEL 2020-07-05 19:43:00 Jenn Gallegos [facility] (NA, K, CL, CO2, GLUCOSE, Medica l Branch BUN, CREATININE, CA) CBC WITH DIFF 2020-07-05 [facility]:43[facility] 2020-07-05 [facility] 2019-11-16 00:00:00 [facility] Encounters Start End Encounter Admission Attending Care Care Encounter Source Date/Time Date/Time Type Type Clinicians Facility Department ID 2021-02-28 Emergency [facility] [id number] Univers 03:52:34 [facility] 2023-01-24 2023-01-24 Outpatient Kerri COMER [facility] [id number] Univers 10:15:00 10:15:00 RAYMOND [facility] 2022-10-31 2022-10-31 Outpatient Kerri VALENTINE [facility] [id number] Univers 13:00:00 13:00:00 FERNANDA [facility] 2022-10-24 2022-10-24 Outpatient Kerri CERVANTES [facility] [id number] Univers 15:30:00 15:30:00 MARIAMA [facility] 2022-10-13 2022-10-13 Outpatient Kerri COMER [facility] [id number] Univers 09:45:00 09:45:00 RAYMOND [facility] 2022-10-13 2022-10-13 Telephone [facility] 1.2.840.114 [id number] Univers 00:00:00 00:00:00 [facility] [id number] y Elmo [place] [id number] Maxx as MEGHAN?BLEA [id number] Nh areli URRUTIA [address] [place] MEDICAL OFFICE [facility] 2022-10-12 2022-10-12 Outpatient Kerri MEENACLEVELAND Mcnamara [facility] [id number] Univers 00:00:00 00:00:00 C[place]AND ROBLEDO [facility] 2022-10-12 2022-10-12 Telephone [facility] 1.2.840.114 [id number] Univers 00:00:00 00:00:00 [facility] [id number] it y of [place] [id number] Maxx as MEGHAN?BLEA [id number] Nh areli URRUTIA [address] [place] [address] OFFICE [facility] 2022-10-11 2022-10-11 Telephone [facility] 1.2.840.114 [id number] Univers 00:00:00 00:00:00 [facility] [id number] it y of [place] [id number] Maxx as MEGHAN?BLEA [id number] Nh areli URRUTIA [address] [place] [address] MEDICAL OFFICE [facility] 2022-10-10 2022-10-10 Telephone [facility] 1.2.840.114 [id number] [facility] 00:00:00 00:00:00 [facility] [id number] it y of [place] [id number] Maxx as MEGHAN?BLEA [id number] Nh areli URRUTIA [address] [place] [address] MEDICAL OFFICE [facility] 2022-10-03 2022-10-03 Outpatient [place] LEONARD [facility] [id number] Univers 11:00:00 11:21:30 C[place]AND ROBLEDO dave [facility] 2022-10-03 2022-10-03 Office Meena [facility] 1.2.840.114 [id number] [facility] 11:00:00 11:21:30 Visit [facility] [id number] ity of [place] [id number] Maxx as MEGHAN?BLEA [id number] Nh areli URRUTIA [address] [place] MEDICAL OFFICE [facility] 2022-09-20 2022-09-20 [facility] [id number] [facility] 13:15:00 13:22:09 RAYMOND richards [facility] 2022-09-20 2022-09-20 Office [facility] 1.2.840.114 [id number] [facility] 13:15:00 13:22:09 Visit Raymond [facility] [id number] it y of [place] [id number] Maxx as MEGHAN?BLEA [id number] Nh areli [address] OFFICE [facility] 2022-09-19 2022-09-19 Telephone [facility] 1.2.840.114 [id number] [facility] 00:00:00 00:00:00 Raymond HEALTH [id number] it y of [place] [id number] Maxx as MEGHAN?BLEA [id number] [facility] SRIKANTH[address] OFFICE [facility] 2022-09-16 2022-09-16 Telephone [facility] 1.2.840.114 [id number] [facility] 00:00:00 00:00:00 Raymond [facility] [id number] it y of [place] [id number] Maxx as MEGHAN?BLEA [id number] [address] OFFICE [facility] 2022-09-12 2022-09-12 [facility], Ang [facility] 1.2.840.1 [id number] [facility] 15:00:00 15:15:00 Visit RadhanormaMariama [facility] [id number] ity of [place] [id number] Maxx as MEHGAN?BLEA [id number] [facility] [address] [facility] OFFICE [facility] 2022-09-12 2022-09-12 Outpatient R HELEN [facility] [id number] Univers 14:30:00 14:42:45 MARIAMA richards [facility] 2022-09-12 2022-09-12 Office [facility] 1.2.840.114 [id number] Univers 14:30:00 14:42:[address] [id number] it y of [place] [id number] Maxx as MEGHAN?BLEA [id number] [address] OFFICE [facility] 2022-09-12 2022-09-12 Telephone [facility] 1.2.840.114 [id number] Univers 00:00:00 00:00:00 Raymond HEALTH [id number] it y of [place] [id number] Maxx as EMGHAN?BLEA [id number] [address] OFFICE [facility] 2022-08-24 2022-08-24 Orders Doctor DAYSI 1.2.840.114 [id number] Univers 00:00:00 00:00:00 Only Unassigned, [place] [id number] ity of [place] [facility] 4.2.7.2.686 Maxx as [id number] [address] 2022-07-25 2022-07-25 Outpatient R [facility] [id number] Univers 11:30:00 11:48:07 RAYMOND y [facility] 2022-07-25 2022-07-25 Office [facility] 1.2.840.114 [id number] Univers 11:30:00 11:48:07 Visit [facility] 350.1.13.10 it y of [place] 4.2.7.2.686 Maxx as MEGHAN?BLEA [id number] [address] OFFICE [facility] 2022-07-25 2022-07-25 Orders Doctor DAYSI 1.2.840.114 [id number] Univers 00:00:00 00:00:00 Only Unassigned, [place] [id number] ity of [place] [facility] [id number] Maxx as [id number] [address] 2022-07-20 2022-07-20 Outpatient R [facility] [id number] Univers 10:30:00 12:50:33 [facility] 2022-07-20 2022-07-20 Office [facility] 1.2.840.114 [id number] Univers 10:30:00 12:50:33 Visit [facility] 350.1.13.10 it y of [place] 4.2.7.2.686 Maxx as MEGHAN?BLEA [id number] [address] MEDICAL OFFICE [facility] 2022-06-02 2022-06-02 [facility] [id number] Univers 11:00:00 23:59:00 OSCAR ity of [facility] 2022-06-02 2022-06-02 Office [facility] 1.2.840.114 [id number] Univers 11:40:00 11:54:40 Visit [facility] 350.1.13.10 [facility] [id number] Maxx as MEGHAN?BLEA [id number] [address] OFFICE [facility] 2022-06-02 2022-06-02 Orders Doctor TAVAREZ 1.2.840.114 [id number] Univers 00:00:00 00:00:00 Only Unassigned, LOC 350.1.13.10 ity of [place] [facility] 4.2.7.2.686 Maxx as [phone] [address] 2021-07-22 2021-07-22 [facility] 1.2.840.114 [id number] Univers 00:00:00 00:00:00 [facility] 350.1.13.10 it y [facility] [place] [facility] 4.2.7.2.686 Maxx as MEGHAN?BLEA [phone] [address] OFFICE [facility] 2021-06-01 2021-06-01 Orders Doctor DAYSI 1.2.840.114 [id number] Univers 00:00:00 00:00:00 Only Unassigned, LOC 350.1.13.10 ity of [place] [facility] 4.2.7.2.686 Maxx as [phone] [address] 2021-05-07 2021-05-07 Orders Doctor TAVAREZ 1.2.840.114 [id number] Univers 00:00:00 00:00:00 Only Unassigned, LOC 350.1.13.10 ity of [place] [facility] 4.2.7.2.686 Maxx as [phone] [address] 2021-04-29 2021-04-29 Telephone [facility] 1.2.840.114 [id number] Univers 00:00:00 00:00:00 [facility] 350.1.13.10 it y [facility] [place] [facility] 4.2.7.2.686 Maxx as MEGHAN?BLEA [phone] [address] 2021-04-26 2021-04-26 Outpatient R [facility] [id number] Univers 00:00:00 00:00:00 ity of [facility] 2021-04-26 2021-04-26 Telephone [facility] 1.2.840.114 [id number] Univers 00:00:00 00:00:00 [facility] 350.1.13.10 it y [facility] [place] [facility] 4.2.7.2.686 Maxx as MEGHAN?BLEA [phone] [address] 2021 2021 Orders Doctor DAYSI Scruggs.2.840.114 [id number] Univers 00:00:00 00:00:00 Only Unassigned, LOC 350.1.13.10 ity of [place] [facility] 4.2.7.2.686 Maxx as [phone] [address] 2021-03-23 2021-03-23 Orders Doctor DAYSI 1.2.840.114 [id number] Univers 00:00:00 00:00:00 Only Unassigned, LOC 350.1.13.10 ity of [place] [facility] 4.2.7.2.686 Maxx as [phone] [address] 2021-01-18 2021-01-18 Outpatient [facility] [id number] Univers 00:00:00 00:00:00 ity of [facility] 2021-01-18 2021-01-18 Orders Doctor DAYSI Scruggs.2.840.114 [id number] Univers 00:00:00 00:00:00 Only Unassigned, LOC 350.1.13.10 ity of [place] [facility] 4.2.7.2.686 Maxx as [phone] [address] 2020-11-23 2020-11-23 Orders Doctor DAYSI Scruggs.2.840.114 [id number] Univers 00:00:00 00:00:00 Only Unassigned, LOC 350.1.13.10 ity of [place] [facility] 4.2.7.2.686 Maxx as [phone] [address] 2020-11-13 2020-11-13 Orders Doctor TAVAREZ 1.2.840.114 [id number] Univers 00:00:00 00:00:00 Only Unassigned, LOC 350.1.13.10 ity of [place] [facility] 4.2.7.2.686 Maxx as [phone] [address] 2020-11-03 2020-11-03 Orders Doctor DAYSI 1.2.840.114 [id number] Univers 00:00:00 00:00:00 Only Unassigned, LOC 350.1.13.10 ity of [place] [facility] 4.2.7.2.686 Maxx as [phone] [address] 2020-10-22 2020-10-22 Orders Doctor TAVAREZ 1.2.840.114 [id number] Univers 00:00:00 00:00:00 Only Unassigned, LOC 350.1.13.10 ity of [place] [facility] 4.2.7.2.686 Maxx as [phone] [address] 2020-10-14 2020-10-14 Outpatient Kerri GREEN [facility] [id number] Univers 10:20:00 10:20:00 ARLETTE [facility] 2020-10-14 2020-10-14 Urgent Provider, [facility] 1.2.840.114 [id number] Univers 09:05:53 09:51:44 Arlette [facility] 350.1.13.10 ity of [place] 4.2.7.2.686 Maxx as Professio [phone] [address] Office Building One 2020-10-14 2020-10-14 Outpatient R SOULEYMANE [facility] [id number] Univers 08:15:00 08:15:00 RAYMOND richards [facility] 2020-10-13 2020-10-13 Edmond Comer [facility] 1.2.840.114 [id number] [facility] 00:00:00 00:00:00 [facility] 350.1.13.10 it y of [place] 4.2.7.2.686 Maxx as Professio [phone] [address] Office [facility] 2020-10-13 2020-10-13 Telephone [facility] 1.2.840.114 [id number] 00:00:00 00:00:00 [facility] 350.1.13.10 [place] 4.2.7.2.686 Professio [phone] [place] [address] Office [facility] 2020-10-12 2020-10-12 [facility] 1.2.840.114 [id number] Univers 16:34:50 16:49:50 ne Visit [facility] 350.1.13.10 i ty of [place] 4.2.7.2.686 Maxx as Professio [phone] [address] Office [facility] 2020-10-12 2020-10-12 [facility] 1.2.840.114 [id number] 16:34:50 16:49:50 ne Visit [facility] 350.1.13.10 [place] 4.2.7.2.686 Professio [phone] [address] One 2020-10-12 2020-10-12 Outpatient [facility] [id number] [facility] 16:00:00 16:00:00 MARIAMA ity of [facility] 2020-10-09 2020-10-09 Telephone [facility] 1.2.840.114 [id number] [facility] 00:00:00 00:00:00 [facility] 350.1.13.10 it y of [place] 4.2.7.2.686 Maxx as Professio [phone] [address] Office [facility] 2020-10-09 2020-10-09 Telephone [facility] 1.2.840.114 [id number] 00:00:00 00:00:00 [facility] 350.1.13.10 [place] 4.2.7.2.686 Professio [phone] [address] One 2020-10-03 2020-10-03 Orders Doctor DAYSI 1.2.840.114 [id number] Univers 00:00:00 00:00:00 Only Unassigned, LOC 350.1.13.10 ity of [place] [facility] 4.2.7.2.686 Maxx as [phone] [address] 2020-09-22 2020-09-22 Orders Doctor DAYSI 1.2.840.114 [id number] Univers 00:00:00 00:00:00 Only Unassigned, LOC 350.1.13.10 ity of [place] [facility] 4.2.7.2.686 Maxx as [phone] [address] 2020-09-02 2020-09-02 Orders Doctor DAYSI 1.2.840.114 [id number] Univers 00:00:00 00:00:00 Only Unassigned, LOC 350.1.13.10 ity of [place] [facility] 4.2.7.2.686 Maxx as [phone] [address] 2020-09-02 2020-09-02 Telephone [facility] 1.2.840.114 [id number] Univers 00:00:00 00:00:00 [facility] 350.1.13.10 it y of [place] 4.2.7.2.686 Maxx as Professio [phone] [address] One 2020-09-02 2020-09-02 Telephone [facility] 1.2.840.114 [id number] Univers 00:00:00 00:00:00 [facility] 350.1.13.10 it y of [place] 4.2.7.2.686 Maxx as Professio [phone] [address] Office [facility] 2020-09-01 2020-09-01 Telephone [facility] 1.2.840.114 [id number] Univers 00:00:00 00:00:00 [facility] 350.1.13.10 it y of [place] 4.2.7.2.686 Maxx as Professio [phone] [address] Office [facility] 2020-08-07 2020-08-07 Orders Doctor DAYSI 1.2.840.114 [id number] Univers 00:00:00 00:00:00 Only Unassigned, LOC 350.1.13.10 ity of [place] [facility] 4.2.7.2.686 Maxx as [phone] [address] 2020-08-04 2020-08-04 Telephone [facility] 1.2.840.114 [id number] Univers 00:00:00 00:00:[address] [facility] 350.1.13.10 it y of [place] 4.2.7.2.686 Maxx as Professio [phone] [address] Office [facility] 2020-08-04 2020-08-04 Telephone [facility] 1.2.840.114 [id number] Univers 00:00:00 00:00:[address] [facility] 350.1.13.10 it y of [place] 4.2.7.2.686 Maxx as Professio [phone] [address] One 2020-07-24 2020-07-24 Office [facility] 1.2.840.114 [id number] Univers 08:52:42 09:22:[address] [facility] 350.1.13.10 it y of [place] 4.2.7.2.686 Maxx as Professio [phone] [address] Office [facility] 2020-07-24 2020-07-24 Outpatient R [facility] [id number] Univers 09:00:00 09:00:00 RAYMOND ity of [facility] 2020-07-24 2020-07-24 Orders Doctor DAYSI 1.2.840.114 [id number] Univers 00:00:00 00:00:00 Only Unassigned, LOC 350.1.13.10 ity of [place] [facility] 4.2.7.2.686 Maxx as [phone] [address] 2020-07-15 2020-07-15 Telephone [facility] 1.2.840.114 [id number] Univers 00:00:00 00:00:[address] [facility] 350.1.13.10 it y of [place] 4.2.7.2.686 Maxx as Professio [phone] [address] Office [facility] 2020-07-15 2020-07-15 Orders Doctor DAYSI 1.2.840.114 [id number] Univers 00:00:00 00:00:00 Only Unassigned, LOC 350.1.13.10 ity of [place] [facility] 4.2.7.2.686 Maxx as [phone] [facility] [address] [place] 2020-07-13 2020-07-13 Telephone [facility] 1.2.840.114 [id number] Univers 00:00:00 00:00:[address] [facility] 350.1.13.10 it y of [place] 4.2.7.2.686 Maxx as Professio [phone] [address] Office [facility] 2020-07-10 2020-07-10 Office [facility] 1.2.840.114 [id number] [facility] 09:38:20 10:08:[address] [facility] 350.1.13.10 it y of [place] 4.2.7.2.686 Maxx as Professio [phone] [address] Office [facility] 2020-07-10 2020-07-10 Outpatient R SOULEYMANE [facility] [id number] Univers 09:30:00 09:30:00 RAYMOND ity of [facility] 2020-07-05 2020-07-05 Emergency [facility] 1.2.295.126 [id number] Univers 13:16:00 17:18:00 Jenn [place] 350.1.13.10 i ty of [place] 4.2.7.2.686 [place] [facility] [phone] [facility] [address] [place] 2019-11-16 2019-11-16 Urgent Provider, [facility] 1.2.840.114 [id number] Univers 12:41:24 13:36:46 Care Mariama Cervantes [facility] 350.1.13.10 ity of [place] 4.2.7.2.686 Maxx as Professio [phone] [address] Office [facility] 2019-11-16 2019-11-16 Outpatient R [facility] [id number] Univers 12:40:00 12:40:00 ity [facility] 2019-11-15 2019-11-15 Telephone [facility] 1.2.840.114 [id number] Univers 00:00:00 00:00:[address] [facility] 350.1.13.10 it y of [place] 4.2.7.2.686 Maxx as Professio [phone] [address] 2019-10-17 2019-10-17 Telephone [facility] 1.2.840.114 [id number] [facility] 00:00:00 00:00:[address] [facility] 350.1.13.10 it y of [place] 4.2.7.2.686 Maxx as Professio [phone] [address] 2019-09-17 2019-09-17 Outpatient R [facility] [id number] [facility] 11:00:00 11:00:00 [facility] 2019-09-17 2019-09-17 Telemedici [facility] 1.2.840.114 [id number] [facility] 07:36:27 07:51:27 ne Visit Raymond Paloma[place] 350.1.13.10 ity of [place].2.7.2.[place] Profess[place] [phone] Nh dic[address] 2019-07-09 2019-07-09 Office [facility] 1.2.840.114 [id number] Univers 09:35:54 10:05:54 Visit Raymond [facility] 350.1.13.10 it y of [place] 4.2.7.2.686 Maxx as Professio [phone] N[address] dic[address] Office [facility] 2019-07-09 2019-07-09 Outpatient R [facility] [id number] [facility] 09:30:00 09:30:00 RAYMOND [facility] Results Test Description Test Time Test Comments Results Result Comments Source POCT URINALYSIS W SPECIFIC GRAVITY 2022-09-12 19:00:00 Test Item Value Reference Range Interpretation Comme nts POCT U SP GRAV (test code = 3255) 1.010 mg/dl 1.005-1.025 POCT PH U (test code = 3254) 6 mg/dl 5-8 POCT U LEUK EST (test code = 3263) Negative Negative - Negative POCT U NIT (test code = 3262) Negative Negative - Negative POCT U PROT (test code = 3259) Negative Negative - Negative POCT U GLU (test code = 3256) Normal Negative - Negative POCT U KETONE (test code = 3258) Negative Negative - Negative POCT U UROBILI (test code = 3260) 4 mg/dl 0.2-1 A POCT U BILI (test code = 3261) Negative Negative - Negative POCT U BLD (test code = 3257) Negative Negative - Negative POCT U COLOR (test code = 3266) Dark Yellow POCT U APPEAR (test code = 3267) Clear Lab Interpretation (test code = 28905-7) [facility]normal [facility] [id number] 19:00:00 Test Item Value Reference Range Interpretation Comments POCT U SP GRAV (test code = 1.010 mg/dl 1.005-1.025 5) POCT PH U (test code = 3254) 6 mg/dl 5-8 POCT U LEUK EST (test code = Negative Negative - Negative 3263) POCT U NIT (test code = 3262) Negative Negative - Negative POCT U PROT (test code = Negative Negative - Negative 3259) POCT U GLU (test code = 3256) Normal Negative - Negative POCT U KETONE (test code = Negative Negative - Negative 3258) POCT U UROBILI (test code = 4 mg/dl 0.2-1 A 3260) POCT U BILI (test code = Negative Negative - Negative 3261) POCT U BLD (test code = 3257) Negative Negative - Negative POCT U COLOR (test code = Dark Yellow 3266) POCT U APPEAR (test code = Clear 3267) Lab Interpretation (test code Abnormal = 13135-9) [facility] URINALYSIS W SPECIFIC [id number] 16:51:00 Test Item Value Reference Range Interpretation Comments POCT U SP GRAV (test code = 1.005 mg/dl 1.005-1.025 3255) POCT PH U (test code = 3254) 6 mg/dl 5-8 POCT U LEUK EST (test code = + Negative - Negative 3263) POCT U NIT (test code = 3262) neg Negative - Negative POCT U PROT (test code = trace Negative - Negative 3259) POCT U GLU (test code = 3256) normal Negative - Negative POCT U KETONE (test code = neg Negative - Negative 3258) POCT U UROBILI (test code = normal 0.2-1 3260) POCT U BILI (test code = neg Negative - Negative 3261) POCT U BLD (test code = 3257) neg Negative - Negative POCT U COLOR (test code = yellow 3266) POCT U APPEAR (test code = clear 3267) [facility] URINALYSIS W SPECIFIC [id number] 16:51:00 Test Item Value Reference Range Interpretation Comments POCT U SP GRAV (test code = 1.005 mg/dl 1.005-1.025 3255) POCT PH U (test code = 3254) 6 mg/dl 5-8 POCT U LEUK EST (test code = + Negative - Negative 3263) POCT U NIT (test code = 3262) neg Negative - Negative POCT U PROT (test code = trace Negative - Negative 3259) POCT U GLU (test code = 3256) normal Negative - Negative POCT U KETONE (test code = neg Negative - Negative 3258) POCT U UROBILI (test code = normal 0.2-1 3260) POCT U BILI (test code = neg Negative - Negative 3261) POCT U BLD (test code = 3257) neg Negative - Negative POCT U COLOR (test code = yellow 3266) POCT U APPEAR (test code = clear 3267) [facility] LUMBAR SPINE WO [id number] 20:57:25 No definite acute fracture or traumatic malalignment of the lumbar spine.Degenerative changes. Preliminary Report Dictated by Resident: Heath Clifton Report change Marnie Ivey reviewed this study and agree with the above reportwith the following modifications: Grade 1 anterolisthesis of L4 on L 5 with associated facet arthropathy andleft greater than right neural foraminal narrowing. Findings suggestive ofright L4-L5 subarticular zone narrowing. L4 vertebral body superiorendplate sclerosis onthe right. There may be asymmetric enlargement of theright psoas muscle, clinically correlate. Multilevel anterior flowingosteophytosis, which can be seen with diffuse idiopathic skeletalhyperostosis. Marnie Ivey MD., have reviewed this study and agree with theabove report.CT LUMBAR SPINE [place] HISTORY: ?Low back pain, cancer suspected COMPARISON: None. TECHNIQUE: Axial computerized tomography imaging of the lumbar spine.Additional sagittal and coronal reformations were obtained and reviewed. FINDINGS: Levocurvature of the lumbar spine. The vertebral bodies are grosslymaintained in height. The bones appear osteopenic. No acute fracture or traumatic malalignment of the lumbar spine.Degenerative changes: Multilevel are severe degenerative changes in theform of vacuum phenomena, Schmorl nodes, anterior osteophyte formation(L2-L3), subchondral sclerosis and cystic changes. Multilevel facetarthropathy with more pronounced involvement of L4-S1 joints. Scattered aortobiiliac atherosclerotic calcifications are present. [facility], Radiant Results Inft User - 07/05/2020 2:58 PM CSTCT LUMBAR SPINE WO CONTRASTHISTORY: Low back pain, cancer suspectedCOMPARISON: None.TECHNIQUE: Axial computerized tomography imaging of the lumbar spine.Additional sagittal and coronal reformations were obtained and reviewed.FINDINGS:Levocurvature of the lumbar spine. The vertebral bodies are grosslymaintained in height. The bones appear osteopenic.No acute fracture or traumatic malalignment of the lumbar spine.Degenerative changes: Multilevel are severe degenerative changes in theform of vacuum phenomena, Schmorl nodes, anterior osteophyte formation(L2-L3), subchondral sclerosis and cystic changes. Multilevel facetarthropathy with more pronounced involvement of L4-S1 joints.Scattered aortobiiliac atherosclerotic calcifications are present.IMPRESSIONNo definite acute fracture or traumatic malalignment of the lumbar spine.Degenerative changes.Preliminary Report Dictated by Resident: Heath CliftonReport changeIMarnie reviewed this study and agree with the above reportwith the following modifications:Grade 1 anterolisthesis of L4 on L5 with associated facet arthropathy andleft greater than right neural foraminal narrowing. Findings suggestive ofright L4-L5 subarticular zone narrowing. L4 vertebral body superiorendplate sclerosis on the right. There may be asymmetric enlargement of theright psoas muscle, clinically correlate. Multilevel anterior flowingosteophytosis, which can be seen with diffuse idiopathic skeletalhyperostosis.IMarnie MD., have reviewed this study and agree withtheabove report.[facility] 20:18:01 Test Item Value Reference Range Interpretation Comments APPEARANCE (test code = Clear Clear 8433041843) COLOR (test code = Yellow Yellow 4693742266) PH (test code = 4.8-8.0 8137316626) SP GRAVITY (test code = 1.003-1.030 2685931119) GLU U QUAL (test code = Negative Negative 8918524048) BLOOD (test code = Negative Negative 4016492880) KETONES (test code = Negative Negative 9461083277) PROTEIN (test code = Negative Negative 2887-8) UROBILIN (test code = 0.2 mg/dL See_Comment [Auto mated message] 1169804495) The system [employer] generated this result transmit kevin reference range : 0-1.0 mg/dL. Th e reference range was not used to interpret this result as normal/abnormal . BILIRUBIN (test code = Negative Negative 1376849826) NITRITE (test code = Negative Negative 5094986223) LEUK KM (test code = Negative Negative 4907673445) RBC/HPF (test code = See_Comment [Autom ated message] 7687215128) The system [employer] generated this result transmit kevin reference range : 0 - 3 HPF. The refe rence range was not u sed to interpret th is result as normal/abnormal . WBC/HPF (test code = <1 See_Comment [Autom ated message] 2418828348) The system [employer] generated this result transmit kevin reference range : 0 - 5 HPF. The refe rence range was not u sed to interpret th is result as normal/abnormal . BACTERIA (test code = Negative Negative 4552887574) MUCOUS (test code = Slight Negative LPF A 9213917455) HYAL CAST (test code = See_Comment [Aut omated message] 7544901556) The system [employer] generated this result transmit kevin reference range : <=2 LPF. The refere nce range was not u sed to interpret th is result as normal/abnormal . Lab Interpretation (test Abnormal code = 73482-4) [facility] Metabolic Panel (NA, K, CL, CO2, GLUCOSE, BUN, CREATININE, CA)2020-07-05 20:02:33 Test Item Value Reference Range Interpretation Comments NA (test code = 140 mmol/L 135-145 2048878828) K (test code = 4.4 mmol/L 3.5-5.0 1644452624) CL (test code = 104 mmol/L 98-108 6052565369) CO2 TOTAL (test code = 29 mmol/L 23-31 7962309276) AGAP (test code = 2-16 5838612947) BUN (test code = 40 mg/dL 7-23 H 1591246810) GLUCOSE (test code = 122 mg/dL 70-110 H 7221942596) CREATININE (test code = 1.79 mg/dL 0.60-1.25 H 8610412678) CALCIUM (test code = 9.0 mg/dL 8.6-10.6 8917497075) eGFR Calculation mL/min/1.73m2 (Non-) (test code = 0657955061) eGFR Calculation mL/min/1.73m2 () (test code = 3411387113) LOGAN (test code = LOGAN) Association of Glomerular Filtration Rate (GFR) and Staging of Kidney Disease* + --+ --+ ------+| GFR (mL/min/1.73 m2) ?| With Kidney Damage ?| ?Without Kidney Damage+ --------+ --------+ +| ?>90 ?| ?Stage one ?| ? Normal ?+ ---+ ---+ -------+| ?60-89 ?| ?Stage two ?| ? Decreased GFR ? + --+ --+ ------+| ?30-59 ?| ?Stage three ?| ? Stage three ? + --+ --+ ------+| ?15-29 ?| ?Stage four ? | ? Stage four ?+ ---+ ---+ -------+| ?<15 (or dialysis) ? ?| ?Stage five ? | ? Stage five ?+ ---+ ---+ -------+ *Each stage assumes the associated GFR level has been in effect for at least three months. ?Stages 1 to 5, with or without kidney disease, indicate chronic kidney disease. Notes: Determination of stages one and two (with eGFR >59mL/min/1.73 m2) requires estimation of kidney damage for at least three months as defined by structural or functional abnormalities of the kidney, manifested by either:Pathological abnormalities or Markers of kidney damage (including abnormalities in the composition of the blood or urine or abnormalities in imaging tests). Lab Interpretation Abnormal (test code = 70592-7) [facility] (ALB, T.PRO, BILI T, BU/BC, ALT, AST, ALK PHOS)2020-07-05 20:02:13 Test Item Value Reference Range Interpretation Comments TOTAL BILI (test code = 5928429844) 1.0 mg/dL 0.1-1.1 BILI UNCON (test code = 0017361131) 0.9 mg/dL 0.1-1.1 BILI CONJ (test code = 8003319162) 0.0 mg/dL 0.0-0.3 T PROTEIN (test code = 8212996734) 7.5 g/dL 6.3-8.2 ALBUMIN (test code = 8495081009) 4.4 g/dL 3.5-5.0 ALK PHOS (test code = 2003512135) 131 U/L 34-122 H ALTv (test code = 1742-6) 22 U/L 5-50 AST(SGOT) (test code = 3281998817) 30 U/L 13-40 Lab Interpretation (test code = Abnormal 44112-4) [facility] with [id number] 19:51:12 Test Item Value Reference Range Interpretation Comments WBC (test code = See_Comment [Automated 9690-2) message] The sy stem which generated this result transmitted reference range : 4.20 - 10.70 10*3/?L. The reference range was not used to interpret this result as normal/abnormal . RBC (test code = See_Comment [Automated 789-8) message] The sy stem which generated this result transmitted reference range : 4.26 - 5.52 10*6/?L. The reference range was not used to interpret this result as normal/abnormal . HGB (test code = 14.1 g/dL 12.2-16.4 718-7) HCT (test code = 42.7 % 38.4-49.3 4544-3) MCV (test code = 93.6 fL 81.7-95.6 787-2) MCH (test code = 30.9 pg 26.1-32.7 785-6) MCHC (test code = 33.0 g/dL 31.2-35.0 786-4) RDW-SD (test code = 46.9 fL 38.5-51.6 51590-6) RDW-CV (test code = 13.5 % 12.1-15.4 788-0) PLT (test code = See_Comment [Automated 777-3) message] The sy stem which generated this result transmitted reference range : 150 - 328 10*3/ ?L. The reference r jackelin was not used to interpret this result as normal/abnormal . MPV (test code = 10.3 fL 9.8-13.0 60555-8) NRBC/100 WBC (test See_Comment [Automat ed code = 8359295714) message] The system which generated this result transmitted reference range : 0.0 - 10.0 /100 WBCs. The refer ence range was not u sed to interpret th is result as normal/abnormal . NRBC x10^3 (test code <0.01 See_Comment [Auto mated = 9937020880) message] The s ystem which generated this result transmitted reference range : 10*3/?L. The reference range was not used to interpret this result as normal/abnormal . GRAN MAT (NEUT) % 78.7 % (test code = 770-8) IMM GRAN % (test code 0.40 % = 3989477051) LYMPH % (test code = 13.1 % 736-9) MONO % (test code = 6.7 % 5905-5) EOS % (test code = 0.8 % 713-8) BASO % (test code = 0.3 % 706-2) GRAN MAT x10^3(ANC) 7.92 10*3/uL 1.99-6.95 H (test code = 2899287473) IMM GRAN x10^3 (test 0.04 10*3/uL 0.00-0.06 code = 5834882770) LYMPH x10^3 (test code 1.32 10*3/uL 1.09-3.23 = 731-0) MONO x10^3 (test code 0.67 10*3/uL 0.36-1.02 = 742-7) EOS x10^3 (test code = 0.08 10*3/uL 0.06-0.53 711-2) BASO x10^3 (test code 0.03 10*3/uL 0.01-0.09 = 704-7) Lab Interpretation Abnormal (test code = 66060-9) [facility] [id number] 18:52:00 Test Item Value Reference Range Interpretation Comments POCT U SP GRAV (test code = 1.010 mg/dl 1.005-1.025 3255) POCT PH U (test code = 3254) 5 mg/dl 5-8 POCT U LEUK EST (test code = ++ Negative - Negative 3263) POCT U NIT (test code = 3262) + Negative - Negative POCT U PROT (test code = trace Negative - Negative 3259) POCT U GLU (test code = 3256) normal Negative - Negative POCT U KETONE (test code = negative Negative - Negative 3258) POCT U UROBILI (test code = normal 0.2-1 3260) POCT U BILI (test code = negative Negative - Negative 3261) POCT U BLD (test code = 3257) Negative - Negative POCT U COLOR (test code = dark yellow 3266) POCT U APPEAR (test code = hazy 3267) [facility]"
[2022-10-14 12:34] LABS: Absolute Lymphocytes (CBC) 1.1 K/uL (0.7-4.9); Hematocrit 39.6 % (39.6-49.0); Lymphocytes % 14.9 % (15.3-44.8); MCV 90.1 fL (80-100); MPV 7.9 fL (7.6-11.3)
--- NOTE | 2022-10-14 12:48 | RAD REPORT ---
EXAM DESCRIPTION: Giselle Single View10/14/2022 12:39 pm CLINICAL HISTORY: Congestion COMPARISON: 2020 FINDINGS: Mild bilateral pulmonary opacities. Marked cardiomegaly IMPRESSION: Mild CHF
[2022-10-14 12:53] LABS: Potassium 3.7 mEq/L (3.5-5.1)
[2022-10-14 12:54] LABS: Protime INR 3.34
[2022-10-14 12:57] LABS: Troponin High Sensitivity 65.9 pg/mL (<58.9)
[2022-10-14] MEDS ORDERED: FUROSEMIDE 40 MG/4 ML VIAL ONE (13:18)
--- NOTE | 2022-10-14 14:02 | ER ---
Nurse's Notes [facility] Name: Blas Ferreira Age: 87 yrs Sex: Male : 1935 Arrival Date: 10/14/2022 Time: 11:36 Bed 4 Private MD: Diagnosis: acute exacerbation of CHF;Acute pulmonary edema Presentation: 10/14 11:51 Chief complaint: Patient states: edema. Coronavirus screen: At this time, the client ml4 does not indicate any symptoms associated with coronavirus-19. Ebola Screen: No symptoms or risks identified at this time. Initial Sepsis Screen:. Initial Sepsis Screen: Does the patient meet any 2 criteria? No. Patient's initial sepsis screen is negative. Does the patient have a suspected source of infection? No. Patient's initial sepsis screen is negative. Risk Assessment: Do you want to hurt yourself or someone else? Patient reports no desire to harm self or others. Note BLE peripheral edema, PMH CHF. Taking antibiotic for known wound. Onset of symptoms was October 14, 2022. Care prior to arrival: None. Activity prior to arrival: None. Mechanism of Injury: No Mechanism of Injury. 11:51 Method Of Arrival: Wheelchair ml4 11:51 Acuity: KAREL 2 ml4 Triage Assessment: 11:54 General: Appears in no apparent distress. Behavior is calm, cooperative, quiet. Pain: ml4 Denies pain. EENT: No signs and/or symptoms were reported regarding the EENT system. Cardiovascular: Parent/caregiver reports patient has had edema. Respiratory: Parent/caregiver reports the patient having shortness of breath at rest labored breathing since months. GI: No signs and/or symptoms were reported involving the gastrointestinal system. : No signs and/or symptoms were reported regarding the genitourinary system. Derm: Parent/caregiver reports the patient having known leg wound. Musculoskeletal: No deficits noted. Historical: - Allergies: 11:54 No Known Allergies; ml4 - Home Meds: 11:54 Lasix 40 mg Oral tab 2 tabs once daily [Active]; warfarin 5 mg Oral tab 1 tab once ml4 daily [Active]; - PMHx: 11:54 Atrial Fib; CHF; COPD; CVA (); Gout; High Cholesterol; Hypertension; ml4 - Immunization history:: Adult Immunizations up to date. - Social history:: Smoking status: Patient denies any tobacco usage or history of. Patient/guardian denies using alcohol. Screenin:19 [facility] ED Fall Risk Assessment (Adult) History of falling in the last 3 months, kc6 including since admission No falls in past 3 months (0 pts) Confusion or Disorientation No (0 pts) Intoxicated or Sedated No (0 pts) Impaired Gait Yes (1 pt) Mobility Assist Device Used Yes (1 pt) Altered Elimination No (0 pt) Score/Fall Risk Level 0 - 2 = Low Risk Oriented to surroundings, Maintained a safe environment, Educated pt \T\ family on fall prevention, incl call for assistance when getting out of bed, Assessed \T\ reinforced patient's understanding of fall precautions, Hourly rounding (assess needs \T\ fall precautionary measures) done. Abuse screen: Denies threats or abuse. Denies injuries from another. Nutritional screening: No deficits noted. Tuberculosis screening: No symptoms or risk factors identified. Assessment: 12:20 General: Appears in no apparent distress. uncomfortable, Behavior is calm, cooperative, kc6 appropriate for age. Pain: Denies pain. Neuro: Level of Consciousness is awake, alert, obeys commands, Oriented to person, place, time, situation, Appropriate for age. Cardiovascular: Capillary refill < 3 seconds Edema is 3+ to left midcalf, left ankle, right midcalf and right ankle pitting to left midcalf, left ankle, right midcalf and right ankle Rhythm is sinus tachycardia. Respiratory: Airway is patent Trachea midline Respiratory effort is even, labored, gasping, Respiratory pattern is symmetrical, tachypnea. GI: No signs and/or symptoms were reported involving the gastrointestinal system. : No signs and/or symptoms were reported regarding the genitourinary system. EENT: No signs and/or symptoms were reported regarding the EENT system. Derm: No signs and/or symptoms reported regarding the dermatologic system. Skin is intact, is healthy with good turgor, Skin is pink, warm \T\ dry. Musculoskeletal: No signs and/or symptoms reported regarding the musculoskeletal system. Circulation, motion, and sensation intact. Capillary refill < 3 seconds, Range of motion: intact in all extremities. 13:20 Reassessment: Patient appears in no apparent distress at this time. No changes from kc6 previously documented assessment. Patient and/or family updated on plan of care and expected duration. Pain level reassessed. Patient is alert, oriented x 3, equal unlabored respirations, skin warm/dry/pink. 14:20 Reassessment: Patient appears in no apparent distress at this time. No changes from kc6 previously documented assessment. Patient and/or family updated on plan of care and expected duration. Pain level reassessed. Patient is alert, oriented x 3, equal unlabored respirations, skin warm/dry/pink. 15:20 Reassessment: Patient appears in no apparent distress at this time. No changes from kc6 previously documented assessment. Patient and/or family updated on plan of care and expected duration. Pain level reassessed. Patient is alert, oriented x 3, equal unlabored respirations, skin warm/dry/pink. 15:50 Reassessment: pt appears to have voided approximately 475mL of clear yellow urine into 6 urinal. 16:05 Reassessment: attempted to call report, nurse unavailable at this time. kc6 Vital Signs: 11:51 Pulse 84; Resp 20; Temp 97.9; Pulse Ox 96% on R/A; Weight 104.33 kg; Height 6 ft. 0 in. ml4 ; Pain 0/10; 12:03 BP 109 / 77; ml4 13:46 BP 131 / 86; Pulse 94; Resp 20 S; Pulse Ox 95% on R/A; kc6 14:46 BP 113 / 68; Pulse 84; Resp 17 S; Pulse Ox 98% on R/A; kc6 15:41 BP 122 / 81; Pulse 104; Resp 17 S; Pulse Ox 92% on R/A; kc6 11:51 Body Mass Index 31.19 (104.33 kg, 182.88 cm) ml4 11:51 Pain Scale: Adult ml4 ED Course: 11:39 Patient arrived in ED. im 11:46 Nathan Oliveira MD is Attending Physician. jr11 11:54 Triage completed. ml4 11:54 Arm band placed on right wrist. ml4 12:00 Karie Brewster, NAVIN is Primary Nurse. kc6 12:19 Patient has correct armband on for positive identification. Placed in gown. Bed in low kc6 position. Call light in reach. Side rails up X2. Adult w/ patient. 12:19 COVID-19 SARS RT PCR Sent. kc6 12:30 Inserted saline lock: 20 gauge in left forearm, using aseptic technique. Blood kc6 collected. 12:41 XRAY Chest (1 view) In Process Unspecified. EDMS 14:00 Maxi Shields is Hospitalizing Provider. [facility] 16:42 No provider procedures requiring assistance completed. Patient admitted, IV remains in kc6 place. Administered Medications: 13:22 Drug: Furosemide IVP 80 mg Route: IVP; Site: left forearm; kc6 15:41 Follow up: Response: No adverse reaction kc6 Medication: 16:42 VIS not applicable for this client. kc6 Outcome: 14:01 Decision to Hospitalize by Provider. jr11 16:42 Admitted to Med/surg accompanied by tech, via stretcher, room 205, with chart, Report kc6 called to NAVIN Peñaloza 16:42 Condition: improved 16:42 Instructed on the need for admit. 16:42 Patient left the ED. kc6 Signatures: Dispatcher [employer] EDTN Nathan Oliveira MD MD jr11 Karie Brewster RN RN kc6 Geraldine Vasques RNIII, Caden, RN RN ml4
--- NOTE | 2022-10-14 14:02 | EDPHYS ---
Physician Documentation [facility] Name: Blas Ferreira Age: 87 yrs Sex: Male : 1935 Arrival Date: 10/14/2022 Time: 11:36 Bed 4 Private MD: ED Physician Nathan Oliveira HPI: 10/14 12:01 This 87 yrs old Male presents to ER via Wheelchair with complaints of Edema. jr11 12:01 Patient is an 87-year-old with history of congestive heart failure atrial fibrillation jr11 on Coumadin hypertension dyslipidemia he takes Lasix 80 mg in the morning 40 mg in the afternoon here with worsening lower extremity edema and shortness of breath over months. Patient was seen by wound care, noted the increased work of breathing so she called patient's water taxi captain Latoya who recommended that the patient come in for evaluation.. Denies pain ROS ow neg . Historical: - Allergies: 11:54 No Known Allergies; ml4 - Home Meds: 11:54 Lasix 40 mg Oral tab 2 tabs once daily [Active]; warfarin 5 mg Oral tab 1 tab once ml4 daily [Active]; - PMHx: 11:54 Atrial Fib; CHF; COPD; CVA (); Gout; High Cholesterol; Hypertension; ml4 - Immunization history:: Adult Immunizations up to date. - Social history:: Smoking status: Patient denies any tobacco usage or history of. Patient/guardian denies using alcohol. Exam: 12:01 Constitutional: This is a well developed, well nourished patient who is awake, alert, jr11 and in no acute distress. Head/Face: Normocephalic, atraumatic. Chest/axilla: Normal chest wall appearance and motion. Nontender with no deformity. No lesions are appreciated. Cardiovascular: Regular rate and rhythm with a normal S1 and S2. No gallops, murmurs, or rubs. Normal PMI, no JVD. No pulse deficits. Respiratory: diminiahed at the bases +rales Skin: Warm, dry with normal turgor. Normal color with no rashes, no lesions, and no evidence of cellulitis. MS/ Extremity: 2+ to lower abdomen Vital Signs: 11:51 Pulse 84; Resp 20; Temp 97.9; Pulse Ox 96% on R/A; Weight 104.33 kg; Height 6 ft. 0 in. ml4 ; Pain 0/10; 12:03 BP 109 / 77; ml4 13:46 BP 131 / 86; Pulse 94; Resp 20 S; Pulse Ox 95% on R/A; kc6 14:46 BP 113 / 68; Pulse 84; Resp 17 S; Pulse Ox 98% on R/A; kc6 15:41 BP 122 / 81; Pulse 104; Resp 17 S; Pulse Ox 92% on R/A; kc6 11:51 Body Mass Index 31.19 (104.33 kg, 182.88 cm) ml4 11:51 Pain Scale: Adult ml4 MDM: 11:58 Patient medically screened. [facility] 12:18 Differential Diagnosis Patient is an 87-year-old with congestive heart failure concern jr11 for anasarca. Will need admission for IV diuretics.. Data reviewed: vital signs, nurses notes. ED course: EKG interpreted by me shows atrial fibrillation rate controlled, left axis deviation, prolonged QRS at 503, QTc prolonged at 505 otherwise no STEMI.. ED course: bus and trolley dispatcher shows atrial fibrillation rate of 95.. 13:59 ED course: X-ray viewed by me, shows pulmonary edema, patient and plan of care was [facility] discussed with cardiology who recommended 80 mg of Lasix twice a day. Patient to be admitted.. 10/14 11:59 Order name: Basic Metabolic Panel; Complete Time: 12:59 10/14 11:59 Order name: CBC with Diff; Complete Time: 12:59 [facility] 10/14 11:59 Order name: D-Dimer; Complete Time: 12:59 10/14 11:59 Order name: NT PRO-BNP; Complete Time: 12:59 10/14 11:59 Order name: PT-INR; Complete Time: 12:59 [facility] 10/14 11:59 Order name: Troponin HS; Complete Time: 12:59 [facility] 10/14 11:59 Order name: COVID-19 SARS RT PCR; Complete Time: 13:15 10/14 11:59 Order name: XRAY Chest (1 view); Complete Time: 12:59 [facility] 10/14 11:59 Order name: EKG; Complete Time: 12:00 10/14 11:59 Order name: Cardiac monitoring; Complete Time: 12:19 10/14 11:59 Order name: EKG - Nurse/Tech; Complete Time: 12:19 10/14 11:59 Order name: IV Saline Lock; Complete Time: 12:30 10/14 11:59 Order name: Labs collected and sent; Complete Time: 12:30 10/14 11:59 Order name: O2 Per Protocol; Complete Time: 12:19 10/14 11:59 Order name: O2 Sat Monitoring; Complete Time: 12: Administered Medications: 13:22 Drug: Furosemide IVP 80 mg Route: IVP; Site: left forearm; kc6 15:41 Follow up: Response: No adverse reaction kc6 Disposition Summary: 10/14/22 14:01 Hospitalization Ordered Hospitalization Status: Inpatient Admission [facility] Provider: Maxi Shields [facility] Location: Telemetry/MedSurg (Inpatient) [facility] Condition: Stable [facility] Problem: an acute exacerbation jr11 Symptoms: are unchanged [facility] Bed/Room Type: Standard [facility] Room Assignment: [facility](10/14/22 16:05) Diagnosis - acute exacerbation of CHF jr11 - Acute pulmonary edema [facility] Forms: - Medication Reconciliation Form 11 - SBAR form 11 Signatures: Dispatcher [employer] Kayleigh Luciano RN RN Delores Rice Jose, MD MD 11 Karie Brewster RN RN kc6 NAVIN SmallwoodIII, Caden RN RN ml4 Corrections: (The following items were deleted from the chart) 15:57 14:[address] 16:05 15:[address] [place] [address]
--- NOTE | 2022-10-14 15:30 | P.HP ---
Certification for Inpatient Patient admitted to: Inpatient With expected LOS: >2 Midnights Practitioner: I am a practitioner with admitting privileges, knowledge of patient current condition, hospital course, and medical plan of care. Services: Services provided to patient in accordance with Admission requirements found in Title 42 Section 412.3 of the Code of Federal Regulations Patient History Date of Service: 10/14/22 Reason for admission: Shortness of breath, increased leg swelling History of Present Illness: 87-year-old gentleman with a history of congestive heart failure, chronic kidney disease, history of CVA and dementia was brought to the emergency department due to progressive shortness of breath and increased lower extremity swelling. Patient has bilateral lower extremity lymphedema with weeping sores which is being managed by home health. Wound care nurse noted patient was having trouble breathing and progressive increasing bilateral lower extremity swelling. Patient's radio division officer Dr. Chadwick was contacted who referred patient to the emergency department for evaluation. Chest x-ray done in the emergency department revealed cardiomegaly and pulmonary interstitial edema. BNP elevated, troponin is mildly elevated, no complaint of chest pain. Patient noted to be hypoxic on room air and requiring oxygen by nasal cannula. He is admitted for further management of CHF exacerbation. Allergies NKDA Allergy (Uncoded 06/12/15 20:24) Unknown No Known Allergies Allergy (Uncoded 01/01/16 20:58) Unknown Home Medications: Allopurinol 100 mg PO DAILY 01/28/15 Atorvastatin Calcium [Lipitor*] 10 mg PO BEDTIME 01/02/16 Losartan Potassium [Cozaar] 25 mg PO DAILY 6PM 01/02/16 Warfarin Sodium [Coumadin*] 3.5 mg PO DAILY 01/02/16 Furosemide [Lasix*] 80 mg PO DAILY #30 tab 01/06/16 Metoprolol Tartrate [Lopressor*] 25 mg PO DAILY 6PM 07/28/16 Pantoprazole [Protonix Tab*] 40 mg PO [id number] 07/28/16 Cranberry Fruit Concentrate [Azo Cranberry] 250 mg PO TID 10/14/20 L.acidoph,Paracasei, B.lactis [Probiotic] 1 cap BREAKFAST 10/14/20 Mecobalamin [B12 Active] 5,000 mcg PO DAILY 10/14/20 Tamsulosin HCl [Flomax] 0.4 mg PO BEDTIME 10/14/20 Ubidecarenone/Vit E Acet [Co Q-10 100 mg Softgel] 100 mg PO BID 10/14/20 Furosemide [Lasix] 40 mg PO DAILY #30 tablet 10/15/20 - Past Medical/Surgical History Diabetic: No -: Congetive Heart Failure -: CVA (01/13) -: Hypertension -: A-fib -: High Cholesterol -: Gout -: Right sided weakness -: BILATERAL KNEE REPLACEMENT - Family History Father -: Heart disease, Hypertension - Social History Alcohol use: No CD- Drugs: No Caffeine use: No Review of Systems Other: No reported diarrhea or vomiting. No reported fever. No reported chest pain. No productive cough. Except as documented, all other systems reviewed and negative Physical Examination - Physical Exam General: Oriented x2, Other (Awake, mild respiratory distress with talking) HEENT: PERRLA, Other (Dry oral mucosa), Sclerae nonicteric Neck: Supple, JVD not distended Respiratory: Diminished (Bilateral lungs) Cardiovascular: Regular rate/rhythm, Normal S1 S2, Edema (3+ bilateral lower extremity edema) Gastrointestinal: Normal bowel sounds, Soft and benign, Non-distended, No tenderness Musculoskeletal: Swelling (Bilateral legs) Integumentary: Other (Weeping sores-bilateral legs, bilateral lower extremity venous stasis dermatitis.) Neurological: Normal speech, Other (No focal motor deficit.) Lymphatics: No axilla or inguinal lymphadenopathy - Studies Laboratory Data (last 24 hrs) 10/14/22 12:27: PT 36.7 H, INR 3.34 10/14/22 12:27: WBC 7.30, Hgb 12.5 L, Hct 39.6, Plt Count 196 10/14/22 12:27: Sodium 143, Potassium 3.7, BUN 52 H, Creatinine 2.07 H, Glucose 115 H Assessment and Plan - Problems (Diagnosis) (1) Acute on chronic systolic heart failure Current Visit: No Status: Acute (2) Acute respiratory failure with hypoxia Current Visit: Yes Status: Acute (3) Venous stasis dermatitis Current Visit: Yes Status: Acute (4) Lymphedema of both lower extremities Current Visit: Yes Status: Acute (5) Cardiomegaly Onset Date: 01/05/16 Current Visit: No Status: Acute (6) Chronic atrial fibrillation Current Visit: No Status: Acute (7) Chronic kidney disease, stage 3 Current Visit: No Status: Acute (8) History of CVA (cerebrovascular accident) Current Visit: No Status: Acute (9) Sleep apnea Current Visit: No Status: Acute Qualifiers: Sleep apnea type: unspecified type Qualified Code(s): G47.30 - Sleep apnea, unspecified (10) Gout Onset Date: 01/29/15 Current Visit: No Status: Acute - Plan Admit patient to the medical floor. Start IV Lasix 80 mg twice daily. Monitor renal function closely. Nephrology consulted to assist with fluid management and management of kidney disease. Patient may be a candidate for Lasix drip. Obtain echocardiogram. Last echocardiogram in September 2000 showed EF of 24%. Trend troponin. Keep lower extremities elevated. Wound care consult for weeping sores on lower extremities. Diet as tolerated. Wean oxygen as tolerated. CPAP at bedtime. Continue home dose allopurinol. Continue metoprolol for atrial fibrillation. Reduce Coumadin dose today given that INR is borderline supratherapeutic. - Advance Directives Does patient have a Living Will: Yes Does patient have a Durable POA for Healthcare: Yes
[2022-10-14] MEDS ORDERED: ONDANSETRON 4 MG/2 ML VIAL IV PRN (16:57)
[2022-10-14] MEDS ORDERED: ACETAMINOPHEN 500 MG TAB PO PRN (16:57)
[2022-10-14 17:31] VITALS: BMI 35.2
[2022-10-14] MEDS: FUROSEMIDE 40 MG/4 ML VIAL IV SCH (17:52)
--- NOTE | 2022-10-14 19:48 | P.CNS ---
Date of Consult: 10/14/22 Reason for Consult: renal failure Requesting Physician: shae warner Chief Complaint: Shortness of breath, increased leg swelling History of Present Illness: 87M w/ PMHx of CKD3b, baseline GFR 35-44 (serum creatinine 1.5-1.8) as of September 2020, congestive heart failure, CVA, chronic atrial fibrillation, and dementia who presented with progressive dyspnea and bilateral lower extremity edema, admitted for acute exacerbation of CHF. Chest x-ray showed congestion. BNP significantly elevated. Troponin is positive. He is referred to nephrology for a KI. Serum creatinine on admission was 2.1. Urine studies are pending. He is receiving diuretics. Allergies No Known Allergies Allergy (Unverified 10/15/22 00:07) Home Medications: Allopurinol 100 mg PO DAILY 01/28/15 Atorvastatin Calcium [Lipitor*] 10 mg PO DAILY 6PM 01/02/16 Losartan Potassium [Cozaar] 25 mg PO DAILY 6PM 01/02/16 Warfarin Sodium [Coumadin*] 3 mg PO DAILY 6PM 01/02/16 Furosemide [Lasix*] 80 mg PO DAILY #30 tab 01/06/16 Metoprolol Tartrate [Lopressor*] 25 mg PO DAILY 6PM 07/28/16 Pantoprazole [Protonix Tab*] 40 mg PO [id number] 07/28/16 Cranberry Fruit Concentrate [Azo Cranberry] 250 mg PO TID 10/14/20 L.acidoph,Paracasei, B.lactis [Probiotic] 1 cap PO BID 10/14/20 Mecobalamin [B12 Active] 5,000 mcg PO DAILY 10/14/20 Tamsulosin HCl [Flomax] 0.4 mg PO DAILY 10/14/20 Ubidecarenone/Vit E Acet [Co Q-10 100 mg Softgel] 100 mg PO BID 10/14/20 Furosemide [Lasix] 40 mg PO DAILY #30 tablet 10/15/20 - Past Medical/Surgical History Diabetic: No -: Congetive Heart Failure -: CVA (01/13) -: Hypertension -: A-fib -: High Cholesterol -: Gout -: Right sided weakness -: BILATERAL KNEE REPLACEMENT - Family History Father Medical History: Heart disease, Hypertension - Social History Smoking Status: Former smoker Alcohol use: No CD- Drugs: No Caffeine use: No Place of Residence: Home Review of Systems General: Weakness Eyes: Unremarkable ENT: Unremarkable Respiratory: Shortness of Breath, SOB with Excertion Cardiovascular: Edema Gastrointestinal: Unremarkable Genitourinary: Unremarkable Musculoskeletal: Pedal edema Integumentary: Other (wounds on both legs) Neurological: Weakness Lymphatics: Unremarkable Physical Examination Temp Pulse Resp BP Pulse Ox 97.1 F 98 H 18 134/83 94 10/14/22 17:29 10/14/22 17:29 10/14/22 17:29 10/14/22 17:29 10/14/22 17:29 General: Other (chronically ill-appearing) HEENT: Atraumatic, Normocephalic Neck: Supple Respiratory: Other (symmetric chest expansion) Cardiovascular: No rubs, No murmurs Gastrointestinal: Soft and benign, No guarding Musculoskeletal: No clubbing Integumentary: Skin breakdown (on both lower extremities) Neurological: Normal tone Lymphatics: No axilla or inguinal lymphadenopathy Urinary: Other (no bladder distention) External genitalia: Deferred Rectal: Deferred Laboratory Data (last 24 hrs) 10/14/22 12:27: PT 36.7 H, INR 3.34 10/14/22 12:27: WBC 7.30, Hgb 12.5 L, Hct 39.6, Plt Count 196 10/14/22 12:27: Sodium 143, Potassium 3.7, BUN 52 H, Creatinine 2.07 H, Glucose 115 H Conclusions/Impression: # CAMILO 2/2 CRS1 Serum creatinine 2.1 on admission Follow-up urinalysis, random E PCR, urine chemistry BNP significantly elevated Continue Lasix 80 mg IV twice a day [place] by mouth fluid intake Monitor renal panel # 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
[2022-10-14] MEDS: TAMSULOSIN 0.4 MG SR CAP PO SCH (20:44)
[2022-10-15 01:52] LABS: Absolute Lymphocytes (CBC) 0.9 K/uL (0.7-4.9); Hematocrit 37.1 % (39.6-49.0); Lymphocytes % 13.5 % (15.3-44.8); MPV 7.9 fL (7.6-11.3); RBC Red Blood Cell Count 4.17 M/uL (4.33-5.43)
[2022-10-15 02:08] LABS: Magnesium 2.6 mg/dL (1.6-2.4); Phosphorus 3.7 mg/dL (2.5-4.9); Potassium 3.6 mEq/L (3.5-5.1)
[2022-10-15 02:09] LABS: Protime INR 3.23
[2022-10-15] MEDS: PANTOPRAZOLE 40MG TABLET PO SCH (05:21)
[2022-10-15] MEDS ORDERED: POTASSIUM CL SA 10 MEQ TAB PO ONE (09:00)
[2022-10-15] MEDS: allopurinoL 100 MG TAB PO SCH (09:25)
[2022-10-15] MEDS: FUROSEMIDE 40 MG/4 ML VIAL IV SCH ×2 (09:25→16:53)
--- NOTE | 2022-10-15 12:26 | P.PN ---
Subjective Date of Service: 10/15/22 Chief Complaint: Shortness of breath, increased leg swelling Patient is confused and not able to give any subjective complaint. No issues or agitation reported overnight. No significant change in lower extremity edema. Physical Examination - Vital Signs Temperature: 97 F Blood Pressure: 133/82 Pulse: 85 Respirations: 24 Pulse Ox (%): 97 - Studies Laboratory Data (last 24 hrs) 10/14/22 12:27: PT 36.7 H, INR 3.34 10/14/22 12:27: WBC 7.30, Hgb 12.5 L, Hct 39.6, Plt Count 196 10/14/22 12:27: Sodium 143, Potassium 3.7, BUN 52 H, Creatinine 2.07 H, Glucose 115 H Assessment And Plan - Current Problems (Diagnosis) (1) Acute on chronic systolic heart failure Current Visit: No Status: Acute (2) Acute respiratory failure with hypoxia Current Visit: Yes Status: Acute (3) Venous stasis dermatitis Current Visit: Yes Status: Acute (4) Lymphedema of both lower extremities Current Visit: Yes Status: Acute (5) Cardiomegaly Onset Date: 01/05/16 Current Visit: No Status: Acute (6) Chronic atrial fibrillation Current Visit: No Status: Acute (7) Chronic kidney disease, stage 3 Current Visit: No Status: Acute (8) History of CVA (cerebrovascular accident) Current Visit: No Status: Acute (9) Sleep apnea Current Visit: No Status: Acute Qualifiers: Sleep apnea type: unspecified type Qualified Code(s): G47.30 - Sleep apnea, unspecified (10) Gout Onset Date: 01/29/15 Current Visit: No Status: Acute - Plan Physical Exam General: Oriented x2, NAD HEENT: PERRLA,Dry oral mucosa-patient has been mouth breathing, Sclerae nonicter ic Neck: Supple, JVD not distended Respiratory: Diminished (Bilateral lungs) Cardiovascular: Regular rate/rhythm, Normal S1 S2, 3+ bilateral lower extremity edema Gastrointestinal: Normal bowel sounds, Soft and benign, Non-distended, No tenderness Integumentary: Weeping sores-bilateral legs, bilateral lower extremity venous stasis dermatitis. Neurological: Normal speech, No focal motor deficit. Lymphatics: No axilla or inguinal lymphadenopathy Plan Continue IV Lasix 80 mg twice daily. Monitor renal function closely. Monitor intake and output Nephrology seen patient and assisting with fluid management and management of kidney disease. Echocardiogram ordered. Last echocardiogram in September 2000 showed EF of 24%. Troponin trended flat. Keep lower extremities elevated. Wound care consult for weeping sores on lower extremities. Diet as tolerated. Wean oxygen as tolerated. CPAP at bedtime. Continue home dose allopurinol. Continue metoprolol for atrial fibrillation. Reduce Coumadin dose today given that INR is borderline supratherapeutic.
[2022-10-15 13:21] LABS: Specific Gravity 1.011 (1.005-1.030); Urine Bilirubin NEGATIVE (Negative); Urine Blood Negative (Negative); Urine Clarity Clear (Clear); Urine Color Light-Yellow (Yellow); Urine Glucose NEGATIVE (Negative); Urine Protein NEGATIVE (Negative); Urine Urobilinogen Normal (Normal)
[2022-10-15 13:29] LABS: UR PROTEIN < 5.0 mg/dL (<11.9); Urine Protein/Creatinine Ratio ND ratio (<0.15)
[2022-10-15] MEDS: METOPROLOL TAR 25 MG TAB PO SCH (18:09)
[2022-10-15] MEDS: ATORVASTATIN 10 MG TAB PO SCH (18:09)
[2022-10-15] MEDS: TAMSULOSIN 0.4 MG SR CAP PO SCH (20:29)
[2022-10-15] MEDS: LACTOBACILLUS/ACIDOPHILUS TAB PO SCH (20:29)
[2022-10-15 20:52] LABS: Potassium 3.9 mEq/L (3.5-5.1)
--- NOTE | 2022-10-15 22:50 | PN ---
Date of Progress Note: 10/15/2022 Chief Complaint: Renal failure. History Of Present Illness: Patient is an 87-year-old man with history of CKD 3B, baseline GFR 35 to 45, creatinine level ranging from 1.5 to 1.8, history of congestive heart failure, CVA, chronic atr ial fibrillation. The patient was admitted to the hospital because of congestive heart failure exace rbation, acute with chronic underlying component of diastolic dysfunction. Chest x-ray showed vascul ar congestion and interstitial pulmonary edema. BNP was significantly elevated. Troponin was elevat ed positive and Nephrology was consulted for acute kidney injury. Serum creatinine on admission was 2.1. The patient is on diuretic for volume control. He has right lower extremity cellulitis and lym phedema. He is on antibiotics. The patient has history of gout and previously was treated with allo purinol. He has been on furosemide and losartan for congestive heart failure. Review of Systems: Patient denies chest pain, palpitation. Physical Examination: Lungs: Clear to auscultation bilaterally. Heart: S1, S2. Abdomen: Soft. Extremities: Edema present. Impression And Plan: 1.Acute kidney injury secondary to cardiorenal syndrome. On admission, serum creatinine was 2.5, el evated from previous baseline. BNP was significantly elevated and random urine protein-creatinine ra anish is pending. Patient will continue Lasix IV 80 mg twice a day. Monitor renal panel, monitor flui d balance and electrolytes. 2.Acute on chronic congestive heart failure. Patient is on IV Lasix. Continue low-sodium diet, 2 g of sodium chloride per day. Continue adequate hydration by mouth fluid intake. 3.Lower extremity dermatitis, venous stasis cellulitis as per primary team. 4.Chronic atrial fibrillation, on Coumadin per primary team. 5.Dementia. Supportive care. 6.Sleep apnea. Patient is on CPAP. EB/MODL Voice ID: [id number] Report ID: [id number]
[2022-10-16 03:19] LABS: Protime INR 3.19
[2022-10-16 03:38] LABS: Potassium 3.6 mEq/L (3.5-5.1)
[2022-10-16] MEDS ORDERED: POTASSIUM CL SA 10 MEQ TAB PO ONE (06:00)
[2022-10-16] MEDS: PANTOPRAZOLE 40MG TABLET PO SCH (06:10)
[2022-10-16] MEDS: CYANOCOBALAMIN 1,000 MCG TAB PO SCH (08:45)
[2022-10-16] MEDS: LACTOBACILLUS/ACIDOPHILUS TAB PO SCH ×2 (08:45→20:01)
[2022-10-16] MEDS: allopurinoL 100 MG TAB PO SCH (08:45)
[2022-10-16] MEDS: FUROSEMIDE 40 MG/4 ML VIAL IV SCH ×2 (08:45→17:23)
--- NOTE | 2022-10-16 11:20 | P.PN ---
Subjective Date of Service: 10/16/22 Chief Complaint: Shortness of breath, increased leg swelling Patient is confused and not able to give any subjective complaint. No issues or agitation reported overnight. Family states the patient slept well last night. He was still sleeping during my exam this morning. Lower extremity edema has improved significantly. Patient has been tolerating room air. Physical Examination - Vital Signs Temperature: 97.3 F Blood Pressure: 107/61 Pulse: 96 Respirations: 20 Pulse Ox (%): 94 Assessment And Plan - Current Problems (Diagnosis) (1) Acute on chronic systolic heart failure Current Visit: No Status: Acute (2) Acute respiratory failure with hypoxia Current Visit: Yes Status: Acute (3) Venous stasis dermatitis Current Visit: Yes Status: Acute (4) Lymphedema of both lower extremities Current Visit: Yes Status: Acute (5) Cardiomegaly Onset Date: 01/05/16 Current Visit: No Status: Acute (6) Chronic atrial fibrillation Current Visit: No Status: Acute (7) Chronic kidney disease, stage 3 Current Visit: No Status: Acute (8) History of CVA (cerebrovascular accident) Current Visit: No Status: Acute (9) Sleep apnea Current Visit: No Status: Acute Qualifiers: Sleep apnea type: unspecified type Qualified Code(s): G47.30 - Sleep apnea, unspecified (10) Gout Onset Date: 01/29/15 Current Visit: No Status: Acute - Plan Physical Exam General: Oriented x2, NAD Neck: Supple, JVD not distended Respiratory: Diminished-Bilateral lung Cardiovascular: Regular rate/rhythm, Normal S1 S2, 3+ bilateral lower extremity edema significantly improved. Gastrointestinal: Normal bowel sounds, Soft and benign, Non-distended, No tenderness Integumentary: Weeping sores-bilateral legs, bilateral lower extremity venous stasis dermatitis. Neurological: Normal speech, No focal motor deficit. Lymphatics: No axilla or inguinal lymphadenopathy Plan Anasarca is improving with IV Lasix Continue IV Lasix 80 mg twice daily. Monitor renal function closely. Monitor intake and output Nephrology seen patient and assisting with fluid management and management of kidney disease. Echocardiogram ordered. Last echocardiogram in September 2000 showed EF of 24%. Troponin trended flat. Keep lower extremities elevated. Local wound care for weeping sores on lower extremities. Diet as tolerated. CPAP at bedtime. Continue home dose allopurinol. Continue metoprolol for atrial fibrillation. Reduce Coumadin dose today given that INR is borderline supratherapeutic.
[2022-10-16] MEDS: ATORVASTATIN 10 MG TAB PO SCH (17:23)
[2022-10-16] MEDS: METOPROLOL TAR 25 MG TAB PO SCH (17:23)
[2022-10-16] MEDS: TAMSULOSIN 0.4 MG SR CAP PO SCH (20:01)
--- NOTE | 2022-10-16 21:23 | PN ---
Date of Progress Note: 10/16/2022 Chief Complaint: Chronic kidney disease stage 3B, acute kidney injury secondary to cardiorenal syndr ome, lower extremity edema, fluid overload. Subjective: Patient is on diuretic. Today, he is feeling better. He denies chest pain, palpitation . Review of Systems: HEENT: Denies headache, new vision changes. Lungs: Denies cough, hemoptysis. Physical Examination: Lungs: Clear to auscultation bilaterally. Heart: S1, S2. Abdomen: Soft. Extremities: Edema present. Impression And Plan: 1.Acute kidney injury secondary to cardiorenal syndrome. On admission, serum creatinine level was 2 .5, elevated from previous baseline. BNP was significantly elevated and random urine protein creatin ine ratio is pending. Patient will continue Lasix IV 80 mg twice a day. Monitor renal panel. Monit or fluid balance and electrolytes. 2.Acute on chronic congestive heart failure. Patient is on IV Lasix. Continue low sodium diet, 2 g of sodium chloride a day. Continue adequate hydration by mouth. 3.Lower extremity dermatitis, cellulitis, venous stasis per primary team. 4.Chronic atrial fibrillation, on Coumadin per primary team. 5.Sleep apnea. Patient is on CPAP. EB/MODL Voice ID: [id number] Report ID: [id number]
[2022-10-17 03:43] LABS: Protime INR 2.83
[2022-10-17 03:58] LABS: Potassium 3.8 mEq/L (3.5-5.1)
[2022-10-17] MEDS: PANTOPRAZOLE 40MG TABLET PO SCH (05:37)
[2022-10-17] MEDS ORDERED: POTASSIUM CL SA 10 MEQ TAB PO ONE (06:00)
[2022-10-17] MEDS: CYANOCOBALAMIN 1,000 MCG TAB PO SCH (08:12)
[2022-10-17] MEDS: allopurinoL 100 MG TAB PO SCH (08:13)
[2022-10-17] MEDS: LACTOBACILLUS/ACIDOPHILUS TAB PO SCH ×2 (08:14→19:55)
[2022-10-17] MEDS: FUROSEMIDE 40 MG/4 ML VIAL IV SCH (08:14)
[2022-10-17] MEDS ORDERED: METOPROLOL TAR 25 MG TAB PO ONE (08:39)
--- NOTE | 2022-10-17 13:28 | P.PN ---
Subjective Date of Service: 10/17/22 Chief Complaint: Shortness of breath, increased leg swelling Patient is awake and interactive today. He denies any complain. He has been weaned off oxygen and tolerating room air. Lower extremity edema continue to improve. Physical Examination - Vital Signs Temperature: 97.6 F Blood Pressure: 106/76 Pulse: 76 Respirations: 18 Pulse Ox (%): 96 Assessment And Plan - Current Problems (Diagnosis) (1) Acute on chronic systolic heart failure Current Visit: No Status: Acute (2) Acute respiratory failure with hypoxia Current Visit: Yes Status: Acute (3) Venous stasis dermatitis Current Visit: Yes Status: Acute (4) Lymphedema of both lower extremities Current Visit: Yes Status: Acute (5) Cardiomegaly Onset Date: 01/05/16 Current Visit: No Status: Acute (6) Chronic atrial fibrillation Current Visit: No Status: Acute (7) Chronic kidney disease, stage 3 Current Visit: No Status: Acute (8) History of CVA (cerebrovascular accident) Current Visit: No Status: Acute (9) Sleep apnea Current Visit: No Status: Acute Qualifiers: Sleep apnea type: unspecified type Qualified Code(s): G47.30 - Sleep apnea, unspecified (10) Gout Onset Date: 01/29/15 Current Visit: No Status: Acute - Plan Physical Exam General: Oriented x2, NAD Neck: Supple, JVD not distended Respiratory: Diminished-Bilateral lung Cardiovascular: Regular rate/rhythm, Normal S1 S2, 3+ bilateral lower extremity edema significantly improved. Gastrointestinal: Normal bowel sounds, Soft and benign, Non-distended, No tenderness Integumentary: Weeping sores-bilateral legs, bilateral lower extremity venous stasis dermatitis. Neurological: Normal speech, No focal motor deficit. Lymphatics: No axilla or inguinal lymphadenopathy Plan Anasarca has significantly improved on IV Lasix. Renal function has also improved. Transition from IV Lasix to oral Lasix and monitor response. Monitor renal function closely. Monitor intake and output Nephrology is assisting with fluid management and management of kidney disease. Echocardiogram is pending. Last echocardiogram in September 2000 showed EF of 24%. Troponin trended flat. Keep lower extremities elevated. Local wound care for weeping sores on lower extremities. Diet as tolerated. Patient has not been wearing CPAP at home.. Continue home dose allopurinol. Continue metoprolol for atrial fibrillation. INR is therapeutic. Continue current dose warfarin and titrate.
[2022-10-17] MEDS: METOPROLOL TAR 25 MG TAB PO SCH (17:06)
[2022-10-17] MEDS: ATORVASTATIN 10 MG TAB PO SCH (17:06)
[2022-10-17] MEDS: WARFARIN SODIUM 2.5 MG TAB PO SCH (17:07)
[2022-10-17] MEDS: TAMSULOSIN 0.4 MG SR CAP PO SCH (19:54)
[2022-10-17] MEDS: FUROSEMIDE 40 MG TABLET PO SCH (19:54)
[2022-10-18 03:38] LABS: Protime INR 2.48
[2022-10-18 03:45] LABS: Absolute Lymphocytes (CBC) 0.9 K/uL (0.7-4.9); Hematocrit 36.7 % (39.6-49.0); Lymphocytes % 12.5 % (15.3-44.8); MCV 90.1 fL (80-100); MPV 8.2 fL (7.6-11.3); RBC Red Blood Cell Count 4.07 M/uL (4.33-5.43)
--- NOTE | 2022-10-18 03:50 | PN ---
Date of Progress Note: 10/17/2022 Chief Complaint: Chronic kidney disease stage 3B, acute kidney injury secondary to cardiorenal syndr ome, lower extremity edema, fluid overload. Patient is on diuretic and he completed IV Lasix. Review of Systems: Denies complaints. Patient denies chest pain, palpitation. Physical Examination: Lungs: Clear to auscultation bilaterally. Heart: S1-S2. Abdomen: Soft. Extremities: Edema, overall stable. Impression And Plan: 1.Acute on chronic kidney injury. The patient has acute kidney injury secondary to cardiorenal synd arielle. On admission, serum creatinine level was 2.5, which was elevated from previous baseline. BNP was significantly elevated and random urine protein-creatinine ratio was pending. The patient will c ontinue p.o. Lasix. Plan is to add metolazone and spironolactone for next few days. 2.Acute on chronic congestive heart failure. The patient will continue low-sodium diet. Continue a dequate hydration by mouth. 3.Lower extremity dermatitis, cellulitis, venous stasis, per primary team. 4.Chronic atrial fibrillation, on Coumadin. EB/MODL Voice ID: [id number] Report ID: [id number]
[2022-10-18 03:51] LABS: Albumin 3.1 g/dL (3.4-5.0); Magnesium 2.5 mg/dL (1.6-2.4); Potassium 3.8 mEq/L (3.5-5.1)
[2022-10-18] MEDS: PANTOPRAZOLE 40MG TABLET PO SCH (04:47)
[2022-10-18] MEDS ORDERED: POTASSIUM CL SA 10 MEQ TAB PO ONE (06:00)
--- NOTE | 2022-10-18 06:59 | P.PN ---
Date of Service: 10/18/22 Subjective: breathing remains unchanged, ~his baseline per family coughing more frequently per family afib with rates to 130s yesterday, given extra lopressor with improvement remains in afib, intermittently with HR up to 120-130s swelling improving per family ROS: 10 point ROS as noted above, otherwise negative Physical Exam: GEN: Alert, oriented x2, NAD HEENT: Normal conjunctiva, sclera anicteric CV: Irregularly irregular rate and rhythm, 1+ b/l lower extremity edema Pulm: mildly labored respirations on room air, diminished at bases b/l, mild b/l crackles ABD: Soft, nontender, nondistended Integumentary: Weeping sores-bilateral legs, bilateral lower extremity venous stasis dermatitis, with ALEXIS bandage wraps in place vitals reviewed Problem List: Acute respiratory failure with hypoxia secondary to acute on chronic CHF Acute on chronic systolic congestive heart failure Venous Stasis dermatitis Lymphedema of both lower extremities Chronic afib, paroxysmal CKD 3 Sleep Apnea Gout Acute on chronic systolic heart failure Acute respiratory failure with hypoxia Anasarca has significantly improved on IV Lasix Transitioned from IV to oral Lasix 10/17 Patient has not been wearing CPAP at home Cardiology consulted Echo pending. Last echocardiogram in September 2000 showed EF of 24%. Troponins elevated x4 Speech therapy consult Venous Stasis dermatitis Lymphedema of both lower extremities Keep lower extremities elevated. Local wound care for weeping sores on lower extremities. worsened by edema, now improving no active evidence of infection CKD 3 Renal function improved. now at ~ baseline Monitor intake and output Nephrology following started metolazone and spironolactone 10/18 f/u repeat labs in AM Chronic afib Continue metoprolol for atrial fibrillation. Metoprolol Increased to BID from daily on 10/18 due to rapid rate cardiology consulted 10/18 INR is therapeutic. Continue current dose warfarin and titrate. Gout Continue home dose allopurinol VTE: Warfarin Code: Full Dispo: Home with home health 1-2 days
[2022-10-18] MEDS: METOPROLOL TAR 25 MG TAB PO SCH ×2 (07:15→17:17)
[2022-10-18] MEDS ORDERED: METOLAZONE 2.5 MG TABLET PO SCH (09:00)
[2022-10-18] MEDS ORDERED: SPIRONOLACTONE 25 MG TABLET PO SCH (09:00)
[2022-10-18] MEDS: CYANOCOBALAMIN 1,000 MCG TAB PO SCH (09:09)
[2022-10-18] MEDS: FUROSEMIDE 40 MG TABLET PO SCH ×2 (09:09→21:03)
[2022-10-18] MEDS: allopurinoL 100 MG TAB PO SCH (09:10)
[2022-10-18] MEDS: LACTOBACILLUS/ACIDOPHILUS TAB PO SCH ×2 (09:10→21:00)
[2022-10-18] MEDS: MUPIROCIN 2% OINT 22GM TUBE TOP SCH ×2 (09:10→21:05)
[2022-10-18] MEDS: ATORVASTATIN 10 MG TAB PO SCH (17:16)
[2022-10-18] MEDS: WARFARIN SODIUM 2.5 MG TAB PO SCH (17:16)
[2022-10-18] MEDS: TAMSULOSIN 0.4 MG SR CAP PO SCH (21:04)
--- NOTE | 2022-10-18 23:56 | PN ---
Date of Progress Note: 10/18/2022 Chief Complaint: Chronic kidney disease stage 3b, acute kidney injury secondary to cardiorenal syndr ome, lower extremity edema, fluid overload. Subjective: The patient is on p.o. diuretics. Review of Systems: Denies complaints. Physical Examination: Lungs: Clear to auscultation bilaterally. Heart: S1, S2. Abdomen: Soft. Extremities: Edema present. Overall, improved. Impression And Plan: 1.[id number] kidney injury. The patient has acute kidney injury secondary to cardiorenal synd arielle. On admission serum creatinine level was 2.7, which was elevated from previous baseline. BNP w as significantly elevated. The patient will continue Lasix and plan is to maintain metolazone and sp ironolactone for next few days. The patient may need chronic furosemide dose adjusted according to t he urine output. 2.Lower extremity dermatitis, cellulitis, venous stasis, per primary team. 3.Chronic atrial fibrillation, on Coumadin. 4.Nuvtt-nj-jzcaevk congestive heart failure. Continue low-sodium diet. Continue adequate hydration by mouth. Continue diuretics. EB/MODL Voice ID: [id number] Report ID: [id number]
[2022-10-19 03:44] LABS: Protime INR 1.91
[2022-10-19 03:47] LABS: Hematocrit 35.9 % (39.6-49.0); MCV 88.9 fL (80-100); MPV 8.2 fL (7.6-11.3); RBC Red Blood Cell Count 4.04 M/uL (4.33-5.43)
[2022-10-19 04:00] LABS: Potassium 3.6 mEq/L (3.5-5.1)
[2022-10-19] MEDS ORDERED: POTASSIUM 25 MEQ EFFERV TAB PO ONE (05:20)
[2022-10-19] MEDS: PANTOPRAZOLE 40MG TABLET PO SCH (06:23)
[2022-10-19] MEDS: METOPROLOL TAR 25 MG TAB PO SCH ×2 (06:23→17:07)
--- NOTE | 2022-10-19 06:54 | P.PN ---
Date of Service: 10/19/22 Subjective: doing okay today; slept well overnight cough remains ~same breathing unchanged, ~baseline per family remains in afib; HR improving ROS: 10 point ROS as noted above, otherwise negative Physical Exam: GEN: Alert, oriented x2, NAD HEENT: Normal conjunctiva, sclera anicteric CV: Irregularly irregular rate and rhythm, 1+ b/l lower extremity edema Pulm: mildly labored respirations on room air, diminished at bases b/l, mild b/l crackles ABD: Soft, nontender, nondistended Integumentary: Weeping sores-bilateral legs, bilateral lower extremity venous stasis dermatitis, with ALEXIS bandage wraps in place vitals reviewed Problem List: Acute respiratory failure with hypoxia secondary to acute on chronic CHF Acute on chronic systolic congestive heart failure ?concern for aspiration Venous Stasis dermatitis Lymphedema of both lower extremities Chronic afib, paroxysmal CKD 3 Sleep Apnea Gout Acute on chronic systolic heart failure Acute respiratory failure with hypoxia Anasarca has significantly improved on IV Lasix Transitioned from IV to oral Lasix 10/17 Patient has not been wearing CPAP at home CXR (10/19): Mild to moderate CHF/ volume overload pattern Cardiology consulted Echo pending. Last echocardiogram in September 2000 showed EF of 24%. Troponins elevated x4 Speech therapy consult Venous Stasis dermatitis Lymphedema of both lower extremities Keep lower extremities elevated. Local wound care for weeping sores on lower extremities. worsened by edema, now improving no active evidence of infection CKD 3 Renal function improved. now at ~ baseline Monitor intake and output Nephrology following given metolazone and spironolactone x1 10/18 f/u repeat labs in AM Chronic afib Continue metoprolol for atrial fibrillation. Metoprolol Increased to BID from daily on 10/18 due to rapid rate cardiology consulted 10/18 INR is therapeutic. Continue current dose warfarin and titrate. Gout Continue home dose allopurinol VTE: Warfarin Code: Full Dispo: Home with home health 1-2 days
[2022-10-19] MEDS: allopurinoL 100 MG TAB PO SCH (08:53)
[2022-10-19] MEDS: FUROSEMIDE 40 MG TABLET PO SCH ×3 (08:53→22:01)
[2022-10-19] MEDS: LACTOBACILLUS/ACIDOPHILUS TAB PO SCH ×2 (08:54→21:00)
[2022-10-19] MEDS: CYANOCOBALAMIN 1,000 MCG TAB PO SCH (08:54)
[2022-10-19] MEDS: MUPIROCIN 2% OINT 22GM TUBE TOP SCH ×2 (08:56→21:00)
--- NOTE | 2022-10-19 10:28 | RAD REPORT ---
EXAM DESCRIPTION: RAD - Chest Single View - 10/19/2022 10:03 am CLINICAL HISTORY: COPD Chest pain. COMPARISON: Chest Single View dated 10/14/2022; Chest Single View dated 10/15/2020; Chest Single View dated 10/14/2020; Chest Single View dated 07/11/2020 FINDINGS: Portable technique limits examination quality. Moderate bilateral pulmonary opacities are seen, appearing very similar to the 10/14/2022 study. The heart is moderately enlarged. No displaced fractures. IMPRESSION: Mild to moderate CHF/ volume overload pattern.
[2022-10-19] MEDS: SPIRONOLACTONE 25 MG TABLET PO SCH (11:34)
--- NOTE | 2022-10-19 12:23 | PN ---
Date of Progress Note: 10/19/2022 Subjective: The patient was admitted to the hospital with acute kidney injury secondary to cardioren al syndrome with CHF exacerbation and edema. The patient was started on diuresis. Kidney function s tarted being improving. The patient participating on the physical therapy today. Physical Examination: Vital Signs: Blood pressure 99/70, pulse of 89. Chest: Decreased entry bilateral base with crackles, looked to me slightly worse than admission. Heart: S1, S2. Systolic murmur. Abdomen: Soft, nontender. Extremities: +1 edema. Neurologic: Alert. Pleasantly confused. The patient had urine output of 1200, negative of 700. Laboratory Data: Hemoglobin 11.6. Sodium 139, potassium 3.6, bicarb 31, BUN 58, creatinine 1.8, diane cium 9.3, magnesium 2.5, phosphorus 3, albumin 3.1. Corrected calcium is 9.5. Current Medications: The patient on include Flomax, Coumadin, atorvastatin, metoprolol, Lasix 80 b.i .d., pantoprazole, allopurinol, KCl. Assessment And Plan: 1.Acute kidney injury on chronic kidney disease secondary to cardiorenal syndrome, ejection fraction of 24% as of echocardiogram done in September 2020 with severe hypokinesia. The patient is still on the over volume side. I am going to go ahead and change the Lasix to t.i.d. to establish better volume c ontrol. We will monitor for the patient. I am going to go ahead and add spironolactone given the pr esentation of hypokalemia and advanced heart disease and we will follow up. 2.Hypertension. We will utilize blood pressure for more diuresis. Increase Lasix. Continue rate c ontrol. Add spironolactone. 3.Congestive heart failure with exacerbation. We will optimize fluid status as above. 4.Hypokalemia. We will add spironolactone. Hold on supplement. 5.Anasarca secondary to cardiorenal syndrome. We will optimize the fluid as above. Hypothyroidism has been ruled out and the patient has proteinuria, but not nephrotic, only minimal. 6.Deconditioning. Continue PT/OT. MA/MODL Voice ID: [id number] Report ID: [id number]
[2022-10-19] MEDS: ATORVASTATIN 10 MG TAB PO SCH (17:07)
[2022-10-19] MEDS: WARFARIN SODIUM 3 MG TAB PO SCH (17:07)
[2022-10-19] MEDS: TAMSULOSIN 0.4 MG SR CAP PO SCH (21:02)
[2022-10-20 03:40] LABS: Protime INR 1.91
[2022-10-20 03:58] LABS: Magnesium 2.4 mg/dL (1.6-2.4); Potassium 3.5 mEq/L (3.5-5.1)
[2022-10-20] MEDS: PANTOPRAZOLE 40MG TABLET PO SCH (06:06)
[2022-10-20] MEDS: METOPROLOL TAR 25 MG TAB PO SCH ×2 (06:06→18:06)
--- NOTE | 2022-10-20 06:56 | P.PN ---
Date of Service: 10/20/22 Subjective: breathing remains the same ~baseline appetite slowly improving per family in and out of afib, PACs good urine output ROS: 10 point ROS as noted above, otherwise negative Physical Exam: GEN: Alert, oriented x2 HEENT: Normal conjunctiva, sclera anicteric CV: Irregularly irregular rate and rhythm, 1-2+ edema in upper thighs bilaterally (lower legs wrapped in ALEXIS bandage) Pulm: mildly labored respirations on room air, diminished at bases b/l, mild b/l crackles ABD: Soft, nontender, nondistended Integumentary: bilateral lower extremity venous stasis dermatitis, with ALEXIS bandage wraps in place vitals reviewed Problem List: Acute respiratory failure with hypoxia secondary to acute on chronic CHF Acute on chronic systolic and diastolic congestive heart failure ?concern for aspiration Venous Stasis dermatitis Lymphedema of both lower extremities Chronic afib, paroxysmal CKD 3 Sleep Apnea Gout Acute on chronic systolic heart failure Acute respiratory failure with hypoxia Anasarca has significantly improved on IV Lasix Transitioned from IV to oral Lasix 10/17; increased to TID from BID 10/19 Patient has not been wearing CPAP at home CXR (10/19): Mild to moderate CHF/ volume overload pattern Cardiology consulted Last echocardiogram (September 2000): EF:24%. Echo (10/18): EF: 30-35% moderate global hypokinesis, mitral annular calcification with mild MR, mild-mod aortic insufficiency, diastolic dysfunction, mild TR suspect afib playing a role as well blood pressure borderline / low at times, diuresing well, will discuss with nephrology, adjust meds Troponins elevated x4 Speech therapy consult recommends soft and bite sized diet thick/nectar consistency liquids Venous Stasis dermatitis Lymphedema of both lower extremities Keep lower extremities elevated. Local wound care for weeping sores on lower extremities. worsened by edema, now improving no active evidence of infection CKD 3 Renal function improved. now at ~ baseline Monitor intake and output Nephrology following continue spironolactone Lasix monitor BP Chronic afib Continue metoprolol for atrial fibrillation. Metoprolol Increased to BID from daily on 10/18 due to rapid rate cardiology consulted 10/18 INR is therapeutic. Continue current dose warfarin and titrate. Gout Continue home dose allopurinol VTE: Warfarin Code: Full Dispo: Home with home health ~2 days
--- NOTE | 2022-10-20 07:04 | ECHO ---
HEIGHT: 6 ft 0 in WEIGHT: 260 lb 0 oz DATE OF STUDY: 10/18/[address]: Maxi Shields MD 2-DIMENSIONAL: YES M.MODE: YES DOPPLER: YES COLOR FLOW: YES TDS: PORTABLE: YES DEFINITY: BUBBLE STUDY: DIAGNOSIS: CONGESTIVE HEART FAILURE EXACERBATION CARDIAC HISTORY: CATHERIZATION: NO SURGERY: NO PROSTHETIC VALVE: NO PACEMAKER: NO MEASUREMENTS (cm) DIASTOLIC (NORMALS) SYSTOLIC (NORMALS) IVSd 1.2 (0.6-1.2) LA Diam 3.2 (1.9-4.0) LVEF 34% LVIDd 4.9 (3.5-5.7) LVIDs 4.1 (2.0-3.5) %FS 16% LVPWd 1.2 (0.6-1.2) Ao Diam 2.8 (2.0-3.7) 2 DIMENSIONAL ASSESSMENT: RIGHT ATRIUM: NORMAL LEFT ATRIUM: NORMAL RIGHT VENTRICLE: NORMAL LEFT VENTRICLE: DEPRESSED LEFT VENTRICULAR EJECTION FRACTION TRICUSPID VALVE: MILD TRICUSPID REGURGITATION MITRAL VALVE: MITRAL ANNULAR CALCIFICATION WITH MILD MITRAL REGURGITATION PULMONIC VALVE: NORMAL AORTIC VALVE: CALCIFIED AORTIC VALVE WITH MILD AORTIC INSUFFICIENCY PERICARDIAL EFFUSION: NONE AORTIC ROOT: NORMAL LEFT VENTRICULAR WALL MOTION: MODERATE GLOBAL HYPOKINESIS DOPPLER/COLOR FLOW: SEE BELOW COMMENTS: 1. MODERATELY DEPRESSED LEFT VENTRICULAR EJECTION FRACTION OF 30-35% 2. MODERATE GLOBAL HYPOKINESIS 3. MITRAL ANNULAR CALCIFICATION WITH MILD MITRAL REGURGITATION 4. MILD TO MODERATE AORTIC INSUFFICIENCY 5. DIASTOLIC DYSFUNCTION 6. MILD TRICUSPID REGURGITATION TECHNOLOGIST: ARLENE NOONAN
[2022-10-20] MEDS ORDERED: POTASSIUM 25 MEQ EFFERV TAB PO ONE (08:00)
[2022-10-20] MEDS: LACTOBACILLUS/ACIDOPHILUS TAB PO SCH ×2 (09:00→20:15)
[2022-10-20] MEDS: CYANOCOBALAMIN 1,000 MCG TAB PO SCH (09:45)
[2022-10-20] MEDS: allopurinoL 100 MG TAB PO SCH (09:46)
[2022-10-20] MEDS: MUPIROCIN 2% OINT 22GM TUBE TOP SCH ×2 (09:47→20:16)
[2022-10-20] MEDS: SPIRONOLACTONE 25 MG TABLET PO SCH (10:30)
[2022-10-20] MEDS: FUROSEMIDE 40 MG TABLET PO SCH ×3 (10:30→20:15)
--- NOTE | 2022-10-20 17:19 | PN ---
Date of Progress Note: 10/20/2022 History: The patient was admitted with cardiorenal syndrome. The patient been on diuresis, tolerate d the dialysis very well. The patient had marginal low blood pressure. Physical Examination: Vital Signs: Blood pressure 103/55, pulse of 61, afebrile. The patient had good urine output of ___ . Chest: Crackles bilateral. Heart: S1, S2. Systolic murmur. Abdomen: Soft, nontender. EXTREMITIES: Compression dressing, both legs. Laboratory Data: Hemoglobin 11.6. Sodium 139, potassium 3.5, bicarb 33, BUN 58, creatinine 1.9, diane cium 9.2, phos 3, magnesium 2.4. Current Medications: The patient on include, Coumadin, atorvastatin, metoprolol 25 b.i.d., spironola ctone 25 daily, Lasix 80 t.i.d., pantoprazole, Zofran, KCl. Assessment And Plan: 1.Acute kidney injury on chronic kidney disease secondary to cardiorenal. I got a repeated chest x- ray showing still congestion. I am going to continue current dose of Lasix. We just increased it ye sterday, okay to give it with blood pressure in the mid 90 systolic and we will follow up the patient . We will place the patient on fluid restriction and nasal cannula. 2.Respiratory failure secondary to cardiorenal. We will optimize the fluid status as above. 3.Hypertension. We will utilize blood pressure for more diuresis. 4.Congestive heart failure with exacerbation as above. 5.Hypokalemia. Responds to spironolactone, we will monitor. 6.Deconditioning. Continue PT, OT. OUSMANE/JINNY Voice ID: [id number] Report ID: [id number]
--- NOTE | 2022-10-20 17:45 | EKG ---
Test Date: 2022-10-14 Test Time: 12:12:34 Elevators Inspector: CHINYERE MEASUREMENT RESULTS: Intervals: Rate: 96 [place]: QRSD: 134 QT: 400 QTc: 505 [place]: P: [place]: QRS: -47 T: 110 INTERPRETIVE STATEMENTS: Atrial fibrillation Left axis deviation Left ventricular hypertrophy with QRS widening and repolarization abnormality Abnormal ECG Compared to ECG 10/14/2020 12:13:43 Early repolarization now present Myocardial infarct finding no longer present Electronically Signed On 10-20-22 17:40:56 CDT by Ata Douglas
[2022-10-20 17:55] LABS: Protime INR 1.4
[2022-10-20] MEDS: ATORVASTATIN 10 MG TAB PO SCH (18:05)
[2022-10-20] MEDS: WARFARIN SODIUM 3 MG TAB PO SCH (18:06)
[2022-10-20] MEDS ORDERED: WARFARIN SODIUM 2 MG TAB PO ONE (19:00)
[2022-10-20] MEDS ORDERED: WARFARIN SODIUM 5 MG TAB PO SCH (19:00)
[2022-10-20] MEDS ORDERED: AMIODARONE HCL 150 MG in D5W 100 ML IV STA (19:26)
[2022-10-20] MEDS ORDERED: AMIODARONE HCL 900 MG in Dextrose 5%-Water 482 ML IV SCH (20:00)
[2022-10-20] MEDS: TAMSULOSIN 0.4 MG SR CAP PO SCH (20:15)
[2022-10-20] MEDS: ENSURE HIGH PROTEIN 237 ML CAN PO SCH (20:16)
[2022-10-20] MEDS: AMIODARONE IN DEXTROSE,ISO-OSM 360 MG/200 ML BAG IV ONE (20:23)
[2022-10-20] MEDS ORDERED: D5W IV SCH (21:00)
[2022-10-20] MEDS ORDERED: AMIODARONE HCL 450 MG in D5W 241 ML IV SCH ×8 (21:00)
[2022-10-20] MEDS ORDERED: AMIODARONE HCL IV SCH (21:00)
[2022-10-21] MEDS ORDERED: AMIODARONE IN DEXTROSE,ISO-OSM 360 MG/200 ML BAG IV ONE (02:50)
[2022-10-21 05:20] LABS: Protime INR 1.67
[2022-10-21 05:25] LABS: Magnesium 2.4 mg/dL (1.6-2.4)
[2022-10-21] MEDS: METOPROLOL TAR 25 MG TAB PO SCH ×2 (05:27→17:04)
[2022-10-21] MEDS: PANTOPRAZOLE 40MG TABLET PO SCH (05:27)
--- NOTE | 2022-10-21 06:59 | P.PN ---
Date of Service: 10/21/22 Subjective: doing okay, breathing ~unchanged tolerating diet with minimal coughing per speech therapist started IV amio last night per cardio didn't want to work with PT yesterday due to stomach ache otherwise no new / worsening problems swelling in thighs tachy to 150s with movement ROS: 10 point ROS as noted above, otherwise negative Physical Exam: GEN: Alert, oriented x2 HEENT: Normal conjunctiva, sclera anicteric CV: Irregularly irregular rate and rhythm, 1-2+ edema in upper thighs bilaterally (lower legs wrapped in ALEXIS bandage) Pulm: mildly labored respirations on room air, diminished at bases b/l, mild b/l crackles ABD: Soft, nontender, nondistended Integumentary: bilateral lower extremity venous stasis dermatitis, no evidence of infection vitals reviewed Problem List: Acute respiratory failure with hypoxia secondary to acute on chronic CHF Acute on chronic systolic and diastolic congestive heart failure ?concern for aspiration Venous Stasis dermatitis Lymphedema of both lower extremities Chronic afib, paroxysmal CKD 3 Sleep Apnea Gout Acute on chronic systolic and diastolic heart failure Acute respiratory failure with hypoxia Anasarca has significantly improved on IV Lasix Transitioned from IV to oral Lasix 10/17; increased to TID from BID 10/19 Troponins elevated x4, likely demand ischemia Cardiology consulted Last echo (September 2000): EF:24%. TTE (10/18): EF: 30-35% moderate global hypokinesis, mitral annular calcification with mild MR, mild-mod aortic insufficiency, diastolic dysfunction, mild TR suspect afib playing a role as well started IV amio 10/20 evening per cardio recommendations Speech therapy consulted due to concern for aspiration / coughing when drinking family reported patient does this because he drinks too quickly recommends soft and bite sized diet thick/nectar consistency liquids Chronic afib intermittent afib with RVR home Metoprolol Increased to BID from daily on 10/18 due to rapid rate cardiology consulted 10/18 IV amio as noted above, started 10/20 evening titrate warfarin dosing Venous Stasis dermatitis Lymphedema of both lower extremities Keep lower extremities elevated. Local wound care for weeping sores on lower extremities. Much improved no active evidence of infection photos taken, in EMR 10/21 CKD 3 Renal function slightly worse 10/21 Monitor intake and output Nephrology following continue spironolactone Lasix monitor BP patient remains with significant fluid on him, but improving Gout Continue home dose allopurinol VTE: Warfarin Code: Full Dispo: Home with home health ~2-3 days
--- NOTE | 2022-10-21 07:37 | RAD REPORT ---
EXAM DESCRIPTION: RADChest Single View10/21/2022 5:14 am CLINICAL HISTORY: f/u opacities COMPARISON: Chest Single View dated 10/19/2022; Chest Single View dated 10/14/2022; Chest Single View dated 10/15/2020; Chest Single View dated 10/14/2020 TECHNIQUE: Portable AP view of the chest. FINDINGS: Stable cardiomegaly, prominent central vasculature and central interstitial prominence. Whalen zy opacification at the lung bases is also stable. No pneumothorax or effusion. The mediastinal cont ours are unremarkable. IMPRESSION: Stable findings as above, raising concern for CHF or central edema.
[2022-10-21] MEDS ORDERED: AMIODARONE HCL 900 MG in Dextrose 5%-Water 482 ML IV SCH ×2 (08:00→09:00)
[2022-10-21] MEDS: CYANOCOBALAMIN 1,000 MCG TAB PO SCH (08:37)
[2022-10-21] MEDS: SPIRONOLACTONE 25 MG TABLET PO SCH (08:38)
[2022-10-21] MEDS: LACTOBACILLUS/ACIDOPHILUS TAB PO SCH ×2 (08:38→21:00)
[2022-10-21] MEDS: FUROSEMIDE 40 MG TABLET PO SCH ×3 (08:38→20:59)
[2022-10-21] MEDS: allopurinoL 100 MG TAB PO SCH (08:38)
[2022-10-21] MEDS: ENSURE HIGH PROTEIN 237 ML CAN PO SCH ×2 (08:52→21:00)
[2022-10-21] MEDS: MUPIROCIN 2% OINT 22GM TUBE TOP SCH ×2 (09:51→21:00)
[2022-10-21] MEDS: ATORVASTATIN 10 MG TAB PO SCH (17:04)
[2022-10-21] MEDS: WARFARIN SODIUM 5 MG TAB PO SCH (17:04)
--- NOTE | 2022-10-21 17:24 | P.PN ---
Subjective Date of Service: 10/21/22 Chief Complaint: Shortness of breath, increased leg swelling Subjective: Other (Remains bed bound.) Physical Examination - Vital Signs Temperature: 96.9 F Blood Pressure: 112/68 Pulse: 72 Respirations: 22 Pulse Ox (%): 97 - Physical Exam General: Other (Chronically ill appearing) HEENT: Atraumatic, Normocephalic Neck: Supple, JVD not distended Respiratory: Other (Symmetric chest expansion) Cardiovascular: No rubs, No murmurs Gastrointestinal: Soft and benign, No rebound Musculoskeletal: Swelling (BLEs) Integumentary: No warmth Neurological: Normal tone Urinary: Other (No bladder distention) External genitalia: Deferred Rectal: Deferred Assessment And Plan - Plan # CAMILO 2/2 CRS1 Serum creatinine 2.1 on admission, at 2.2 today BNP significantly elevated Continue Lasix same dose [place] by mouth fluid intake at least 2L per day Monitor renal panel # 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
[2022-10-21] MEDS: TAMSULOSIN 0.4 MG SR CAP PO SCH (20:59)
[2022-10-22] MEDS: PANTOPRAZOLE 40MG TABLET PO SCH (06:11)
[2022-10-22] MEDS: METOPROLOL TAR 25 MG TAB PO SCH ×3 (06:11→18:00)
[2022-10-22 06:37] LABS: Hematocrit 38.5 % (39.6-49.0); MCV 88.3 fL (80-100); MPV 8.3 fL (7.6-11.3); RBC Red Blood Cell Count 4.36 M/uL (4.33-5.43)
[2022-10-22 06:41] LABS: Protime INR 2.69
--- NOTE | 2022-10-22 06:51 | P.PN ---
Date of Service: 10/22/22 Subjective: feeling a little better overall today, tolerating diet swelling in thighs improving breathing ~unchanged requiring same amount of assistance with transfers per PT; refused strength training yesterday due to fatigue otherwise no new / worsening problems ROS: 10 point ROS as noted above, otherwise negative Physical Exam: GEN: Alert, oriented x2 HEENT: Normal conjunctiva, sclera anicteric CV: Irregularly irregular rate and rhythm, 1-2+ edema in upper thighs bilaterally (lower legs wrapped in ALEXIS bandage) Pulm: mildly labored respirations on room air, diminished at bases b/l, mild b/l crackles ABD: Soft, nontender, nondistended Integumentary: bilateral lower extremity venous stasis dermatitis, no evidence of infection vitals reviewed Problem List: Acute respiratory failure with hypoxia secondary to acute on chronic CHF Acute on chronic systolic and diastolic congestive heart failure ?concern for aspiration Venous Stasis dermatitis Lymphedema of both lower extremities Chronic afib, paroxysmal CKD 3 Sleep Apnea Gout Acute on chronic systolic and diastolic heart failure Acute respiratory failure with hypoxia Anasarca has significantly improved on IV Lasix Transitioned from IV to oral Lasix 10/17; increased to TID from BID 10/19 Troponins elevated x4, likely demand ischemia Cardiology consulted Last echo (September 2000): EF:24%. TTE (10/18): EF: 30-35% moderate global hypokinesis, mitral annular calcification with mild MR, mild-mod aortic insufficiency, diastolic dysfunction, mild TR suspect afib playing a role as well started IV amio 10/20 evening per cardio recommendations transition to oral amio BID 10/22 Speech therapy consulted due to concern for aspiration / coughing when drinking family reported patient does this because he drinks too quickly recommends soft and bite sized diet thick/nectar consistency liquids Chronic afib intermittent afib with RVR home Metoprolol Increased to BID from daily on 10/18 due to rapid rate cardiology consulted 10/18 IV amio as noted above, started 10/20 evening transition to PO amio BID 10/22 titrate warfarin dosing f/u EKG Venous Stasis dermatitis Lymphedema of both lower extremities Keep lower extremities elevated. Local wound care for weeping sores on lower extremities. Much improved no active evidence of infection photos taken, in EMR 10/21 CKD 3 Renal function worsening since 10/20 Monitor intake and output Nephrology following continue spironolactone Lasix, decreased 10/22 monitor BP patient remains with significant fluid on him, but improving Gout Continue home dose allopurinol VTE: Warfarin Code: Full Dispo: Home with home health ~2-3 days
[2022-10-22 06:59] LABS: Magnesium 2.5 mg/dL (1.6-2.4); Potassium 3.6 mEq/L (3.5-5.1)
[2022-10-22] MEDS: LACTOBACILLUS/ACIDOPHILUS TAB PO SCH ×2 (08:27→21:00)
[2022-10-22] MEDS: allopurinoL 100 MG TAB PO SCH (08:27)
[2022-10-22] MEDS: CYANOCOBALAMIN 1,000 MCG TAB PO SCH (08:27)
[2022-10-22] MEDS: ENSURE HIGH PROTEIN 237 ML CAN PO SCH ×2 (09:00→21:00)
[2022-10-22] MEDS: SPIRONOLACTONE 25 MG TABLET PO SCH (09:00)
[2022-10-22] MEDS: FUROSEMIDE 40 MG TABLET PO SCH ×3 (09:00→21:21)
[2022-10-22] MEDS: MUPIROCIN 2% OINT 22GM TUBE TOP SCH ×2 (09:48→21:00)
--- NOTE | 2022-10-22 15:28 | P.PN ---
Subjective Date of Service: 10/22/22 Chief Complaint: Shortness of breath, increased leg swelling Subjective: Other (Remains bed bound.) Physical Examination - Vital Signs Temperature: 97.0 F Blood Pressure: 110/59 Pulse: 86 Respirations: 24 Pulse Ox (%): 94 - Physical Exam General: Other (Chronically ill appearing) HEENT: Atraumatic, Normocephalic Neck: Supple Respiratory: Other (Symmetric chest expansion) Cardiovascular: No rubs, No murmurs Gastrointestinal: Soft and benign, No rebound Musculoskeletal: Swelling Integumentary: No warmth Neurological: Normal tone Urinary: Other (No bladder distention) External genitalia: Deferred Rectal: Deferred Assessment And Plan - Plan # CAMILO 2/2 CRS1 Serum creatinine 2.1 on admission, increased to 2.5 today likely 2/2 ongoing CRS1 w/ relative hypotension BNP significantly elevated Start Midodrine 5 mg po tid. Will benefit from inotrope therapy. Will ask Cardiology. 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
[2022-10-22] MEDS: MIDODRINE HCL 5 MG TABLET PO SCH ×2 (16:47→17:04)
[2022-10-22] MEDS: WARFARIN SODIUM 5 MG TAB PO SCH ×3 (17:00→21:17)
[2022-10-22] MEDS ORDERED: MIDODRINE HCL 5 MG TABLET ONE (17:10)
[2022-10-22] MEDS: ATORVASTATIN 10 MG TAB PO SCH (18:00)
[2022-10-22] MEDS: AMIODARONE HCL 200 MG TAB PO SCH (21:17)
[2022-10-22] MEDS: TAMSULOSIN 0.4 MG SR CAP PO SCH (21:21)
[2022-10-22] MEDS ORDERED: HYDROCODONE/APAP 5/325 MG TAB PO PRN (21:54)
[2022-10-22] MEDS ORDERED: MELATONIN 5 MG TABLET PO PRN (21:55)
--- NOTE | 2022-10-23 06:54 | P.PN ---
Date of Service: 10/23/22 Subjective: confused yesterday, refusing to take medications last night; more calm and alert today, joking today nurse was able to give him his medications after reinforcing importance of not missing doses swelling in leg continues to improve; shifted to upper thighs/pelvis breathing ~unchanged remains in afib, rate with improvement ROS: 10 point ROS as noted above, otherwise negative Physical Exam: GEN: Alert, oriented x1-2 HEENT: Normal conjunctiva, sclera anicteric CV: Irregularly irregular rate and rhythm, 1-2+ edema in upper thighs bilaterally (lower legs wrapped in ALEXIS bandage) Pulm: mildly labored respirations on room air, diminished at bases b/l ABD: Soft, nontender, nondistended Integumentary: bilateral lower extremity venous stasis dermatitis, no evidence of infection vitals reviewed Problem List: Acute respiratory failure with hypoxia secondary to acute on chronic CHF Acute on chronic systolic and diastolic congestive heart failure ?concern for aspiration Venous Stasis dermatitis Lymphedema of both lower extremities Chronic afib, paroxysmal CKD 3 Sleep Apnea Gout Acute on chronic systolic and diastolic heart failure Acute respiratory failure with hypoxia Anasarca has significantly improved on IV Lasix Transitioned from IV to oral Lasix 10/17; increased to TID from BID 10/19 Cardiology consulted Troponins elevated x4, likely demand ischemia Last echo (September 2000): EF:24%. TTE (10/18): EF: 30-35%; moderate global hypokinesis, mitral annular calcification w/ mild MR, mild-mod aortic insufficiency, diastolic dysfunction, mild TR suspect afib playing a role as well started IV amio 10/20 evening per cardio recommendations transitioned to oral amio BID 10/22 improvement of rate Speech therapy consulted due to concern for aspiration / coughing when drinking family reported patient does this because he drinks too quickly recommended soft and bite sized diet thick/nectar consistency liquids Chronic afib intermittent afib with RVR home Metoprolol Increased to BID from daily on 10/18 due to rapid rate cardiology consulted 10/18 IV amio as noted above, started 10/20 evening transitioned to PO amio BID 10/22 titrate warfarin dosing f/u EKG to eval QTc, prolonged Venous Stasis dermatitis Lymphedema of both lower extremities Keep lower extremities elevated. Local wound care for weeping sores on lower extremities. Much improved no active evidence of infection photos taken, in EMR 10/21 CKD 3 Renal function worsening since 10/20 Monitor intake and output Nephrology following continue spironolactone, lasix monitor BP patient remains with significant fluid on him, but improving Gout Continue home dose allopurinol VTE: Warfarin Code: Full Dispo: Home with home health ~2-3 days pending renal function improvement
[2022-10-23] MEDS: PANTOPRAZOLE 40MG TABLET PO SCH (07:06)
[2022-10-23] MEDS: METOPROLOL TAR 25 MG TAB PO SCH ×2 (07:07→17:05)
[2022-10-23 08:07] LABS: Albumin 3.1 g/dL (3.4-5.0); Magnesium 2.6 mg/dL (1.6-2.4); Phosphorus 4.3 mg/dL (2.5-4.9); Potassium 3.4 mEq/L (3.5-5.1)
[2022-10-23] MEDS: CYANOCOBALAMIN 1,000 MCG TAB PO SCH (08:43)
[2022-10-23] MEDS: FUROSEMIDE 40 MG TABLET PO SCH ×3 (08:43→21:12)
[2022-10-23] MEDS: LACTOBACILLUS/ACIDOPHILUS TAB PO SCH ×2 (08:44→21:12)
[2022-10-23] MEDS: SPIRONOLACTONE 25 MG TABLET PO SCH (08:44)
[2022-10-23] MEDS: ENSURE HIGH PROTEIN 237 ML CAN PO SCH ×2 (08:44→21:13)
[2022-10-23] MEDS: MIDODRINE HCL 5 MG TABLET PO SCH ×3 (08:44→17:07)
[2022-10-23] MEDS: allopurinoL 100 MG TAB PO SCH (08:44)
[2022-10-23] MEDS: AMIODARONE HCL 200 MG TAB PO SCH ×2 (08:44→21:12)
--- NOTE | 2022-10-23 13:08 | P.PN ---
Subjective Date of Service: 10/23/22 Chief Complaint: Shortness of breath, increased leg swelling Subjective: Other (Reports no inc in SOB.) Physical Examination - Vital Signs Temperature: 97.0 F Blood Pressure: 106/62 Pulse: 78 Respirations: 16 Pulse Ox (%): 96 - Physical Exam General: Other (Chronically ill appearing) HEENT: Atraumatic, Normocephalic Neck: Supple, JVD not distended Respiratory: Other (Symmetric chest expansion) Cardiovascular: No rubs, No murmurs Gastrointestinal: Soft and benign, No guarding Musculoskeletal: No clubbing, Swelling Integumentary: No warmth Neurological: Other (No new focal deficits) Urinary: Other (No bladder distention) External genitalia: Deferred Rectal: Deferred Assessment And Plan - Plan # CAMILO 2/2 CRS1 Serum creatinine 2.1 on admission, increased to 2.6 today likely 2/2 ongoing CRS1 w/ relative hypotension BNP significantly elevated Cont Midodrine 5 mg po tid. Will benefit from inotrope therapy. Will ask Ca rdiology. 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
[2022-10-23] MEDS: MUPIROCIN 2% OINT 22GM TUBE TOP SCH ×2 (13:18→21:00)
[2022-10-23] MEDS: WARFARIN SODIUM 5 MG TAB PO SCH (17:07)
[2022-10-23] MEDS: ATORVASTATIN 10 MG TAB PO SCH (17:07)
--- NOTE | 2022-10-23 19:33 | PN ---
Date of Progress Note: 10/23/2022 Subjective: Seen by bedside. Breathing status appears to be much better. Review of Systems: No chest pain or shortness of breath. No nausea, vomiting, or diarrhea. No abdominal pain. All oth er systems reviewed and they were negative. Physical Examination: Vital Signs: Reviewed. Head and Neck: Pupils equal and reactive to light. No JVD. No cervical lymphadenopathy. Neck is s upple. Thyroid is normal. Lungs: Clear to auscultation bilaterally. No rhonchi, wheezing, or crackles. No accessory muscle u se. Heart: Irregular. No extra sounds. Abdomen: Soft, nontender. Bowel sounds positive. No organomegaly. No masses or hernia. No rigidi ty or rebound. Extremities: No clubbing or cyanosis. Intact pulses. Skin: No rash. Neurologic: Alert, awake. No acute focal deficits appreciated. Lymph Nodes: No cervical or axillary lymphadenopathy. Investigations: Labs were reviewed. Assessment/recommendation: 1.Acute on chronic systolic heart failure exacerbation. Appears to be euvolemic at the present time . I agree with current dose of diuresis. Carefully monitor kidney function. This patient did not h ave a recent ischemia workup. He will need that done, which can be arranged for as an outpatient onc e he is clinically stable. 2.Chronic kidney failure with mild to worsening and Nephrology is following. SR/MODL Voice ID: [id number] Report ID: [id number]
[2022-10-23] MEDS: TAMSULOSIN 0.4 MG SR CAP PO SCH (21:12)
[2022-10-24 04:13] LABS: Albumin 2.9 g/dL (3.4-5.0); Magnesium 2.6 mg/dL (1.6-2.4); Phosphorus 4.1 mg/dL (2.5-4.9); Potassium 3.7 mEq/L (3.5-5.1)
[2022-10-24] MEDS: PANTOPRAZOLE 40MG TABLET PO SCH (06:14)
[2022-10-24] MEDS: METOPROLOL TAR 25 MG TAB PO SCH ×2 (06:15→17:14)
--- NOTE | 2022-10-24 06:42 | P.PN ---
Date of Service: 10/24/22 Subjective: doing okay, slept well overnight feels breathing is fine; ~unchanged ate most of his breakfast per family; +drinking few cups of liquids ROS: 10 point ROS as noted above, otherwise negative Physical Exam: GEN: Alert, oriented x1-2 HEENT: Normal conjunctiva, sclera anicteric CV: Irregularly irregular rate and rhythm, 1-2+ edema in upper thighs bilaterally (lower legs wrapped in ALEXIS bandage) Pulm: mildly labored respirations on room air, diminished at bases b/l ABD: Soft, nontender, nondistended Integumentary: bilateral lower extremity venous stasis dermatitis, no evidence of infection vitals reviewed Problem List: Acute respiratory failure with hypoxia secondary to acute on chronic CHF Acute on chronic systolic and diastolic heart failure exacerbation ?concern for aspiration, dysphagia Chronic afib, paroxysmal Venous Stasis dermatitis Lymphedema of both lower extremities CKD 3 Sleep Apnea Gout Acute on chronic systolic and diastolic heart failure exacerbation Acute respiratory failure with hypoxia Anasarca has significantly improved on IV Lasix Transitioned from IV to oral Lasix 10/17 fluid in thighs/pelvis/scrotum mostly now scrotum improved Cardiology consulted Troponins elevated x4, likely demand ischemia Last echo (September 2000): EF:24%. TTE (10/18): EF: 30-35%; moderate global hypokinesis, mitral annular calcification w/ mild MR, mild-mod aortic insufficiency, diastolic dysfunction, mild TR suspect afib playing a role as well started IV amio 10/20 evening per cardio recommendations transitioned to oral amio BID 10/22 improvement of rate recommend outpatient stress test planned once stable per cardio Speech therapy consulted due to concern for aspiration / coughing when drinking family reported patient does this because he drinks too quickly recommended soft and bite sized diet thick/nectar consistency liquids Chronic afib, paroxysmal intermittent afib with RVR home Metoprolol Increased to BID from daily on 10/18 due to rapid rate cardiology consulted 10/18 IV amio as noted above, started 10/20 evening transitioned to PO amio BID 10/22 titrate warfarin dosing f/u EKG to eval QTc, prolonged Venous Stasis dermatitis Lymphedema of both lower extremities Keep lower extremities elevated. Local wound care for weeping sores on lower extremities. Much improved no active evidence of infection photos taken, in EMR 10/21 CAMILO on CKD 3 Renal function slowly trending down since 10/20 Monitor intake and output Nephrology following continue spironolactone, lasix encourage oral fluid intake monitor BP patient remains with significant fluid on him, but improving Gout Continue home dose allopurinol VTE: Warfarin Code: Full Dispo: Home with home health ~1-2 days pending renal function improvement
[2022-10-24] MEDS ORDERED: POTASSIUM 25 MEQ EFFERV TAB PO ONE (09:00)
[2022-10-24] MEDS: allopurinoL 100 MG TAB PO SCH (09:00)
[2022-10-24] MEDS: LACTOBACILLUS/ACIDOPHILUS TAB PO SCH ×2 (09:01→20:59)
[2022-10-24] MEDS: CYANOCOBALAMIN 1,000 MCG TAB PO SCH (09:01)
[2022-10-24] MEDS: AMIODARONE HCL 200 MG TAB PO SCH ×2 (09:01→20:59)
[2022-10-24] MEDS: FUROSEMIDE 40 MG TABLET PO SCH ×3 (09:01→20:59)
[2022-10-24] MEDS: ENSURE HIGH PROTEIN 237 ML CAN PO SCH ×2 (09:02→21:00)
[2022-10-24] MEDS: SPIRONOLACTONE 25 MG TABLET PO SCH (09:02)
[2022-10-24] MEDS: MIDODRINE HCL 5 MG TABLET PO SCH ×3 (09:02→16:35)
[2022-10-24] MEDS: MUPIROCIN 2% OINT 22GM TUBE TOP SCH ×2 (09:03→21:00)
[2022-10-24 12:28] LABS: Protime INR 4.26
[2022-10-24] MEDS: ATORVASTATIN 10 MG TAB PO SCH (17:13)
--- NOTE | 2022-10-24 17:15 | EKG ---
Test Date: 2022-10-22 Test Time: 11:03:29 Housing Property Manager: JC MEASUREMENT RESULTS: Intervals: Rate: 77 [place]: QRSD: 142 QT: 450 QTc: 509 [place]: P: [place]: QRS: -43 T: 136 INTERPRETIVE STATEMENTS: Atrial fibrillation with premature ventricular or aberrantly conducted complexes Left axis deviation Left bundle branch block Abnormal ECG Compared to ECG 10/14/2022 12:12:34 Ventricular premature complex(es) now present Left bundle-branch block now present Left ventricular hypertrophy no longer present Early repolarization no longer present Electronically Signed On 10-24-22 17:11:36 CDT by Ata Douglas
[2022-10-24] MEDS: TAMSULOSIN 0.4 MG SR CAP PO SCH (20:59)
[2022-10-25 03:40] LABS: Protime INR 4.53
[2022-10-25 03:51] LABS: Albumin 2.9 g/dL (3.4-5.0); Magnesium 2.7 mg/dL (1.6-2.4); Phosphorus 3.7 mg/dL (2.5-4.9); Potassium 3.7 mEq/L (3.5-5.1)
--- NOTE | 2022-10-25 04:30 | PN ---
Date of Progress Note: 10/24/2022 Chief Complaint: Shortness of breath, increased swelling, acute on chronic kidney injury, cardiorena l syndrome. Review of Systems: Patient denies headache, vision changes. He has chronic shortness of breath with activities. Denies chest pain, syncope, palpitation. Physical Examination: General: The patient appears chronically ill. HEENT: Atraumatic, normocephalic. Neck: Supple. No JVD. Jugular vein not distended. Respiratory: Equal chest expansion, symmetric chest expansion. Cardiovascular: No pericardial friction rub. No murmurs. Abdomen: Soft, obese, nontender. Extremities: Dressing present. Lower extremity edema has improved. Assessment And Plan: 1.Acute kidney injury secondary to cardiorenal syndrome. Serum creatinine level is up to 2.6 second savana to cardiorenal syndrome with hypotensive episodes. BNP significantly elevated. Continue midodri ne for blood pressure support. Patient is taking midodrine 5 mg 3 times per day. The patient may be nefit from inotropic therapy. Recommend Cardiology followup. 2.Continue Lasix. Continue to monitor renal panel. Continue p.o. hydration with low-sodium diet. 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 Serum creatinine at baseline 1.5 to 1.8, baseline GFR 35 to 44 as of September 2020. Patient developed progres sively worse kidney function secondary to cardiorenal syndrome, acute kidney injury. Monitor urine o utput and electrolytes. Continue Lasix for cardiorenal syndrome. 4.Venous stasis dermatitis of both legs. Wound care and compression therapy per . 5.Chronic atrial fibrillation. Patient is on Coumadin. Further treatment per primary team. INR mo nitoring per primary team. 6.History of cerebrovascular accident. Patient is undergoing PT, OT. 7.Dementia. Supportive care. EB/MODL Voice ID: [id number] Report ID: [id number]
[2022-10-25] MEDS: METOPROLOL TAR 25 MG TAB PO SCH ×2 (05:10→17:30)
[2022-10-25] MEDS: PANTOPRAZOLE 40MG TABLET PO SCH (05:10)
[2022-10-25] MEDS ORDERED: POTASSIUM CL SA 10 MEQ TAB PO ONE (09:00)
[2022-10-25] MEDS: AMIODARONE HCL 200 MG TAB PO SCH ×2 (09:05→20:15)
[2022-10-25] MEDS: SPIRONOLACTONE 25 MG TABLET PO SCH (09:05)
[2022-10-25] MEDS: FUROSEMIDE 40 MG TABLET PO SCH ×2 (09:05→20:14)
[2022-10-25] MEDS: allopurinoL 100 MG TAB PO SCH (09:05)
[2022-10-25] MEDS: LACTOBACILLUS/ACIDOPHILUS TAB PO SCH ×2 (09:05→20:16)
[2022-10-25] MEDS: CYANOCOBALAMIN 1,000 MCG TAB PO SCH (09:05)
[2022-10-25] MEDS: MIDODRINE HCL 5 MG TABLET PO SCH ×3 (09:05→16:26)
[2022-10-25] MEDS: MUPIROCIN 2% OINT 22GM TUBE TOP SCH ×2 (09:06→20:15)
[2022-10-25] MEDS: ENSURE HIGH PROTEIN 237 ML CAN PO SCH ×2 (09:06→20:15)
--- NOTE | 2022-10-25 14:19 | P.PN ---
Subjective Date of Service: 10/25/22 Chief Complaint: Shortness of breath, increased leg swelling Patient seen sitting at the edge of the bed. He is hard of hearing but interactive. He has been tolerating room air Lower extremity edema has improved. He has been tolerating soft diet. Physical Examination - Vital Signs Temperature: 97.6 F Blood Pressure: 113/65 Pulse: 86 Respirations: 20 Pulse Ox (%): 97 Assessment And Plan - Current Problems (Diagnosis) (1) Acute on chronic systolic heart failure Current Visit: No Status: Acute (2) Acute respiratory failure with hypoxia Current Visit: Yes Status: Acute (3) Venous stasis dermatitis Current Visit: Yes Status: Acute (4) Lymphedema of both lower extremities Current Visit: Yes Status: Acute (5) Cardiomegaly Onset Date: 01/05/16 Current Visit: No Status: Acute (6) Chronic atrial fibrillation Current Visit: No Status: Acute (7) Chronic kidney disease, stage 3 Current Visit: No Status: Acute (8) History of CVA (cerebrovascular accident) Current Visit: No Status: Acute (9) Sleep apnea Current Visit: No Status: Acute Qualifiers: Sleep apnea type: unspecified type Qualified Code(s): G47.30 - Sleep apnea, unspecified (10) Gout Onset Date: 01/29/15 Current Visit: No Status: Acute - Plan Physical Exam: GEN: Alert, oriented x 2 HEENT: Normal conjunctiva, sclera anicteric CV: Irregularly irregular rate and rhythm, 1-2+ edema in upper thighs bilaterally (lower legs wrapped in ALEXIS bandage) Pulm: mildly labored respirations on room air, diminished at bases b/l ABD: Soft, nontender, nondistended Integumentary: bilateral lower extremity venous stasis dermatitis, no evidence of infection vitals reviewed Problem List: Acute respiratory failure with hypoxia secondary to acute on chronic CHF Acute on chronic systolic and diastolic heart failure exacerbation ?concern for aspiration, dysphagia Chronic afib, paroxysmal Venous Stasis dermatitis Lymphedema of both lower extremities CKD 3 Sleep Apnea Gout Acute on chronic systolic and diastolic heart failure exacerbation Acute respiratory failure with hypoxia Anasarca has significantly improved on IV Lasix Transitioned from IV to oral Lasix 10/17 Edema significantly improved Cardiology input appreciated Troponins elevated x4, likely demand ischemia Last echo (September 2000): EF:24%. TTE (10/18): EF: 30-35%; moderate global hypokinesis, mitral annular calcification w/ mild MR, mild-mod aortic insufficiency, diastolic dysfunction, mild TR suspect afib playing a role as well Patient started on IV amio 10/20 evening per cardio recommendations transitioned to oral amio BID 10/22 improvement of heart rate Cardiology recommend outpatient stress test and cardiac cath as outpatient once stable. Oropharyngeal dysphagia Speech therapy consulted due to concern for aspiration / coughing when drinking family reported patient does this because he drinks too quickly He has been tolerated soft and bite sized diet, thick/nectar consistency liquids. Speech recommending barium swallow today. Chronic afib, paroxysmal intermittent afib with RVR home Metoprolol Increased to BID from daily on 10/18 due to rapid rate On amiodarone titrate warfarin dosing Venous Stasis dermatitis Lymphedema of both lower extremities Keep lower extremities elevated. Local wound care for weeping sores on lower extremities. CAMILO on CKD 3 Renal function slowly worsening Monitor intake and output Nephrology is following continue spironolactone, lasix encourage oral fluid intake Gout Continue home dose allopurinol VTE: Warfarin Code: Full Disposition: Home.
--- NOTE | 2022-10-25 14:28 | PN ---
Date of Progress Note: 10/25/2022 Subjective: The patient was admitted to the hospital with acute kidney injury secondary to cardioren al. The patient was optimized on diuresis. The patient on room air. Still has leg swelling, has de conditioning. Physical Examination: Vital Signs: Blood pressure 113/65, pulse of 86, afebrile. The patient had good urine output of 160 0, negative of 500. Chest: Decreased entry bilateral base. Heart: S1, S2. Systolic murmur. Abdomen: Soft, nontender. Extremity: Compression dressings bilateral. Current Medications: The patient on include midodrine, Flomax, Coumadin, amiodarone, atorvastatin, s pironolactone 5 mg daily, Ensure, Lasix 80 t.i.d., allopurinol, melatonin, mupirocin. Laboratory Data: WBC 7.2, H and H 12.4/38.5. Sodium 135, potassium 3.7, bicarb 33, BUN 73, creatini ne 2.6, GFR 22, calcium 8.8, phosphorus 3.7. Assessment And Plan: 1.Acute kidney injury secondary to cardiorenal. The patient on room air in spite of the finding of the chest x-ray. I am going to go ahead and decrease his Lasix to b.i.d. and we will discontinue spi ronolactone. We will get chest x-ray for better evaluation of his fluid status and we will follow up . 2.Hypertension, currently blood pressure on the lower side. Continue midodrine. We will decrease L asix as above and discontinue spironolactone and we will follow up. 3.Congestive heart failure with exacerbation, stable, looked normal volume . I am going t o adjust the Lasix as above. 4.Deconditioning. Continue PT, OT. 5.Hypokalemia. We will continue supplement. OUSMANE/ERICAL Voice ID: [id number] Report ID: [id number]
[2022-10-25] MEDS ORDERED: WARFARIN SODIUM 3 MG TAB PO SCH (17:00)
[2022-10-25] MEDS: ATORVASTATIN 10 MG TAB PO SCH (17:29)
--- NOTE | 2022-10-25 17:48 | RAD REPORT ---
[facility] DES[facility] 3[facility]40 pm CLINICAL HISTORY: COPD COMPARISON: Chest Single View dated 10/21/2022; Chest Single View dated 10/19/2022; Chest Single View dated 10/14/2022; Chest Single View dated 10/15/2020 TECHNIQUE: Portable AP view of the chest. FINDINGS: Cardiomegaly and prominence of the central interstitium and vascular markings, similar to prior exam. Decreased inspiratory effort somewhat limits evaluation. No new focal consolidation. No pneumothorax or effusion. The mediastinal contours are unchanged. IMPRESSION: Stable findings as above, suggestive of central congestion/CHF.
--- NOTE | 2022-10-25 17:52 | RAD REPORT ---
EXAM DESCRIPTION: RAD - Barium Swallow Modified - 10/25/2022 3:10 pm CLINICAL HISTORY: Coughing. History of CVA and pneumonia COMPARISON: None. TECHNIQUE: The patient was given liquid, and semi-solid forms of barium. Lateral view fluoroscopic i maging was performed in conjunction with speech pathology service. Fluoro time: 2:49 minutes. Skin dose: 12.19 mGy. FINDINGS: Laryngeal penetration with thin liquids by straw. Vallecular and pyriform sinus residuals, with thin liquids and nectar thick liquids. No evidence of aspiration. IMPRESSION: Laryngeal penetration, without evidence of rose mary aspiration. Please refer to speech path ology report for further details.
[2022-10-25] MEDS: TAMSULOSIN 0.4 MG SR CAP PO SCH (20:14)
[2022-10-26 03:30] LABS: Protime INR 3.65
[2022-10-26 03:55] LABS: Potassium 3.9 mEq/L (3.5-5.1); Uric Acid 9.2 mg/dL (3.5-7.2)
[2022-10-26] MEDS: METOPROLOL TAR 25 MG TAB PO SCH (06:08)
[2022-10-26] MEDS: PANTOPRAZOLE 40MG TABLET PO SCH (06:09)
[2022-10-26 08:08] VITALS: BP 104/65; TEMP 97.4
[2022-10-26] MEDS: AMIODARONE HCL 200 MG TAB PO SCH (08:22)
[2022-10-26] MEDS: MIDODRINE HCL 5 MG TABLET PO SCH (08:22)
[2022-10-26] MEDS: allopurinoL 100 MG TAB PO SCH (08:22)
[2022-10-26] MEDS: CYANOCOBALAMIN 1,000 MCG TAB PO SCH (08:22)
[2022-10-26] MEDS: FUROSEMIDE 40 MG TABLET PO SCH (08:23)
[2022-10-26] MEDS: LACTOBACILLUS/ACIDOPHILUS TAB PO SCH (08:23)
[2022-10-26] MEDS: ENSURE HIGH PROTEIN 237 ML CAN PO SCH (08:24)
[2022-10-26] MEDS: MUPIROCIN 2% OINT 22GM TUBE TOP SCH (08:25)
--- NOTE | 2022-10-26 08:57 | P.DS ---
Admission Date: 10/14/22 Discharge Date: 10/26/22 Disposition: [place] HOME/HOME HEALTH CARE Discharge Condition: FAIR Reason for Admission: Shortness of breath, increased leg swelling - Problems (1) Acute on chronic systolic heart failure Status: Acute (2) Acute respiratory failure with hypoxia Status: Acute (3) Venous stasis dermatitis Status: Acute (4) Lymphedema of both lower extremities Status: Acute (5) Cardiomegaly Onset Date: 01/05/16 Status: Acute (6) Chronic atrial fibrillation Status: Acute (7) Chronic kidney disease, stage 3 Status: Acute (8) History of CVA (cerebrovascular accident) Status: Acute (9) Sleep apnea Status: Acute Qualifiers: Sleep apnea type: unspecified type Qualified Code(s): G47.30 - Sleep apnea, unspecified (10) Gout Onset Date: 01/29/15 Status: Acute Brief History of Present Illness: 87-year-old gentleman with a history of congestive heart failure, chronic kidney disease, history of CVA and dementia was brought to the emergency department due to progressive shortness of breath and increased lower extremity swelling. Patient has bilateral lower extremity lymphedema with weeping sores which is being managed by home health. Wound care nurse noted patient was having trouble breathing and progressive increasing bilateral lower extremity swelling. 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 Chadwick was contacted who referred patient to the emergency department for evaluation. Chest x-ray done in the emergency department revealed cardiomegaly and pulmonary interstitial edema. BNP elevated, troponin is mildly elevated, no complaint of chest pain. Patient noted to be hypoxic on room air and requiring oxygen by nasal cannula. He is admitted for further management of CHF exacerbation. Hospital Course: Diagnosis Acute respiratory failure with hypoxia secondary to acute on chronic CHF Acute on chronic systolic and diastolic heart failure exacerbation ?concern for aspiration, dysphagia Chronic afib, paroxysmal Venous Stasis dermatitis Lymphedema of both lower extremities CKD 3 Sleep Apnea Gout Acute on chronic systolic and diastolic heart failure exacerbation Acute respiratory failure with hypoxia Patient admitted to the medical floor and treated with aggressive IV Lasix Anasarca significantly improved on IV Lasix Transitioned from IV to oral Lasix on 10/17 Edema significantly improved Seen by cardiology Troponins elevated x4, likely demand ischemia Last echo (September 2000): EF:24%. TTE (10/18): EF: 30-35%; moderate global hypokinesis, mitral annular calcification w/ mild MR, mild-mod aortic insufficiency, diastolic dysfunction, mild TR suspect afib was contributing to the anasarca as well Patient started on IV amio 10/20 evening per cardio recommendations transitioned to oral amio BID 10/22 Heart rate improved on amiodarone Cardiology recommend outpatient stress test and cardiac cath as outpatient once stable. Oropharyngeal dysphagia Speech therapy consulted due to concern for aspiration / coughing when drinking family reported patient does this because he drinks too quickly He tolerated soft and bite sized diet, thick/nectar consistency liquids. Barium swallow study done which showed some laryngeal penetration with thin liquids. Mechanical soft diet, small bite-size, nectar thickened liquids recommended by speech therapy. Chronic afib, paroxysmal intermittent afib with RVR home Metoprolol Increased to BID from daily on 10/18 due to rapid rate Amiodarone added by cardiology Continued warfarin and monitored PT/INR. INR is currently supratherapeutic. Warfarin has been on hold for 3 days. Warfarin held on discharge. Patient need INR checked within 2 days in order to resume Coumadin. Venous Stasis dermatitis Lymphedema of both lower extremities Keep lower extremities elevated. Local wound care done for weeping sores on lower extremities. CAMILO on CKD 3 Renal function slowly worsened with diuresis. He was seen in consultation by nephrology-Dr. Centeno. Patient was on spironolactone which was eventually discontinued due to minimal improvement in CAMILO. Serum creatinine has been stable around 2.6 for several days. Okay to discharge on Lasix 80 mg twice daily and follow-up for repeat BMP per nephrology. Gout Continued home dose allopurinol VTE: Warfarin Code: Full Disposition: Home. Vital Signs/Physical Exam: Temp Pulse Resp BP Pulse Ox 97.4 F 75 19 104/65 92 10/26/22 08:00 10/26/22 08:00 10/26/22 08:00 10/26/22 08:00 10/26/22 08:00 General: Oriented x2, Other (Awake) HEENT: Mucous membr. moist/pink Neck: JVD not distended Respiratory: Diminished (Bilateral) Cardiovascular: Normal S1 S2, Edema (Bilateral lower extremities-significantly improved.), Irregular heart rate/rhythm Gastrointestinal: Normal bowel sounds, Soft and benign, Non-distended, No tenderness Integumentary: Other (Bilateral lower extremity venous stasis dermatitis) Neurological: Other (No focal motor deficit) Laboratory Data at Discharge: WBC 7.20 thou/uL (4.3-10.9) 10/22/22 06:04 Hgb 12.4 g/dL (13.6-17.9) L 10/22/22 06:04 Hct 38.5 % (39.6-49.0) L 10/22/22 06:04 Plt Count 195 thou/uL (152-406) 10/22/22 06:04 PT 40.2 SECONDS (9.5-12.5) H 10/26/22 02:31 INR 3.65 10/26/22 02:31 Sodium 138 mEq/L (136-145) 10/26/22 02:31 Potassium 3.9 mEq/L (3.5-5.1) 10/26/22 02:31 BUN 73 mg/dL (7-18) H 10/26/22 02:31 Creatinine 2.62 mg/dL (0.70-1.30) H 10/26/22 02:31 Glucose 116 mg/dL (74-106) H 10/26/22 02:31 Uric Acid 9.2 mg/dL (3.5-7.2) H 10/26/22 02:31 Phosphorus 3.7 mg/dL (2.5-4.9) 10/25/22 02:13 Magnesium 2.7 mg/dL (1.6-2.4) H 10/25/22 02:13 Home Medications: Allopurinol 100 mg PO DAILY 01/28/15 Atorvastatin Calcium [Lipitor*] 10 mg PO DAILY 6PM 01/02/16 Metoprolol Tartrate [Lopressor*] 25 mg PO DAILY 6PM 07/28/16 Pantoprazole [Protonix Tab*] 40 mg PO [id number] 07/28/16 Cranberry Fruit Concentrate [Azo Cranberry] 250 mg PO TID 10/14/20 L.acidoph,Paracasei, B.lactis [Probiotic] 1 cap PO BID 10/14/20 Mecobalamin [B12 Active] 5,000 mcg PO DAILY 10/14/20 Tamsulosin HCl [Flomax] 0.4 mg PO DAILY 10/14/20 Ubidecarenone/Vit E Acet [Co Q-10 100 mg Softgel] 100 mg PO BID 10/14/20 Amiodarone HCl [Cordarone*] 200 mg PO BID #60 tab 10/26/22 Ensure High Protein 237 ml PO BID #30 can 10/26/22 Furosemide [Lasix*] 80 mg PO BID #60 tab 10/26/22 Midodrine HCl [Proamatine*] 5 mg PO TIDWM #90 tab 10/26/22 Mupirocin Oint [Bactroban 2% Ointment*] 1 appl TOP BID #1 tube 10/26/22 New Medications: Mupirocin Oint [Bactroban 2% Ointment*] 1 appl TOP BID #1 tube Amiodarone HCl [Cordarone*] 200 mg PO BID #60 tab Ensure High Protein 237 ml PO BID #30 can Furosemide [Lasix*] 80 mg PO BID #60 tab Midodrine HCl [Proamatine*] 5 mg PO TIDWM #90 tab Physician Discharge Instructions: Diet: Mechanical soft diet, nectar thickened liquids. Sit upright. Small bite and sips. Alternate liquids/solids. keep lower extremities elevated above the hip level in sitting or lying position. Check INR within 2 days, results to be called to Jaime Kowalski for resumption of Warfarin. Please do not take your warfarin until INR is less than 3. Please make sure to get your INR checked in 2 days. Followup: Jaime Nj MD [Primary Care Provider] - 1-2 Weeks Ge Centeno MD [ACTIVE - CAN ADMIT] - 1-2 Weeks Time spent managing pt's care (in minutes): 38
[2022-10-26] MEDS ORDERED: POTASSIUM CL SA 10 MEQ TAB PO ONE (09:00)
[2022-10-26 09:22] VITALS: O2SAT 92
--- NOTE | 2022-10-26 11:25 | PN ---
Date of Progress Note: 10/26/2022 Subjective: Patient was admitted with anasarca. Patient has pulmonary hypertension. Patient had [place] kidney injury secondary to cardiorenal, being diuresed. Patient is on room air, saturating well. Still has significant chronic leg edema. Physical Examination: Vital Signs: Blood pressure 104/65, pulse of 75, afebrile. Chest: Crackles bilateral. Heart: S1, S2. Systolic murmur. Abdomen: Soft, nontender. Extremities: Compression dressing in both lower extremities. Neurologic: Alert. No focality. Laboratory Data: Hemoglobin 12.4. Sodium 138, potassium 3.9, bicarb 32, BUN 73, creatinine 2.6, diane cium 9. Uric acid 9.2. Albumin 2.9. Corrected calcium is 9.8. Current Medications: The patient is on include: 1.Lasix 80 mg b.i.d. 2.Triamterene. 3.Atorvastatin. 4.Metoprolol. 5.Midodrine. 6.Ensure. 7.Amiodarone. Assessment And Plan: 1.Acute kidney injury secondary to cardiorenal. Looks to me, currently on the normal volume side. Yesterday, we decreased the Lasix. We will continue to monitor the patient. Patient is cleared from the Renal standpoint to discharge, to follow up in the office in 2 weeks with chemistry to adjust hi s diuresis. 2.Hypertension. Currently, blood pressure is marginal. Continue midodrine. We just decreased the Lasix and continue metoprolol for rate control. 3.Congestive heart failure with pulmonary hypertension . Continue current treatment. We will follow up. Continue diuresis. Hold the spironolactone. 4.Edema secondary to cardiorenal. Continue diuresis. 5.Deconditioning. Continue physical therapy, occupational therapy. 6.Hypokalemia, resolved. Again, patient is cleared from the renal standpoint for discharge planning to follow up in the office in 2-3 weeks' period. Time spent examining the patient [id number], reviewing the data, lab and radiology, discussing the case with the patient, discussing the case with the master steam yacht including hospitalist and nursing sta ff more than 35 minutes. SUSI Voice ID: [id number] Report ID: [id number]
== END 2022-10-26 10:18 | disposition home health service (06) | DRG 291 ==
LOC: ER 11:36 → ERHOLD 14:57 → 2ND 16:36
PROVIDERS: ADMIT Internal Medicine; ATTEND Internal Medicine
DX: I13.0 Hypertensive heart and chronic kidney disease with heart failure and stage 1 through stage 4 chronic kidney disease, or unspecified chronic kidney disease (principal); I50.43 Acute on chronic combined systolic (congestive) and diastolic (congestive) heart failure; J96.01 Acute respiratory failure with hypoxia; N17.9 Acute kidney failure, unspecified; L03.116 Cellulitis of left lower limb; L03.115 Cellulitis of right lower limb; N18.32 Chronic kidney disease, stage 3b; J44.9 Chronic obstructive pulmonary disease, unspecified; I48.0 Paroxysmal atrial fibrillation; I87.2 Venous insufficiency (chronic) (peripheral); I87.8 Other specified disorders of veins; G47.30 Sleep apnea, unspecified; E87.6 Hypokalemia; I27.20 Pulmonary hypertension, unspecified; M10.9 Gout, unspecified; I89.0 Lymphedema, not elsewhere classified; E78.00 Pure hypercholesterolemia, unspecified; F03.90 Unspecified dementia, unspecified severity, without behavioral disturbance, psychotic disturbance, mood disturbance, and anxiety; R13.12 Dysphagia, oropharyngeal phase; Z79.01 Long term (current) use of anticoagulants; Z86.73 Personal history of transient ischemic attack (TIA), and cerebral infarction without residual deficits; Z79.899 Other long term (current) drug therapy; Z96.653 Presence of artificial knee joint, bilateral; Z87.891 Personal history of nicotine dependence; Z20.822 Contact with and (suspected) exposure to COVID-19
CPT/HCPCS: 36415; 71045; 74230; 80048; 80069; 81003; 82570; 83735; 83880; 83935; 84100; 84132; 84156; 84300; 84484; 84550; 85025; 85027; 85379; 85610; 87635; 92526; 92610; 92611; 93005; 93306; 94760; 96374; 97110; 97161; 97530; 99285; J0282; J1940; J7060

== ENCOUNTER 2023-04-05 11:42 | Emergency (ER) | payer OTHER ==
--- OUTSIDE RECORDS SUMMARY | 2023-04-05 11:52 | XMS REPORT | Continuity of Care Document ---
Author Name Unknown Address [address] [facility] [address] [place] [address] [facility] Address [address] [facility] 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 Name Role Phone Raymond Comer MD Primary Care Physician RAYMOND COMER Attending Clinician Jodie betancur Doctor Unassigned, [place] Attending Clinician U Raymond Castro MD Attending Clinician + [phone] Stevie Quintero MD Attending Clinician [phone] STEVIE QUINTERO Attending Clinician UnavailFERNANDA Howard Attending Clinician Unavailable MARIAMA CERVANTES Attending Clinician Unavailable CLEVELAND ROBLEDO Attending Clinician Unavail able C[place]AND ROBLEDO Attending Clinician Unavail able Cleveland Robledo MD Attending Clinician [phone] Colin Roger - [place] Attending Clinician Unavailable Mariama Walton Attending Clinician [phone] OSCAR CHAPA Attending Clinician Unavailable ARLETTE GREEN Attending Clinician Unavailable [facility] Attending Clinician Un available Arlette Irvin Attending Clinician [phone] Jenn Gallegos MD Attending Clinician [phone] ALISHA PAL Admitting Clinician STEVIE Newsome Admitting Clinician RAYMOND Hernandez Admitting Clinician Jodie betancur Payers Payer Name Policy Type Policy Number Effective Date Expirati on Date Source [employer] [id number] 2015 00:00:00 Problems Condition Name Condition Details Condition Category Status Onset Date Resolution Date Last Treatment Date Treating Clinician Comments Source Acute right-side d low back pain without sciatica Acute right-side d low back pain without sciatica Disease Active 07-10 00:00: 00 [facility] No known active problems No known active problems Disease [facility] Allergies, Adverse Reactions, Alerts Allergy Name Allergy Type Status Severity Reaction(s) Onset Date Inactive Date Treating Clinician Comments Source NO KNOWN ALLERGIE S Drug Class Active [facility] Social History Social Habit Start Date Stop Date Quantity Comments Source Gender identity [facility] Sexual orientation [facility] History of tobacco use Cigarette Smoker [facility] Alcohol intake 2023-03-14 00:00:00 2023-03-14 00:00:00 Ex-drinker (finding) [facility] Exposure to SARS-CoV-2 (event) 2022-09-10 00:00:00 2022-09-20 12:32:00 Not sure [facility] History of Social function 2022-07-20 00:00:00 2022-07-20 00:00:00 [facility] Tobacco use and exposure 2022-06-02 00:00:00 2022-06-02 00:00:00 Smokeless tobacco non-user [facility] Sex Assigned At 1935 00:00:00 1935 00:00:00 [facility] Smoking Status Start Date Stop Date Source Ex-smoker 2022-06-02 00:00:00 2022-06-02 00:00:00 [facility] Medications Ordered Medication Name Filled Medication Name Start Date Stop Date Current Medication? Ordering Clinician Indication Dosage Frequency Signature (SIG) Comments Components Source warfarin sodium (COUMADIN ORAL) 01-24 10:29: 03 Yes Take by mouth. 3.5 mg daily [facility] warfarin sodium (COUMADIN ORAL) 01-24 10:29: 03 Yes Take by mouth. 3.5 mg daily [facility] warfarin sodium (COUMADIN ORAL) 01-24 10:29: 03 Yes Take by mouth. 3.5 mg daily [facility] warfarin sodium (COUMADIN ORAL) 01-24 10:29: 03 Yes Take by mouth. 3.5 mg daily [facility] warfarin sodium (COUMADIN ORAL) 01-24 10:29: 03 Yes Take by mouth. 3.5 mg daily [facility] warfarin sodium (COUMADIN ORAL) 01-24 10:29: 03 Yes Take by mouth. 3.5 mg daily [facility] warfarin sodium (COUMADIN ORAL) 01-24 10:29: 03 Yes Take by mouth. 3.5 mg daily [facility] warfarin sodium (COUMADIN ORAL) 01-24 10:29: 03 Yes Take by mouth. 3.5 mg daily [facility] warfarin sodium (COUMADIN ORAL) 01-24 10:29: 03 Yes Take by mouth. 3.5 mg daily [facility] warfarin sodium (COUMADIN ORAL) 01-24 10:29: 03 Yes Take by mouth. 3.5 mg daily [facility] warfarin sodium (COUMADIN ORAL) 01-24 10:29: 03 Yes Take by mouth. 3.5 mg daily [facility] warfarin sodium (COUMADIN ORAL) 01-24 10:29: 03 Yes Take by mouth. 3.5 mg daily [facility] warfarin sodium (COUMADIN ORAL) 01-24 10:29: 03 Yes Take by mouth. 3.5 mg daily [facility] warfarin sodium (COUMADIN ORAL) 01-24 10:29: 03 Yes Take by mouth. 3.5 mg daily [facility] warfarin sodium (COUMADIN ORAL) 01-24 10:29: 03 Yes Take by mouth. 3.5 mg daily [facility] warfarin sodium (COUMADIN ORAL) 01-24 10:29: 03 Yes Take by mouth. 3.5 mg daily [facility] warfarin sodium (COUMADIN ORAL) 01-24 10:29: 03 Yes Take by mouth. 3.5 mg daily [facility] warfarin sodium (COUMADIN ORAL) 01-24 10:29: 03 Yes Take by mouth. 3.5 mg daily [facility] warfarin sodium (COUMADIN ORAL) 01-24 10:29: 03 Yes Take by mouth. 3.5 mg daily [facility] warfarin sodium (COUMADIN ORAL) 01-24 10:29: 03 Yes Take by mouth. 3.5 mg daily [facility] warfarin sodium (COUMADIN ORAL) 01-24 10:29: 03 Yes Take by mouth. 3.5 mg daily [facility] warfarin sodium (COUMADIN ORAL) 01-24 10:29: 03 Yes Take by mouth. 3.5 mg daily [facility] warfarin sodium (COUMADIN ORAL) 01-24 10:29: 03 Yes Take by mouth. 3.5 mg daily [facility] warfarin sodium (COUMADIN ORAL) 01-24 10:29: 03 Yes Take by mouth. 3.5 mg daily [facility] warfarin sodium (COUMADIN ORAL) 01-24 10:29: 03 Yes Take by mouth. 3.5 mg daily [facility] warfarin sodium (COUMADIN ORAL) 01-24 10:29: 03 Yes Take by mouth. 3.5 mg daily [facility] warfarin sodium (COUMADIN ORAL) 01-24 10:29: 03 Yes Take by mouth. 3.5 mg daily [facility] warfarin sodium (COUMADIN ORAL) 01-24 10:29: 03 Yes Take by mouth. 3.5 mg daily [facility] warfarin sodium (COUMADIN ORAL) 12-12 11:23: 28 Yes Take by mouth. 3.5 mg daily [facility] warfarin sodium (COUMADIN ORAL) 12-12 11:23: 28 Yes Take by mouth. 3.5 mg daily [facility] warfarin sodium (COUMADIN ORAL) 12-12 11:23: 28 Yes Take by mouth. 3.5 mg daily [facility] warfarin sodium (COUMADIN ORAL) 12-12 11:23: 28 Yes Take by mouth. 3.5 mg daily [facility] warfarin sodium (COUMADIN ORAL) 12-12 11:23: 28 Yes Take by mouth. 3.5 mg daily [facility] warfarin sodium (COUMADIN ORAL) 12-12 11:23: 28 Yes Take by mouth. 3.5 mg daily [facility] metoprolol tartrate 50 mg tablet 12-12 11:21: 59 Yes 50mg Take 50 mg by mouth daily. [facility] amiodarone 200 mg tablet 12-12 11:21: 59 Yes 200mg Take 1 tablet by mouth in the morning and 1 tablet in the evening. [facility] metoprolol tartrate 50 mg tablet 12-12 11:21: 59 Yes 50mg Take 50 mg by mouth daily. [facility] amiodarone 200 mg tablet 12-12 11:21: 59 Yes 200mg Take 1 tablet by mouth in the morning and 1 tablet in the evening. [facility] metoprolol tartrate 50 mg tablet 12-12 11:21: 59 Yes 50mg Take 50 mg by mouth daily. [facility] amiodarone 200 mg tablet 12-12 11:21: 59 Yes 200mg Take 1 tablet by mouth in the morning and 1 tablet in the evening. [facility] metoprolol tartrate 50 mg tablet 12-12 11:21: 59 Yes 50mg Take 50 mg by mouth daily. [facility] amiodarone 200 mg tablet 12-12 11:21: 59 Yes 200mg Take 1 tablet by mouth in the morning and 1 tablet in the evening. [facility] metoprolol tartrate 50 mg tablet 12-12 11:21: 59 Yes 50mg Take 50 mg by mouth daily. [facility] amiodarone 200 mg tablet 2022-0 8-14 11:21: 59 Yes 200mg Take 1 tablet by mouth in the morning and 1 tablet in the evening. [facility] metoprolol tartrate 50 mg tablet 2022-0 8-14 11:21: 59 Yes 50mg Take 50 mg by mouth daily. [facility] amiodarone 200 mg tablet 2022-0 8-14 11:21: 59 Yes 200mg Take 1 tablet by mouth in the morning and 1 tablet in the evening. [facility] metoprolol tartrate 50 mg tablet 2022-0 8-14 11:21: 59 Yes 50mg Take 50 mg by mouth daily. [facility] amiodarone 200 mg tablet 2022-0 8-14 11:21: 59 Yes 200mg Take 1 tablet by mouth in the morning and 1 tablet in the evening. [facility] metoprolol tartrate 50 mg tablet 2022-0 8-14 11:21: 59 Yes 50mg Take 50 mg by mouth daily. [facility] amiodarone 200 mg tablet 2022-0 8-14 11:21: 59 Yes 200mg Take 1 tablet by mouth in the morning and 1 tablet in the evening. [facility] metoprolol tartrate 50 mg tablet 2022-0 -14 11:21: 59 Yes 50mg Take 50 mg by mouth daily. [facility] amiodarone 200 mg tablet 2022-0 8-14 11:21: 59 Yes 200mg Take 1 tablet by mouth in the morning and 1 tablet in the evening. [facility] metoprolol tartrate 50 mg tablet 2022-0 8-14 11:21: 59 Yes 50mg Take 50 mg by mouth daily. [facility] amiodarone 200 mg tablet 2022-0 8-14 11:21: 59 Yes 200mg Take 1 tablet by mouth in the morning and 1 tablet in the evening. [facility] metoprolol tartrate 50 mg tablet 3-0 8-14 11:21: 59 Yes 50mg Take 50 mg by mouth daily. [facility] metoprolol tartrate 50 mg tablet 3-0 8-14 11:21: 59 Yes 50mg Take 50 mg by mouth daily. [facility] amiod[facility]one [facility] mg tablet 3-0 8-14 11:21: 59 Yes 200mg Take 1 tablet by mouth in the morning and 1 tablet in the evening. [facility] met[facility]rolol tartrate 50 mg tablet 3-0 8-14 11:21: 59 Yes 50mg Take 50 mg by mouth daily. [facility] amiodarone [facility] mg tablet 3-0 8-14 11:21: 59 Yes 200mg Take 1 tablet by mouth in the morning and 1 tablet in the evening. [facility] metoprolol tartrate 50 mg tablet 2022-0 8-14 11:21: 59 Yes 50mg Take 50 mg by mouth daily. [facility] amiodarone 200 mg tablet 3-0 8-14 11:21: 59 Yes 200mg Take 1 tablet by mouth in the morning and 1 tablet in the evening. [facility] metoprolol tartrate 50 mg tablet 2022-0 8-14 11:21: 59 Yes 50mg Take 50 mg by mouth daily. [facility] amiodarone 200 mg tablet 2022-0 8-14 11:21: 59 Yes 200mg Take 1 tablet by mouth in the morning and 1 tablet in the evening. [facility] metoprolol tartrate 50 mg tablet 2022-0 8-14 11:21: 59 Yes 50mg Take 50 mg by mouth daily. [facility] amiodarone 200 mg tablet 3-0 8-14 11:21: 59 Yes 200mg Take 1 tablet by mouth in the morning and 1 tablet in the evening. [facility] metoprolol tartrate 50 mg tablet 3-0 8-14 11:21: 59 Yes 50mg Take 50 mg by mouth daily. [facility] amiodarone 200 mg tablet 3-0 8-14 11:21: 59 Yes 200mg Take 1 tablet by mouth in the morning and 1 tablet in the evening. [facility] metoprolol tartrate 50 mg tablet 3-0 8-14 11:21: 59 Yes 50mg Take 50 mg by mouth daily. [facility] amiodarone 200 mg tablet 2022-0 14 11:21: 59 Yes 200mg Take 1 tablet by mouth in the morning and 1 tablet in the evening. [facility] metoprolol tartrate 50 mg tablet 2022-0 -14 11:21: 59 Yes 50mg Take 50 mg by mouth daily. [facility] amiodarone 200 mg tablet 2022-0 -14 11:21: 59 Yes 200mg Take 1 tablet by mouth in the morning and 1 tablet in the evening. [facility] metoprolol tartrate 50 mg tablet 2022-0 14 11:21: 59 Yes 50mg Take 50 mg by mouth daily. [facility] amiodarone 200 mg tablet 2022-0 14 11:21: 59 Yes 200mg Take 1 tablet by mouth in the morning and 1 tablet in the evening. [facility] metoprolol tartrate 50 mg tablet 2022-0 -14 11:21: 59 Yes 50mg Take 50 mg by mouth daily. [facility] metoprolol tartrate 50 mg tablet 2022-0 14 11:21: 59 Yes 50mg Take 50 mg by mouth daily. [facility] amiodarone 200 mg tablet 2022-0 14 11:21: 59 Yes 200mg Take 1 tablet by mouth in the morning and 1 tablet in the evening. [facility] metoprolol tartrate 50 mg tablet 2022-0 14 11:21: 59 Yes 50mg Take 50 mg by mouth daily. [facility] amiodarone 200 mg tablet 2022-0 14 11:21: 59 Yes 200mg Take 1 tablet by mouth in the morning and 1 tablet in the evening. [facility] metoprolol tartrate 50 mg tablet 2022-0 -14 11:21: 59 Yes 50mg Take 50 mg by mouth daily. [facility] amiodarone 200 mg tablet 3-0 8-14 11:21: 59 Yes 200mg Take 1 tablet by mouth in the morning and 1 tablet in the evening. [facility] metoprolol tartrate 50 mg tablet 2022-0 14 11:21: 59 Yes 50mg Take 50 mg by mouth daily. [facility] amiodarone 200 mg tablet 0 14 11:21: 59 Yes 200mg Take 1 tablet by mouth in the morning and 1 tablet in the evening. [facility] metoprolol tartrate 50 mg tablet 0 12-12 11:21: 59 Yes 50mg Take 50 mg by mouth daily. [facility] amiodarone 200 mg tablet 2022-0 12-12 11:21: 59 Yes 200mg Take 1 tablet by mouth in the morning and 1 tablet in the evening. [facility] metoprolol tartrate 50 mg tablet 0 12-12 11:21: 59 Yes 50mg Take 50 mg by mouth daily. [facility] amiodarone 200 mg tablet 0 12-12 11:21: 59 Yes 200mg Take 1 tablet by mouth in the morning and 1 tablet in the evening. [facility] metoprolol tartrate 50 mg tablet 2022-0 12-12 11:21: 59 Yes 50mg Take 50 mg by mouth daily. [facility] amiodarone 200 mg tablet 0 12-12 11:21: 59 Yes 200mg Take 1 tablet by mouth in the morning and 1 tablet in the evening. [facility] metoprolol tartrate 50 mg tablet 0 12-12 11:21: 59 Yes 50mg Take 50 mg by mouth daily. [facility] amiodarone 200 mg tablet 2022-0 14 11:21: 59 Yes 200mg Take 1 tablet by mouth in the morning and 1 tablet in the evening. [facility] metoprolol tartrate 50 mg tablet 2022-0 14 11:21: 59 Yes 50mg Take 50 mg by mouth daily. [facility] amiodarone 200 mg tablet 2022-0 14 11:21: 59 Yes 200mg Take 1 tablet by mouth in the morning and 1 tablet in the evening. [facility] metoprolol tartrate 50 mg tablet 0 14 11:21: 59 Yes 50mg Take 50 mg by mouth daily. [facility] amiodarone 200 mg tablet 0 12-12 11:21: 59 Yes 200mg Take 1 tablet by mouth in the morning and 1 tablet in the evening. [facility] metoprolol tartrate 50 mg tablet 0 12-12 11:21: 59 Yes 50mg Take 50 mg by mouth daily. [facility] amiodarone 200 mg tablet 0 12-12 11:21: 59 Yes 200mg Take 1 tablet by mouth in the morning and 1 tablet in the evening. [facility] metoprolol tartrate 50 mg tablet 0 12-12 11:21: 59 Yes 50mg Take 50 mg by mouth daily. [facility] amiodarone 200 mg tablet 0 12-12 11:21: 59 Yes 200mg Take 1 tablet by mouth in the morning and 1 tablet in the evening. [facility] metoprolol tartrate 50 mg tablet 0 12-12 11:21: 59 Yes 50mg Take 50 mg by mouth daily. [facility] amiodarone 200 mg tablet 0 12-12 11:21: 59 Yes 200mg Take 1 tablet by mouth in the morning and 1 tablet in the evening. [facility] amiodarone 200 mg tablet 0 11-09 14:54: 44 Yes 200mg Take 1 tablet by mouth in the morning and 1 tablet in the evening. [facility] amiodarone 200 mg tablet 0 11-09 14:54: 44 Yes 200mg Take 1 tablet by mouth in the morning and 1 tablet in the evening. [facility] amiodarone 200 mg tablet 0 11-09 14:54: 44 Yes 200mg Take 1 tablet by mouth in the morning and 1 tablet in the evening. [facility] midodrine 5 mg tablet 0 11-09 10:42: 23 Yes 5mg Take 1 tablet by mouth in the morning and 1 tablet at noon and 1 tablet in the evening. [facility] amiodarone HCl (AMIODARONE ORAL) 11-09 10:42: 23 Yes Take by mouth 2 (two) times daily. [facility] mid[facility] tablet 2022-11-09 10:42: 23 Yes 5mg Take 1 tablet by mouth in the morning and 1 tablet at noon and 1 tablet in the evening. [facility] amiodarone HCl (AMIODARONE ORAL) 11-09 10:42: 23 Yes Take by mouth 2 (two) times daily. [facility] midodrine 5 mg tablet 11-09 10:42: 23 Yes 5mg Take 1 tablet by mouth in the morning and 1 tablet at noon and 1 tablet in the evening. [facility] midodrine 5 mg tablet 2022-11-09 10:42: 23 Yes 5mg Take 1 tablet by mouth in the morning and 1 tablet at noon and 1 tablet in the evening. [facility] midodrine 5 mg tablet 0 11-09 10:42: 23 Yes 5mg Take 1 tablet by mouth in the morning and 1 tablet at noon and 1 tablet in the evening. [facility] midodrine 5 mg tablet 11-09 10:42: 23 Yes 5mg Take 1 tablet by mouth in the morning and 1 tablet at noon and 1 tablet in the evening. [facility] midodrine 5 mg tablet 2022-0 11-09 10:42: 23 Yes 5mg Take 1 tablet by mouth in the morning and 1 tablet at noon and 1 tablet in the evening. [facility] midodrine 5 mg tablet 2022-0 11-09 10:42: 23 Yes 5mg Take 1 tablet by mouth in the morning and 1 tablet at noon and 1 tablet in the evening. [facility] midodrine 5 mg tablet 2022-0 11-09 10:42: 23 Yes 5mg Take 1 tablet by mouth in the morning and 1 tablet at noon and 1 tablet in the evening. [facility] midodrine 5 mg tablet 2022-0 11-09 10:42: 23 Yes 5mg Take 1 tablet by mouth in the morning and 1 tablet at noon and 1 tablet in the evening. [facility] midodrine 5 mg tablet 3-0 7-12 10:42: 23 Yes 5mg Take 1 tablet by mouth in the morning and 1 tablet at noon and 1 tablet in the evening. [facility] mg tablet 3-0 7-12 10:42: 23 Yes 5mg Take 1 tablet by mouth in the morning and 1 tablet at noon and 1 tablet in the evening. [facility] midodrine 5 mg tablet 3-0 7-12 10:42: 23 Yes 5mg Take 1 tablet by mouth in the morning and 1 tablet at noon and 1 tablet in the evening. [facility] midodrine 5 mg tablet 2022-0 -12 10:42: 23 Yes 5mg Take 1 tablet by mouth in the morning and 1 tablet at noon and 1 tablet in the evening. [facility] midodrine 5 mg tablet 3-0 7-12 10:42: 23 Yes 5mg Take 1 tablet by mouth in the morning and 1 tablet at noon and 1 tablet in the evening. [facility] midodrine 5 mg tablet 3-0 -12 10:42: 23 Yes 5mg Take 1 tablet by mouth in the morning and 1 tablet at noon and 1 tablet in the evening. [facility] midodrine 5 mg tablet 3-0 -12 10:42: 23 Yes 5mg Take 1 tablet by mouth in the morning and 1 tablet at noon and 1 tablet in the evening. [facility] midodrine 5 mg tablet 3-0 7-12 10:42: 23 Yes 5mg Take 1 tablet by mouth in the morning and 1 tablet at noon and 1 tablet in the evening. [facility] midodrine 5 mg tablet 3-0 7-12 10:42: 23 Yes 5mg Take 1 tablet by mouth in the morning and 1 tablet at noon and 1 tablet in the evening. [facility] midodrine 5 mg tablet 3-0 7-12 10:42: 23 Yes 5mg Take 1 tablet by mouth in the morning and 1 tablet at noon and 1 tablet in the evening. [facility] mg tablet 3-0 7-12 10:42: 23 Yes 5mg Take 1 tablet by mouth in the morning and 1 tablet at noon and 1 tablet in the evening. [facility] midodrine 5 mg tablet 3-0 7-12 10:42: 23 Yes 5mg Take 1 tablet by mouth in the morning and 1 tablet at noon and 1 tablet in the evening. [facility] mg tablet 3-0 7-12 10:42: 23 Yes 5mg Take 1 tablet by mouth in the morning and 1 tablet at noon and 1 tablet in the evening. [facility] midodrine 5 mg tablet 3-0 7-12 10:42: 23 Yes 5mg Take 1 tablet by mouth in the morning and 1 tablet at noon and 1 tablet in the evening. [facility] midodrine 5 mg tablet 2022-0 7-12 10:42: 23 Yes 5mg Take 1 tablet by mouth in the morning and 1 tablet at noon and 1 tablet in the evening. [facility] midodrine 5 mg tablet 2022-0 -12 10:42: 23 Yes 5mg Take 1 tablet by mouth in the morning and 1 tablet at noon and 1 tablet in the evening. [facility] midodrine 5 mg tablet 3-0 7-12 10:42: 23 Yes 5mg Take 1 tablet by mouth in the morning and 1 tablet at noon and 1 tablet in the evening. [facility] midodrine 5 mg tablet 3-0 7-12 10:42: 23 Yes 5mg Take 1 tablet by mouth in the morning and 1 tablet at noon and 1 tablet in the evening. [facility] midodrine 5 mg tablet 3-0 7-12 10:42: 23 Yes 5mg Take 1 tablet by mouth in the morning and 1 tablet at noon and 1 tablet in the evening. [facility] midodrine 5 mg tablet 3-0 7-12 10:42: 23 Yes 5mg Take 1 tablet by mouth in the morning and 1 tablet at noon and 1 tablet in the evening. [facility] midodrine 5 mg tablet 0 11-09 10:42: 23 Yes 5mg Take 1 tablet by mouth in the morning and 1 tablet at noon and 1 tablet in the evening. [facility] midodrine 5 mg tablet 0 11-09 10:42: 23 Yes 5mg Take 1 tablet by mouth in the morning and 1 tablet at noon and 1 tablet in the evening. [facility] midodrine 5 mg tablet 0 11-09 10:42: 23 Yes 5mg Take 1 tablet by mouth in the morning and 1 tablet at noon and 1 tablet in the evening. [facility] midodrine 5 mg tablet 11-09 10:42: 23 Yes 5mg Take 1 tablet by mouth in the morning and 1 tablet at noon and 1 tablet in the evening. [facility] midodrine 5 mg tablet 0 11-09 10:42: 23 Yes 5mg Take 1 tablet by mouth in the morning and 1 tablet at noon and 1 tablet in the evening. [facility] midodrine 5 mg tablet 11-09 10:42: 23 Yes 5mg Take 1 tablet by mouth in the morning and 1 tablet at noon and 1 tablet in the evening. [facility] midodrine 5 mg tablet 11-09 10:42: 23 Yes 5mg Take 1 tablet by mouth in the morning and 1 tablet at noon and 1 tablet in the evening. [facility] losartan 50 mg tablet 11-09 10:37: 42 11-09 00:00 :00 No 50mg Take 50 mg by mouth daily. [facility] losartan 50 mg tablet 11-09 10:37: 42 11-09 00:00 :00 No 50mg Take 50 mg by mouth daily. [facility] cephALEXin 500 mg capsule 11-09 00:00: 00 Yes [id number] 500mg Take 1 capsule by mouth in the morning and 1 capsule at noon and 1 capsule in the evening. [facility] cephALEXin 500 mg capsule 2023-0 7-12 00:00: 00 Yes [id number] 500mg Take 1 capsule by mouth in the morning and 1 capsule at noon and 1 capsule in the evening. [facility] cephALEXin 500 mg capsule 3-0 7-12 00:00: 00 Yes [id number] 500mg Take 1 capsule by mouth in the morning and 1 capsule at noon and 1 capsule in the evening. [facility] cephALEXin 500 mg capsule 3-0 7-12 00:00: 00 Yes [id number] 500mg Take 1 capsule by mouth in the morning and 1 capsule at noon and 1 capsule in the evening. [facility] cephALEXin 500 mg capsule 3-0 7-12 00:00: 00 Yes [id number] 500mg Take 1 capsule by mouth in the morning and 1 capsule at noon and 1 capsule in the evening. [facility] cephALEXin 500 mg capsule 2022-0 12 00:00: 00 12-12 00:00 :00 No [id number] 500mg Take 1 capsule by mouth in the morning and 1 capsule at noon and 1 capsule in the evening. [facility] cephALEXin 500 mg capsule 2022-0 12 00:00: 00 14 00:00 :00 No [id number] 500mg Take 1 capsule by mouth in the morning and 1 capsule at noon and 1 capsule in the evening. [facility] mirtazapine 15 mg tablet 2022-0 6 00:00: 00 Yes [id number] 15mg Take 1 tablet by mouth at bedtime. [facility] mirtazapine 15 mg tablet 3-0 6- 00:00: 00 Yes [id number] 15mg Take 1 tablet by mouth at bedtime. [facility] mirtazapine 15 mg tablet 3-0 6-26 00:00: 00 Yes [id number] 15mg Take 1 tablet by mouth at bedtime. [facility] mirtazapine 15 mg tablet 3-0 6-26 00:00: 00 Yes [id number] 15mg Take 1 tablet by mouth at bedtime. [facility] mirtazapine 15 mg tablet 2023-0 6-26 00:00: 00 Yes [id number] 15mg Take 1 tablet by mouth at bedtime. [facility] mirtazapine 15 mg tablet 2022-0 10-24 00:00: 00 Yes [id number] 15mg Take 1 tablet by mouth at bedtime. [facility] mirtazapine 15 mg tablet 2022-0 10-24 00:00: 00 Yes [id number] 15mg Take 1 tablet by mouth at bedtime. [facility] mirtazapine 15 mg tablet 2022-0 10-24 00:00: 00 Yes [id number] 15mg Take 1 tablet by mouth at bedtime. [facility] mirtazapine 15 mg tablet 2022-0 10-24 00:00: 00 Yes [id number] 15mg Take 1 tablet by mouth at bedtime. [facility] mirtazapine 15 mg tablet 2022-0 10-24 00:00: 00 Yes [id number] 15mg Take 1 tablet by mouth at bedtime. [facility] mirtazapine 15 mg tablet 0 10-24 00:00: 00 Yes [id number] 15mg Take 1 tablet by mouth at bedtime. [facility] mirtazapine 15 mg tablet 2022-0 10-24 00:00: 00 Yes [id number] 15mg Take 1 tablet by mouth at bedtime. [facility] mirtazapine 15 mg tablet 2022-0 10-24 00:00: 00 12-12 00:00 :00 No [id number] 15mg Take 1 tablet by mouth at bedtime. [facility] mirtazapine 15 mg tablet 2022-0 10-24 00:00: 00 12-12 00:00 :00 No [id number] 15mg Take 1 tablet by mouth at bedtime. [facility] warfarin sodium (COUMADIN ORAL) 0 09-20 13:11: 19 Yes Take by mouth. 3.5 mg daily [facility] warfarin sodium (COUMADIN ORAL) 0 09-20 13:11: 19 Yes Take by mouth. 3.5 mg daily [facility] warfarin sodium (COUMADIN ORAL) 09-20 13:11: 19 Yes Take by mouth. 3.5 mg daily [facility] warfarin sodium (COUMADIN ORAL) 09-20 13:11: 19 Yes Take by mouth. 3.5 mg daily [facility] warfarin sodium (COUMADIN ORAL) 09-20 13:11: 19 Yes Take by mouth. 3.5 mg daily [facility] warfarin sodium (COUMADIN ORAL) 09-20 13:11: 19 Yes Take by mouth. 3.5 mg daily [facility] warfarin sodium (COUMADIN ORAL) 09-20 13:11: 19 Yes Take by mouth. 3.5 mg daily [facility] warfarin sodium (COUMADIN ORAL) 09-20 13:11: 19 Yes Take by mouth. 3.5 mg daily [facility] warfarin sodium (COUMADIN ORAL) 09-20 13:11: 19 Yes Take by mouth. 3.5 mg daily [facility] warfarin sodium (COUMADIN ORAL) 09-20 13:11: 19 Yes Take by mouth. 3.5 mg daily [facility] warfarin sodium (COUMADIN ORAL) 09-20 13:11: 19 Yes Take by mouth. 3.5 mg daily [facility] warfarin sodium (COUMADIN ORAL) 09-20 13:11: 19 Yes Take by mouth. 3.5 mg daily [facility] warfarin sodium (COUMADIN ORAL) 09-20 13:11: 19 Yes Take by mouth. 3.5 mg daily [facility] warfarin sodium (COUMADIN ORAL) 09-20 13:11: 19 Yes Take by mouth. 3.5 mg daily [facility] warfarin sodium (COUMADIN ORAL) 09-20 13:11: 19 Yes Take by mouth. 3.5 mg daily [facility] warfarin sodium (COUMADIN ORAL) 09-20 13:11: 19 Yes Take by mouth. 3.5 mg daily [facility] warfarin sodium (COUMADIN ORAL) 09-20 13:11: 19 Yes Take by mouth. 3[facility]5 mg [facility]ADIN ORAL) 09-20 13:11: 19 Yes Take by mouth. 3.5 mg daily [facility] (COUMADIN ORAL) 09-20 13:11: 19 Yes Take by mouth. 3.5 mg daily [facility] warfarin sodium (COUMADIN ORAL) 09-20 13:11: 19 Yes Take by mouth. 3.5 mg daily [facility] (COUMADIN ORAL) 09-20 13:11: 19 Yes Take by mouth. 3.[address] [facility]COUMADIN ORAL) 09-20 13:11: 19 Yes Take by mouth. 3.[address] [facility] mg capsule 09-20 00:00: 00 Yes [id number] 500mg Take 1 capsule by mouth in the morning and 1 capsule at noon and 1 capsule in the evening. [facility] mg capsule 09-20 00:00: 00 Yes [id number] 500mg Take 1 capsule by mouth in the morning and 1 capsule at noon and 1 capsule in the evening. [facility] capsule 0 09-20 00:00: 00 Yes [id number] 500mg Take 1 capsule by mouth in the morning and 1 capsule at noon and 1 capsule in the evening. [facility] capsule 0 09-20 00:00: 00 Yes [id number] 500mg Take 1 capsule by mouth in the morning and 1 capsule at noon and 1 capsule in the evening. [facility] capsule 2022-0 09-20 00:00: 00 Yes [id number] 500mg Take 1 capsule by mouth in the morning and 1 capsule at noon and 1 capsule in the evening. [facility] capsule 0 09-20 00:00: 00 Yes [id number] 500mg Take 1 capsule by mouth in the morning and 1 capsule at noon and 1 capsule in the evening. [facility] cephALEXin 500 mg capsule 3-0 5-23 00:00: 00 Yes [id number] 500mg Take 1 capsule by mouth in the morning and 1 capsule at noon and 1 capsule in the evening. [facility] cephALEXin 500 mg capsule 3-0 -23 00:00: 00 Yes [id number] 500mg Take 1 capsule by mouth in the morning and 1 capsule at noon and 1 capsule in the evening. [facility] cephALEXin 500 mg capsule 3-0 5-23 00:00: 00 Yes [id number] 500mg Take 1 capsule by mouth in the morning and 1 capsule at noon and 1 capsule in the evening. [facility] cephALEXin 500 mg capsule 3-0 -23 00:00: 00 Yes [id number] 500mg Take 1 capsule by mouth in the morning and 1 capsule at noon and 1 capsule in the evening. [facility] cephALEXin 500 mg capsule 3-0 -23 00:00: 00 Yes [id number] 500mg Take 1 capsule by mouth in the morning and 1 capsule at noon and 1 capsule in the evening. [facility] cephALEXin 500 mg capsule 3-0 -23 00:00: 00 Yes [id number] 500mg Take 1 capsule by mouth in the morning and 1 capsule at noon and 1 capsule in the evening. [facility] cephALEXin 500 mg capsule 3-0 -23 00:00: 00 Yes [id number] 500mg Take 1 capsule by mouth in the morning and 1 capsule at noon and 1 capsule in the evening. [facility] cephALEXin 500 mg capsule 3-0 5-23 00:00: 00 Yes [id number] 500mg Take 1 capsule by mouth in the morning and 1 capsule at noon and 1 capsule in the evening. [facility] cephALEXin 500 mg capsule 3-0 5-23 00:00: 00 Yes [id number] 500mg Take 1 capsule by mouth in the morning and 1 capsule at noon and 1 capsule in the evening. [facility] cephALEXin 500 mg capsule 2022-0 23 00:00: 00 Yes [id number] 500mg Take 1 capsule by mouth in the morning and 1 capsule at noon and 1 capsule in the evening. [facility] cephALEXin 500 mg capsule 0 23 00:00: 00 11-09 00:00 :00 No [id number] 500mg Take 1 capsule by mouth in the morning and 1 capsule at noon and 1 capsule in the evening. [facility] cephALEXin 500 mg capsule 2022-0 23 00:00: 00 11-09 00:00 :00 No [id number] 500mg Take 1 capsule by mouth in the morning and 1 capsule at noon and 1 capsule in the evening. [facility] mirtazapine 15 mg tablet 3-0 5-15 00:00: 00 Yes [id number] 15mg Take 1 tablet by mouth at bedtime. [facility] mirtazapine 15 mg tablet 2022-0 5-15 00:00: 00 Yes [id number] 15mg Take 1 tablet by mouth at bedtime. [facility] mirtazapine 15 mg tablet 3-0 5-15 00:00: 00 Yes [id number] 15mg Take 1 tablet by mouth at bedtime. [facility] mirtazapine 15 mg tablet 3-0 5-15 00:00: 00 Yes [id number] 15mg Take 1 tablet by mouth at bedtime. [facility] mirtazapine 15 mg tablet 2022-0 5-15 00:00: 00 Yes [id number] 15mg Take 1 tablet by mouth at bedtime. [facility] mirtazapine 15 mg tablet 3-0 5-15 00:00: 00 09-20 00:00 :00 No [id number] 15mg Take 1 tablet by mouth at bedtime. [facility] mirtazapine 15 mg tablet 3-0 5-15 00:00: 00 09-20 00:00 :00 No [id number] 15mg Take 1 tablet by mouth at bedtime. [facility] mirtazapine 15 mg tablet 5-15 00:00: 00 09-20 00:00 :00 No [id number] 15mg Take 1 tablet by mouth at bedtime. [facility] tablet 06-02 11:41: 48 06-02 00:00 :00 No 40mg Take 40 mg by mouth. Takes 80 mg am and 40 mg afternoon [facility] furosemide 40 mg tablet 06-02 11:41: 48 06-02 00:00 :00 No 40mg Take 40 mg by mouth. Takes 80 mg am and 40 mg afternoon [facility] furosemide 40 mg tablet 06-02 00:00: 00 Yes 40mg Take 1 tablet by mouth. Takes 80 mg am and 40 mg afternoon Take 40 mg by mouth. Takes 80 mg am and 40 mg afternoon [facility] furosemide 40 mg tablet 06-02 00:00: 00 Yes 40mg Take 1 tablet by mouth. Takes 80 mg am and 40 mg afternoon Take 40 mg by mouth. Takes 80 mg am and 40 mg afternoon [facility] furosemide 40 mg tablet 06-02 00:00: 00 Yes 40mg Take 1 tablet by mouth. Takes 80 mg am and 40 mg afternoon Take 40 mg by mouth. Takes 80 mg am and 40 mg afternoon [facility] furosemide 40 mg tablet 06-02 00:00: 00 Yes 40mg Take 1 tablet by mouth. Takes 80 mg am and 40 mg afternoon Take 40 mg by mouth. Takes 80 mg am and 40 mg afternoon [facility] furosemide 40 mg tablet 06-02 00:00: 00 Yes 40mg Take 1 tablet by mouth. Takes 80 mg am and 40 mg afternoon Take 40 mg by mouth. Takes 80 mg am and 40 mg afternoon [facility] furosemide 40 mg tablet 06-02 00:00: 00 Yes 40mg Take 1 tablet by mouth. Takes 80 mg am and 40 mg afternoon Take 40 mg by mouth. Takes 80 mg am and 40 mg afternoon [facility] furosemide 40 mg tablet 06-02 00:00: 00 Yes 40mg Take 1 tablet by mouth. Takes 80 mg am and 40 mg afternoon Take 40 mg by mouth. Takes 80 mg am and 40 mg afternoon [facility] furosemide 40 mg tablet 0 06-02 00:00: 00 Yes 40mg Take 1 tablet by mouth. Takes 80 mg am and 40 mg afternoon Take 40 mg by mouth. Takes 80 mg am and 40 mg afternoon [facility] furosemide 40 mg tablet 0 06-02 00:00: 00 Yes 40mg Take 1 tablet by mouth. Takes 80 mg am and 40 mg afternoon Take 40 mg by mouth. Takes 80 mg am and 40 mg afternoon [facility] furosemide 40 mg tablet 0 06-02 00:00: 00 Yes 40mg Take 1 tablet by mouth. Takes 80 mg am and 40 mg afternoon Take 40 mg by mouth. Takes 80 mg am and 40 mg afternoon [facility] furosemide 40 mg tablet 06-02 00:00: 00 Yes 40mg Take 1 tablet by mouth. Takes 80 mg am and 40 mg afternoon Take 40 mg by mouth. Takes 80 mg am and 40 mg afternoon [facility] furosemide 40 mg tablet 0 06-02 00:00: 00 Yes 40mg Take 1 tablet by mouth. Takes 80 mg am and 40 mg afternoon Take 40 mg by mouth. Takes 80 mg am and 40 mg afternoon [facility] furosemide 40 mg tablet 06-02 00:00: 00 Yes 40mg Take 1 tablet by mouth. Takes 80 mg am and 40 mg afternoon Take 40 mg by mouth. Takes 80 mg am and 40 mg afternoon [facility] furosemide 40 mg tablet 0 06-02 00:00: 00 Yes 40mg Take 1 tablet by mouth. Takes 80 mg am and 40 mg afternoon Take 40 mg by mouth. Takes 80 mg am and 40 mg afternoon [facility] furosemide 40 mg tablet 0 06-02 00:00: 00 Yes 40mg Take 1 tablet by mouth. Takes 80 mg am and 40 mg afternoon Take 40 mg by mouth. Takes 80 mg am and 40 mg afternoon [facility] furosemide 40 mg tablet 0 06-02 00:00: 00 Yes 40mg Take 1 tablet by mouth. Takes 80 mg am and 40 mg afternoon Take 40 mg by mouth. Takes 80 mg am and 40 mg afternoon [facility] furosemide 40 mg tablet 0 06-02 00:00: 00 Yes 40mg Take 1 tablet by mouth. Takes 80 mg am and 40 mg afternoon Take 40 mg by mouth. Takes 80 mg am and 40 mg afternoon [facility] furosemide 40 mg tablet 06-02 00:00: 00 Yes 40mg Take 1 tablet by mouth. Takes 80 mg am and 40 mg afternoon Take 40 mg by mouth. Takes 80 mg am and 40 mg afternoon [facility] furosemide 40 mg tablet 06-02 00:00: 00 Yes 40mg Take 1 tablet by mouth. Takes 80 mg am and 40 mg afternoon Take 40 mg by mouth. Takes 80 mg am and 40 mg afternoon [facility] furosemide 40 mg tablet 06-02 00:00: 00 Yes 40mg Take 1 tablet by mouth. Takes 80 mg am and 40 mg afternoon Take 40 mg by mouth. Takes 80 mg am and 40 mg afternoon [facility] furosemide 40 mg tablet 06-02 00:00: 00 Yes 40mg Take 1 tablet by mouth. Takes 80 mg am and 40 mg afternoon Take 40 mg by mouth. Takes 80 mg am and 40 mg afternoon [facility] furosemide 40 mg tablet 06-02 00:00: 00 Yes 40mg Take 1 tablet by mouth. Takes 80 mg am and 40 mg afternoon Take 40 mg by mouth. Takes 80 mg am and 40 mg afternoon [facility] furosemide 40 mg tablet 0 06-02 00:00: 00 Yes 40mg Take 1 tablet by mouth. Takes 80 mg am and 40 mg afternoon Take 40 mg by mouth. Takes 80 mg am and 40 mg afternoon [facility] furosemide 40 mg tablet 0 06-02 00:00: 00 Yes 40mg Take 1 tablet by mouth. Takes 80 mg am and 40 mg afternoon Take 40 mg by mouth. Takes 80 mg am and 40 mg afternoon [facility] furosemide 40 mg tablet 06-02 00:00: 00 Yes 40mg Take 1 tablet by mouth. Takes 80 mg am and 40 mg afternoon Take 40 mg by mouth. Takes 80 mg am and 40 mg afternoon [facility] furosemide 40 mg tablet 06-02 00:00: 00 Yes 40mg Take 1 tablet by mouth. Takes 80 mg am and 40 mg afternoon Take 40 mg by mouth. Takes 80 mg am and 40 mg afternoon [facility] furosemide 40 mg tablet 06-02 00:00: 00 Yes 40mg Take 1 tablet by mouth. Takes 80 mg am and 40 mg afternoon Take 40 mg by mouth. Takes 80 mg am and 40 mg afternoon [facility] furosemide 40 mg tablet 06-02 00:00: 00 Yes 40mg Take 1 tablet by mouth. Takes 80 mg am and 40 mg afternoon Take 40 mg by mouth. Takes 80 mg am and 40 mg afternoon [facility] furosemide 40 mg tablet 06-02 00:00: 00 Yes 40mg Take 1 tablet by mouth. Takes 80 mg am and 40 mg afternoon Take 40 mg by mouth. Takes 80 mg am and 40 mg afternoon [facility] furosemide 40 mg tablet 06-02 00:00: 00 Yes 40mg Take 1 tablet by mouth. Takes 80 mg am and 40 mg afternoon Take 40 mg by mouth. Takes 80 mg am and 40 mg afternoon [facility] furosemide 40 mg tablet 06-02 00:00: 00 Yes 40mg Take 1 tablet by mouth. Takes 80 mg am and 40 mg afternoon Take 40 mg by mouth. Takes 80 mg am and 40 mg afternoon [facility] furosemide 40 mg tablet 06-02 00:00: 00 Yes 40mg Take 1 tablet by mouth. Takes 80 mg am and 40 mg afternoon Take 40 mg by mouth. Takes 80 mg am and 40 mg afternoon [facility] furosemide 40 mg tablet 06-02 00:00: 00 Yes 40mg Take 1 tablet by mouth. Takes 80 mg am and 40 mg afternoon Take 40 mg by mouth. Takes 80 mg am and 40 mg afternoon [facility] furosemide 40 mg tablet 0 06-02 00:00: 00 Yes 40mg Take 1 tablet by mouth. Takes 80 mg am and 40 mg afternoon Take 40 mg by mouth. Takes 80 mg am and 40 mg afternoon [facility] furosemide 40 mg tablet 06-02 00:00: 00 Yes 40mg Take 1 tablet by mouth. Takes 80 mg am and 40 mg afternoon Take 40 mg by mouth. Takes 80 mg am and 40 mg afternoon [facility] furosemide 40 mg tablet 0 06-02 00:00: 00 Yes 40mg Take 1 tablet by mouth. Takes 80 mg am and 40 mg afternoon Take 40 mg by mouth. Takes 80 mg am and 40 mg afternoon [facility] furosemide 40 mg tablet 0 06-02 00:00: 00 Yes 40mg Take 1 tablet by mouth. Takes 80 mg am and 40 mg afternoon Take 40 mg by mouth. Takes 80 mg am and 40 mg afternoon [facility] furosemide 40 mg tablet 0 06-02 00:00: 00 Yes 40mg Take 1 tablet by mouth. Takes 80 mg am and 40 mg afternoon Take 40 mg by mouth. Takes 80 mg am and 40 mg afternoon [facility] furosemide 40 mg tablet 0 06-02 00:00: 00 Yes 40mg Take 1 tablet by mouth. Takes 80 mg am and 40 mg afternoon Take 40 mg by mouth. Takes 80 mg am and 40 mg afternoon [facility] furosemide 40 mg tablet 0 06-02 00:00: 00 Yes 40mg Take 1 tablet by mouth. Takes 80 mg am and 40 mg afternoon Take 40 mg by mouth. Takes 80 mg am and 40 mg afternoon [facility] furosemide 40 mg tablet 06-02 00:00: 00 Yes 40mg Take 1 tablet by mouth. Takes 80 mg am and 40 mg afternoon Take 40 mg by mouth. Takes 80 mg am and 40 mg afternoon [facility] furosemide 40 mg tablet 0 06-02 00:00: 00 Yes 40mg Take 1 tablet by mouth. Takes 80 mg am and 40 mg afternoon Take 40 mg by mouth. Takes 80 mg am and 40 mg afternoon [facility] furosemide 40 mg tablet 0 06-02 00:00: 00 Yes 40mg Take 1 tablet by mouth. Takes 80 mg am and 40 mg afternoon Take 40 mg by mouth. Takes 80 mg am and 40 mg afternoon [facility] furosemide 40 mg tablet 0 06-02 00:00: 00 Yes 40mg Take 1 tablet by mouth. Takes 80 mg am and 40 mg afternoon Take 40 mg by mouth. Takes 80 mg am and 40 mg afternoon [facility] furosemide 40 mg tablet 0 06-02 00:00: 00 Yes 40mg Take 1 tablet by mouth. Takes 80 mg am and 40 mg afternoon Take 40 mg by mouth. Takes 80 mg am and 40 mg afternoon [facility] furosemide 40 mg tablet 0 06-02 00:00: 00 Yes 40mg Take 1 tablet by mouth. Takes 80 mg am and 40 mg afternoon Take 40 mg by mouth. Takes 80 mg am and 40 mg afternoon [facility] furosemide 40 mg tablet 0 06-02 00:00: 00 Yes 40mg Take 1 tablet by mouth. Takes 80 mg am and 40 mg afternoon Take 40 mg by mouth. Takes 80 mg am and 40 mg afternoon [facility] furosemide 40 mg tablet 06-02 00:00: 00 Yes 40mg Take 1 tablet by mouth. Takes 80 mg am and 40 mg afternoon Take 40 mg by mouth. Takes 80 mg am and 40 mg afternoon [facility] furosemide 40 mg tablet 06-02 00:00: 00 Yes 40mg Take 1 tablet by mouth. Takes 80 mg am and 40 mg afternoon Take 40 mg by mouth. Takes 80 mg am and 40 mg afternoon [facility] furosemide 40 mg tablet 0 06-02 00:00: 00 Yes 40mg Take 1 tablet by mouth. Takes 80 mg am and 40 mg afternoon Take 40 mg by mouth. Takes 80 mg am and 40 mg afternoon [facility] furosemide 40 mg tablet 06-02 00:00: 00 Yes 40mg Take 1 tablet by mouth. Takes 80 mg am and 40 mg afternoon Take 40 mg by mouth. Takes 80 mg am and 40 mg afternoon [facility] furosemide 40 mg tablet 0 06-02 00:00: 00 Yes 40mg Take 1 tablet by mouth. Takes 80 mg am and 40 mg afternoon Take 40 mg by mouth. Takes 80 mg am and 40 mg afternoon [facility] furosemide 40 mg tablet 0 06-02 00:00: 00 Yes 40mg Take 1 tablet by mouth. Takes 80 mg am and 40 mg afternoon Take 40 mg by mouth. Takes 80 mg am and 40 mg afternoon [facility] furosemide 40 mg tablet 0 06-02 00:00: 00 Yes 40mg Take 1 tablet by mouth. Takes 80 mg am and 40 mg afternoon Take 40 mg by mouth. Takes 80 mg am and 40 mg afternoon [facility] furosemide 40 mg tablet 0 06-02 00:00: 00 Yes 40mg Take 1 tablet by mouth. Takes 80 mg am and 40 mg afternoon Take 40 mg by mouth. Takes 80 mg am and 40 mg afternoon [facility] furosemide 40 mg tablet 0 06-02 00:00: 00 Yes 40mg Take 1 tablet by mouth. Takes 80 mg am and 40 mg afternoon Take 40 mg by mouth. Takes 80 mg am and 40 mg afternoon [facility] furosemide 40 mg tablet 0 06-02 00:00: 00 Yes 40mg Take 1 tablet by mouth. Takes 80 mg am and 40 mg afternoon Take 40 mg by mouth. Takes 80 mg am and 40 mg afternoon [facility] furosemide 40 mg tablet 0 06-02 00:00: 00 Yes 40mg Take 1 tablet by mouth. Takes 80 mg am and 40 mg afternoon Take 40 mg by mouth. Takes 80 mg am and 40 mg afternoon [facility] furosemide 40 mg tablet 06-02 00:00: 00 Yes 40mg Take 1 tablet by mouth. Takes 80 mg am and 40 mg afternoon Take 40 mg by mouth. Takes 80 mg am and 40 mg afternoon [facility] furosemide 40 mg tablet 0 06-02 00:00: 00 Yes 40mg Take 1 tablet by mouth. Takes 80 mg am and 40 mg afternoon Take 40 mg by mouth. Takes 80 mg am and 40 mg afternoon [facility] furosemide 40 mg tablet 0 06-02 00:00: 00 Yes 40mg Take 1 tablet by mouth. Takes 80 mg am and 40 mg afternoon Take 40 mg by mouth. Takes 80 mg am and 40 mg afternoon [facility] furosemide 40 mg tablet 0 06-02 00:00: 00 Yes 40mg Take 1 tablet by mouth. Takes 80 mg am and 40 mg afternoon Take 40 mg by mouth. Takes 80 mg am and 40 mg afternoon [facility] furosemide 40 mg tablet 06-02 00:00: 00 Yes 40mg Take 1 tablet by mouth. Takes 80 mg am and 40 mg afternoon Take 40 mg by mouth. Takes 80 mg am and 40 mg afternoon [facility] furosemide 40 mg tablet 06-02 00:00: 00 Yes 40mg Take 1 tablet by mouth. Takes 80 mg am and 40 mg afternoon Take 40 mg by mouth. Takes 80 mg am and 40 mg afternoon [facility] furosemide 40 mg tablet 06-02 00:00: 00 Yes 40mg Take 1 tablet by mouth. Takes 80 mg am and 40 mg afternoon Take 40 mg by mouth. Takes 80 mg am and 40 mg afternoon [facility] furosemide 40 mg tablet 06-02 00:00: 00 Yes 40mg Take 1 tablet by mouth. Takes 80 mg am and 40 mg afternoon Take 40 mg by mouth. Takes 80 mg am and 40 mg afternoon [facility] furosemide 40 mg tablet 06-02 00:00: 00 Yes 40mg Take 1 tablet by mouth. Takes 80 mg am and 40 mg afternoon Take 40 mg by mouth. Takes 80 mg am and 40 mg afternoon [facility] furosemide 40 mg tablet 06-02 00:00: 00 Yes 40mg Take 1 tablet by mouth. Takes 80 mg am and 40 mg afternoon Take 40 mg by mouth. Takes 80 mg am and 40 mg afternoon [facility] furosemide 40 mg tablet 06-02 00:00: 00 Yes 40mg Take 1 tablet by mouth. Takes 80 mg am and 40 mg afternoon Take 40 mg by mouth. Takes 80 mg am and 40 mg afternoon [facility] furosemide 40 mg tablet 06-02 00:00: 00 Yes 40mg Take 1 tablet by mouth. Takes 80 mg am and 40 mg afternoon Take 40 mg by mouth. Takes 80 mg am and 40 mg afternoon [facility] cefUROXime 500 mg tablet 2020-05 230 00:00: 00 05-10 05:59 :00 No 500mg Take 1 tablet by mouth 2 (two) times daily for 10 days. [facility] benzonatate (TESSALON PERLES) 100 mg capsule 10-12 00:00: 00 10-27 04:59 :00 No [id number] 100mg Take 1 capsule by mouth 3 (three) times daily for 14 days. [facility] benzonatate (TESSALON PERLES) 100 mg capsule 10-12 00:00: 00 10-27 04:59 :00 No [id number] 100mg Take 1 capsule by mouth 3 (three) times daily for 14 days. [facility] benzonatate (TESSALON PERLES) 100 mg capsule 10-12 00:00: 00 10-27 04:59 :00 No [id number] 100mg Take 1 capsule by mouth 3 (three) times daily for 14 days. [facility] benzonatate (TESSALON PERLES) 100 mg capsule 10-12 00:00: 00 10-27 04:59 :00 No [id number] 100mg Take 1 capsule by mouth 3 (three) times daily for 14 days. [facility] azithromyci n 500 mg tablet 10-09 00:00: 00 Yes [id number] 500mg Take 1 tablet by mouth daily. [facility] azithromyci n 500 mg tablet 10-09 00:00: 00 Yes [id number] 500mg Take 1 tablet by mouth daily. [facility] azithromyci n 500 mg tablet 10-09 00:00: 00 Yes [id number] 500mg Take 1 tablet by mouth daily. [facility] azithromyci n 500 mg tablet 10-09 00:00: 00 Yes [id number] 500mg Take 1 tablet by mouth daily. [facility] azithromyci n 500 mg tablet 10-09 00:00: 00 Yes [id number] 500mg Take 1 tablet by mouth daily. [facility] azithromyci n 500 mg tablet 0 10-09 00:00: 00 Yes [id number] 500mg Take 1 tablet by mouth daily. [facility] azithromyci n 500 mg tablet 10-09 00:00: 00 Yes [id number] 500mg Take 1 tablet by mouth daily. [facility] azithromyci n 500 mg tablet 10-09 00:00: 00 Yes [id number] 500mg Take 1 tablet by mouth daily. [facility] azithromyci n 500 mg tablet 10-09 00:00: 00 Yes [id number] 500mg Take 1 tablet by mouth daily. [facility] azithromyci n 500 mg tablet 10-09 00:00: 00 Yes [id number] 500mg Take 1 tablet by mouth daily. [facility] azithromyci n 500 mg tablet 10-09 00:00: 00 Yes [id number] 500mg Take 1 tablet by mouth daily. [facility] azithromyci n 500 mg tablet 10-09 00:00: 00 Yes [id number] 500mg Take 1 tablet by mouth daily. [facility] azithromyci n 500 mg tablet 10-09 00:00: 00 Yes [id number] 500mg Take 1 tablet by mouth daily. [facility] azithromyci n 500 mg tablet 10-09 00:00: 00 Yes [id number] 500mg Take 1 tablet by mouth daily. [facility] azithromyci n 500 mg tablet 10-09 00:00: 00 Yes [id number] 500mg Take 1 tablet by mouth daily. [facility] azithromyci n 500 mg tablet 10-09 00:00: 00 Yes [id number] 500mg Take 1 tablet by mouth daily. [facility] azithromyci n 500 mg tablet 10-09 00:00: 00 Yes [id number] 500mg Take 1 tablet by mouth daily. [facility] azithromyci n 500 mg tablet 10-09 00:00: 00 Yes [id number] 500mg Take 1 tablet by mouth daily. [facility] azithromyci n 500 mg tablet 10-09 00:00: 00 Yes [id number] 500mg Take 1 tablet by mouth daily. [facility] azithromyci n 500 mg tablet 10-09 00:00: 00 06-02 00:00 :00 No [id number] 500mg Take 1 tablet by mouth daily. [facility] azithromyci n 500 mg tablet 10-09 00:00: 00 06-02 00:00 :00 No [id number] 500mg Take 1 tablet by mouth daily. [facility] collagenase 250 unit/gram ointment 2020-0 08-05 00:00: 00 Yes [id number] Apply to affected area(s) 2 (two) times daily. [facility] collagenase 250 unit/gram ointment 2020-0 08-05 00:00: 00 Yes [id number] Apply to affected area(s) 2 (two) times daily. [facility] collagenase 250 unit/gram ointment 2020-0 08-05 00:00: 00 Yes [id number] Apply to affected area(s) 2 (two) times daily. [facility] collagenase 250 unit/gram ointment 2020-0 08-05 00:00: 00 Yes [id number] Apply to affected area(s) 2 (two) times daily. [facility] collagenase 250 unit/gram ointment 2020-0 08-05 00:00: 00 Yes [id number] Apply to affected area(s) 2 (two) times daily. [facility] collagenase 250 unit/gram ointment 2020-0 08-05 00:00: 00 Yes [id number] Apply to affected area(s) 2 (two) times daily. [facility] collagenase 250 unit/gram ointment 2020-0 08-05 00:00: 00 Yes [id number] Apply to affected area(s) 2 (two) times daily. [facility] collagenase 250 unit/gram ointment 2020-0 08-05 00:00: 00 Yes [id number] Apply to affected area(s) 2 (two) times daily. [facility] collagenase 250 unit/gram ointment 2021-0 08-05 00:00: 00 Yes [id number] Apply to affected area(s) 2 (two) times daily. [facility] collagenase 250 unit/gram ointment 2021-0 08-05 00:00: 00 Yes [id number] Apply to affected area(s) 2 (two) times daily. [facility] collagenase 250 unit/gram ointment 2021-0 08-05 00:00: 00 Yes [id number] Apply to affected area(s) 2 (two) times daily. [facility] collagenase 250 unit/gram ointment 1-0 08-05 00:00: 00 Yes [id number] Apply to affected area(s) 2 (two) times daily. [facility]gram o[facility] 2020-0 08-05 00:00: 00 Yes [id number] Apply to affected area(s) 2 (two) times daily. [facility] collagenase 250 unit/gram ointment 1-0 08-05 00:00: 00 Yes [id number] Apply to affected area(s) 2 (two) times daily. [facility] collagenase 250 unit/gram ointment 1-0 08-05 00:00: 00 Yes [id number] Apply to affected area(s) 2 (two) times daily. [facility] collagenase 250 unit/gram ointment 1-0 08-05 00:00: 00 Yes [id number] Apply to affected area(s) 2 (two) times daily. [facility] collagenase 250 unit/gram ointment 2020-0 08-05 00:00: 00 Yes [id number] Apply to affected area(s) 2 (two) times daily. [facility] collagenase 250 unit/gram ointment 1-0 08-05 00:00: 00 Yes [id number] Apply to affected area(s) 2 (two) times daily. [facility] collagenase 250 unit/gram ointment 2021-0 08-05 00:00: 00 Yes [id number] Apply to affected area(s) 2 (two) times daily. [facility] collagenase 250 unit/gram ointment 2021-0 08-05 00:00: 00 Yes [id number] Apply to affected area(s) 2 (two) times daily. [facility] collagenase 250 unit/gram ointment 0 08-05 00:00: 00 Yes [id number] Apply to affected area(s) 2 (two) times daily. [facility] collagenase 250 unit/gram ointment 2020-0 08-05 00:00: 00 Yes [id number] Apply to affected area(s) 2 (two) times daily. [facility] collagenase 250 unit/gram ointment 2020-0 08-05 00:00: 00 Yes [id number] Apply to affected area(s) 2 (two) times daily. [facility] unit/gram ointment 0 08-05 00:00: 00 Yes [id number] Apply to affected area(s) 2 (two) times daily. [facility] 250 unit/gram ointment 0 08-05 00:00: 00 Yes [id number] Apply to affected area(s) 2 (two) times daily. [facility] collagenase 250 unit/gram ointment 0 08-05 00:00: 00 Yes [id number] Apply to affected area(s) 2 (two) times daily. [facility] collagenase 250 unit/gram ointment 2020-0 08-05 00:00: 00 Yes [id number] Apply to affected area(s) 2 (two) times daily. [facility] unit/gram ointment 2020-0 08-05 00:00: 00 06-02 00:00 :00 No [id number] Apply to affected area(s) 2 (two) times daily. [facility] collagenase 250 unit/gram ointment 2020-0 08-05 00:00: 00 06-02 00:00 :00 No [id number] Apply to affected area(s) 2 (two) times daily. [facility] methocarbam oL 500 mg tablet 0 3-12 00:00: 00 Yes [id number] 500mg Take 1 tablet by mouth 3 (three) times daily as needed (back pain). [facility] methocarbam oL 500 mg tablet 2020-0 312 00:00: 00 Yes [id number] 500mg Take 1 tablet by mouth 3 (three) times daily as needed (back pain). [facility] methocarbam oL 500 mg tablet 2020-0 3-12 00:00: 00 Yes [id number] 500mg Take 1 tablet by mouth 3 (three) times daily as needed (back pain). [facility] methocarbam oL 500 mg tablet 2020-0 312 00:00: 00 Yes [id number] 500mg Take 1 tablet by mouth 3 (three) times daily as needed (back pain). [facility] methocarbam oL 500 mg tablet 2020-0 12 00:00: 00 Yes [id number] 500mg Take 1 tablet by mouth 3 (three) times daily as needed (back pain). [facility] methocarbam oL 500 mg tablet 2020-0 312 00:00: 00 Yes [id number] 500mg Take 1 tablet by mouth 3 (three) times daily as needed (back pain). [facility] methocarbam oL 500 mg tablet 2020-0 312 00:00: 00 Yes [id number] 500mg Take 1 tablet by mouth 3 (three) times daily as needed (back pain). [facility] methocarbam oL 500 mg tablet 2020-0 312 00:00: 00 Yes [id number] 500mg Take 1 tablet by mouth 3 (three) times daily as needed (back pain). [facility] methocarbam oL 500 mg tablet 2020-0 3-12 00:00: 00 Yes [id number] 500mg Take 1 tablet by mouth 3 (three) times daily as needed (back pain). [facility] methocarbam oL 500 mg tablet 2020-0 312 00:00: 00 Yes [id number] 500mg Take 1 tablet by mouth 3 (three) times daily as needed (back pain). [facility] methocarbam oL 500 mg tablet 2020-0 3-12 00:00: 00 Yes [id number] 500mg Take 1 tablet by mouth 3 (three) times daily as needed (back pain). [facility] methocarbam oL 500 mg tablet 2020-0 312 00:00: 00 Yes [id number] 500mg Take 1 tablet by mouth 3 (three) times daily as needed (back pain). [facility] methocarbam oL 500 mg tablet 2020-0 312 00:00: 00 Yes [id number] 500mg Take 1 tablet by mouth 3 (three) times daily as needed (back pain). [facility] methocarbam oL 500 mg tablet 2020-0 312 00:00: 00 Yes [id number] 500mg Take 1 tablet by mouth 3 (three) times daily as needed (back pain). [facility] methocarbam oL 500 mg tablet 2020-0 312 00:00: 00 Yes [id number] 500mg Take 1 tablet by mouth 3 (three) times daily as needed (back pain). [facility] methocarbam oL 500 mg tablet 2020-0 312 00:00: 00 Yes [id number] 500mg Take 1 tablet by mouth 3 (three) times daily as needed (back pain). [facility] methocarbam oL 500 mg tablet 2020-0 12 00:00: 00 Yes [id number] 500mg Take 1 tablet by mouth 3 (three) times daily as needed (back pain). [facility] methocarbam oL 500 mg tablet 2020-0 312 00:00: 00 Yes [id number] 500mg Take 1 tablet by mouth 3 (three) times daily as needed (back pain). [facility] methocarbam oL 500 mg tablet 2020-0 312 00:00: 00 Yes [id number] 500mg Take 1 tablet by mouth 3 (three) times daily as needed (back pain). [facility] methocarbam oL 500 mg tablet 2020-0 312 00:00: 00 Yes [id number] 500mg Take 1 tablet by mouth 3 (three) times daily as needed (back pain). [facility] methocarbam oL 500 mg tablet 2020-0 312 00:00: 00 Yes [id number] 500mg Take 1 tablet by mouth 3 (three) times daily as needed (back pain). [facility]bam [facility]L 500 mg tablet 2020-0 3-12 00:00: 00 Yes [id number] 500mg Take 1 tablet by mouth 3 (three) times daily as needed (back pain). [facility] methocarbam oL 500 mg tablet 2020-0 312 00:00: 00 Yes [id number] 500mg Take 1 tablet by mouth 3 (three) times daily as needed (back pain). [facility] methocarbam oL 500 mg tablet 2020-0 312 00:00: 00 Yes [id number] 500mg Take 1 tablet by mouth 3 (three) times daily as needed (back pain). [facility] methocarbam oL 500 mg tablet 2020-0 312 00:00: 00 Yes [id number] 500mg Take 1 tablet by mouth 3 (three) times daily as needed (back pain). [facility] methocarbam oL 500 mg tablet 2020-0 312 00:00: 00 Yes [id number] 500mg Take 1 tablet by mouth 3 (three) times daily as needed (back pain). [facility] methocarbam oL 500 mg tablet 2020-0 312 00:00: 00 Yes [id number] 500mg Take 1 tablet by mouth 3 (three) times daily as needed (back pain). [facility] methocarbam oL 500 mg tablet 2020-0 312 00:00: 00 Yes [id number] 500mg Take 1 tablet by mouth 3 (three) times daily as needed (back pain). [facility] methocarbam oL 500 mg tablet 2020-0 3-12 00:00: 00 Yes [id number] 500mg Take 1 tablet by mouth 3 (three) times daily as needed (back pain). [facility] methocarbam oL 500 mg tablet 2020-0 3-12 00:00: 00 Yes [id number] 500mg Take 1 tablet by mouth 3 (three) times daily as needed (back pain). [facility] methocarbam oL 500 mg tablet 2020-0 3-12 00:00: 00 Yes [id number] 500mg Take 1 tablet by mouth 3 (three) times daily as needed (back pain). [facility] methocarbam oL 500 mg tablet 2020-0 3-12 00:00: 00 Yes [id number] 500mg Take 1 tablet by mouth 3 (three) times daily as needed (back pain). [facility] methocarbam oL 500 mg tablet 2020-0 3-12 00:00: 00 Yes [id number] 500mg Take 1 tablet by mouth 3 (three) times daily as needed (back pain). [facility] methocarbam oL 500 mg tablet 2020-0 312 00:00: 00 Yes [id number] 500mg Take 1 tablet by mouth 3 (three) times daily as needed (back pain). [facility] methocarbam oL 500 mg tablet 2020-0 312 00:00: 00 Yes [id number] 500mg Take 1 tablet by mouth 3 (three) times daily as needed (back pain). [facility] methocarbam oL 500 mg tablet 2020-0 312 00:00: 00 Yes [id number] 500mg Take 1 tablet by mouth 3 (three) times daily as needed (back pain). [facility] methocarbam oL 500 mg tablet 2020-0 312 00:00: 00 Yes [id number] 500mg Take 1 tablet by mouth 3 (three) times daily as needed (back pain). [facility] methocarbam oL 500 mg tablet 2020-0 312 00:00: 00 Yes [id number] 500mg Take 1 tablet by mouth 3 (three) times daily as needed (back pain). [facility] methocarbam oL 500 mg tablet 2020-0 3-12 00:00: 00 Yes [id number] 500mg Take 1 tablet by mouth 3 (three) times daily as needed (back pain). [facility] methocarbam oL 500 mg tablet 2020-0 3-12 00:00: 00 Yes [id number] 500mg Take 1 tablet by mouth 3 (three) times daily as needed (back pain). [facility] methocarbam oL 500 mg tablet 0 312 00:00: 00 Yes [id number] 500mg Take 1 tablet by mouth 3 (three) times daily as needed (back pain). [facility] methocarbam oL 500 mg tablet 0 312 00:00: 00 Yes [id number] 500mg Take 1 tablet by mouth 3 (three) times daily as needed (back pain). [facility] methocarbam oL 500 mg tablet 0 12 00:00: 00 Yes [id number] 500mg Take 1 tablet by mouth 3 (three) times daily as needed (back pain). [facility] methocarbam oL 500 mg tablet 0 12 00:00: 00 Yes [id number] 500mg Take 1 tablet by mouth 3 (three) times daily as needed (back pain). [facility] methocarbam oL 500 mg tablet 12 00:00: 00 Yes [id number] 500mg Take 1 tablet by mouth 3 (three) times daily as needed (back pain). [facility] methocarbam oL 500 mg tablet 0 12 00:00: 00 Yes [id number] 500mg Take 1 tablet by mouth 3 (three) times daily as needed (back pain). [facility] methocarbam oL 500 mg tablet 12 00:00: 00 06-02 00:00 :00 No [id number] 500mg Take 1 tablet by mouth 3 (three) times daily as needed (back pain). [facility] methocarbam oL 500 mg tablet 0 12 00:00: 00 06-02 00:00 :00 No [id number] 500mg Take 1 tablet by mouth 3 (three) times daily as needed (back pain). [facility] ketorolac (TORADOL) injection 15 mg 07-05 21:45: 00 07-05 20:50 :00 No 15mg 15 mg, Slow IV Push, ONCE, 1 dose, 07/05/20 at 1545, HIGINIO
Fa cult[facility] member approving Restricted medication : JENN GALLEGOS [facility] methocarbam oL 500 mg tablet 2020-0 3-07 00:00: 00 Yes [id number] 500mg Take 1 tablet by mouth 4 (four) times daily. [facility] predniSONE 10 mg tablet 2020-0 3-07 00:00: 00 Yes [id number] 10mg Take 1 tablet by mouth daily. [facility] methocarbam oL 500 mg tablet 2020-0 3-07 00:00: 00 07-10 00:00 :00 No [id number] 500mg Take 1 tablet by mouth 4 (four) times daily. [facility] predniSONE 10 mg tablet 2020-0 3-07 00:00: 00 07-10 00:00 :00 No [id number] 10mg Take 1 tablet by mouth daily. [facility] methocarbam oL 500 mg tablet 2020-0 3-07 00:00: 00 07-10 00:00 :00 No [id number] 500mg Take 1 tablet by mouth 4 (four) times daily. [facility] predniSONE 10 mg tablet 2020-0 3-07 00:00: 00 07-10 00:00 :00 No [id number] 10mg Take 1 tablet by mouth daily. [facility] cephALEXin 500 mg capsule 18 00:00: 00 11-23 04:59 :00 No [id number] 500mg Take 1 capsule by mouth 2 (two) times daily for 7 days. [facility] atorvastati n 10 mg tablet 2019-0 3-10 14:51: 15 Yes 10mg Take 10 mg by mouth at bedtime. [facility] atorvastati n 10 mg tablet 2019-0 3-10 14:51: 15 Yes 10mg Take 10 mg by mouth at bedtime. [facility] atorvastati n 10 mg tablet 2019-0 3-10 14:51: 15 Yes 10mg Take 10 mg by mouth at bedtime. [facility] atorvastati n 10 mg tablet 2019-0 3-10 14:51: 15 Yes 10mg Take 10 mg by mouth at bedtime. [facility] atorvastati n 10 mg tablet 2020-0 3-10 14:51: 15 Yes 10mg Take 10 mg by mouth at bedtime. [facility] atorvastati n 10 mg tablet 2020-0 3-10 14:51: 15 Yes 10mg Take 10 mg by mouth at bedtime. [facility] atorvastati n 10 mg tablet 2020-0 3-10 14:51: 15 Yes 10mg Take 10 mg by mouth at bedtime. [facility] atorvastati n 10 mg tablet 2020-0 3-10 14:51: 15 Yes 10mg Take 10 mg by mouth at bedtime. [facility] atorvastati n 10 mg tablet 2020-0 3-10 14:51: 15 Yes 10mg Take 10 mg by mouth at bedtime. [facility] atorvastati n 10 mg tablet 2020-0 3-10 14:51: 15 Yes 10mg Take 10 mg by mouth at bedtime. [facility] atorvastati n 10 mg tablet 2020-0 3-10 14:51: 15 Yes 10mg Take 10 mg by mouth at bedtime. [facility] atorvastati n 10 mg tablet 2020-0 3-10 14:51: 15 Yes 10mg Take 10 mg by mouth at bedtime. [facility] atorvastati n 10 mg tablet 2020-0 3-10 14:51: 15 Yes 10mg Take 10 mg by mouth at bedtime. [facility] atorvastati n 10 mg tablet 2020-0 3-10 14:51: 15 Yes 10mg Take 10 mg by mouth at bedtime. [facility] atorvastati n 10 mg tablet 2020-0 3-10 14:51: 15 Yes 10mg Take 10 mg by mouth at bedtime. [facility] atorvastati n 10 mg tablet 2020-0 3-10 14:51: 15 Yes 10mg Take 10 mg by mouth at bedtime. [facility] atorvastati n 10 mg tablet 2020-0 3-10 14:51: 15 Yes 10mg Take 10 mg by mouth at bedtime. [facility] atorvastati n 10 mg tablet 2020-0 3-10 14:51: 15 Yes 10mg Take 10 mg by mouth at bedtime. [facility] atorvastati n 10 mg tablet 2020-0 3-10 14:51: 15 Yes 10mg Take 10 mg by mouth at bedtime. [facility] atorvastati n 10 mg tablet 2020-0 3-10 14:51: 15 Yes 10mg Take 10 mg by mouth at bedtime. [facility] atorvastati n 10 mg tablet 2020-0 3-10 14:51: 15 Yes 10mg Take 10 mg by mouth at bedtime. [facility] atorvastati n 10 mg tablet 2020-0 3-10 14:51: 15 Yes 10mg Take 10 mg by mouth at bedtime. [facility] atorvastati n 10 mg tablet 2020-0 3-10 14:51: 15 Yes 10mg Take 10 mg by mouth at bedtime. [facility] atorvastati n 10 mg tablet 2020-0 3-10 14:51: 15 Yes 10mg Take 10 mg by mouth at bedtime. [facility] atorvastati n 10 mg tablet 2020-0 3-10 14:51: 15 Yes 10mg Take 10 mg by mouth at bedtime. [facility] atorvastati n 10 mg tablet 2020-0 3-10 14:51: 15 Yes 10mg Take 10 mg by mouth at bedtime. [facility] atorvastati n 10 mg tablet 2020-0 3-10 14:51: 15 Yes 10mg Take 10 mg by mouth at bedtime. [facility] atorvastati n 10 mg tablet 2020-0 3-10 14:51: 15 Yes 10mg Take 10 mg by mouth at bedtime. [facility] atorvastati n 10 mg tablet 2020-0 3-10 14:51: 15 Yes 10mg Take 10 mg by mouth at bedtime. [facility] atorvastati n 10 mg tablet 2020-0 3-10 14:51: 15 Yes 10mg Take 10 mg by mouth at bedtime. [facility] atorvastati n 10 mg tablet 2020-0 3-10 14:51: 15 Yes 10mg Take 10 mg by mouth at bedtime. [facility] atorvastati n 10 mg tablet 2020-0 3-10 14:51: 15 Yes 10mg Take 10 mg by mouth at bedtime. [facility] atorvastati n 10 mg tablet 2020-0 3-10 14:51: 15 Yes 10mg Take 10 mg by mouth at bedtime. [facility] atorvastati n 10 mg tablet 2020-0 3-10 14:51: 15 Yes 10mg Take 10 mg by mouth at bedtime. [facility] atorvastati n 10 mg tablet 2020-0 3-10 14:51: 15 Yes 10mg Take 10 mg by mouth at bedtime. [facility] atorvastati n 10 mg tablet 2020-0 3-10 14:51: 15 Yes 10mg Take 10 mg by mouth at bedtime. [facility] atorvastati n 10 mg tablet 2020-0 3-10 14:51: 15 Yes 10mg Take 10 mg by mouth at bedtime. [facility] atorvastati n 10 mg tablet 2020-0 3-10 14:51: 15 Yes 10mg Take 10 mg by mouth at bedtime. [facility] atorvastati n 10 mg tablet 2020-0 3-10 14:51: 15 Yes 10mg Take 10 mg by mouth at bedtime. [facility] atorvastati n 10 mg tablet 2020-0 3-10 14:51: 15 Yes 10mg Take 10 mg by mouth at bedtime. [facility] atorvastati n 10 mg tablet 2020-0 3-10 14:51: 15 Yes 10mg Take 10 mg by mouth at bedtime. [facility] atorvastati n 10 mg tablet 2020-0 3-10 14:51: 15 Yes 10mg Take 10 mg by mouth at bedtime. [facility] atorvastati n 10 mg tablet 2020-0 3-10 14:51: 15 Yes 10mg Take 10 mg by mouth at bedtime. [facility] tamsulosin 0.4 mg 24 hr capsule 2020-0 3-10 14:50: 23 Yes Take by mouth daily. [facility] tams[facility] 0.4 mg 24 hr capsule 2020-0 3-10 14:50: 23 Yes Take by mouth daily. [facility] tamsulosin 0.4 mg 24 hr capsule 2020-0 3-10 14:50: 23 Yes Take by mouth daily. [facility] tamsulosin 0.4 mg 24 hr capsule 2020-0 3-10 14:50: 23 Yes Take by mouth daily. [facility] tamsulosin 0.4 mg 24 hr capsule 2020-0 3-10 14:50: 23 Yes Take by mouth daily. [facility] tams[facility]osin 0.4 mg 24 hr capsule 2020-0 3-10 14:50: 23 Yes Take by mouth daily. [facility] tamsulosin 0.4 mg 24 hr capsule 2020-0 3-10 14:50: 23 Yes Take by mouth daily. [facility] tamsulosin 0.4 mg 24 hr capsule 2020-0 3-10 14:50: 23 Yes Take by mouth daily. [facility] tamsulosin 0.4 mg 24 hr capsule 2020-0 3-10 14:50: 23 Yes Take by mouth daily. [facility] tamsulosin 0.4 mg 24 hr capsule 2020-0 3-10 14:50: 23 Yes Take by mouth daily. [facility] tamsulosin 0.4 mg 24 hr capsule 2020-0 3-10 14:50: 23 Yes Take by mouth daily. [facility] tamsulosin 0.4 mg 24 hr capsule 2020-0 3-10 14:50: 23 Yes Take by mouth daily. [facility] tamsulosin 0.4 mg 24 hr capsule 2020-0 3-10 14:50: 23 Yes Take by mouth daily. [facility] [facility] tamsulosin 0.4 mg 24 hr capsule 2020-0 3-10 14:50: 23 Yes Take by mouth daily. [facility] t[facility].4 mg 24 hr capsule 2020-0 3-10 14:50: 23 Yes Take by mouth daily. [facility] tamsulosin 0.4 mg 24 hr capsule 2020-0 3-10 14:50: 23 Yes Take by mouth daily. [facility] tamsulosin 0.4 mg 24 hr capsule 2020-0 3-10 14:50: 23 Yes Take by mouth daily. [facility]y [facility] tamsulosin 0.4 mg 24 hr capsule 2020-0 3-10 14:50: 23 Yes Take by mouth daily. [facility] tamsulosin 0.4 mg 24 hr capsule 2020-0 3-10 14:50: 23 Yes Take by mouth daily. [facility] tamsulosin 0.4 mg 24 hr capsule 2020-0 3-10 14:50: 23 Yes Take by mouth daily. [facility] tamsulosin 0.4 mg 24 hr capsule 2020-0 3-10 14:50: 23 Yes Take by mouth daily. [facility] tamsulosin 0.4 mg 24 hr capsule 2020-0 3-10 14:50: 23 Yes Take by mouth daily. [facility] tamsulosin 0.4 mg 24 hr capsule 2020-0 3-10 14:50: 23 Yes Take by mouth daily. [facility] tamsulosin 0.4 mg 24 hr capsule 2020-0 3-10 14:50: 23 Yes Take by mouth daily. [facility] tamsulosin 0.4 mg 24 hr capsule 2020-0 3-10 14:50: 23 Yes Take by mouth daily. [facility] tamsulosin 0.4 mg 24 hr capsule 2020-0 3-10 14:50: 23 Yes Take by mouth daily. [facility] it[facility] tamsulosin 0.4 mg 24 hr capsule 2020-0 3-10 14:50: 23 Yes Take by mouth daily. [facility] tamsulosin 0.4 mg 24 hr capsule 2020-0 3-10 14:50: 23 Yes Take by mouth daily. [facility] tamsulosin 0.4 mg 24 hr capsule 2020-0 3-10 14:50: 23 Yes Take by mouth daily. [facility] tamsulosin 0.4 mg 24 hr capsule 2020-0 3-10 14:50: 23 Yes Take by mouth daily. [facility] tamsulosin 0.4 mg 24 hr capsule 2020-0 3-10 14:50: 23 Yes Take by mouth daily. [facility] tamsulosin 0.4 mg 24 hr capsule 2020-0 3-10 14:50: 23 Yes Take by mouth daily. [facility] tamsulosin 0.4 mg 24 hr capsule 2020-0 3-10 14:50: 23 Yes Take by mouth daily. [facility] tamsulosin 0.4 mg 24 hr capsule 2020-0 3-10 14:50: 23 Yes Take by mouth daily. [facility] tamsulosin 0.4 mg 24 hr capsule 2020-0 3-10 14:50: 23 Yes Take by mouth daily. [facility] tamsulosin 0.4 mg 24 hr capsule 2020-0 3-10 14:50: 23 Yes Take by mouth daily. [facility] tamsulosin 0.4 mg 24 hr capsule 2020-0 3-10 14:50: 23 Yes Take by mouth daily. [facility] tamsulosin 0.4 mg 24 hr capsule 2020-0 3-10 14:50: 23 Yes Take by mouth daily. [facility] tamsulosin 0.4 mg 24 hr capsule 2020-0 3-10 14:50: 23 Yes Take by mouth daily. [facility] tamsulosin 0.4 mg 24 hr capsule 2020-0 3-10 14:50: 23 Yes Take by mouth daily. [facility] tamsulosin 0.4 mg 24 hr capsule 2020-0 3-10 14:50: 23 Yes Take by mouth daily. [facility] tamsulosin 0.4 mg 24 hr capsule 2020-0 3-10 14:50: 23 Yes Take by mouth daily. [facility] tamsulosin 0.4 mg 24 hr capsule 2020-0 3-10 14:50: 23 Yes Take by mouth daily. [facility] warfarin sodium (COUMADIN ORAL) 2020-0 3-10 14:49: 49 Yes Take by mouth. 3.5 mg daily [facility] losartan 50 mg tablet 2020-0 3-10 14:49: 49 Yes 50mg Take 50 mg by mouth daily. [facility] pantoprazol e 40 mg EC tablet 07-08 14:49: 49 Yes 40mg Take 40 mg by mouth daily. [facility] furosemide 40 mg tablet 07-08 14:49: 49 Yes 40mg Take 40 mg by mouth. Takes 80 mg am and 40 mg afternoon [facility] metoprolol tartrate 50 mg tablet 07-08 14:49: 49 Yes 50mg Take 50 mg by mouth daily. [facility] warfarin sodium (COUMADIN ORAL) 07-08 14:49: 49 Yes Take by mouth. 3.5 mg daily [facility] losartan 50 mg tablet 07-08 14:49: 49 Yes 50mg Take 50 mg by mouth daily. [facility] pantoprazol e 40 mg EC tablet 07-08 14:49: 49 Yes 40mg Take 40 mg by mouth daily. [facility] furosemide 40 mg tablet 07-08 14:49: 49 Yes 40mg Take 40 mg by mouth. Takes 80 mg am and 40 mg afternoon [facility] metoprolol tartrate 50 mg tablet 07-08 14:49: 49 Yes 50mg Take 50 mg by mouth daily. [facility] warfarin sodium (COUMADIN ORAL) 07-08 14:49: 49 Yes Take by mouth. 3.5 mg daily [facility] losartan 50 mg tablet 07-08 14:49: 49 Yes 50mg Take 50 mg by mouth daily. [facility] pantoprazol e 40 mg EC tablet 07-08 14:49: 49 Yes 40mg Take 40 mg by mouth daily. [facility] furosemide 40 mg tablet 07-08 14:49: 49 Yes 40mg Take 40 mg by mouth. Takes 80 mg am and 40 mg afternoon [facility] metoprolol tartrate 50 mg tablet 07-08 14:49: 49 Yes 50mg Take 50 mg by mouth daily. [facility] warfarin sodium (COUMADIN ORAL) 07-08 14:49: 49 Yes Take by mouth. 3.5 mg daily [facility] losartan 50 mg tablet 07-08 14:49: 49 Yes 50mg Take 50 mg by mouth daily. [facility] pantoprazol e 40 mg EC tablet 07-08 14:49: 49 Yes 40mg Take 40 mg by mouth daily. [facility] furosemide 40 mg tablet 07-08 14:49: 49 Yes 40mg Take 40 mg by mouth. Takes 80 mg am and 40 mg afternoon [facility] metoprolol tartrate 50 mg tablet 07-08 14:49: 49 Yes 50mg Take 50 mg by mouth daily. [facility] warfarin sodium (COUMADIN ORAL) 07-08 14:49: 49 Yes Take by mouth. 3.5 mg daily [facility] losartan 50 mg tablet 07-08 14:49: 49 Yes 50mg Take 50 mg by mouth daily. [facility] pantoprazol e 40 mg EC tablet 07-08 14:49: 49 Yes 40mg Take 40 mg by mouth daily. [facility] furosemide 40 mg tablet 07-08 14:49: 49 Yes 40mg Take 40 mg by mouth. Takes 80 mg am and 40 mg afternoon [facility] metoprolol tartrate 50 mg tablet 07-08 14:49: 49 Yes 50mg Take 50 mg by mouth daily. [facility] warfarin sodium (COUMADIN ORAL) 07-08 14:49: 49 Yes Take by mouth. 3.5 mg daily [facility] losartan 50 mg tablet 07-08 14:49: 49 Yes 50mg Take 50 mg by mouth daily. [facility] pantoprazol e 40 mg EC tablet 07-08 14:49: 49 Yes 40mg Take 40 mg by mouth daily. [facility] furosemide 40 mg tablet 07-08 14:49: 49 Yes 40mg Take 40 mg by mouth. Takes 80 mg am and 40 mg afternoon [facility] metoprolol tartrate 50 mg tablet 07-08 14:49: 49 Yes 50mg Take 50 mg by mouth daily. [facility] warfarin sodium (COUMADIN ORAL) 07-08 14:49: 49 Yes Take by mouth. 3.5 mg daily [facility] losartan 50 mg tablet 07-08 14:49: 49 Yes 50mg Take 50 mg by mouth daily. [facility] pantoprazol e 40 mg EC tablet 07-08 14:49: 49 Yes 40mg Take 40 mg by mouth daily. [facility] furosemide 40 mg tablet 07-08 14:49: 49 Yes 40mg Take 40 mg by mouth. Takes 80 mg am and 40 mg afternoon [facility] metoprolol tartrate 50 mg tablet 07-08 14:49: 49 Yes 50mg Take 50 mg by mouth daily. [facility] warfarin sodium (COUMADIN ORAL) 07-08 14:49: 49 Yes Take by mouth. 3.5 mg daily [facility] losartan 50 mg tablet 07-08 14:49: 49 Yes 50mg Take 50 mg by mouth daily. [facility] pantoprazol e 40 mg EC tablet 07-08 14:49: 49 Yes 40mg Take 40 mg by mouth daily. [facility] furosemide 40 mg tablet 07-08 14:49: 49 Yes 40mg Take 40 mg by mouth. Takes 80 mg am and 40 mg afternoon [facility] metoprolol tartrate 50 mg tablet 07-08 14:49: 49 Yes 50mg Take 50 mg by mouth daily. [facility] warfarin sodium (COUMADIN ORAL) 07-08 14:49: 49 Yes Take by mouth. 3.5 mg daily [facility] losartan 50 mg tablet 07-08 14:49: 49 Yes 50mg Take 50 mg by mouth daily. [facility] pantoprazol e 40 mg EC tablet 07-08 14:49: 49 Yes 40mg Take 40 mg by mouth daily. [facility] furosemide 40 mg tablet 07-08 14:49: 49 Yes 40mg Take 40 mg by mouth. Takes 80 mg am and 40 mg afternoon [facility] metoprolol tartrate 50 mg tablet 07-08 14:49: 49 Yes 50mg Take 50 mg by mouth daily. [facility] warfarin sodium (COUMADIN ORAL) 07-08 14:49: 49 Yes Take by mouth. 3.5 mg daily [facility] losartan 50 mg tablet 07-08 14:49: 49 Yes 50mg Take 50 mg by mouth daily. [facility] pantoprazol e 40 mg EC tablet 07-08 14:49: 49 Yes 40mg Take 40 mg by mouth daily. [facility] furosemide 40 mg tablet 07-08 14:49: 49 Yes 40mg Take 40 mg by mouth. Takes 80 mg am and 40 mg afternoon [facility] metoprolol tartrate 50 mg tablet 07-08 14:49: 49 Yes 50mg Take 50 mg by mouth daily. [facility] warfarin sodium (COUMADIN ORAL) 07-08 14:49: 49 Yes Take by mouth. 3.5 mg daily [facility] losartan 50 mg tablet 07-08 14:49: 49 Yes 50mg Take 50 mg by mouth daily. [facility] pantoprazol e 40 mg EC tablet 07-08 14:49: 49 Yes 40mg Take 40 mg by mouth daily. [facility] furosemide 40 mg tablet 07-08 14:49: 49 Yes 40mg Take 40 mg by mouth. Takes 80 mg am and 40 mg afternoon [facility] metoprolol tartrate 50 mg tablet 07-08 14:49: 49 Yes 50mg Take 50 mg by mouth daily. [facility] warfarin sodium (COUMADIN ORAL) 07-08 14:49: 49 Yes Take by mouth. 3.5 mg daily [facility] losartan 50 mg tablet 07-08 14:49: 49 Yes 50mg Take 50 mg by mouth daily. [facility] pantoprazol e 40 mg EC tablet 07-08 14:49: 49 Yes 40mg Take 40 mg by mouth daily. [facility] furosemide 40 mg tablet 07-08 14:49: 49 Yes 40mg Take 40 mg by mouth. Takes 80 mg am and 40 mg afternoon [facility] metoprolol tartrate 50 mg tablet 07-08 14:49: 49 Yes 50mg Take 50 mg by mouth daily. [facility] warfarin sodium (COUMADIN ORAL) 07-08 14:49: 49 Yes Take by mouth. 3.5 mg daily [facility] losartan 50 mg tablet 07-08 14:49: 49 Yes 50mg Take 50 mg by mouth daily. [facility] pantoprazol e 40 mg EC tablet 07-08 14:49: 49 Yes 40mg Take 40 mg by mouth daily. [facility] furosemide 40 mg tablet 07-08 14:49: 49 Yes 40mg Take 40 mg by mouth. Takes 80 mg am and 40 mg afternoon [facility] metoprolol tartrate 50 mg tablet 07-08 14:49: 49 Yes 50mg Take 50 mg by mouth daily. [facility] warfarin sodium (COUMADIN ORAL) 07-08 14:49: 49 Yes Take by mouth. 3.5 mg daily [facility] losartan 50 mg tablet 07-08 14:49: 49 Yes 50mg Take 50 mg by mouth daily. [facility] pantoprazol e 40 mg EC tablet 07-08 14:49: 49 Yes 40mg Take 40 mg by mouth daily. [facility] furosemide 40 mg tablet 07-08 14:49: 49 Yes 40mg Take 40 mg by mouth. Takes 80 mg am and 40 mg afternoon [facility] metoprolol tartrate 50 mg tablet 07-08 14:49: 49 Yes 50mg Take 50 mg by mouth daily. [facility] warfarin sodium (COUMADIN ORAL) 07-08 14:49: 49 Yes Take by mouth. 3.5 mg daily [facility] losartan 50 mg tablet 07-08 14:49: 49 Yes 50mg Take 50 mg by mouth daily. [facility] pantoprazol e 40 mg EC tablet 07-08 14:49: 49 Yes 40mg Take 40 mg by mouth daily. [facility] furosemide 40 mg tablet 07-08 14:49: 49 Yes 40mg Take 40 mg by mouth. Takes 80 mg am and 40 mg afternoon [facility] metoprolol tartrate 50 mg tablet 07-08 14:49: 49 Yes 50mg Take 50 mg by mouth daily. [facility] warfarin sodium (COUMADIN ORAL) 07-08 14:49: 49 Yes Take by mouth. 3.5 mg daily [facility] losartan 50 mg tablet 07-08 14:49: 49 Yes 50mg Take 50 mg by mouth daily. [facility] pantoprazol e 40 mg EC tablet 07-08 14:49: 49 Yes 40mg Take 40 mg by mouth daily. [facility] furosemide 40 mg tablet 07-08 14:49: 49 Yes 40mg Take 40 mg by mouth. Takes 80 mg am and 40 mg afternoon [facility] metoprolol tartrate 50 mg tablet 07-08 14:49: 49 Yes 50mg Take 50 mg by mouth daily. [facility] warfarin sodium (COUMADIN ORAL) 07-08 14:49: 49 Yes Take by mouth. 3.5 mg daily [facility] losartan 50 mg tablet 07-08 14:49: 49 Yes 50mg Take 50 mg by mouth daily. [facility] pantoprazol e 40 mg EC tablet 07-08 14:49: 49 Yes 40mg Take 40 mg by mouth daily. [facility] furosemide 40 mg tablet 07-08 14:49: 49 Yes 40mg Take 40 mg by mouth. Takes 80 mg am and 40 mg afternoon [facility] metoprolol tartrate 50 mg tablet 07-08 14:49: 49 Yes 50mg Take 50 mg by mouth daily. [facility] warfarin sodium (COUMADIN ORAL) 07-08 14:49: 49 Yes Take by mouth. 3.5 mg daily [facility] losartan 50 mg tablet 07-08 14:49: 49 Yes 50mg Take 50 mg by mouth daily. [facility] pantoprazol e 40 mg EC tablet 07-08 14:49: 49 Yes 40mg Take 40 mg by mouth daily. [facility] furosemide 40 mg tablet 07-08 14:49: 49 Yes 40mg Take 40 mg by mouth. Takes 80 mg am and 40 mg afternoon [facility] metoprolol tartrate 50 mg tablet 07-08 14:49: 49 Yes 50mg Take 50 mg by mouth daily. [facility] warfarin sodium (COUMADIN ORAL) 07-08 14:49: 49 Yes Take by mouth. 3.5 mg daily [facility] losartan 50 mg tablet 07-08 14:49: 49 Yes 50mg Take 50 mg by mouth daily. [facility] pantoprazol e 40 mg EC tablet 07-08 14:49: 49 Yes 40mg Take 40 mg by mouth daily. [facility] furosemide 40 mg tablet 07-08 14:49: 49 Yes 40mg Take 40 mg by mouth. Takes 80 mg am and 40 mg afternoon [facility] metoprolol tartrate 50 mg tablet 07-08 14:49: 49 Yes 50mg Take 50 mg by mouth daily. [facility] warfarin sodium (COUMADIN ORAL) 07-08 14:49: 49 Yes Take by mouth. 3.5 mg daily [facility] losartan 50 mg tablet 07-08 14:49: 49 Yes 50mg Take 50 mg by mouth daily. [facility] pantoprazol e 40 mg EC tablet 07-08 14:49: 49 Yes 40mg Take 40 mg by mouth daily. [facility] furosemide 40 mg tablet 07-08 14:49: 49 Yes 40mg Take 40 mg by mouth. Takes 80 mg am and 40 mg afternoon [facility] metoprolol tartrate 50 mg tablet 07-08 14:49: 49 Yes 50mg Take 50 mg by mouth daily. [facility] warfarin sodium (COUMADIN ORAL) 07-08 14:49: 49 Yes Take by mouth. 3.5 mg daily [facility] losartan 50 mg tablet 07-08 14:49: 49 Yes 50mg Take 50 mg by mouth daily. [facility] pantoprazol e 40 mg EC tablet 07-08 14:49: 49 Yes 40mg Take 40 mg by mouth daily. [facility] furosemide 40 mg tablet 07-08 14:49: 49 Yes 40mg Take 40 mg by mouth. Takes 80 mg am and 40 mg afternoon [facility] metoprolol tartrate 50 mg tablet 07-08 14:49: 49 Yes 50mg Take 50 mg by mouth daily. [facility] warfarin sodium (COUMADIN ORAL) 07-08 14:49: 49 Yes Take by mouth. 3.5 mg daily [facility] losartan 50 mg tablet 07-08 14:49: 49 Yes 50mg Take 50 mg by mouth daily. [facility] pantoprazol e 40 mg EC tablet 07-08 14:49: 49 Yes 40mg Take 40 mg by mouth daily. [facility] furosemide 40 mg tablet 07-08 14:49: 49 Yes 40mg Take 40 mg by mouth. Takes 80 mg am and 40 mg afternoon [facility] metoprolol tartrate 50 mg tablet 07-08 14:49: 49 Yes 50mg Take 50 mg by mouth daily. [facility] warfarin sodium (COUMADIN ORAL) 07-08 14:49: 49 Yes Take by mouth. 3.5 mg daily [facility] losartan 50 mg tablet 07-08 14:49: 49 Yes 50mg Take 50 mg by mouth daily. [facility] pantoprazol e 40 mg EC tablet 07-08 14:49: 49 Yes 40mg Take 40 mg by mouth daily. [facility] furosemide 40 mg tablet 07-08 14:49: 49 Yes 40mg Take 40 mg by mouth. Takes 80 mg am and 40 mg afternoon [facility] metoprolol tartrate 50 mg tablet 07-08 14:49: 49 Yes 50mg Take 50 mg by mouth daily. [facility] warfarin sodium (COUMADIN ORAL) 07-08 14:49: 49 Yes Take by mouth. 3.5 mg daily [facility] losartan 50 mg tablet 07-08 14:49: 49 Yes 50mg Take 50 mg by mouth daily. [facility] pantoprazol e 40 mg EC tablet 07-08 14:49: 49 Yes 40mg Take 40 mg by mouth daily. [facility] furosemide 40 mg tablet 07-08 14:49: 49 Yes 40mg Take 40 mg by mouth. Takes 80 mg am and 40 mg afternoon [facility] metoprolol tartrate 50 mg tablet 07-08 14:49: 49 Yes 50mg Take 50 mg by mouth daily. [facility] warfarin sodium (COUMADIN ORAL) 07-08 14:49: 49 Yes Take by mouth. 3.5 mg daily [facility] losartan 50 mg tablet 07-08 14:49: 49 Yes 50mg Take 50 mg by mouth daily. [facility] pantoprazol e 40 mg EC tablet 07-08 14:49: 49 Yes 40mg Take 40 mg by mouth daily. [facility] furosemide 40 mg tablet 07-08 14:49: 49 Yes 40mg Take 40 mg by mouth. Takes 80 mg am and 40 mg afternoon [facility] metoprolol tartrate 50 mg tablet 07-08 14:49: 49 Yes 50mg Take 50 mg by mouth daily. [facility] warfarin sodium (COUMADIN ORAL) 07-08 14:49: 49 Yes Take by mouth. 3.5 mg daily [facility] losartan 50 mg tablet 07-08 14:49: 49 Yes 50mg Take 50 mg by mouth daily. [facility] pantoprazol e 40 mg EC tablet 07-08 14:49: 49 Yes 40mg Take 40 mg by mouth daily. [facility] furosemide 40 mg tablet 07-08 14:49: 49 Yes 40mg Take 40 mg by mouth. Takes 80 mg am and 40 mg afternoon [facility] metoprolol tartrate 50 mg tablet 07-08 14:49: 49 Yes 50mg Take 50 mg by mouth daily. [facility] warfarin sodium (COUMADIN ORAL) 07-08 14:49: 49 Yes Take by mouth. 3.5 mg daily [facility] losartan 50 mg tablet 07-08 14:49: 49 Yes 50mg Take 50 mg by mouth daily. [facility] pantoprazol e 40 mg EC tablet 07-08 14:49: 49 Yes 40mg Take 40 mg by mouth daily. [facility] furosemide 40 mg tablet 07-08 14:49: 49 Yes 40mg Take 40 mg by mouth. Takes 80 mg am and 40 mg afternoon [facility] metoprolol tartrate 50 mg tablet 07-08 14:49: 49 Yes 50mg Take 50 mg by mouth daily. [facility] warfarin sodium (COUMADIN ORAL) 07-08 14:49: 49 Yes Take by mouth. 3.5 mg daily [facility] losartan 50 mg tablet 07-08 14:49: 49 Yes 50mg Take 50 mg by mouth daily. [facility] pantoprazol e 40 mg EC tablet 07-08 14:49: 49 Yes 40mg Take 40 mg by mouth daily. [facility] furosemide 40 mg tablet 07-08 14:49: 49 Yes 40mg Take 40 mg by mouth. Takes 80 mg am and 40 mg afternoon [facility] metoprolol tartrate 50 mg tablet 07-08 14:49: 49 Yes 50mg Take 50 mg by mouth daily. [facility] warfarin sodium (COUMADIN ORAL) 07-08 14:49: 49 Yes Take by mouth. 3.5 mg daily [facility] losartan 50 mg tablet 07-08 14:49: 49 Yes 50mg Take 50 mg by mouth daily. [facility] pantoprazol e 40 mg EC tablet 07-08 14:49: 49 Yes 40mg Take 40 mg by mouth daily. [facility] furosemide 40 mg tablet 07-08 14:49: 49 Yes 40mg Take 40 mg by mouth. Takes 80 mg am and 40 mg afternoon [facility] metoprolol tartrate 50 mg tablet 07-08 14:49: 49 Yes 50mg Take 50 mg by mouth daily. [facility] warfarin sodium (COUMADIN ORAL) 07-08 14:49: 49 Yes Take by mouth. 3.5 mg daily [facility] losartan 50 mg tablet 07-08 14:49: 49 Yes 50mg Take 50 mg by mouth daily. [facility] pantoprazol e 40 mg EC tablet 07-08 14:49: 49 Yes 40mg Take 40 mg by mouth daily. [facility] furosemide 40 mg tablet 07-08 14:49: 49 Yes 40mg Take 40 mg by mouth. Takes 80 mg am and 40 mg afternoon [facility] metoprolol tartrate 50 mg tablet 07-08 14:49: 49 Yes 50mg Take 50 mg by mouth daily. [facility] warfarin sodium (COUMADIN ORAL) 07-08 14:49: 49 Yes Take by mouth. 3.5 mg daily [facility] losartan 50 mg tablet 07-08 14:49: 49 Yes 50mg Take 50 mg by mouth daily. [facility] pantoprazol e 40 mg EC tablet 07-08 14:49: 49 Yes 40mg Take 40 mg by mouth daily. [facility] furosemide 40 mg tablet 07-08 14:49: 49 Yes 40mg Take 40 mg by mouth. Takes 80 mg am and 40 mg afternoon [facility] metoprolol tartrate 50 mg tablet 07-08 14:49: 49 Yes 50mg Take 50 mg by mouth daily. [facility] warfarin sodium (COUMADIN ORAL) 07-08 14:49: 49 Yes Take by mouth. 3.5 mg daily [facility] losartan 50 mg tablet 07-08 14:49: 49 Yes 50mg Take 50 mg by mouth daily. [facility] pantoprazol e 40 mg EC tablet 07-08 14:49: 49 Yes 40mg Take 40 mg by mouth daily. [facility] furosemide 40 mg tablet 07-08 14:49: 49 Yes 40mg Take 40 mg by mouth. Takes 80 mg am and 40 mg afternoon [facility] metoprolol tartrate 50 mg tablet 07-08 14:49: 49 Yes 50mg Take 50 mg by mouth daily. [facility] warfarin sodium (COUMADIN ORAL) 07-08 14:49: 49 Yes Take by mouth. 3.5 mg daily [facility] losartan 50 mg tablet 07-08 14:49: 49 Yes 50mg Take 50 mg by mouth daily. [facility] pantoprazol e 40 mg EC tablet 07-08 14:49: 49 Yes 40mg Take 40 mg by mouth daily. [facility] furosemide 40 mg tablet 07-08 14:49: 49 Yes 40mg Take 40 mg by mouth. Takes 80 mg am and 40 mg afternoon [facility] metoprolol tartrate 50 mg tablet 07-08 14:49: 49 Yes 50mg Take 50 mg by mouth daily. [facility] warfarin sodium (COUMADIN ORAL) 07-08 14:49: 49 Yes Take by mouth. 3.5 mg daily [facility] losartan 50 mg tablet 07-08 14:49: 49 Yes 50mg Take 50 mg by mouth daily. [facility] pantoprazol e 40 mg EC tablet 07-08 14:49: 49 Yes 40mg Take 40 mg by mouth daily. [facility] furosemide 40 mg tablet 07-08 14:49: 49 Yes 40mg Take 40 mg by mouth. Takes 80 mg am and 40 mg afternoon [facility] metoprolol tartrate 50 mg tablet 07-08 14:49: 49 Yes 50mg Take 50 mg by mouth daily. [facility] warfarin sodium (COUMADIN ORAL) 07-08 14:49: 49 Yes Take by mouth. 3.5 mg daily [facility] losartan 50 mg tablet 07-08 14:49: 49 Yes 50mg Take 50 mg by mouth daily. [facility] pantoprazol e 40 mg EC tablet 07-08 14:49: 49 Yes 40mg Take 40 mg by mouth daily. [facility] furosemide 40 mg tablet 07-08 14:49: 49 Yes 40mg Take 40 mg by mouth. Takes 80 mg am and 40 mg afternoon [facility] metoprolol tartrate 50 mg tablet 07-08 14:49: 49 Yes 50mg Take 50 mg by mouth daily. [facility] warfarin sodium (COUMADIN ORAL) 07-08 14:49: 49 Yes Take by mouth. 3.5 mg daily [facility] losartan 50 mg tablet 07-08 14:49: 49 Yes 50mg Take 50 mg by mouth daily. [facility] pantoprazol e 40 mg EC tablet 07-08 14:49: 49 Yes 40mg Take 40 mg by mouth daily. [facility] furosemide 40 mg tablet 07-08 14:49: 49 Yes 40mg Take 40 mg by mouth. Takes 80 mg am and 40 mg afternoon [facility] metoprolol tartrate 50 mg tablet 07-08 14:49: 49 Yes 50mg Take 50 mg by mouth daily. [facility] warfarin sodium (COUMADIN ORAL) 07-08 14:49: 49 Yes Take by mouth. 3.5 mg daily [facility] losartan 50 mg tablet 07-08 14:49: 49 Yes 50mg Take 50 mg by mouth daily. [facility] pantoprazol e 40 mg EC tablet 07-08 14:49: 49 Yes 40mg Take 40 mg by mouth daily. [facility] furosemide 40 mg tablet 07-08 14:49: 49 Yes 40mg Take 40 mg by mouth. Takes 80 mg am and 40 mg afternoon [facility] metoprolol tartrate 50 mg tablet 07-08 14:49: 49 Yes 50mg Take 50 mg by mouth daily. [facility] warfarin sodium (COUMADIN ORAL) 07-08 14:49: 49 Yes Take by mouth. 3.5 mg daily [facility] losartan 50 mg tablet 07-08 14:49: 49 Yes 50mg Take 50 mg by mouth daily. [facility] pantoprazol e 40 mg EC tablet 07-08 14:49: 49 Yes 40mg Take 40 mg by mouth daily. [facility] furosemide 40 mg tablet 07-08 14:49: 49 Yes 40mg Take 40 mg by mouth. Takes 80 mg am and 40 mg afternoon [facility] metoprolol tartrate 50 mg tablet 07-08 14:49: 49 Yes 50mg Take 50 mg by mouth daily. [facility] warfarin sodium (COUMADIN ORAL) 07-08 14:49: 49 Yes Take by mouth. 3.5 mg daily [facility] losartan 50 mg tablet 07-08 14:49: 49 Yes 50mg Take 50 mg by mouth daily. [facility] pantoprazol e 40 mg EC tablet 07-08 14:49: 49 Yes 40mg Take 40 mg by mouth daily. [facility] furosemide 40 mg tablet 07-08 14:49: 49 Yes 40mg Take 40 mg by mouth. Takes 80 mg am and 40 mg afternoon [facility] metoprolol tartrate 50 mg tablet 07-08 14:49: 49 Yes 50mg Take 50 mg by mouth daily. [facility] warfarin sodium (COUMADIN ORAL) 07-08 14:49: 49 Yes Take by mouth. 3.5 mg daily [facility] losartan 50 mg tablet 07-08 14:49: 49 Yes 50mg Take 50 mg by mouth daily. [facility] pantoprazol e 40 mg EC tablet 07-08 14:49: 49 Yes 40mg Take 40 mg by mouth daily. [facility] furosemide 40 mg tablet 07-08 14:49: 49 Yes 40mg Take 40 mg by mouth. Takes 80 mg am and 40 mg afternoon [facility] metoprolol tartrate 50 mg tablet 07-08 14:49: 49 Yes 50mg Take 50 mg by mouth daily. [facility] warfarin sodium (COUMADIN ORAL) 07-08 14:49: 49 Yes Take by mouth. 3.5 mg daily [facility] losartan 50 mg tablet 07-08 14:49: 49 Yes 50mg Take 50 mg by mouth daily. [facility] pantoprazol e 40 mg EC tablet 07-08 14:49: 49 Yes 40mg Take 40 mg by mouth daily. [facility] furosemide 40 mg tablet 07-08 14:49: 49 Yes 40mg Take 40 mg by mouth. Takes 80 mg am and 40 mg afternoon [facility] metoprolol tartrate 50 mg tablet 07-08 14:49: 49 Yes 50mg Take 50 mg by mouth daily. [facility] warfarin sodium (COUMADIN ORAL) 07-08 14:49: 49 Yes Take by mouth. 3.5 mg daily [facility] losartan 50 mg tablet 07-08 14:49: 49 Yes 50mg Take 50 mg by mouth daily. [facility] pantoprazol e 40 mg EC tablet 07-08 14:49: 49 Yes 40mg Take 40 mg by mouth daily. [facility] furosemide 40 mg tablet 07-08 14:49: 49 Yes 40mg Take 40 mg by mouth. Takes 80 mg am and 40 mg afternoon [facility] metoprolol tartrate 50 mg tablet 07-08 14:49: 49 Yes 50mg Take 50 mg by mouth daily. [facility] warfarin sodium (COUMADIN ORAL) 07-08 14:49: 49 Yes Take by mouth. 3.5 mg daily [facility] losartan 50 mg tablet 07-08 14:49: 49 Yes 50mg Take 50 mg by mouth daily. [facility] pantoprazol e 40 mg EC tablet 07-08 14:49: 49 Yes 40mg Take 40 mg by mouth daily. [facility] furosemide 40 mg tablet 07-08 14:49: 49 Yes 40mg Take 40 mg by mouth. Takes 80 mg am and 40 mg afternoon [facility] metoprolol tartrate 50 mg tablet 07-08 14:49: 49 Yes 50mg Take 50 mg by mouth daily. [facility] allopurinoL 300 mg tablet 07-08 14:48: 41 Yes 300mg Take 300 mg by mouth daily. [facility] allopurinoL 300 mg tablet 07-08 14:48: 41 Yes 300mg Take 300 mg by mouth daily. [facility] allopurinoL 300 mg tablet 07-08 14:48: 41 Yes 300mg Take 300 mg by mouth daily. [facility] allopurinoL 300 mg tablet 07-08 14:48: 41 Yes 300mg Take 300 mg by mouth daily. [facility] allopurinoL 300 mg tablet 07-08 14:48: 41 Yes 300mg Take 300 mg by mouth daily. [facility] allopurinoL 300 mg tablet 07-08 14:48: 41 Yes 300mg Take 300 mg by mouth daily. [facility] allopurinoL 300 mg tablet 07-08 14:48: 41 Yes 300mg Take 300 mg by mouth daily. [facility] allopurinoL 300 mg tablet 07-08 14:48: 41 Yes 300mg Take 300 mg by mouth daily. [facility] allopurinoL 300 mg tablet 07-08 14:48: 41 Yes 300mg Take 300 mg by mouth daily. [facility] allopurinoL 300 mg tablet 07-08 14:48: 41 Yes 300mg Take 300 mg by mouth daily. [facility] allopurinoL 300 mg tablet 07-08 14:48: 41 Yes 300mg Take 300 mg by mouth daily. [facility] allopurinoL 300 mg tablet 07-08 14:48: 41 Yes 300mg Take 300 mg by mouth daily. [facility] allopurinoL 300 mg tablet 2019-0 310 14:48: 41 Yes 300mg Take 300 mg by mouth daily. [facility] allopurinoL 300 mg tablet 2020-0 310 14:48: 41 Yes 300mg Take 300 mg by mouth daily. [facility] allopurinoL 300 mg tablet 2020-0 310 14:48: 41 Yes 300mg Take 300 mg by mouth daily. [facility] allopurinoL 300 mg tablet 2019-0 310 14:48: 41 Yes 300mg Take 300 mg by mouth daily. [facility] allopurinoL 300 mg tablet 2019-0 310 14:48: 41 Yes 300mg Take 300 mg by mouth daily. [facility] allopurinoL 300 mg tablet 0 310 14:48: 41 Yes 300mg Take 300 mg by mouth daily. [facility] allopurinoL 300 mg tablet 2019-0 310 14:48: 41 Yes 300mg Take 300 mg by mouth daily. [facility] allopurinoL 300 mg tablet 2019-0 310 14:48: 41 Yes 300mg Take 300 mg by mouth daily. [facility] allopurinoL 300 mg tablet 0 310 14:48: 41 Yes 300mg Take 300 mg by mouth daily. [facility] allopurinoL 300 mg tablet 0 310 14:48: 41 Yes 300mg Take 300 mg by mouth daily. [facility] allopurinoL 300 mg tablet 2019-0 310 14:48: 41 Yes 300mg Take 300 mg by mouth daily. [facility] allopurinoL 300 mg tablet 2019-0 310 14:48: 41 Yes 300mg Take 300 mg by mouth daily. [facility] allopurinoL 300 mg tablet 2019-0 310 14:48: 41 Yes 300mg Take 300 mg by mouth daily. [facility] allopurinoL 300 mg tablet 2019-0 310 14:48: 41 Yes 300mg Take 300 mg by mouth daily. [facility] allopurinoL 300 mg tablet 2020-0 3-10 14:48: 41 Yes 300mg Take 300 mg by mouth daily. [facility] allopurinoL 300 mg tablet 2020-0 3-10 14:48: 41 Yes 300mg Take 300 mg by mouth daily. [facility] allopurinoL 300 mg tablet 2020-0 310 14:48: 41 Yes 300mg Take 300 mg by mouth daily. [facility] allopurinoL 300 mg tablet 2020-0 310 14:48: 41 Yes 300mg Take 300 mg by mouth daily. [facility] allopurinoL 300 mg tablet 2020-0 310 14:48: 41 Yes 300mg Take 300 mg by mouth daily. [facility] allopurinoL 300 mg tablet 2019-0 310 14:48: 41 Yes 300mg Take 300 mg by mouth daily. [facility] allopurinoL 300 mg tablet 2020-0 310 14:48: 41 Yes 300mg Take 300 mg by mouth daily. [facility] allopurinoL 300 mg tablet 2019-0 310 14:48: 41 Yes 300mg Take 300 mg by mouth daily. [facility] allopurinoL 300 mg tablet 2019-0 310 14:48: 41 Yes 300mg Take 300 mg by mouth daily. [facility] allopurinoL 300 mg tablet 2019-0 310 14:48: 41 Yes 300mg Take 300 mg by mouth daily. [facility] allopurinoL 300 mg tablet 0 310 14:48: 41 Yes 300mg Take 300 mg by mouth daily. [facility] allopurinoL 300 mg tablet 2019-0 310 14:48: 41 Yes 300mg Take 300 mg by mouth daily. [facility] allopurinoL 300 mg tablet 2020-0 310 14:48: 41 Yes 300mg Take 300 mg by mouth daily. [facility] allopurinoL 300 mg tablet 2019-0 310 14:48: 41 Yes 300mg Take 300 mg by mouth daily. [facility] allopurinoL 300 mg tablet 2020-0 310 14:48: 41 Yes 300mg Take 300 mg by mouth daily. [facility] allopurinoL 300 mg tablet 2020-0 3-10 14:48: 41 Yes 300mg Take 300 mg by mouth daily. [facility] allopurinoL 300 mg tablet 2020-0 3-10 14:48: 41 Yes 300mg Take 300 mg by mouth daily. [facility] atorvastati n 10 mg tablet 2020-0 3-10 09:51: 15 Yes 10mg Take 10 mg by mouth at bedtime. [facility] atorvastati n 10 mg tablet 2020-0 3-10 09:51: 15 Yes 10mg Take 10 mg by mouth at bedtime. [facility] atorvastati n 10 mg tablet 2020-0 310 09:51: 15 Yes 10mg Take 10 mg by mouth at bedtime. [facility] atorvastati n 10 mg tablet 2020-0 310 09:51: 15 Yes 10mg Take 10 mg by mouth at bedtime. [facility] atorvastati n 10 mg tablet 2020-0 310 09:51: 15 Yes 10mg Take 10 mg by mouth at bedtime. [facility] atorvastati n 10 mg tablet 2020-0 310 09:51: 15 Yes 10mg Take 10 mg by mouth at bedtime. [facility] atorvastati n 10 mg tablet 2020-0 310 09:51: 15 Yes 10mg Take 10 mg by mouth at bedtime. [facility] atorvastati n 10 mg tablet 2020-0 310 09:51: 15 Yes 10mg Take 10 mg by mouth at bedtime. [facility] atorvastati n 10 mg tablet 2020-0 3-10 09:51: 15 Yes 10mg Take 10 mg by mouth at bedtime. [facility] atorvastati n 10 mg tablet 2020-0 3-10 09:51: 15 Yes 10mg Take 10 mg by mouth at bedtime. [facility] atorvastati n 10 mg tablet 2020-0 3-10 09:51: 15 Yes 10mg Take 10 mg by mouth at bedtime. [facility] atorvastati n 10 mg tablet 2020-0 3-10 09:51: 15 Yes 10mg Take 10 mg by mouth at bedtime. [facility] atorvastati n 10 mg tablet 2020-0 3-10 09:51: 15 Yes 10mg Take 10 mg by mouth at bedtime. [facility] atorvastati n 10 mg tablet 2020-0 310 09:51: 15 Yes 10mg Take 10 mg by mouth at bedtime. [facility] atorvastati n 10 mg tablet 2020-0 310 09:51: 15 Yes 10mg Take 10 mg by mouth at bedtime. [facility] atorvastati n 10 mg tablet 2020-0 3-10 09:51: 15 Yes 10mg Take 10 mg by mouth at bedtime. [facility] atorvastati n 10 mg tablet 2020-0 310 09:51: 15 Yes 10mg Take 10 mg by mouth at bedtime. [facility] atorvastati n 10 mg tablet 2020-0 310 09:51: 15 Yes 10mg Take 10 mg by mouth at bedtime. [facility] atorvastati n 10 mg tablet 2020-0 310 09:51: 15 Yes 10mg Take 10 mg by mouth at bedtime. [facility] atorvastati n 10 mg tablet 2020-0 310 09:51: 15 Yes 10mg Take 10 mg by mouth at bedtime. [facility] atorvastati n 10 mg tablet 2020-0 310 09:51: 15 Yes 10mg Take 10 mg by mouth at bedtime. [facility] atorvastati n 10 mg tablet 2020-0 3-10 09:51: 15 Yes 10mg Take 10 mg by mouth at bedtime. [facility] atorvastati n 10 mg tablet 2020-0 310 09:51: 15 Yes 10mg Take 10 mg by mouth at bedtime. [facility] atorvastati n 10 mg tablet 2020-0 3-10 09:51: 15 Yes 10mg Take 10 mg by mouth at bedtime. [facility] atorvastati n 10 mg tablet 2020-0 3-10 09:51: 15 Yes 10mg Take 10 mg by mouth at bedtime. [facility] atorvastati n 10 mg tablet 2020-0 310 09:51: 15 Yes 10mg Take 10 mg by mouth at bedtime. [facility] atorvastati n 10 mg tablet 2020-0 310 09:51: 15 Yes 10mg Take 10 mg by mouth at bedtime. [facility] atorvastati n 10 mg tablet 2020-0 10 09:51: 15 Yes 10mg Take 10 mg by mouth at bedtime. [facility] atorvastati n 10 mg tablet 2020-0 10 09:51: 15 Yes 10mg Take 10 mg by mouth at bedtime. [facility] atorvastati n 10 mg tablet 2020-0 10 09:51: 15 Yes 10mg Take 10 mg by mouth at bedtime. [facility] atorvastati n 10 mg tablet 2020-0 10 09:51: 15 Yes 10mg Take 10 mg by mouth at bedtime. [facility] atorvastati n 10 mg tablet 2020-0 10 09:51: 15 Yes 10mg Take 10 mg by mouth at bedtime. [facility] atorvastati n 10 mg tablet 2020-0 10 09:51: 15 Yes 10mg Take 10 mg by mouth at bedtime. [facility] atorvastati n 10 mg tablet 2020-0 10 09:51: 15 Yes 10mg Take 10 mg by mouth at bedtime. [facility] atorvastati n 10 mg tablet 2020-0 310 09:51: 15 Yes 10mg Take 10 mg by mouth at bedtime. [facility] atorvastati n 10 mg tablet 2020-0 310 09:51: 15 Yes 10mg Take 10 mg by mouth at bedtime. [facility] atorvastati n 10 mg tablet 2020-0 310 09:51: 15 Yes 10mg Take 10 mg by mouth at bedtime. [facility] atorvastati n 10 mg tablet 2020-0 310 09:51: 15 Yes 10mg Take 10 mg by mouth at bedtime. [facility] atorvastati n 10 mg tablet 2020-0 3-10 09:51: 15 Yes 10mg Take 10 mg by mouth at bedtime. [facility] atorvastati n 10 mg tablet 2020-0 3-10 09:51: 15 Yes 10mg Take 10 mg by mouth at bedtime. [facility] atorvastati n 10 mg tablet 2020-0 310 09:51: 15 Yes 10mg Take 10 mg by mouth at bedtime. [facility] atorvastati n 10 mg tablet 2020-0 310 09:51: 15 Yes 10mg Take 10 mg by mouth at bedtime. [facility] atorvastati n 10 mg tablet 2020-0 310 09:51: 15 Yes 10mg Take 10 mg by mouth at bedtime. [facility] atorvastati n 10 mg tablet 2020-0 310 09:51: 15 Yes 10mg Take 10 mg by mouth at bedtime. [facility] atorvastati n 10 mg tablet 2020-0 310 09:51: 15 Yes 10mg Take 10 mg by mouth at bedtime. [facility] atorvastati n 10 mg tablet 2020-0 310 09:51: 15 Yes 10mg Take 10 mg by mouth at bedtime. [facility] atorvastati n 10 mg tablet 2020-0 310 09:51: 15 Yes 10mg Take 10 mg by mouth at bedtime. [facility] atorvastati n 10 mg tablet 2020-0 310 09:51: 15 Yes 10mg Take 10 mg by mouth at bedtime. [facility] atorvastati n 10 mg tablet 2020-0 3-10 09:51: 15 Yes 10mg Take 10 mg by mouth at bedtime. [facility] atorvastati n 10 mg tablet 2020-0 310 09:51: 15 Yes 10mg Take 10 mg by mouth at bedtime. [facility] atorvastati n 10 mg tablet 2020-0 310 09:51: 15 Yes 10mg Take 10 mg by mouth at bedtime. [facility] atorvastati n 10 mg tablet 2020-0 3-10 09:51: 15 Yes 10mg Take 10 mg by mouth at bedtime. [facility] atorvastati n 10 mg tablet 2020-0 3-10 09:51: 15 Yes 10mg Take 10 mg by mouth at bedtime. [facility] atorvastati n 10 mg tablet 2020-0 3-10 09:51: 15 Yes 10mg Take 10 mg by mouth at bedtime. [facility] atorvastati n 10 mg tablet 2020-0 3-10 09:51: 15 Yes 10mg Take 10 mg by mouth at bedtime. [facility] atorvastati n 10 mg tablet 2020-0 310 09:51: 15 Yes 10mg Take 10 mg by mouth at bedtime. [facility] atorvastati n 10 mg tablet 2020-0 310 09:51: 15 Yes 10mg Take 10 mg by mouth at bedtime. [facility] atorvastati n 10 mg tablet 2020-0 310 09:51: 15 Yes 10mg Take 10 mg by mouth at bedtime. [facility] atorvastati n 10 mg tablet 2020-0 310 09:51: 15 Yes 10mg Take 10 mg by mouth at bedtime. [facility] atorvastati n 10 mg tablet 2020-0 310 09:51: 15 Yes 10mg Take 10 mg by mouth at bedtime. [facility] atorvastati n 10 mg tablet 2020-0 3-10 09:51: 15 Yes 10mg Take 10 mg by mouth at bedtime. [facility] atorvastati n 10 mg tablet 2020-0 3-10 09:51: 15 Yes 10mg Take 10 mg by mouth at bedtime. [facility] atorvastati n 10 mg tablet 2020-0 3-10 09:51: 15 Yes 10mg Take 10 mg by mouth at bedtime. [facility] atorvastati n 10 mg tablet 2020-0 3-10 09:51: 15 Yes 10mg Take 10 mg by mouth at bedtime. [facility] atorvastati n 10 mg tablet 2020-0 3-10 09:51: 15 Yes 10mg Take 10 mg by mouth at bedtime. [facility] atorvastati n 10 mg tablet 2020-0 3-10 09:51: 15 Yes 10mg Take 10 mg by mouth at bedtime. [facility] atorvastati n 10 mg tablet 2020-0 3-10 09:51: 15 Yes 10mg Take 10 mg by mouth at bedtime. [facility] atorvastati n 10 mg tablet 2020-0 3-10 09:51: 15 Yes 10mg Take 10 mg by mouth at bedtime. [facility] atorvastati n 10 mg tablet 2020-0 310 09:51: 15 Yes 10mg Take 10 mg by mouth at bedtime. [facility] atorvastati n 10 mg tablet 2020-0 310 09:51: 15 Yes 10mg Take 10 mg by mouth at bedtime. [facility] atorvastati n 10 mg tablet 2020-0 310 09:51: 15 Yes 10mg Take 10 mg by mouth at bedtime. [facility] atorvastati n 10 mg tablet 2020-0 310 09:51: 15 Yes 10mg Take 10 mg by mouth at bedtime. [facility] atorvastati n 10 mg tablet 2020-0 310 09:51: 15 Yes 10mg Take 10 mg by mouth at bedtime. [facility] atorvastati n 10 mg tablet 2020-0 310 09:51: 15 Yes 10mg Take 10 mg by mouth at bedtime. [facility] atorvastati n 10 mg tablet 2020-0 310 09:51: 15 Yes 10mg Take 10 mg by mouth at bedtime. [facility] atorvastati n 10 mg tablet 2020-0 3-10 09:51: 15 Yes 10mg Take 10 mg by mouth at bedtime. [facility] atorvastati n 10 mg tablet 2020-0 3-10 09:51: 15 Yes 10mg Take 10 mg by mouth at bedtime. [facility] atorvastati n 10 mg tablet 2020-0 3-10 09:51: 15 Yes 10mg Take 10 mg by mouth at bedtime. [facility] atorvastati n 10 mg tablet 2020-0 3-10 09:51: 15 Yes 10mg Take 10 mg by mouth at bedtime. [facility] atorvastati n 10 mg tablet 2020-0 3-10 09:51: 15 Yes 10mg Take 10 mg by mouth at bedtime. [facility] tamsulosin 0.4 mg 24 hr capsule 2020-0 3-10 09:50: 23 Yes Take by mouth daily. [facility] tamsulosin 0.4 mg 24 hr capsule 2020-0 3-10 09:50: 23 Yes Take by mouth daily. [facility] tamsulosin 0.4 mg 24 hr capsule 2020-0 3-10 09:50: 23 Yes Take by mouth daily. [facility] tamsulosin 0.4 mg 24 hr capsule 2020-0 3-10 09:50: 23 Yes Take by mouth daily. [facility] tamsulosin 0.4 mg 24 hr capsule 2020-0 3-10 09:50: 23 Yes Take by mouth daily. [facility] tamsulosin 0.4 mg 24 hr capsule 2020-0 3-10 09:50: 23 Yes Take by mouth daily. [facility] tamsulosin 0.4 mg 24 hr capsule 2020-0 3-10 09:50: 23 Yes Take by mouth daily. [facility] tamsulosin 0.4 mg 24 hr capsule 2020-0 3-10 09:50: 23 Yes Take by mouth daily. [facility] tamsulosin 0.4 mg 24 hr capsule 2020-0 3-10 09:50: 23 Yes Take by mouth daily. [facility] tamsulosin 0.4 mg 24 hr capsule 2020-0 3-10 09:50: 23 Yes Take by mouth daily. [facility] tamsulosin 0.4 mg 24 hr capsule 2020-0 3-10 09:50: 23 Yes Take by mouth daily. [facility] tamsulosin 0.4 mg 24 hr capsule 2020-0 3-10 09:50: 23 Yes Take by mouth daily. [facility] tamsulosin 0.4 mg 24 hr capsule 2020-0 3-10 09:50: 23 Yes Take by mouth daily. [facility] tamsulosin 0.4 mg 24 hr capsule 2020-0 3-10 09:50: 23 Yes Take by mouth daily. [facility] tamsulosin 0.4 mg 24 hr capsule 2020-0 3-10 09:50: 23 Yes Take by mouth daily. [facility] tamsulosin 0.4 mg 24 hr capsule 2020-0 3-10 09:50: 23 Yes Take by mouth daily. [facility] tamsulosin 0.4 mg 24 hr capsule 2020-0 3-10 09:50: 23 Yes Take by mouth daily. [facility] tamsulosin 0.4 mg 24 hr capsule 2020-0 3-10 09:50: 23 Yes Take by mouth daily. [facility] tamsulosin 0.4 mg 24 hr capsule 2020-0 3-10 09:50: 23 Yes Take by mouth daily. [facility] tamsulosin 0.4 mg 24 hr capsule 2020-0 3-10 09:50: 23 Yes Take by mouth daily. [facility] tamsulosin 0.4 mg 24 hr capsule 2020-0 3-10 09:50: 23 Yes Take by mouth daily. [facility] tamsulosin 0.4 mg 24 hr capsule 2020-0 3-10 09:50: 23 Yes Take by mouth daily. [facility] tamsulosin 0.4 mg 24 hr capsule 2020-0 3-10 09:50: 23 Yes Take by mouth daily. [facility] tamsulosin 0.4 mg 24 hr capsule 2020-0 3-10 09:50: 23 Yes Take by mouth daily. [facility] tamsulosin 0.4 mg 24 hr capsule 2020-0 3-10 09:50: 23 Yes Take by mouth daily. [facility] tamsulosin 0.4 mg 24 hr capsule 2020-0 3-10 09:50: 23 Yes Take by mouth daily. [facility] tamsulosin 0.4 mg 24 hr capsule 2020-0 3-10 09:50: 23 Yes Take by mouth daily. [facility] tams[facility] 0.4 mg 24 hr capsule 2020-0 3-10 09:50: 23 Yes Take by mouth daily. [facility] tamsulosin 0.4 mg 24 hr capsule 2020-0 3-10 09:50: 23 Yes Take by mouth daily. [facility] tamsulosin 0.4 mg 24 hr capsule 2020-0 3-10 09:50: 23 Yes Take by mouth daily. [facility] tamsulosin 0.4 mg 24 hr capsule 2020-0 3-10 09:50: 23 Yes Take by mouth daily. [facility]4 [facility] 24 hr capsule 2020-0 3-10 09:50: 23 Yes Take by mouth daily. [facility] tamsulosin 0.4 mg 24 hr capsule 2020-0 3-10 09:50: 23 Yes Take by mouth daily. [facility] tamsulosin 0.4 mg 24 hr capsule 2020-0 3-10 09:50: 23 Yes Take by mouth daily. [facility]4 [facility] 24 hr capsule 2020-0 3-10 09:50: 23 Yes Take by mouth daily. [facility].4 mg 24 hr capsule 2020-0 3-10 09:50: 23 Yes Take by mouth daily. [facility].4 mg 24 hr capsule 2020-0 3-10 09:50: 23 Yes Take by mouth daily. [facility] tamsulosin 0.4 mg 24 hr capsule 2020-0 3-10 09:50: 23 Yes Take by mouth daily. [facility] tamsulosin 0.4 mg 24 hr capsule 2020-0 3-10 09:50: 23 Yes Take by mouth daily. [facility] tamsulosin 0.4 mg 24 hr capsule 2020-0 3-10 09:50: 23 Yes Take by mouth daily. [facility] tamsulosin 0.4 mg 24 hr capsule 2020-0 3-10 09:50: 23 Yes Take by mouth daily. [facility].4 mg 24 hr capsule 2020-0 3-10 09:50: 23 Yes Take by mouth daily. [facility] tamsulosin 0.4 mg 24 hr capsule 2020-0 3-10 09:50: 23 Yes Take by mouth daily. [facility] tamsulosin 0.4 mg 24 hr capsule 2020-0 3-10 09:50: 23 Yes Take by mouth daily. [facility] tamsulosin 0.4 mg 24 hr capsule 2020-0 3-10 09:50: 23 Yes Take by mouth daily. [facility] tamsulosin 0.4 mg 24 hr capsule 2020-0 3-10 09:50: 23 Yes Take by mouth daily. [facility] tamsulosin 0.4 mg 24 hr capsule 2020-0 3-10 09:50: 23 Yes Take by mouth daily. [facility] tamsulosin 0.4 mg 24 hr capsule 2020-0 3-10 09:50: 23 Yes Take by mouth daily. [facility] tamsulosin 0.4 mg 24 hr capsule 2020-0 3-10 09:50: 23 Yes Take by mouth daily. [facility] tamsulosin 0.4 mg 24 hr capsule 2020-0 3-10 09:50: 23 Yes Take by mouth daily. [facility] tamsulosin 0.4 mg 24 hr capsule 2020-0 3-10 09:50: 23 Yes Take by mouth daily. [facility] tamsulosin 0.4 mg 24 hr capsule 2020-0 3-10 09:50: 23 Yes Take by mouth daily. [facility]y [facility] tamsulosin 0.4 mg 24 hr capsule 2020-0 3-10 09:50: 23 Yes Take by mouth daily. [facility] tamsulosin 0.4 mg 24 hr capsule 2020-0 3-10 09:50: 23 Yes Take by mouth daily. [facility]y [facility] tamsulosin 0.4 mg 24 hr capsule 2020-0 3-10 09:50: 23 Yes Take by mouth daily. [facility] tamsulosin 0.4 mg 24 hr capsule 2020-0 3-10 09:50: 23 Yes Take by mouth daily. [facility] tamsulosin 0.4 mg 24 hr capsule 2020-0 3-10 09:50: 23 Yes Take by mouth daily. [facility] [place] [facility] tamsulosin 0.4 mg 24 hr capsule 2020-0 3-10 09:50: 23 Yes Take by mouth daily. [facility] tamsulosin 0.4 mg 24 hr capsule 2020-0 3-10 09:50: 23 Yes Take by mouth daily. [facility] [place] [facility] tamsulosin 0.4 mg 24 hr capsule 2020-0 3-10 09:50: 23 Yes Take by mouth daily. [facility] tamsulosin 0.4 mg 24 hr capsule 2020-0 3-10 09:50: 23 Yes Take by mouth daily. [facility] tamsulosin 0.4 mg 24 hr capsule 2020-0 3-10 09:50: 23 Yes Take by mouth daily. [facility] tamsulosin 0.4 mg 24 hr capsule 2020-0 3-10 09:50: 23 Yes Take by mouth daily. [facility] tamsulosin 0.4 mg 24 hr capsule 2020-0 3-10 09:50: 23 Yes Take by mouth daily. [facility] tamsulosin 0.4 mg 24 hr capsule 2020-0 3-10 09:50: 23 Yes Take by mouth daily. [facility] tamsulosin 0.4 mg 24 hr capsule 2020-0 3-10 09:50: 23 Yes Take by mouth daily. [facility] tamsulosin 0.4 mg 24 hr capsule 2020-0 3-10 09:50: 23 Yes Take by mouth daily. [facility] tamsulosin 0.4 mg 24 hr capsule 2020-0 3-10 09:50: 23 Yes Take by mouth daily. [facility] tamsulosin 0.4 mg 24 hr capsule 2020-0 3-10 09:50: 23 Yes Take by mouth daily. [facility] tamsulosin 0.4 mg 24 hr capsule 2020-0 3-10 09:50: 23 Yes Take by mouth daily. [facility] tamsulosin 0.4 mg 24 hr capsule 2020-0 310 09:50: 23 Yes Take by mouth daily. [facility] tamsulosin 0.4 mg 24 hr capsule 2020-0 10 09:50: 23 Yes Take by mouth daily. [facility] tamsulosin 0.4 mg 24 hr capsule 2020-0 10 09:50: 23 Yes Take by mouth daily. [facility] tamsulosin 0.4 mg 24 hr capsule 2020-0 10 09:50: 23 Yes Take by mouth daily. [facility] tamsulosin 0.4 mg 24 hr capsule 2020-0 07-08 09:50: 23 Yes Take by mouth daily. [facility] tamsulosin 0.4 mg 24 hr capsule 0 07-08 09:50: 23 Yes Take by mouth daily. [facility] tamsulosin 0.4 mg 24 hr capsule 2020-0 07-08 09:50: 23 Yes Take by mouth daily. [facility] tamsulosin 0.4 mg 24 hr capsule 2019-0 07-08 09:50: 23 Yes Take by mouth daily. [facility] tamsulosin 0.4 mg 24 hr capsule 2019-0 07-08 09:50: 23 Yes Take by mouth daily. [facility] tamsulosin 0.4 mg 24 hr capsule 2019-0 07-08 09:50: 23 Yes Take by mouth daily. [facility] metoprolol tartrate 50 mg tablet 07-08 09:49: 49 Yes 50mg Take 50 mg by mouth daily. [facility] warfarin sodium (COUMADIN ORAL) 07-08 09:49: 49 Yes Take by mouth. 3.5 mg daily [facility] losartan 50 mg tablet 07-08 09:49: 49 Yes 50mg Take 50 mg by mouth daily. [facility] pantoprazol e 40 mg EC tablet 07-08 09:49: 49 Yes 40mg Take 40 mg by mouth daily. [facility] metoprolol tartrate 50 mg tablet 07-08 09:49: 49 Yes 50mg Take 50 mg by mouth daily. [facility] warfarin sodium (COUMADIN ORAL) 07-08 09:49: 49 Yes Take by mouth. 3.5 mg daily [facility] losartan 50 mg tablet 07-08 09:49: 49 Yes 50mg Take 50 mg by mouth daily. [facility] pantoprazol e 40 mg EC tablet 07-08 09:49: 49 Yes 40mg Take 40 mg by mouth daily. [facility] metoprolol tartrate 50 mg tablet 07-08 09:49: 49 Yes 50mg Take 50 mg by mouth daily. [facility] warfarin sodium (COUMADIN ORAL) 07-08 09:49: 49 Yes Take by mouth. 3.5 mg daily [facility] losartan 50 mg tablet 07-08 09:49: 49 Yes 50mg Take 50 mg by mouth daily. [facility] pantoprazol e 40 mg EC tablet 07-08 09:49: 49 Yes 40mg Take 40 mg by mouth daily. [facility] metoprolol tartrate 50 mg tablet 07-08 09:49: 49 Yes 50mg Take 50 mg by mouth daily. [facility] warfarin sodium (COUMADIN ORAL) 07-08 09:49: 49 Yes Take by mouth. 3.5 mg daily [facility] losartan 50 mg tablet 07-08 09:49: 49 Yes 50mg Take 50 mg by mouth daily. [facility] pantoprazol e 40 mg EC tablet 07-08 09:49: 49 Yes 40mg Take 40 mg by mouth daily. [facility] metoprolol tartrate 50 mg tablet 07-08 09:49: 49 Yes 50mg Take 50 mg by mouth daily. [facility] losartan 50 mg tablet 07-08 09:49: 49 Yes 50mg Take 50 mg by mouth daily. [facility] pantoprazol e 40 mg EC tablet 07-08 09:49: 49 Yes 40mg Take 40 mg by mouth daily. [facility] metoprolol tartrate 50 mg tablet 07-08 09:49: 49 Yes 50mg Take 50 mg by mouth daily. [facility] losartan 50 mg tablet 07-08 09:49: 49 Yes 50mg Take 50 mg by mouth daily. [facility] pantoprazol e 40 mg EC tablet 07-08 09:49: 49 Yes 40mg Take 40 mg by mouth daily. [facility] metoprolol tartrate 50 mg tablet 07-08 09:49: 49 Yes 50mg Take 50 mg by mouth daily. [facility] losartan 50 mg tablet 07-08 09:49: 49 Yes 50mg Take 50 mg by mouth daily. [facility] pantoprazol e 40 mg EC tablet 07-08 09:49: 49 Yes 40mg Take 40 mg by mouth daily. [facility] metoprolol tartrate 50 mg tablet 07-08 09:49: 49 Yes 50mg Take 50 mg by mouth daily. [facility] losartan 50 mg tablet 07-08 09:49: 49 Yes 50mg Take 50 mg by mouth daily. [facility] pantoprazol e 40 mg EC tablet 07-08 09:49: 49 Yes 40mg Take 40 mg by mouth daily. [facility] metoprolol tartrate 50 mg tablet 07-08 09:49: 49 Yes 50mg Take 50 mg by mouth daily. [facility] losartan 50 mg tablet 07-08 09:49: 49 Yes 50mg Take 50 mg by mouth daily. [facility] pantoprazol e 40 mg EC tablet 07-08 09:49: 49 Yes 40mg Take 40 mg by mouth daily. [facility] metoprolol tartrate 50 mg tablet 07-08 09:49: 49 Yes 50mg Take 50 mg by mouth daily. [facility] losartan 50 mg tablet 07-08 09:49: 49 Yes 50mg Take 50 mg by mouth daily. [facility] pantoprazol e 40 mg EC tablet 07-08 09:49: 49 Yes 40mg Take 40 mg by mouth daily. [facility] metoprolol tartrate 50 mg tablet 0 07-08 09:49: 49 Yes 50mg Take 50 mg by mouth daily. [facility] losartan 50 mg tablet 0 07-08 09:49: 49 Yes 50mg Take 50 mg by mouth daily. [facility] pantoprazol e 40 mg EC tablet 0 07-08 09:49: 49 Yes 40mg Take 40 mg by mouth daily. [facility] metoprolol tartrate 50 mg tablet 0 07-08 09:49: 49 Yes 50mg Take 50 mg by mouth daily. [facility] losartan 50 mg tablet 0 07-08 09:49: 49 Yes 50mg Take 50 mg by mouth daily. [facility] pantoprazol e 40 mg EC tablet 07-08 09:49: 49 Yes 40mg Take 40 mg by mouth daily. [facility] metoprolol tartrate 50 mg tablet 07-08 09:49: 49 Yes 50mg Take 50 mg by mouth daily. [facility] losartan 50 mg tablet 0 07-08 09:49: 49 Yes 50mg Take 50 mg by mouth daily. [facility] pantoprazol e 40 mg EC tablet 07-08 09:49: 49 Yes 40mg Take 40 mg by mouth daily. [facility] metoprolol tartrate 50 mg tablet 07-08 09:49: 49 Yes 50mg Take 50 mg by mouth daily. [facility] losartan 50 mg tablet 0 07-08 09:49: 49 Yes 50mg Take 50 mg by mouth daily. [facility] pantoprazol e 40 mg EC tablet 07-08 09:49: 49 Yes 40mg Take 40 mg by mouth daily. [facility] metoprolol tartrate 50 mg tablet 0 07-08 09:49: 49 Yes 50mg Take 50 mg by mouth daily. [facility] losartan 50 mg tablet 0 07-08 09:49: 49 Yes 50mg Take 50 mg by mouth daily. [facility] pantoprazol e 40 mg EC tablet 0 07-08 09:49: 49 Yes 40mg Take 40 mg by mouth daily. [facility] metoprolol tartrate 50 mg tablet 0 07-08 09:49: 49 Yes 50mg Take 50 mg by mouth daily. [facility] losartan 50 mg tablet 0 07-08 09:49: 49 Yes 50mg Take 50 mg by mouth daily. [facility] pantoprazol e 40 mg EC tablet 07-08 09:49: 49 Yes 40mg Take 40 mg by mouth daily. [facility] metoprolol tartrate 50 mg tablet 0 07-08 09:49: 49 Yes 50mg Take 50 mg by mouth daily. [facility] losartan 50 mg tablet 07-08 09:49: 49 Yes 50mg Take 50 mg by mouth daily. [facility] pantoprazol e 40 mg EC tablet 07-08 09:49: 49 Yes 40mg Take 40 mg by mouth daily. [facility] metoprolol tartrate 50 mg tablet 07-08 09:49: 49 Yes 50mg Take 50 mg by mouth daily. [facility] losartan 50 mg tablet 07-08 09:49: 49 Yes 50mg Take 50 mg by mouth daily. [facility] pantoprazol e 40 mg EC tablet 07-08 09:49: 49 Yes 40mg Take 40 mg by mouth daily. [facility] metoprolol tartrate 50 mg tablet 07-08 09:49: 49 Yes 50mg Take 50 mg by mouth daily. [facility] losartan 50 mg tablet 07-08 09:49: 49 Yes 50mg Take 50 mg by mouth daily. [facility] pantoprazol e 40 mg EC tablet 07-08 09:49: 49 Yes 40mg Take 40 mg by mouth daily. [facility] metoprolol tartrate 50 mg tablet 0 07-08 09:49: 49 Yes 50mg Take 50 mg by mouth daily. [facility] losartan 50 mg tablet 07-08 09:49: 49 Yes 50mg Take 50 mg by mouth daily. [facility] pantoprazol e 40 mg EC tablet 0 07-08 09:49: 49 Yes 40mg Take 40 mg by mouth daily. [facility] metoprolol tartrate 50 mg tablet 0 07-08 09:49: 49 Yes 50mg Take 50 mg by mouth daily. [facility] pantoprazol e 40 mg EC tablet 0 07-08 09:49: 49 Yes 40mg Take 40 mg by mouth daily. [facility] metoprolol tartrate 50 mg tablet 07-08 09:49: 49 Yes 50mg Take 50 mg by mouth daily. [facility] pantoprazol e 40 mg EC tablet 0 07-08 09:49: 49 Yes 40mg Take 40 mg by mouth daily. [facility] metoprolol tartrate 50 mg tablet 0 07-08 09:49: 49 Yes 50mg Take 50 mg by mouth daily. [facility] pantoprazol e 40 mg EC tablet 07-08 09:49: 49 Yes 40mg Take 40 mg by mouth daily. [facility] metoprolol tartrate 50 mg tablet 07-08 09:49: 49 Yes 50mg Take 50 mg by mouth daily. [facility] pantoprazol e 40 mg EC tablet 0 07-08 09:49: 49 Yes 40mg Take 40 mg by mouth daily. [facility] metoprolol tartrate 50 mg tablet 07-08 09:49: 49 Yes 50mg Take 50 mg by mouth daily. [facility] pantoprazol e 40 mg EC tablet 07-08 09:49: 49 Yes 40mg Take 40 mg by mouth daily. [facility] metoprolol tartrate 50 mg tablet 07-08 09:49: 49 Yes 50mg Take 50 mg by mouth daily. [facility] pantoprazol e 40 mg EC tablet 0 07-08 09:49: 49 Yes 40mg Take 40 mg by mouth daily. [facility] pantoprazol e 40 mg EC tablet 07-08 09:49: 49 Yes 40mg Take 40 mg by mouth daily. [facility] pantoprazol e 40 mg EC tablet 0 07-08 09:49: 49 Yes 40mg Take 40 mg by mouth daily. [facility] pantoprazol e 40 mg EC tablet 0 07-08 09:49: 49 Yes 40mg Take 40 mg by mouth daily. [facility] pantoprazol e 40 mg EC tablet 0 07-08 09:49: 49 Yes 40mg Take 40 mg by mouth daily. [facility] pantoprazol e 40 mg EC tablet 0 07-08 09:49: 49 Yes 40mg Take 40 mg by mouth daily. [facility] pantoprazol e 40 mg EC tablet 0 07-08 09:49: 49 Yes 40mg Take 40 mg by mouth daily. [facility] pantoprazol e 40 mg EC tablet 0 07-08 09:49: 49 Yes 40mg Take 40 mg by mouth daily. [facility] pantoprazol e 40 mg EC tablet 0 07-08 09:49: 49 Yes 40mg Take 40 mg by mouth daily. [facility] pantoprazol e 40 mg EC tablet 0 07-08 09:49: 49 Yes 40mg Take 40 mg by mouth daily. [facility] pantoprazol e 40 mg EC tablet 0 07-08 09:49: 49 Yes 40mg Take 40 mg by mouth daily. [facility] pantoprazol e 40 mg EC tablet 0 07-08 09:49: 49 Yes 40mg Take 40 mg by mouth daily. [facility] pantoprazol e 40 mg EC tablet 0 07-08 09:49: 49 Yes 40mg Take 40 mg by mouth daily. [facility] pantoprazol e 40 mg EC tablet 0 07-08 09:49: 49 Yes 40mg Take 40 mg by mouth daily. [facility] pantoprazol e 40 mg EC tablet 0 07-08 09:49: 49 Yes 40mg Take 40 mg by mouth daily. [facility] pantoprazol e 40 mg EC tablet 0 07-08 09:49: 49 Yes 40mg Take 40 mg by mouth daily. [facility] pantoprazol e 40 mg EC tablet 0 07-08 09:49: 49 Yes 40mg Take 40 mg by mouth daily. [facility] pantoprazol e 40 mg EC tablet 0 07-08 09:49: 49 Yes 40mg Take 40 mg by mouth daily. [facility] pantoprazol e 40 mg EC tablet 0 07-08 09:49: 49 Yes 40mg Take 40 mg by mouth daily. [facility] pantoprazol e 40 mg EC tablet 0 07-08 09:49: 49 Yes 40mg Take 40 mg by mouth daily. [facility] pantoprazol e 40 mg EC tablet 07-08 09:49: 49 Yes 40mg Take 40 mg by mouth daily. [facility] pantoprazol e 40 mg EC tablet 0 07-08 09:49: 49 Yes 40mg Take 40 mg by mouth daily. [facility] pantoprazol e 40 mg EC tablet 07-08 09:49: 49 Yes 40mg Take 40 mg by mouth daily. [facility] pantoprazol e 40 mg EC tablet 07-08 09:49: 49 Yes 40mg Take 40 mg by mouth daily. [facility] pantoprazol e 40 mg EC tablet 0 07-08 09:49: 49 Yes 40mg Take 40 mg by mouth daily. [facility] pantoprazol e 40 mg EC tablet 07-08 09:49: 49 Yes 40mg Take 40 mg by mouth daily. [facility] pantoprazol e 40 mg EC tablet 0 07-08 09:49: 49 Yes 40mg Take 40 mg by mouth daily. [facility] pantoprazol e 40 mg EC tablet 0 07-08 09:49: 49 Yes 40mg Take 40 mg by mouth daily. [facility] pantoprazol e 40 mg EC tablet 0 07-08 09:49: 49 Yes 40mg Take 40 mg by mouth daily. [facility] pantoprazol e 40 mg EC tablet 07-08 09:49: 49 Yes 40mg Take 40 mg by mouth daily. [facility] pantoprazol e 40 mg EC tablet 07-08 09:49: 49 Yes 40mg Take 40 mg by mouth daily. [facility] pantoprazol e 40 mg EC tablet 07-08 09:49: 49 Yes 40mg Take 40 mg by mouth daily. [facility] pantoprazol e 40 mg EC tablet 07-08 09:49: 49 Yes 40mg Take 40 mg by mouth daily. [facility] pantoprazol e 40 mg EC tablet 07-08 09:49: 49 Yes 40mg Take 40 mg by mouth daily. [facility] pantoprazol e 40 mg EC tablet 07-08 09:49: 49 Yes 40mg Take 40 mg by mouth daily. [facility] furosemide 40 mg tablet 07-08 09:49: 49 Yes 40mg Take 40 mg by mouth. Takes 80 mg am and 40 mg afternoon [facility] metoprolol tartrate 50 mg tablet 07-08 09:49: 49 Yes 50mg Take 50 mg by mouth daily. [facility] warfarin sodium (COUMADIN ORAL) 07-08 09:49: 49 Yes Take by mouth. 3.5 mg daily [facility] losartan 50 mg tablet 07-08 09:49: 49 Yes 50mg Take 50 mg by mouth daily. [facility] pantoprazol e 40 mg EC tablet 07-08 09:49: 49 Yes 40mg Take 40 mg by mouth daily. [facility] furosemide 40 mg tablet 07-08 09:49: 49 Yes 40mg Take 40 mg by mouth. Takes 80 mg am and 40 mg afternoon [facility] metoprolol tartrate 50 mg tablet 07-08 09:49: 49 Yes 50mg Take 50 mg by mouth daily. [facility] warfarin sodium (COUMADIN ORAL) 07-08 09:49: 49 Yes Take by mouth. 3.5 mg daily [facility] losartan 50 mg tablet 07-08 09:49: 49 Yes 50mg Take 50 mg by mouth daily. [facility] pantoprazol e 40 mg EC tablet 07-08 09:49: 49 Yes 40mg Take 40 mg by mouth daily. [facility] furosemide 40 mg tablet 07-08 09:49: 49 Yes 40mg Take 40 mg by mouth. Takes 80 mg am and 40 mg afternoon [facility] metoprolol tartrate 50 mg tablet 07-08 09:49: 49 Yes 50mg Take 50 mg by mouth daily. [facility] warfarin sodium (COUMADIN ORAL) 07-08 09:49: 49 Yes Take by mouth. 3.5 mg daily [facility] losartan 50 mg tablet 07-08 09:49: 49 Yes 50mg Take 50 mg by mouth daily. [facility] pantoprazol e 40 mg EC tablet 07-08 09:49: 49 Yes 40mg Take 40 mg by mouth daily. [facility] furosemide 40 mg tablet 07-08 09:49: 49 Yes 40mg Take 40 mg by mouth. Takes 80 mg am and 40 mg afternoon [facility] metoprolol tartrate 50 mg tablet 07-08 09:49: 49 Yes 50mg Take 50 mg by mouth daily. [facility] warfarin sodium (COUMADIN ORAL) 07-08 09:49: 49 Yes Take by mouth. 3.5 mg daily [facility] losartan 50 mg tablet 07-08 09:49: 49 Yes 50mg Take 50 mg by mouth daily. [facility] pantoprazol e 40 mg EC tablet 07-08 09:49: 49 Yes 40mg Take 40 mg by mouth daily. [facility] furosemide 40 mg tablet 07-08 09:49: 49 Yes 40mg Take 40 mg by mouth. Takes 80 mg am and 40 mg afternoon [facility] metoprolol tartrate 50 mg tablet 07-08 09:49: 49 Yes 50mg Take 50 mg by mouth daily. [facility] warfarin sodium (COUMADIN ORAL) 07-08 09:49: 49 Yes Take by mouth. 3.5 mg daily [facility] losartan 50 mg tablet 07-08 09:49: 49 Yes 50mg Take 50 mg by mouth daily. [facility] pantoprazol e 40 mg EC tablet 07-08 09:49: 49 Yes 40mg Take 40 mg by mouth daily. [facility] furosemide 40 mg tablet 07-08 09:49: 49 Yes 40mg Take 40 mg by mouth. Takes 80 mg am and 40 mg afternoon [facility] metoprolol tartrate 50 mg tablet 07-08 09:49: 49 Yes 50mg Take 50 mg by mouth daily. [facility] warfarin sodium (COUMADIN ORAL) 07-08 09:49: 49 Yes Take by mouth. 3.5 mg daily [facility] losartan 50 mg tablet 07-08 09:49: 49 Yes 50mg Take 50 mg by mouth daily. [facility] pantoprazol e 40 mg EC tablet 07-08 09:49: 49 Yes 40mg Take 40 mg by mouth daily. [facility] furosemide 40 mg tablet 07-08 09:49: 49 Yes 40mg Take 40 mg by mouth. Takes 80 mg am and 40 mg afternoon [facility] metoprolol tartrate 50 mg tablet 07-08 09:49: 49 Yes 50mg Take 50 mg by mouth daily. [facility] warfarin sodium (COUMADIN ORAL) 07-08 09:49: 49 Yes Take by mouth. 3.5 mg daily [facility] losartan 50 mg tablet 07-08 09:49: 49 Yes 50mg Take 50 mg by mouth daily. [facility] pantoprazol e 40 mg EC tablet 07-08 09:49: 49 Yes 40mg Take 40 mg by mouth daily. [facility] furosemide 40 mg tablet 07-08 09:49: 49 Yes 40mg Take 40 mg by mouth. Takes 80 mg am and 40 mg afternoon [facility] metoprolol tartrate 50 mg tablet 07-08 09:49: 49 Yes 50mg Take 50 mg by mouth daily. [facility] warfarin sodium (COUMADIN ORAL) 07-08 09:49: 49 Yes Take by mouth. 3.5 mg daily [facility] losartan 50 mg tablet 07-08 09:49: 49 Yes 50mg Take 50 mg by mouth daily. [facility] pantoprazol e 40 mg EC tablet 07-08 09:49: 49 Yes 40mg Take 40 mg by mouth daily. [facility] furosemide 40 mg tablet 07-08 09:49: 49 Yes 40mg Take 40 mg by mouth. Takes 80 mg am and 40 mg afternoon [facility] metoprolol tartrate 50 mg tablet 07-08 09:49: 49 Yes 50mg Take 50 mg by mouth daily. [facility] warfarin sodium (COUMADIN ORAL) 07-08 09:49: 49 Yes Take by mouth. 3.5 mg daily [facility] losartan 50 mg tablet 07-08 09:49: 49 Yes 50mg Take 50 mg by mouth daily. [facility] pantoprazol e 40 mg EC tablet 07-08 09:49: 49 Yes 40mg Take 40 mg by mouth daily. [facility] furosemide 40 mg tablet 07-08 09:49: 49 Yes 40mg Take 40 mg by mouth. Takes 80 mg am and 40 mg afternoon [facility] metoprolol tartrate 50 mg tablet 07-08 09:49: 49 Yes 50mg Take 50 mg by mouth daily. [facility] warfarin sodium (COUMADIN ORAL) 07-08 09:49: 49 Yes Take by mouth. 3.5 mg daily [facility] losartan 50 mg tablet 07-08 09:49: 49 Yes 50mg Take 50 mg by mouth daily. [facility] pantoprazol e 40 mg EC tablet 07-08 09:49: 49 Yes 40mg Take 40 mg by mouth daily. [facility] metoprolol tartrate 50 mg tablet 07-08 09:49: 49 Yes 50mg Take 50 mg by mouth daily. [facility] warfarin sodium (COUMADIN ORAL) 07-08 09:49: 49 Yes Take by mouth. 3.5 mg daily [facility] losartan 50 mg tablet 07-08 09:49: 49 Yes 50mg Take 50 mg by mouth daily. [facility] pantoprazol e 40 mg EC tablet 07-08 09:49: 49 Yes 40mg Take 40 mg by mouth daily. [facility] metoprolol tartrate 50 mg tablet 07-08 09:49: 49 Yes 50mg Take 50 mg by mouth daily. [facility] warfarin sodium (COUMADIN ORAL) 07-08 09:49: 49 Yes Take by mouth. 3.5 mg daily [facility] losartan 50 mg tablet 07-08 09:49: 49 Yes 50mg Take 50 mg by mouth daily. [facility] pantoprazol e 40 mg EC tablet 07-08 09:49: 49 Yes 40mg Take 40 mg by mouth daily. [facility] metoprolol tartrate 50 mg tablet 07-08 09:49: 49 Yes 50mg Take 50 mg by mouth daily. [facility] warfarin sodium (COUMADIN ORAL) 07-08 09:49: 49 Yes Take by mouth. 3.5 mg daily [facility] losartan 50 mg tablet 07-08 09:49: 49 Yes 50mg Take 50 mg by mouth daily. [facility] pantoprazol e 40 mg EC tablet 07-08 09:49: 49 Yes 40mg Take 40 mg by mouth daily. [facility] metoprolol tartrate 50 mg tablet 07-08 09:49: 49 Yes 50mg Take 50 mg by mouth daily. [facility] warfarin sodium (COUMADIN ORAL) 07-08 09:49: 49 Yes Take by mouth. 3.5 mg daily [facility] losartan 50 mg tablet 07-08 09:49: 49 Yes 50mg Take 50 mg by mouth daily. [facility] pantoprazol e 40 mg EC tablet 07-08 09:49: 49 Yes 40mg Take 40 mg by mouth daily. [facility] metoprolol tartrate 50 mg tablet 07-08 09:49: 49 Yes 50mg Take 50 mg by mouth daily. [facility] warfarin sodium (COUMADIN ORAL) 07-08 09:49: 49 Yes Take by mouth. 3.5 mg daily [facility] losartan 50 mg tablet 07-08 09:49: 49 Yes 50mg Take 50 mg by mouth daily. [facility] pantoprazol e 40 mg EC tablet 07-08 09:49: 49 Yes 40mg Take 40 mg by mouth daily. [facility] metoprolol tartrate 50 mg tablet 07-08 09:49: 49 Yes 50mg Take 50 mg by mouth daily. [facility] warfarin sodium (COUMADIN ORAL) 07-08 09:49: 49 Yes Take by mouth. 3.5 mg daily [facility] losartan 50 mg tablet 07-08 09:49: 49 Yes 50mg Take 50 mg by mouth daily. [facility] pantoprazol e 40 mg EC tablet 07-08 09:49: 49 Yes 40mg Take 40 mg by mouth daily. [facility] metoprolol tartrate 50 mg tablet 07-08 09:49: 49 Yes 50mg Take 50 mg by mouth daily. [facility] warfarin sodium (COUMADIN ORAL) 07-08 09:49: 49 Yes Take by mouth. 3.5 mg daily [facility] losartan 50 mg tablet 07-08 09:49: 49 Yes 50mg Take 50 mg by mouth daily. [facility] pantoprazol e 40 mg EC tablet 07-08 09:49: 49 Yes 40mg Take 40 mg by mouth daily. [facility] metoprolol tartrate 50 mg tablet 07-08 09:49: 49 Yes 50mg Take 50 mg by mouth daily. [facility] warfarin sodium (COUMADIN ORAL) 07-08 09:49: 49 Yes Take by mouth. 3.5 mg daily [facility] losartan 50 mg tablet 07-08 09:49: 49 Yes 50mg Take 50 mg by mouth daily. [facility] pantoprazol e 40 mg EC tablet 07-08 09:49: 49 Yes 40mg Take 40 mg by mouth daily. [facility] metoprolol tartrate 50 mg tablet 07-08 09:49: 49 Yes 50mg Take 50 mg by mouth daily. [facility] warfarin sodium (COUMADIN ORAL) 07-08 09:49: 49 Yes Take by mouth. 3.5 mg daily [facility] losartan 50 mg tablet 07-08 09:49: 49 Yes 50mg Take 50 mg by mouth daily. [facility] pantoprazol e 40 mg EC tablet 07-08 09:49: 49 Yes 40mg Take 40 mg by mouth daily. [facility] metoprolol tartrate 50 mg tablet 07-08 09:49: 49 Yes 50mg Take 50 mg by mouth daily. [facility] warfarin sodium (COUMADIN ORAL) 07-08 09:49: 49 Yes Take by mouth. 3.5 mg daily [facility] losartan 50 mg tablet 07-08 09:49: 49 Yes 50mg Take 50 mg by mouth daily. [facility] pantoprazol e 40 mg EC tablet 07-08 09:49: 49 Yes 40mg Take 40 mg by mouth daily. [facility] allopurinoL 300 mg tablet 07-08 09:48: 41 Yes 300mg Take 300 mg by mouth daily. [facility] allopurinoL 300 mg tablet 07-08 09:48: 41 Yes 300mg Take 300 mg by mouth daily. [facility] allopurinoL 300 mg tablet 07-08 09:48: 41 Yes 300mg Take 300 mg by mouth daily. [facility] allopurinoL 300 mg tablet 07-08 09:48: 41 Yes 300mg Take 300 mg by mouth daily. [facility] allopurinoL 300 mg tablet 2020-0 310 09:48: 41 Yes 300mg Take 300 mg by mouth daily. [facility] allopurinoL 300 mg tablet 2020-0 310 09:48: 41 Yes 300mg Take 300 mg by mouth daily. [facility] allopurinoL 300 mg tablet 2020-0 3-10 09:48: 41 Yes 300mg Take 300 mg by mouth daily. [facility] allopurinoL 300 mg tablet 2020-0 310 09:48: 41 Yes 300mg Take 300 mg by mouth daily. [facility] allopurinoL 300 mg tablet 2020-0 310 09:48: 41 Yes 300mg Take 300 mg by mouth daily. [facility] allopurinoL 300 mg tablet 2019-0 310 09:48: 41 Yes 300mg Take 300 mg by mouth daily. [facility] allopurinoL 300 mg tablet 2019-0 310 09:48: 41 Yes 300mg Take 300 mg by mouth daily. [facility] allopurinoL 300 mg tablet 2019-0 310 09:48: 41 Yes 300mg Take 300 mg by mouth daily. [facility] allopurinoL 300 mg tablet 2019-0 310 09:48: 41 Yes 300mg Take 300 mg by mouth daily. [facility] allopurinoL 300 mg tablet 2019-0 310 09:48: 41 Yes 300mg Take 300 mg by mouth daily. [facility] allopurinoL 300 mg tablet 2019-0 310 09:48: 41 Yes 300mg Take 300 mg by mouth daily. [facility] allopurinoL 300 mg tablet 2019-0 310 09:48: 41 Yes 300mg Take 300 mg by mouth daily. [facility] allopurinoL 300 mg tablet 2020-0 310 09:48: 41 Yes 300mg Take 300 mg by mouth daily. [facility] allopurinoL 300 mg tablet 2020-0 3-10 09:48: 41 Yes 300mg Take 300 mg by mouth daily. [facility] allopurinoL 300 mg tablet 2020-0 310 09:48: 41 Yes 300mg Take 300 mg by mouth daily. [facility] allopurinoL 300 mg tablet 2020-0 310 09:48: 41 Yes 300mg Take 300 mg by mouth daily. [facility] allopurinoL 300 mg tablet 2019-0 310 09:48: 41 Yes 300mg Take 300 mg by mouth daily. [facility] allopurinoL 300 mg tablet 2020-0 310 09:48: 41 Yes 300mg Take 300 mg by mouth daily. [facility] allopurinoL 300 mg tablet 2020-0 310 09:48: 41 Yes 300mg Take 300 mg by mouth daily. [facility] allopurinoL 300 mg tablet 2019-0 3 09:48: 41 Yes 300mg Take 300 mg by mouth daily. [facility] allopurinoL 300 mg tablet 2020-0 310 09:48: 41 Yes 300mg Take 300 mg by mouth daily. [facility] allopurinoL 300 mg tablet 0 10 09:48: 41 Yes 300mg Take 300 mg by mouth daily. [facility] allopurinoL 300 mg tablet 2019-0 310 09:48: 41 Yes 300mg Take 300 mg by mouth daily. [facility] allopurinoL 300 mg tablet 2019-0 10 09:48: 41 Yes 300mg Take 300 mg by mouth daily. [facility] allopurinoL 300 mg tablet 2019-0 310 09:48: 41 Yes 300mg Take 300 mg by mouth daily. [facility] allopurinoL 300 mg tablet 2019-0 310 09:48: 41 Yes 300mg Take 300 mg by mouth daily. [facility] allopurinoL 300 mg tablet 2020-0 310 09:48: 41 Yes 300mg Take 300 mg by mouth daily. [facility] allopurinoL 300 mg tablet 2019-0 310 09:48: 41 Yes 300mg Take 300 mg by mouth daily. [facility] allopurinoL 300 mg tablet 2020-0 3-10 09:48: 41 Yes 300mg Take 300 mg by mouth daily. [facility] allopurinoL 300 mg tablet 2020-0 310 09:48: 41 Yes 300mg Take 300 mg by mouth daily. [facility] allopurinoL 300 mg tablet 2019-0 310 09:48: 41 Yes 300mg Take 300 mg by mouth daily. [facility] allopurinoL 300 mg tablet 2020-0 310 09:48: 41 Yes 300mg Take 300 mg by mouth daily. [facility] allopurinoL 300 mg tablet 2019-0 310 09:48: 41 Yes 300mg Take 300 mg by mouth daily. [facility] allopurinoL 300 mg tablet 2019-0 310 09:48: 41 Yes 300mg Take 300 mg by mouth daily. [facility] allopurinoL 300 mg tablet 2019-0 310 09:48: 41 Yes 300mg Take 300 mg by mouth daily. [facility] allopurinoL 300 mg tablet 2019-0 310 09:48: 41 Yes 300mg Take 300 mg by mouth daily. [facility] allopurinoL 300 mg tablet 2019-0 310 09:48: 41 Yes 300mg Take 300 mg by mouth daily. [facility] allopurinoL 300 mg tablet 2019-0 310 09:48: 41 Yes 300mg Take 300 mg by mouth daily. [facility] allopurinoL 300 mg tablet 2019-0 3 09:48: 41 Yes 300mg Take 300 mg by mouth daily. [facility] allopurinoL 300 mg tablet 2019-0 310 09:48: 41 Yes 300mg Take 300 mg by mouth daily. [facility] allopurinoL 300 mg tablet 2019-0 310 09:48: 41 Yes 300mg Take 300 mg by mouth daily. [facility] allopurinoL 300 mg tablet 2019-0 310 09:48: 41 Yes 300mg Take 300 mg by mouth daily. [facility] allopurinoL 300 mg tablet 2020-0 310 09:48: 41 Yes 300mg Take 300 mg by mouth daily. [facility] allopurinoL 300 mg tablet 2019-0 310 09:48: 41 Yes 300mg Take 300 mg by mouth daily. [facility] allopurinoL 300 mg tablet 2020-0 3-10 09:48: 41 Yes 300mg Take 300 mg by mouth daily. [facility] allopurinoL 300 mg tablet 2020-0 3-10 09:48: 41 Yes 300mg Take 300 mg by mouth daily. [facility] allopurinoL 300 mg tablet 2020-0 3-10 09:48: 41 Yes 300mg Take 300 mg by mouth daily. [facility] allopurinoL 300 mg tablet 2020-0 3-10 09:48: 41 Yes 300mg Take 300 mg by mouth daily. [facility] allopurinoL 300 mg tablet 2020-0 3-10 09:48: 41 Yes 300mg Take 300 mg by mouth daily. [facility] allopurinoL 300 mg tablet 2020-0 310 09:48: 41 Yes 300mg Take 300 mg by mouth daily. [facility] allopurinoL 300 mg tablet 2020-0 310 09:48: 41 Yes 300mg Take 300 mg by mouth daily. [facility] allopurinoL 300 mg tablet 2020-0 310 09:48: 41 Yes 300mg Take 300 mg by mouth daily. [facility] allopurinoL 300 mg tablet 2019-0 310 09:48: 41 Yes 300mg Take 300 mg by mouth daily. [facility] allopurinoL 300 mg tablet 2020-0 310 09:48: 41 Yes 300mg Take 300 mg by mouth daily. [facility] allopurinoL 300 mg tablet 2020-0 310 09:48: 41 Yes 300mg Take 300 mg by mouth daily. [facility] allopurinoL 300 mg tablet 2020-0 310 09:48: 41 Yes 300mg Take 300 mg by mouth daily. [facility] allopurinoL 300 mg tablet 2020-0 310 09:48: 41 Yes 300mg Take 300 mg by mouth daily. [facility] allopurinoL 300 mg tablet 2020-0 3-10 09:48: 41 Yes 300mg Take 300 mg by mouth daily. [facility] allopurinoL 300 mg tablet 2020-0 3-10 09:48: 41 Yes 300mg Take 300 mg by mouth daily. [facility] allopurinoL 300 mg tablet 2020-0 310 09:48: 41 Yes 300mg Take 300 mg by mouth daily. [facility] allopurinoL 300 mg tablet 2020-0 310 09:48: 41 Yes 300mg Take 300 mg by mouth daily. [facility] allopurinoL 300 mg tablet 2020-0 310 09:48: 41 Yes 300mg Take 300 mg by mouth daily. [facility] allopurinoL 300 mg tablet 2020-0 310 09:48: 41 Yes 300mg Take 300 mg by mouth daily. [facility] allopurinoL 300 mg tablet 2019-0 3 09:48: 41 Yes 300mg Take 300 mg by mouth daily. [facility] allopurinoL 300 mg tablet 2019-0 07-08 09:48: 41 Yes 300mg Take 300 mg by mouth daily. [facility] allopurinoL 300 mg tablet 2019-0 07-08 09:48: 41 Yes 300mg Take 300 mg by mouth daily. [facility] allopurinoL 300 mg tablet 2019-0 07-08 09:48: 41 Yes 300mg Take 300 mg by mouth daily. [facility] allopurinoL 300 mg tablet 2019-0 07-08 09:48: 41 Yes 300mg Take 300 mg by mouth daily. [facility] allopurinoL 300 mg tablet 2019-0 10 09:48: 41 Yes 300mg Take 300 mg by mouth daily. [facility] allopurinoL 300 mg tablet 2019-0 10 09:48: 41 Yes 300mg Take 300 mg by mouth daily. [facility] allopurinoL 300 mg tablet 2020-0 310 09:48: 41 Yes 300mg Take 300 mg by mouth daily. [facility] allopurinoL 300 mg tablet 2020-0 310 09:48: 41 Yes 300mg Take 300 mg by mouth daily. [facility] allopurinoL 300 mg tablet 2020-0 310 09:48: 41 Yes 300mg Take 300 mg by mouth daily. [facility] allopurinoL 300 mg tablet 2020-0 3-10 09:48: 41 Yes 300mg Take 300 mg by mouth daily. [facility] allopurinoL 300 mg tablet 07-08 09:48: 41 Yes 300mg Take 300 mg by mouth daily. [facility] allopurinoL 300 mg tablet 07-08 09:48: 41 Yes 300mg Take 300 mg by mouth daily. [facility] Vital Signs Vital Name Observation Time Observation Value Comments [place] [facility] Systolic blood pressure 2023-03-14 15:18:00 109 mm[Hg] [facility] Diastolic blood pressure 2023-03-14 15:18:00 58 mm[Hg] [facility] Heart rate 2023-03-14 15:18:00 86 /min [facility] Body temperature 2023-03-14 15:18:00 36.11 Amber [facility] Systolic blood pressure 2023-01-24 15:16:00 117 mm[Hg] [facility] Diastolic blood pressure 2023-01-24 15:16:00 69 mm[Hg] [facility] Heart rate 2023-01-24 15:16:00 74 /min [facility] Body temperature 2023-01-24 15:16:00 36.17 Amber [facility] Oxygen saturation in Arterial blood by Pulse oximetry 2023-01-24 15:16:00 96 /min [facility] Systolic blood pressure 2022-12-12 16:17:00 105 mm[Hg] [facility] Diastolic blood pressure 2022-12-12 16:17:00 57 mm[Hg] [facility] Heart rate 2022-12-12 16:17:00 71 /min [facility] Body temperature 2022-12-12 16:17:00 36.28 Amber [facility] Oxygen saturation in Arterial blood by Pulse oximetry 2022-12-12 16:17:00 96 /min [facility] Systolic blood pressure 2022-11-09 15:38:00 93 mm[Hg] [facility] Diastolic blood pressure 2022-11-09 15:38:00 46 mm[Hg] [facility] Heart rate 2022-11-09 15:37:00 65 /min [facility] Body temperature 2022-11-09 15:37:00 36.44 Amber [facility] Systolic blood pressure 2022-10-03 15:32:00 134 mm[Hg] [facility] Diastolic blood pressure 2022-10-03 15:32:00 82 mm[Hg] [facility] Heart rate 2022-10-03 15:32:00 93 /min [facility] Respiratory rate 2022-10-03 15:32:00 18 /min [facility] Body height 2022-10-03 15:32:00 182.9 cm [facility] Body weight 2022-10-03 15:32:00 104.327 kg [facility] BMI 2022-10-03 15:32:00 31.19 kg/m2 [facility] Oxygen saturation in Arterial blood by Pulse oximetry 2022-10-03 15:32:00 100 /min [facility] Systolic blood pressure 2022-09-20 18:10:00 103 mm[Hg] [facility] Diastolic blood pressure 2022-09-20 18:10:00 63 mm[Hg] [facility] Heart rate 2022-09-20 18:10:00 89 /min [facility] Body temperature 2022-09-20 18:10:00 36.28 Amber [facility] Systolic blood pressure 2022-09-12 19:06:00 102 mm[Hg] [facility] Diastolic blood pressure 2022-09-12 19:06:00 65 mm[Hg] [facility] Heart rate 2022-09-12 19:06:00 103 /min [facility] Body temperature 2022-09-12 19:06:00 36.72 Amber [facility] Body height 2022-09-12 19:06:00 182.9 cm [facility] Oxygen saturation in Arterial blood by Pulse oximetry 2022-09-12 19:06:00 93 /min [facility] Systolic blood pressure 2022-07-25 16:29:00 121 mm[Hg] [facility] Diastolic blood pressure 2022-07-25 16:29:00 60 mm[Hg] [facility] Heart rate 2022-07-25 16:29:00 89 /min [facility] Body temperature 2022-07-25 16:29:00 36.11 Amber [facility] Systolic blood pressure 2022-07-20 15:38:00 108 mm[Hg] [facility] Diastolic blood pressure 2022-07-20 15:38:00 65 mm[Hg] [facility] Heart rate 2022-07-20 15:38:00 100 /min [facility] Body temperature 2022-07-20 15:38:00 36.33 Amber [facility] Body height 2022-07-20 15:38:00 177.8 cm [facility]terial blood by Pulse oximetry 2022-07-20 15:38:00 95 /min [facility] Systolic blood pressure 2022-06-02 17:30:00 130 mm[Hg] [facility] Diastolic blood pressure 2022-06-02 17:30:00 78 mm[Hg] [facility] Heart rate 2022-06-02 17:30:00 90 /min [facility] Oxygen saturation in Arterial blood by Pulse oximetry 2022-06-02 17:30:00 96 /min [facility] Heart rate 2020-10-14 14:36:00 76 /min [facility] Oxygen saturation in Arterial blood by Pulse oximetry 2020-10-14 14:36:00 94 /min [facility] Systolic blood pressure 2020-10-14 14:17:00 123 mm[Hg] [facility] Diastolic blood pressure 2020-10-14 14:17:00 71 mm[Hg] [facility] Body temperature 2020-10-14 14:17:00 36.67 Amber [facility] Respiratory rate 2020-10-14 14:17:00 17 /min [facility] Body height 2020-10-14 14:17:00 182.9 cm [facility] Body weight 2020-10-14 14:17:00 104.327 kg [facility] BMI 2020-10-14 14:17:00 31.19 kg/m2 [facility] Systolic blood pressure 2020-07-24 14:05:00 103 mm[Hg] [facility] Diastolic blood pressure 2020-07-24 14:05:00 74 mm[Hg] [facility] Heart rate 2020-07-24 14:05:00 79 /min [facility] Body temperature 2020-07-24 14:05:00 36.33 Amber [facility] Systolic blood pressure 2020-07-10 15:50:00 111 mm[Hg] [facility] Diastolic blood pressure 2020-07-10 15:50:00 73 mm[Hg] [facility] Heart rate 2020-07-10 15:50:00 86 /min [facility] Body temperature 2020-07-10 15:50:00 36.89 Amber [facility] Systolic blood pressure 2020-07-05 20:40:00 133 mm[Hg] [facility] Diastolic blood pressure 2020-07-05 20:40:00 91 mm[Hg] [facility] Heart rate 2020-07-05 20:40:00 107 /min [facility] Respiratory rate 2020-07-05 20:40:00 26 /min [facility] Oxygen saturation in Arterial blood by Pulse oximetry 2020-07-05 20:40:00 97 /min [facility] Body temperature 2020-07-05 19:21:00 36.5 Amber [facility] Body weight 2020-07-05 19:21:00 104.327 kg [facility] BMI 2020-07-05 19:21:00 31.19 kg/m2 [facility] Systolic blood pressure 2019-11-16 17:56:00 107 mm[Hg] [facility] Diastolic blood pressure 2019-11-16 17:56:00 63 mm[Hg] [facility] Heart rate 2019-11-16 17:56:00 89 /min [facility] Body temperature 2019-11-16 17:56:00 37.44 Amber [facility] Respiratory rate 2019-11-16 17:56:00 20 /min [facility] Body height 2019-11-16 17:56:00 182.9 cm [facility] Body weight 2019-11-16 17:56:00 104.327 kg [facility] BMI 2019-11-16 17:56:00 31.19 kg/m2 [facility] Oxygen saturation in Arterial blood by Pulse oximetry 2019-11-16 17:56:00 96 /min [facility] Systolic blood pressure 2019-07-09 14:38:00 93 mm[Hg] [facility] Diastolic blood pressure 2019-07-09 14:38:00 68 mm[Hg] [facility] Heart rate 2019-07-09 14:38:00 83 /[facility] 2019-07-09 14:38:00 36.61 Amber [facility] Body weight 2019-07-09 14:38:00 104.327 kg [facility] Oxygen saturation in Arterial blood by Pulse oximetry 2019-07-09 14:38:00 98 /min [facility] Procedures Procedure Date / Time Performed Performing Clinician Source DME/SUPPLY JUSTIFICATION 2023-03-20 06:01:00 Bradley trimble Unassigned, [place] [facility] DME/SUPPLY JUSTIFICATION 2023-02-21 05:01:00 Bradley trimble Unassigned, [place] [facility] PHYSICIAN ORDERS 2023-02-09 05:01:00 Doctor Adama signed, [place] [facility] DME/SUPPLY JUSTIFICATION 2023-01-12 05:01:00 Bradley trimble Unassigned, [place] [facility] HEALTH - OTHER 2023-01-04 05:01:00 Doctor Nolberto best, [place] [facility] DME/SUPPLY JUSTIFICATION 2023-01-03 05:01:00 Bradley trimble Unassigned, [place] [facility] HEALTH - OTHER 2022-12-29 05:01:00 Doctor U nassigned, [place] [facility] HEALTH - OTHER 2022-12-22 05:01:00 Doctor U nassigned, [place] [facility] INSURANCE CORRESPONDENCE 2022-12-20 05:01:00 Doc tor Unassigned, [place] [facility] HEALTH - OTHER 2022-12-15 05:01:00 Doctor U nassigned, [place] [facility] HEALTH - OTHER 2022-12-13 05:01:00 Doctor U nassigned, [place] [facility] HOME HEALTH 485 2022-12-10 05:01:00 Doctor Unass igned, [place] [facility] HOME ASSESSMENT - OCCUPATIONAL THERAPY 2022-12-08 05:01:00 Doctor Unassigned, [place] [facility] HEALTH - OTHER 2022-11-21 05:01:00 Doctor U nassigned, [place] [facility] HEALTH - OTHER 2022-11-18 05:01:00 Doctor U nassigned, [place] [facility] HOME ASSESSMENT - OCCUPATIONAL THERAPY 2022-11-17 05:01:00 Doctor Unassigned, [place] [facility] DME/SUPPLY JUSTIFICATION 2022-11-14 05:01:00 Doc tor Unassigned, [place] [facility] HEALTH - OTHER 2022-11-11 05:01:00 Doctor U nassigned, [place] [facility] HEALTH - OTHER 2022-11-10 05:01:00 Doctor U nassigned, [place] [facility] HEALTH - OTHER 2022-11-08 05:01:00 Doctor U nassigned, [place] [facility] EXTERNAL PROVIDER RECORDS 2022-11-04 05:01:00 Do ctor Unassigned, [place] [facility] EXTERNAL PROVIDER RECORDS 2022-11-02 05:01:00 Do ctor Unassigned, [place] [facility] HEALTH - OTHER 2022-10-28 05:01:00 Doctor U nassigned, [place] [facility] HEALTH - OTHER 2022-10-27 05:01:00 Doctor Nolberto nassigned, [place] [facility] POCT URINALYSIS 2022-09-12 18:50:00 Mariama Cervantes [facility] EXTERNAL PROVIDER RECORDS 2022-08-24 05:01:00 Do [facility]tor [facility] [place] [facility] 2022-07-25 16:33:35 Doctor Unassigned, [place] [facility] POCT URINALYSIS 2022-07-25 00:00:00 Thien Comer [facility] ASSIGNMENT OF BENEFITS 2022-06-02 17:08:18 Docto r Unassigned, [place] [facility] PHYSICIAN ORDERS 2021-06-01 06:01:00 Doctor Unas signed, [place] [facility] PHYSICIAN ORDERS 2021-05-07 06:01:00 Doctor Unas signed, [place] [facility] HEALTH - OTHER 2021 06:01:00 Doctor U nassigned, [place] [facility] HEALTH 485 2021-03-23 06:01:00 Doctor Unass igned, [place] [facility] PHYSICIAN ORDERS 2021-01-18 05:01:00 Doctor Unas signed, [place] [facility] 485 2020-11-23 05:01:00 Doctor Unass igned, [place] [facility] EXTERNAL PROVIDER RECORDS 2020-11-13 05:01:00 Do ctor Unassigned, [place] [facility] HEALTH - OTHER 2020-11-03 05:01:00 Doctor U nassigned, [place] [facility] EXTERNAL PROVIDER RECORDS 2020-10-22 05:01:00 Do ctor Unassigned, [place] [facility] EXTERNAL PROVIDER RECORDS 2020-10-03 05:01:00 Do ctor Unassigned, [place] [facility] INSURANCE CORRESPONDENCE 2020-09-22 05:01:00 Doc tor Unassigned, [place] [facility] EXTERNAL PROVIDER RECORDS 2020-09-02 05:01:00 Do ctor Unassigned, [place] [facility] HEALTH - OTHER 2020-08-07 05:01:00 Doctor Nolberto nassigned, [place] [facility] EXTERNAL PROVIDER RECORDS 2020-07-24 05:01:00 Do ctor Unassigned, [place] [facility] PHYSICIAN ORDERS 2020-07-15 05:01:00 Doctor Unas signed, [place] [facility] CT LUMBAR SPINE WO CONTRAST 2020-07-05 20:10:44 Jenn Gallegos [facility] HEPATIC FUNCTION PANEL (86117) (ALB,T.PRO,BILI T,BU/BC,ALT,AST,ALK PHOS) 2020-07-05 19:43:00 Jenn Gallegos [facility] BASIC METABOLIC PANEL (NA, K, CL, CO2, GLUCOSE, BUN, CREATININE, CA) 2020-07-05 19:43:00 Jenn Gallegos [facility] CBC WITH DIFF 2020-07-05 19:43:00 Jenn Gallegos [facility] URINALYSIS 2020-07-05 19:43:00 Jenn Gallegos [facility] POCT URINALYSIS 2019-11-16 00:00:00 Fariba Chowdhury [facility] Encounters Start Date/Time End Date/Time Encounter Type Admission Type Attending Clinicians Care Facility Care Department Encounter ID Source 2021-02-28 03:52:34 Emergency [facility] [id number] [facility] 2023-04-18 10:15:00 2023-04-18 10:15:00 Outpatient RAYMOND JOHNSON [facility] [id number] [facility] 2023-03-20 00:00:00 2023-03-20 00:00:00 Orders Only Doctor Unassigned, [place] [facility] [id number] [id number] [id number] [facility] 2023-03-16 00:00:00 2023-03-16 00:00:00 Telephone [facility] 1..840.114 350.1.13.10 [id number] [id number] [facility] 2023-03-14 09:15:00 2023-03-14 09:48:54 Outpatient R RAYMOND COMER [facility] [id number] [facility] 2023-03-14 09:15:00 2023-03-14 09:48:54 [facility] [id number] [id number] [facility] 2023-02-21 00:00:00 2023-02-21 00:00:00 Orders Only Doctor Unassigned, [place] [facility] 1.20.114 350.1.13.10 [id number] [id number] [id number] [facility] 2023-02-20 00:00:00 2023-02-20 00:00:00 Telephone Raymond Comer [facility] 1.20.114 350.1.13.10 [id number] [id number] [facility] 2023-02-09 00:00:00 2023-02-09 00:00:00 Telephone Souleymane [facility] 1..114 350.1.13.10 [id number] [id number] [facility] 2023-02-09 00:00:00 2023-02-09 00:00:00 Orders Only Doctor Unassigned, [place] [facility] 1.2840.114 350.1.13.10 [id number] [id number] [facility] 2023-02-06 00:00:00 2023-02-06 00:00:00 Telephone Souleymane [facility] MEDICAL OFFICE BUILDING 1.2.114 350.1.13.10 4.2.7.2.686 [id number] 044 [id number] [facility] 2023-01-24 10:15:00 2023-01-24 10:38:44 Outpatient R RAYMOND COMER [facility] [id number] [facility] 2023-01-24 10:15:00 2023-01-24 10:30:00 Office Visit Raymond Comer [facility] 1.2840.114 350.1.13.10 4.2.7.2.686 [id number] 044 [id number] [facility] 2023-01-12 00:00:00 2023-01-12 00:00:00 Orders Only Doctor Unassigned, [place] [facility] 1.2.840.114 350.1.13.10 4.2.7.2.686 [id number] 009 [id number] [facility] 2023-01-04 00:00:00 2023-01-04 00:00:00 Orders Only Doctor Unassigned, [place] [facility] 1.2.840.114 350.1.13.10 4.2.7.2.686 [id number] 009 [id number] [facility] 2023-01-03 00:00:00 2023-01-03 00:00:00 Orders Only Doctor Unassigned, [place] [facility] 1.2.840.114 350.1.13.10 4.2.7.2.686 [id number] 009 [id number] [facility] 2022-12-29 00:00:00 2022-12-29 00:00:00 Orders Only Doctor Unassigned, [place] [facility] 1.2.840.114 350.1.13.10 4.2.7.2.686 [id number] 009 [id number] [facility] 2022-12-23 00:00:00 2022-12-23 00:00:00 Telephone Raymond Comer [facility] 1.2840.114 350.1.13.10 4.2.7.2.686 [id number] 044 [id number] [facility] 2022-12-22 00:00:00 2022-12-22 00:00:00 Orders Only Doctor Unassigned, [place] [facility] 1.2.840.114 350.1.13.10 4.2.7.2.686 [id number] 009 [id number] [facility] 2022-12-20 00:00:00 2022-12-20 00:00:00 Orders Only Doctor Unassigned, [place] [facility] 1.2840.114 350.1.13.10 4.2.7.2.686 [id number] 009 [id number] [facility] 2022-12-15 00:00:00 2022-12-15 00:00:00 Telephone XochitlalistairmerrillRaymond [facility] 1.2840.114 350.1.13.10 4.2.7.2.686 [id number] 044 [id number] [facility] 2022-12-15 00:00:00 2022-12-15 00:00:00 Orders Only Doctor Unassigned, [place] [facility] 1.2840.114 350.1.13.10 4.2.7.2.686 [id number] 009 [id number] [facility] 2022-12-13 00:00:00 2022-12-13 00:00:00 Telephone Souleymane [facility] 1.2840.114 350.1.13.10 4.2.7.2.686 [id number] 044 [id number] [facility] 2022-12-13 00:00:00 2022-12-13 00:00:00 Orders Only Doctor Unassigned, [place] [facility] 1.2.840.114 350.1.13.10 4.2.7.2.686 [id number] 009 [id number] [facility] 2022-12-12 11:30:00 2022-12-12 11:45:00 Office Visit Raymond Comer [facility] 1.2.840.114 350.1.13.10 4.2.7.2.686 [id number] 044 [id number] [facility] 2022-12-12 11:30:00 2022-12-12 11:30:00 Outpatient R RAYMOND COMER [facility] [id number] [facility] 2022-12-10 00:00:00 2022-12-10 00:00:00 Orders Only Doctor Unassigned, [place] [facility] 1.2840.114 350.1.13.10 4.2.7.2.686 [id number] 009 [id number] [facility] 2022-12-09 00:00:00 2022-12-09 00:00:00 Telephone Souleymane [facility] MED[facility] OFFICE BUILD[facility] 1.2840.114 350.1.13.10 4.2.7.2.686 [id number] 044 [id number] [facility] 2022-12-08 00:00:00 2022-12-08 00:00:00 Orders Only Doctor Unassigned, [place] [facility] 1.2840.114 350.1.13.10 4.2.7.2.686 [id number] 009 [id number] [facility] 2022-11-24 11:44:00 2022-11-24 23:59:00 Hospital Encounter Stevie Quintero BUILDING 1.2840.114 350.1.13.10 4.2.7.2.686 [id number] 031 [id number] [facility] 2022-11-24 00:00:00 2022-11-24 23:59:00 Outpatient R STEVIE QUINTERO [facility] [id number] [facility] 2022-11-24 00:00:00 2022-11-24 00:00:00 Outpatient R [facility] [id number] [facility] 2022-11-21 00:00:00 2022-11-21 00:00:00 Orders Only Doctor Unassigned, [place] [facility] 1.2.840.114 350.1.13.10 4.2.7.2.686 [id number] [id number] [facility] 2022-11-18 00:00:00 2022-11-18 00:00:00 Orders Only Doctor Unassigned, [place] [facility] 1.2.840.114 350.1.13.10 4.2.7.2.686 [id number] 009 [id number] [facility] 2022-11-17 00:00:00 2022-11-17 00:00:00 Orders Only Doctor Unassigned, [place] [facility] 1.2.840.114 350.1.13.10 4.2.7.2.686 [id number] 009 [id number] [facility] 2022-11-14 00:00:00 2022-11-14 00:00:00 Orders Only Doctor Unassigned, [place] [facility] 1.2.840.114 350.1.13.10 4.2.7.2.686 [id number] 009 [id number] [facility] 2022-11-11 00:00:00 2022-11-11 00:00:00 Orders Only Doctor Unassigned, [place] [facility] 1.2.840.114 350.1.13.10 4.2.7.2.686 [id number] 009 [id number] [facility] 2022-11-10 00:00:00 2022-11-10 00:00:00 Orders Only Doctor Unassigned, [place] [facility] 1.2.840.114 350.1.13.10 4.2.7.2.686 [id number] 009 [id number] [facility] 2022-11-09 10:45:00 2022-11-09 11:00:00 Office Visit Raymond Comer [facility] 1.2.840.114 350.1.13.10 4.2.7.2.686 [id number] 044 [id number] [facility] 2022-11-09 10:45:00 2022-11-09 10:45:00 Outpatient R SOULEYMANE [facility] [id number] [facility] 2022-11-08 00:00:00 2022-11-08 00:00:00 Orders Only Doctor Unassigned, [place] [facility] 1.2.840.114 350.1.13.10 4.2.7.2.686 [id number] 009 [id number] [facility] 2022-11-07 00:00:00 2022-11-07 00:00:00 Telephone Souleymane [facility] 1.2.840.114 350.1.13.10 4.2.7.2.686 [id number] 044 [id number] [facility] 2022-11-04 00:00:00 2022-11-04 00:00:00 Orders Only Doctor Unassigned, [place] [facility] 1.2.840.114 350.1.13.10 4.2.7.2.686 [id number] 009 [id number] [facility] 2022-11-02 00:00:00 2022-11-02 00:00:00 Orders Only Doctor Unassigned, [place] [facility] 1.2.840.114 350.1.13.10 4.2.7.2.686 [id number] 009 [id number] [facility] 2022-10-31 12:48:00 2022-10-31 23:59:00 Hospital Encounter Stevie Quintero [facility] BUILDING 1.2.840.114 350.1.13.10 4.2.7.2.686 [id number] 031 [id number] [facility] 2022-10-31 00:00:00 2022-10-31 23:59:00 Outpatient Kerri QUINTERO [facility] [id number] [facility] 2022-10-31 13:00:00 2022-10-31 13:00:00 Outpatient FERNANDA GARRISON [facility] [id number] [facility] 2022-10-28 13:14:00 2022-10-28 23:59:00 Hospital Encounter Stevie Quintero [facility] 1.2.840.114 350.1.13.10 4.2.7.2.686 [id number] 031 [id number] [facility] 2022-10-28 00:00:00 2022-10-28 23:59:00 Outpatient Kerri QUINTERO [facility] [id number] [facility] 2022-10-28 00:00:00 2022-10-28 00:00:00 Orders Only Doctor Unassigned, [place] [facility] 1.2.840.114 350.1.13.10 4.2.7.2.686 [id number] 009 [id number] [facility] 2022-10-27 00:00:00 2022-10-27 00:00:00 Orders Only Doctor Unassigned, [place] [facility] 1.2.840.114 350.1.13.10 4.2.7.2.686 [id number] 009 [id number] [facility] 2022-10-24 15:30:00 2022-10-24 15:30:00 Outpatient MARIAMA LI [facility] [id number] [facility] 2022-10-24 00:00:00 2022-10-24 00:00:00 Telephone Raymond Comer [facility] 1.2.840.114 350.1.13.10 4.2.7.2.686 [id number] 044 [id number] [facility] 2022-10-21 00:00:00 2022-10-21 00:00:00 Telephone Raymond Comer [facility] 1..840.114 350.1.13.10 4.2.7.2.686 [id number] 044 [id number] [facility] 2022-10-13 09:45:00 2022-10-13 09:45:00 Outpatient RAYMOND JOHNSON [facility] [id number] [facility] 2022-10-13 00:00:00 2022-10-13 00:00:00 Telephone Souleymane [facility] MEGHAN?[facility] MED[facility] OFFICE BUILDING 1..840.114 350.1.13.10 4.2.7.2.686 [id number] 044 [id number] [facility] 2022-10-12 00:00:00 2022-10-12 00:00:00 Outpatient CLEVELAND LEONARD HOWARD [facility] [id number] [facility] 2022-10-12 00:00:00 2022-10-12 00:00:00 Telephone Raymond Comer [facility] 1..840.114 350.1.13.10 4.2.7.2.686 [id number] 044 [id number] [facility] 2022-10-11 00:00:00 2022-10-11 00:00:00 Telephone Raymond Comer [facility]AN?[facility] MEDICAL OFFICE BUILDING 1..840.114 350.1.13.10 4.2.7.2.686 [id number] 044 [id number] [facility] 2022-10-10 00:00:00 2022-10-10 00:00:00 [facility] 1.2.840.114 350.1.13.10 4.2.7.2.686 [id number] 044 [id number] [facility] 2022-10-03 11:00:00 2022-10-03 11:21:30 Outpatient R CLEVELAND ROBLEDO HOWARD [facility] [id number] [facility] 2022-10-03 11:00:00 2022-10-03 11:21:30 Office Visit Cleveland Robledo [facility] 1.2840.114 350.1.13.10 4.2.7.2.686 [id number] 092 [id number] [facility] 2022-09-20 13:15:00 2022-09-20 13:22:09 Outpatient Kerri COSTAMERRILLRAYMOND [facility] [id number] [facility] 2022-09-20 13:15:00 2022-09-20 13:22:09 Office Visit Raymond Comer [facility]AN?[facility]ILD[facility] 1.284.114 350.1.13.10 4.2.7.2.686 [id number] 044 [id number] [facility] 2022-09-19 00:00:00 2022-09-19 00:00:00 Telephone Raymond Comer [facility] 1.2.840.114 350.1.13.10 4.2.7.2.686 [id number] 044 [id number] [facility] 2022-09-16 00:00:00 2022-09-16 00:00:00 Telephone [facility] 1.2840.114 350.1.13.10 4.2.7.2.686 [id number] 044 [id number] [facility] 2022-09-12 15:00:00 2022-09-12 15:15:00 Quality Assurance Associate Visit Lab, Colin Jarrett Renny Cervantesformerly [facility]GHAN?[facility] MEDICAL OFFICE BUILDING 1.84.114 350.1.13.10 4.2.7.2.686 [id number] [facility] 2022-09-12 14:30:00 2022-09-12 14:42:45 [facility] [id number] 2022-09-12 14:30:00 2022-09-12 14:42:45 Office Visit Renny Cervantesformerly [facility] MEGHAN?[facility] MEDICAL OFFICE BUILDING 1.84.114 350.1.13.10 4.2.7.2.686 [id number] 044 [id number] [facility] 2022-09-12 00:00:00 2022-09-12 00:00:00 Telephone JulissaRaymond min [facility] MEDICAL OFFICE BUILDING 1.84.114 350.1.13.10 4.2.7.2.686 [id number] 044 [id number] [facility] 2022-08-24 00:00:00 2022-08-24 00:00:00 Orders Only Doctor Unassigned, [place] [facility] 1.114 350.1.13.10 4.2.7.2.686 [id number] 009 [id number] [facility] 2022-07-25 11:30:00 2022-07-25 11:48:07 Outpatient R RAYMOND COMER [facility] [id number] [facility] 2022-07-25 11:30:00 2022-07-25 11:48:07 Office Visit Raymond Comer [facility] MEDICAL OFFICE BUILDING 1.84.114 350.1.13.10 4.2.7.2.686 [id number] 044 [id number] [facility] 2022-07-25 00:00:00 2022-07-25 00:00:00 Orders Only Doctor Unassigned, [place] [facility] 1.0.114 350.1.13.10 4.2.7.2.686 [id number] 009 [id number] [facility] 2022-07-20 10:30:00 2022-07-20 12:50:33 Outpatient R JULISSAMERRILL [facility] [id number] [facility] 2022-07-20 10:30:00 2022-07-20 12:50:33 Office Visit Souleymane [facility] MEDICAL OFFICE BUILDING 1.114 350.1.13.10 4.2.7.2.686 [id number] 044 [id number] [facility] 2022-06-02 11:00:00 2022-06-02 23:59:00 Outpatient R KAMALJIT [facility] [id number] [facility] 2022-06-02 11:40:00 2022-06-02 11:54:40 Office Visit Kamaljit [facility] MEDICAL OFFICE BUILDING 1.114 350.1.13.10 4.2.7.2.686 [id number] 044 [id number] [facility] 2022-06-02 00:00:00 2022-06-02 00:00:00 Orders Only Doctor Unassigned, [place] [facility] 1.114 350.1.13.10 4.2.7.2.686 [id number] [id number] [facility] 2021-07-22 00:00:00 2021-07-22 00:00:00 Telephone Xochitlkendrick [facility] MEDICAL OFFICE BUILDING 1.114 350.1.13.10 4.2.7.2.686 [id number] 044 [id number] [facility] 2021-06-01 00:00:00 2021-06-01 00:00:00 Orders Only Doctor Unassigned, [place] [facility] 1.20.114 350.1.13.10 4.2.7.2.686 [id number] [id number] [facility] 2021-05-07 00:00:00 2021-05-07 00:00:00 Orders Only Doctor Unassigned, [place] [facility] 1.20.114 350.1.13.10 4.2.7.2.686 [id number] 009 [id number] [facility] 2021-04-29 00:00:00 2021-04-29 00:00:00 Telephone oSuleymane [facility] MEDICAL OFFICE BUILDING 1.84.114 350.1.13.10 4.2.7.2.686 [id number] 044 [id number] [facility] 2021-04-26 00:00:00 2021-04-26 00:00:00 Outpatient R [facility] [id number] [facility] 2021-04-26 00:00:00 2021-04-26 00:00:00 Telephone Souleymane [facility] MEDICAL OFFICE BUILDING 1.840.114 350.1.13.10 4.2.7.2.686 [id number] 044 [id number] [facility] 2021 00:00:00 2021 00:00:00 Orders Only Doctor Unassigned, [place] [facility] 1.2.114 350.1.13.10 4.2.7.2.686 [id number] 009 [id number] [facility] 2021-03-23 00:00:00 2021-03-23 00:00:00 Orders Only Doctor Unassigned, [place] [facility] 1.2.840.114 350.1.13.10 4.2.7.2.686 [id number] 009 [id number] [facility] 2021-01-18 00:00:00 2021-01-18 00:00:00 Outpatient [facility] [id number] [facility] 2021-01-18 00:00:00 2021-01-18 00:00:00 Orders Only Doctor Unassigned, [place] [facility] 1.2.840.114 350.1.13.10 4.2.7.2.686 [id number] 009 [id number] [facility] 2020-11-23 00:00:00 2020-11-23 00:00:00 Orders Only Doctor Unassigned, [place] [facility] 1.2.840.114 350.1.13.10 4.2.7.2.686 [id number] 009 [id number] [facility] 2020-11-13 00:00:00 2020-11-13 00:00:00 Orders Only Doctor Unassigned, [place] [facility] 1.2.840.114 350.1.13.10 4.2.7.2.686 [id number] 009 [id number] [facility] 2020-11-03 00:00:00 2020-11-03 00:00:00 Orders Only Doctor Unassigned, [place] [facility] 1.2.840.114 350.1.13.10 4.2.7.2.686 [id number] 009 [id number] [facility] 2020-10-22 00:00:00 2020-10-22 00:00:00 Orders Only Doctor Unassigned, [place] [facility] 1.2.840.114 350.1.13.10 4.2.7.2.686 [id number] 009 [id number] [facility] 2020-10-14 10:20:00 2020-10-14 10:20:00 Outpatient ARLETTE HARPER [facility] [id number] [facility] 2020-10-14 09:05:53 2020-10-14 09:51:44 Urgent Care Provider, [facility] Arlette Green [facility] 1.114 350.1.13.10 4.2.7.2.686 [id number] 044 [id number] [facility] 2020-10-14 08:15:00 2020-10-14 08:15:00 Outpatient R RAYMOND COMER [facility] [id number] [facility] 2020-10-13 00:00:00 2020-10-13 00:00:00 Telephone XochitlRaymond marks [facility] 1.114 350.1.13.10 4.2.7.2.686 [id number] 044 [id number] [facility] 2020-10-13 00:00:00 2020-10-13 00:00:00 Telephone SouleymaneRaymond [facility] 1.114 350.1.13.10 4.2.7.2.686 [id number] 044 [id number] 2020-10-12 16:34:50 2020-10-12 16:49:50 Telemedici ne Visit Renny Cervantesthia [facility] .114 350.1.13.10 4.2.7.2.686 [id number] 044 [id number] [facility] 2020-10-12 16:34:50 2020-10-12 16:49:50 [facility]medici ne [facility] 1.114 350.1.13.10 4.2.7.2.686 [id number] 044 [id number] 2020-10-12 16:00:00 2020-10-12 16:00:00 Outpatient RENNY LITHIA [facility] [id number] [facility] 2020-10-09 00:00:00 2020-10-09 00:00:00 Telephone Raymond Comer [facility] 1.20.114 350.1.13.10 4.2.7.2.686 [id number] 044 [id number] [facility] 2020-10-09 00:00:00 2020-10-09 00:00:00 Telephone Raymond Comer [facility] 1.0.114 350.1.13.10 4.2.7.2.686 [id number] 044 [id number] 2020-10-03 00:00:00 2020-10-03 00:00:00 Orders Only Doctor Unassigned, [place] [facility] 1.2840.114 350.1.13.10 4.2.7.2.686 [id number] 009 [id number] [facility] 2020-09-22 00:00:00 2020-09-22 00:00:00 Orders Only Doctor Unassigned, [place] [facility] 1.2.840.114 350.1.13.10 4.2.7.2.686 [id number] 009 [id number] [facility] 2020-09-02 00:00:00 2020-09-02 00:00:00 Orders Only Doctor Unassigned, [place] [facility] 1.2.840.114 350.1.13.10 4.2.7.2.686 [id number] 009 [id number] [facility] 2020-09-02 00:00:00 2020-09-02 00:00:00 Telephone Raymond Comer [facility] 1.20.114 350.1.13.10 4.2.7.2.686 [id number] 044 [id number] [facility] 2020-09-02 00:00:00 2020-09-02 00:00:00 Telephone Raymond Comer [facility] 1.20.114 350.1.13.10 4.2.7.2.686 [id number] 044 [id number] [facility] 2020-09-01 00:00:00 2020-09-01 00:00:00 Telephone Raymond Comer [facility] 1.20.114 350.1.13.10 4.2.7.2.686 [id number] 044 [id number] [facility] 2020-08-07 00:00:00 2020-08-07 00:00:00 Orders Only Doctor Unassigned, [place] [facility] 1.2840.114 350.1.13.10 4.2.7.2.686 [id number] 009 [id number] [facility] 2020-08-04 00:00:00 2020-08-04 00:00:00 Telephone Raymond Comer [facility] 1.0.114 350.1.13.10 4.2.7.2.686 [id number] 044 [id number] [facility] 2020-08-04 00:00:00 2020-08-04 00:00:00 Telephone Raymond Comer [facility] 1.0.114 350.1.13.10 4.2.7.2.686 [id number] 044 [id number] [facility] 2020-07-24 08:52:42 2020-07-24 09:22:42 Office Visit Raymond Comer [facility] 1.0.114 350.1.13.10 4.2.7.2.686 [id number] 044 [id number] [facility] 2020-07-24 09:00:00 2020-07-24 09:00:00 Outpatient R JULISSAMERRILLRAYMOND [facility] [id number] [facility] 2020-07-24 00:00:00 2020-07-24 00:00:00 Orders Only Doctor Unassigned, [place] [facility] 1.2.840.114 350.1.13.10 4.2.7.2.686 [id number] 009 [id number] [facility] 2020-07-15 00:00:00 2020-07-15 00:00:00 Telephone Souleymane [facility] 1.840.114 350.1.13.10 4.2.7.2.686 [id number] 044 [id number] [facility] 2020-07-15 00:00:00 2020-07-15 00:00:00 Orders Only Doctor Unassigned, [place] [facility] 1.2840.114 350.1.13.10 4.2.7.2.686 [id number] 009 [id number] [facility] 2020-07-13 00:00:00 2020-07-13 00:00:00 Telephone Souleymane [facility] 1.840.114 350.1.13.10 4.2.7.2.686 [id number] 044 [id number] [facility] 2020-07-10 09:38:20 2020-07-10 10:08:20 Office Visit Souleymane [facility] .840.114 350.1.13.10 4.2.7.2.686 [id number] 044 [id number] [facility] 2020-07-10 09:30:00 2020-07-10 09:30:00 Outpatient Kerri COSTAMERRILLRAYMOND [facility] [id number] [facility] 2020-07-05 13:16:00 2020-07-05 17:18:00 Emergency Jenn Gallegos [facility] [id number] 350.1.13.10 4.2.7.2.686 [id number] [facility] 2019-11-16 12:41:24 2019-11-16 13:36:46 Urgent Care Provider, [facility] Care Mariama Cervantes [facility] 1.84.114 350.1.13.10 4.2.7.2.686 [id number] [facility] 2019-11-16 12:40:00 2019-11-16 12:40:00 Outpatient R [facility] [id number] [facility] 2019-11-15 00:00:00 2019-11-15 00:00:00 Telephone Suoleymane [facility] [id number] 350.1.13.10 4.2.7.2.686 [id number] [facility] 2019-10-17 00:00:00 2019-10-17 00:00:00 Telephone Raymond Comer [facility] Office Building [facility] 1.84.114 350.1.13.10 4.2.7.2.686 [id number] [facility] 2019-09-17 11:00:00 2019-09-17 11:00:00 Outpatient R RAYMOND COMER [facility] [id number] [facility] 2019-09-17 07:36:27 2019-09-17 07:51:27 Telemedici ne Visit Raymond Comer [facility] Building 1.84.114 350.1.13.10 4.2.7.2.686 [id number] [facility] 2019-07-09 09:35:54 2019-07-09 10:05:54 Office Visit Raymond Comer [facility] Office Building [facility] [id number] 4.2.7.2.686 [id number] [facility] 2019-07-09 09:30:00 2019-07-09 09:30:00 Outpatient R RAYMOND COMER [facility] [id number] [facility] Results Test Description Test Time Test Comments Results Result [facility] [id number] 19:00:00* Test Item Value Reference Range Interpretation Comme nts POCT U SP GRAV (test code = 3255) 1.010 mg/dl 1.005-1.025 POCT PH U (test code = 3254) 6 mg/dl 5-8 POCT U LEUK EST (test code = 3263) Negative Negative - Negative POCT U NIT (test code = 3262) Negative Negative - Negati ve POCT U PROT (test code = 3259) Negative Negative - Negative POCT U GLU (test code = 3256) Normal Negative - Negati ve POCT U KETONE (test code = 3258) Negative Negative - Negative POCT U UROBILI (test code = 3260) 4 mg/dl 0.2-1 A POCT U BILI (test code = 3261) Negative Negative - Negative POCT U BLD (test code = 3257) Negative Negative - Negati ve POCT U COLOR (test code = 3266) Dark Yellow POCT U APPEAR (test code = 3267) Clear Lab Interpretation (test cod e = [id number]) [facility]normal [facility] [id number] 16:51:00* Test Item Value Reference Range Interpretation Comme nts POCT U SP GRAV (test code = 3255) 1.005 mg/dl 1.005-1.025 POCT PH U (test code = 3254) 6 mg/dl 5-8 POCT U LEUK EST (test code = 3263) + Negative - Negative POCT U NIT (test code = 3262) neg Negative - Negati ve POCT U PROT (test code = 3259) trace Negative - Negative POCT U GLU (test code = 3256) normal Negative - Negati ve POCT U KETONE (test code = 3258) neg Negative - Negative POCT U UROBILI (test code = 3260) normal 0.2-1 POCT U BILI (test code = 3261) neg Negative - Negative POCT U BLD (test code = 3257) neg Negative - Negati ve POCT U COLOR (test code = 3266) yellow POCT U APPEAR (test code = 3267) clear [facility] [id number] 16:51:00* Test Item Value Reference Range Interpretation Comme nts POCT U SP GRAV (test code = 3255) 1.005 mg/dl 1.005-1.025 POCT PH U (test code = 3254) 6 mg/dl 5-8 POCT U LEUK EST (test code = 3263) + Negative - Negative POCT U NIT (test code = 3262) neg Negative - Negati ve POCT U PROT (test code = 3259) trace Negative - Negative POCT U GLU (test code = 3256) normal Negative - Negati ve POCT U KETONE (test code = 3258) neg Negative - Negative POCT U UROBILI (test code = 3260) normal 0.2-1 POCT U BILI (test code = 3261) neg Negative - Negative POCT U BLD (test code = 3257) neg Negative - Negati ve POCT U COLOR (test code = 3266) yellow POCT U APPEAR (test code = 3267) clear [facility] LUMBAR SPINE WO KENAZNNG2818-75-20 20:57:25 No definite acute fracture or traumatic malalignment of the lumbar spine.Degenerative changes. Preliminary Report Dictated by Resident: Heath Clifton Report change Marnie Ivey reviewed this study and agree with the above reportwith the following modifications: Grade 1 anterolisthesis of L4 on L5 with [...] and agree with theabove report.CT LUMBAR SPINE WO CONTRAST HISTORY: ?Low back pain, cancer suspected COMPARISON: None. TECHNIQUE: Axial computerized tomography imaging of the lumbar spine.Additional sagittal and coronal reformations were obtained and reviewed. FINDINGS: Levocurvature of the lumbar spine. The vertebral bodies are grosslymaintained in height. The bones appear osteopenic. No acute fracture or traumatic malalignment of the lumbar spine. Degenerative changes: Multilevel are severe degenerative changes in theform of vacuum phe nomena, Schmorl nodes, anterior osteophyte formation(L2-L3), subchondral sclerosis [...] the lumbar spine. The vertebral bodies are gr osslymaintained in height. The bones appear osteopenic.No acute [...] lumbar spine.Degenerative changes.Preliminary Report Dictated by Resident: Marnie Grimm reviewed this study and agree with the above reportwiththe following modifications:Grade 1 anterolisthesis of L4 on L5 with associated facet arthropathy andleft greater than right neural foraminal narrowing. Findings suggestive ofright L4-L5 subarticularzone narrowing. L4 vertebral body superiorendplate sclerosis on the right. There may be asymmetric enlargement of theright psoas muscle, clinically correlate. Multilevel anterior flowingosteophytosis, which can be seen with diffuse idiopathic skeletalhyperostosis.Marnie Ivey MD., have reviewed this study and agree with theabove report.[facility]01* Test Item Value Reference Range Interpretation Comme nts APPEARANCE (test code = 8942875063) Clear Clear COLOR (test code = 2703334578) Yellow Yellow PH (test code = 1786856692) 4.8-8.0 SP GRAVITY (test code = 6771214180) 1.003-1.030 GLU U QUAL (test code = 7388370936) Negative Negative BLOOD (test code = 4199950370) Negative Negative KETONES (test code = 3214818287) Negative Negative PROTEIN (test code = 2887-8) Negative Negative UROBILIN (test code = 3993863710) 0.2 mg/dL See_Comment [Automated messa ge] The system which generated this result transmitted reference range: 0-1.0 mg/dL. The reference range was not used to interpret this result as normal/abnormal. BILIRUBIN (test code = 4074084425) Negative Negative NITRITE (test code = 5813888268) Negative Negative LEUK KM (test code = 1194297119) Negative Negative RBC/HPF (test code = 2346499720) See_Comment [Automated messa ge] The system which generated this result transmitted reference range: 0 - 3 HPF. The reference range was not used to interpret this result as normal/abnormal. WBC/HPF (test code = 0879829725) <1 See_Comment [Automated messa ge] The system which generated this result transmitted reference range: 0 - 5 HPF. The reference range was not used to interpret this result as normal/abnormal. BACTERIA (test code = 2218041139) Negative Negative MUCOUS (test code = 3299864852) Slight Negative LPF A HYAL CAST (test code = 5455222898) See_Comment [Automated messa ge] The system which generated this result transmitted reference range: <=2 LPF. The reference range was not used to interpret this result as normal/abnormal. Lab Interpretation (test code = 80442-8) Abnormal [facility] Metabolic Panel (NA, K, CL, CO2, GLUCOSE, BUN, CREATININE, CA)2020-07-05 20:02:33* Test Item Value Reference Range Interpretation Comme nts NA (test code = 2876487007) 140 mmol/L 135-145 K (test code = 1116547397) 4.4 mmol/L 3.5-5.0 CL (test code = 6126810725) 104 mmol/L 98-108 CO2 TOTAL (test code = 6370650833) 29 mmol/L 23-31 AGAP (test code = 1929004275) 2-16 BUN (test code = 4719701448) 40 mg/dL 7-23 H GLUCOSE (test code = 5562011636) 122 mg/dL 70-110 H CREATININE (test code = 6431681318) 1.79 mg/dL 0.60-1.25 H CALCIUM (test code = 0047974676) 9.0 mg/dL 8.6-10.6 eGFR Calculation (Non-) (test code = 0559918644) mL/min/1.73m2 eGFR Calculation () (test code = 1243650625) mL/min/1.73m2 LOGAN (test code = LOGAN) Association of [...] or abnormalities in imaging tests). Lab Interpretation (test code = 94233-0) Abnormal [facility] (ALB, T.PRO, BILI T, BU/BC, ALT, AST, ALK PHOS)2020-07-05 20:02:13* Test Item Value Reference Range Interpretation Comme nts TOTAL BILI (test code = 2441563303) 1.0 mg/dL 0.1-1.1 BILI UNCON (test code = 2025742668) 0.9 mg/dL 0.1-1.1 BILI CONJ (test code = 9867229302) 0.0 mg/dL 0.0-0.3 T PROTEIN (test code = 2544270178) 7.5 g/dL 6.3-8.2 ALBUMIN (test code = 9897756438) 4.4 g/dL 3.5-5.0 ALK PHOS (test code = 3631272855) 131 U/L 34-122 H ALTv (test code = 1742-6) 22 U/L 5-50 AST(SGOT) (test code = 6846605572) 30 U/L 13-40 Lab Interpretation (test cod e = 20029-5) Abnormal [facility] CenterCBC with Dsywtozjcncg1231-87-12 19:51:12* Test Item Value Reference Range Interpretation Comme nts WBC (test code = 6690-2) See_Comment [Automated [employer]] The system which generated this result transmitted reference range: 4.20 - 10.70 10*3/?L. The reference range was not used to interpret this result as normal/abnormal. RBC (test code = 789-8) See_Comment [[employer]] The system which generated this result transmitted reference range: 4.26 - 5.52 10*6/?L. The reference range was not used to interpret this result as normal/abnormal. HGB (test code = 718-7) 14.1 g/dL 12.2-16.4 HCT (test code = 4544-3) 42.7 % 38.4-49.3 MCV (test code = 787-2) 93.6 fL 81.7-95.6 MCH (test code = 785-6) 30.9 pg 26.1-32.7 MCHC (test code = 786-4) 33.0 g/dL 31.2-35.0 RDW-SD (test code = 27905-1) 46.9 fL 38.5-51.6 RDW-CV (test code = 788-0) 13.5 % 12.1-15.4 PLT (test code = 777-3) See_Comment [Automated messa ge] The system which generated this result transmitted reference range: 150 - 328 10*3/?L. The reference range was not used to interpret this result as normal/abnormal. MPV (test code = 62646-2) 10.3 fL 9.8-13.0 NRBC/100 WBC (test code = 1484911779) See_Comment [Automated [employer] ssage] The system which generated this result transmitted reference range: 0.0 - 10.0 /100 WBCs. The reference range was not used to interpret this result as normal/abnormal. NRBC x10^3 (test code = 3311873265) <0.01 See_Comment [Automated messa ge] The system which generated this result transmitted reference range: 10*3/?L. The reference range was not used to interpret this result as normal/abnormal. GRAN MAT (NEUT) % (test code = 770-8) 78.7 % IMM GRAN % (test code = 3492087816) 0.40 % LYMPH % (test code = 736-9) 13.1 % MONO % (test code = 5905-5) 6.7 % EOS % (test code = 713-8) 0.8 % BASO % (test code = 706-2) 0.3 % GRAN MAT x10^3(ANC) (test code = 0396058144) 7.92 10*3/uL 1.99-6.95 H IMM GRAN x10^3 (test code = 5099602195) 0.04 10*3/uL 0.00-0.06 LYMPH x10^3 (test code = 731-0) 1.32 10*3/uL 1.09-3.23 MONO x10^3 (test code = 742-7) 0.67 10*3/uL 0.36-1.02 EOS x10^3 (test code = 711-2) 0.08 10*3/uL 0.06-0.53 BASO x10^3 (test code = 704-7) 0.03 10*3/uL 0.01-0.09 Lab Interpretation (test code = 89346-2) Abnormal [facility] SPECIFIC UYTXSMZ1058-20-06 18:52:00* Test Item Value Reference Range Interpretation Comme nts POCT U SP GRAV (test code = 3255) 1.010 mg/dl 1.005-1.025 POCT PH U (test code = 3254) 5 mg/dl 5-8 POCT U LEUK EST (test code = 3263) ++ Negative - Negative POCT U NIT (test code = 3262) + Negative - Negati ve POCT U PROT (test code = 3259) trace Negative - Negative POCT U GLU (test code = 3256) normal Negative - Negati ve POCT U KETONE (test code = 3258) negative Negative - Negative POCT U UROBILI (test code = 3260) normal 0.2-1 POCT U BILI (test code = 3261) negative Negative - Negative POCT U BLD (test code = 3257) Negative - Negati ve POCT U COLOR (test code = 3266) dark yellow POCT U APPEAR (test code = 3267) hazy [facility] Notes Date/Time Note Provider Source 2022-12-23 15:16:49 1890-30-44Z74:16:49F ormatting of this note might be different from the original.Order for new chair due to safety concerns with current approved and ready for provider signature. Please review and sign if appropriate. 96758-0Pzilespzk encounter YjefND4637-04-41S62:17:27Telephone encounter NoteTXT1.2.840.284641.1.13.104.2.7 .2.565024|[id number] for patient gxws89439-8VnlfZW487032268Izlhdd [place] RN[address] EqgqVynjubupkPucifjfobHTDE21301243 04QIZKWJHBLYQIIUERGCJZSQ9171-93-40 T15:17:271.2.840.894700.1.72.3.15| 1.2.840.720128.1.13.104.2.7.2.7278 [id number] Torie Singh RN [facility] 2022-12-19 08:18:01 1805-95-73V33:18:01F ormatting of this note might be different from the original.Son of the patient has advised to hold off on the order for a power chair for patient so this is not needed at this time 53898-0Mrzgztnpk encounter OhjiOH9899-81-37V06:19:05Telephone encounter NoteTXT1.2.840.321715.1.13.104.2.7 .2.982679|[id number] for patient cqti05261-2YuugRDYWRRWWZP[address] TloaKdjklqtxyWhjcnpndgWZVL24942002 21EJSDFAIWYDHAVOHGCOYPGA1882-18-28 T08:19:051.2.840.834628.1.72.3.15| 1.2.840.280569.1.13.104.2.7.2.7278 [id number] [facility] 2022-12-15 11:42:08 6939-04-09K06:42:08F ormatting of this note might be different from the original.Zach with [facility] is calling they have not recived chart note request they are asking for update Ph#[phone] signed by Yulisa Platt at 12/15/2022 11:43 AM UTO66363-2Oumkinvhg encounter UxccKC8647-98-58F55:43:34Telephone encounter NoteTXT1.2.840.385682.1.13.104.2.7 .2.489721|[id number] for patient mqvg19064-7XfqoFN621620856Mrsbc [address] CgdmUaqhvwhkgAeoarxfauGWLC97095780 06KBCCZJFIQAVVIUWPLOPQFH2991-20-07 T11:43:341.2.840.492605.1.72.3.15| 1.2.840.451992.1.13.104.2.7.2.7278 [id number] Yulisa Platt [facility] 2022-12-13 09:38:53 6568-36-49W06:38:53F ormatting of this note might be different from the original.Interim order for medication changes due to PT and INR approved and ready for provider signature in [facility]. Please review and sign if appropriate. 61954-3Lwehxqfdi encounter RjsrAW1269-27-60D58:40:00Telephone encounter NoteTXT1.2.840.509855.1.13.104.2.7 .2.770169|[id number] for patient asoj81985-4SyrtJA521524585Iwvmuk [place] [address]vdGalvestonGalvestonTXTX[address]55775 82RYFBNCPYXHCUCOZSBDHQSL1911-19-11 T09:40:001.2.840.259055.1.72.3.15| 1.2.840.930474.1.13.104.2.7.2.7278 [id number] Torie Singh RN [facility] 2022-12-09 15:47:35 4235-72-89G73:47:35F ormatting of this note might be different from the original.Received [employer] chart note request. Placed in providers basket. 81610-9Wckjqjlse encounter UpikQQ7306-30-75D85:49:13Telephone encounter NoteTXT1.2.840.732360.1.13.104.2.7 .2.915999|[id number] for patient pwaz31999-9ZizeIQ760821832A[address] DywoEgpcuvhdmDvzeykvwpRNXI08540888 37QWUXMZEOIKUFEBPADDYXYR2643-77-98 T15:49:131.2.840.525517.1.72.3.15| 1.2.840.165137.1.13.104.2.7.2.7278 [id number] [facility]"
[2023-04-05 12:29] LABS: Absolute Lymphocytes (CBC) 1.1 K/uL (0.7-4.9); Hematocrit 36.3 % (39.6-49.0); MCV 96.4 fL (80-100); MPV 8.3 fL (7.6-11.3); Platelets 163 thou/uL (152-406); RBC Red Blood Cell Count 3.77 M/uL (4.33-5.43)
[2023-04-05 12:34] LABS: Protime INR 2.75
[2023-04-05 12:41] LABS: Calcium Oxalate Crystals- Ur Moderate /HPF (None Seen); Specific Gravity 1.012 (1.005-1.030); Urine Bacteria None Seen /HPF (<20); Urine Bilirubin NEGATIVE (Negative); Urine Blood Negative (Negative); Urine Clarity Extremely Turbid (Clear); Urine Color Yellow (Yellow); Urine Glucose NEGATIVE (Negative); Urine Mucus Slight /HPF (None Seen); Urine Protein NEGATIVE (Negative); Urine RBC None Seen /HPF (None Seen); Urine Urobilinogen Normal (Normal)
[2023-04-05 12:54] LABS: Albumin 2.8 g/dL (3.4-5.0); Bilirubin Direct 0.9 mg/dL (0-0.2); Bilirubin Indirect, Calculated 0.6 mg/dL (0.2-0.8); Bilirubin Total 1.5 mg/dL (0.2-1.0); Magnesium 2.6 mg/dL (1.6-2.4); Potassium 3.2 mEq/L (3.5-5.1); Protein, Total 6.8 g/dL (6.4-8.2)
[2023-04-05 13:05] LABS: Troponin High Sensitivity 64.1 pg/mL (<58.9)
--- NOTE | 2023-04-05 13:08 | RAD REPORT ---
EXAM DESCRIPTION: CT - Head Brain Wo Cont - 04/05/2023 12:50 pm CLINICAL HISTORY: ams Headache, drowsiness COMPARISON: CTFACIAL BONES W MPR dated 06/12/2015; HEAD BRAIN W O CONTRAST dated 01/28/2015 TECHNIQUE: All CT scans are performed using dose optimization technique as appropriate and may inclu de automated exposure control or mA/KV adjustment according to patient size. FINDINGS: No intracranial hemorrhage, hydrocephalus or extra-axial fluid collection.Mild generalized brain atrophy is present with moderate periventricular and deep white matter chronic microvascular i schemic changes.No areas of brain edema or evidence of midline shift. Large area of gliosis left post erior cerebral artery territory compatible with remote infarct. Mild vertebral atherosclerosis bilate rally. The paranasal sinuses and mastoids are clear. The calvarium is intact. IMPRESSION: No acute intracranial abnormality.
--- NOTE | 2023-04-05 13:48 | RAD REPORT ---
EXAM DESCRIPTION: RAD - Chest Single View - 04/05/2023 1:26 pm CLINICAL HISTORY: ams Chest pain. COMPARISON: Chest Single View dated 10/25/2022; Chest Single View dated 10/21/2022; Chest Single View dated 10/19/2022; Chest Single View dated 10/14/2022 FINDINGS: Portable technique limits examination quality. Moderate pulmonary edema is seen. The heart is moderately enlarged. No displaced fractures. IMPRESSION: Moderate CHF suspected.
--- NOTE | 2023-04-05 16:48 | EDPHYS ---
Physician Documentation [facility] Name: Blas Ferreira Age: 87 yrs Sex: Male : 1935 Arrival Date: 04/05/2023 Time: 11:42 Bed 7 Private MD: ED Physician Matt Wheeler HPI: 04/05 12:17 This 87 yrs old Male presents to ER via EMS with complaints of Altered Mental Status, rt General Weakness. 12:17 Patient with history of prior CVA with right-sided deficits presents to the ED with rt progressively worsening generalized weakness, confusion over the past week, family states that he has had difficulty in feeding himself, is usually alert and oriented x 2, now currently only to 1. Denies other acute complaints at this time, symptoms are moderate severity, no other aggravating elevating factors. Historical: - Allergies: 11:58 No Known Allergies; rs5 - PMHx: 11:58 Atrial Fib; CHF; COPD; CVA (); Gout; High Cholesterol; Hypertension; rs5 11:58 Right sided weakness from previous CVA; rs5 - PSHx: 11:58 None; rs5 - Immunization history:: Adult Immunizations unknown. - Social history:: Smoking status: Patient denies any tobacco usage or history of. ROS: 12:17 Unable to obtain ROS due to altered mental status, rt Exam: 12:17 Head/Face: Normocephalic, atraumatic. Chest/axilla: Normal chest wall appearance and rt motion. Nontender with no deformity. No lesions are appreciated. Cardiovascular: Regular rate and rhythm with a normal S1 and S2. No gallops, murmurs, or rubs. Normal PMI, no JVD. No pulse deficits. Respiratory: Lungs have equal breath sounds bilaterally, clear to auscultation and percussion. No rales, rhonchi or wheezes noted. No increased work of breathing, no retractions or nasal flaring. Abdomen/GI: Soft, non-tender, with normal bowel sounds. No distension or tympany. No guarding or rebound. No evidence of tenderness throughout. Skin: Warm, dry with normal turgor. Normal color with no rashes, no lesions, and no evidence of cellulitis. 12:17 Constitutional: The patient appears Confused, awake, no obvious distress 12:17 ECG was reviewed by the Attending Physician. Vital Signs: 11:55 BP 114 / 81; Pulse 80; Resp 17; Temp 97.5(O); Pulse Ox 98% on R/A; rs5 13:05 BP 127 / 83; Pulse 78; Resp 17; Pulse Ox 99% on R/A; rs5 14:20 BP 122 / 85; Pulse 77; Resp 18; Pulse Ox 99% on R/A; rs5 15:30 BP 125 / 84; Pulse 81; Resp 18; Pulse Ox 99% on R/A; rs5 19:00 BP 127 / 86; Pulse 78; Resp 17; Pulse Ox 99% on R/A; rs5 MDM: 11:53 Patient medically screened. rt 17:56 Differential Diagnosis: Palm depletion, CHF, pneumonia, UTI, electrolyte disturbance. rt Data reviewed: vital signs, nurses notes, lab test result(s), EKG, radiologic studies. Consideration of Admission/Observation Escalation of care including admission/observation considered. I had a long discussion with the patient's family, they state that the patient gets very confused when he is in the hospital, states that admission is likely to make the patient worse as opposed to better. They state that they are comfortable with discharge. I had a long discussion regarding the patient's labs, will increase Lasix gently in the outpatient setting, will give potassium supplementation over the next few days. Troponin repeated and is downtrending. Family again wishes to take the patient home and are able to care for the patient at home. Understand they may return anytime if his symptoms worsen.. Independent interpretation of the following test(s) in the Emergency Department X-Ray: My interpretation is Mild edema seen on interpretation of x-ray images. Care significantly affected by the following chronic conditions: Hypertension. Counseling: I had a detailed discussion with the patient and/or guardian regarding the historical points, exam findings, and any diagnostic results supporting the discharge/admit diagnosis, lab results, radiology results, the need for outpatient follow up, to return to the emergency department if symptoms worsen or persist or if there are any questions or concerns that arise at home. 04/05 12:25 Order name: Urinalysis W/Microscopic; Complete Time: 13:44 EDMS 04/05 12:27 Order name: Basic Metabolic Panel; Complete Time: 13:44 EDMS 04/05 12:27 Order name: Liver (Hepatic) Function; Complete Time: 13:44 EDMS 12 12:27 Order name: Troponin High Sensitivity; Complete Time: 13:44 EDMS 12 12:27 Order name: NT PRO-BNP; Complete Time: 13:44 EDMS 12 12:27 Order name: Magnesium; Complete Time: 13:44 EDMS 12 12:27 Order name: CBC with Automated Diff; Complete Time: 13:44 EDMS 04/05 12:27 Order name: Protime (+INR); Complete Time: 13:44 EDMS 12 15:12 Order name: Troponin High Sensitivity; Complete Time: 16:33 rt 12 11:55 Order name: XRAY Chest (1 view); Complete Time: 13:49 rt 12 11:55 Order name: CT Head Brain wo Cont; Complete Time: 13:44 rt 12 11:55 Order name: EKG; Complete Time: 12:38 rt 12 11:55 Order name: Cardiac monitoring; Complete Time: 12:06 rt 04/05 11:55 Order name: EKG - Nurse/Tech; Complete Time: 12:06 rt 12 11:55 Order name: IV Saline Lock; Complete Time: 12:06 rt 12 11:55 Order name: Labs collected and sent; Complete Time: 12:06 rt 12 11:55 Order name: O2 Per Protocol; Complete Time: 12:06 rt 12 11:55 Order name: O2 Sat Monitoring; Complete Time: 12:06 rt EC:17 Rate is 88 beats/min. Rhythm is irregularly irregular, A fib with No ectopy, Right rt bundle branch block. Right axis deviation noted. QRS interval is normal. No Q waves. Administered Medications: No medications were administered Disposition Summary: 04/05/23 16:47 Discharge Ordered Notes: Location: Home rt Problem: new rt Symptoms: are unchanged rt Condition: Stable rt Diagnosis - Generalized weakness rt - Congestive heart failure exacerbation rt - Hypokalemia rt Followup: rt - With: Private Physician - When: 2 - 3 days - Reason: Discharge Instructions: - Discharge Summary Sheet rt Forms: - Medication Reconciliation Form rt - Thank You Letter rt - Antibiotic Education rt - Prescription Opioid Use rt - Patient Portal Instructions rt - Leadership Thank You Letter rt Prescriptions: - Potassium Chloride 20 meq Oral Packet - take 1 packet ORAL route once daily 1 packet in 6 (six) ounces of water or rt juice; Take after meal; 5 packet; Refills: 0, Product Selection Permitted Signatures: Dispatcher [employer] Matt Le MD MD rt Carlos Moy RN RN rs5
--- NOTE | 2023-04-05 16:48 | ER ---
Nurse's Notes [facility] Name: Blas Ferreira Age: 87 yrs Sex: Male : 1935 Arrival Date: 04/05/2023 Time: 11:42 Bed 7 Private MD: Diagnosis: Generalized weakness;Congestive heart failure exacerbation;Hypokalemia Presentation: 04/05 11:55 Chief complaint: EMS states: Pt has progressively become weaker and more confused over rs5 the past week. Pt is normally alert and oriented x4, now pt is only able to tell others his name. 11:55 Coronavirus screen: At this time, the client does not indicate any symptoms associated rs5 with coronavirus-19. Ebola Screen: No symptoms or risks identified at this time. Initial Sepsis Screen: Does the patient meet any 2 criteria? No. Patient's initial sepsis screen is negative. Does the patient have a suspected source of infection? No. Patient's initial sepsis screen is negative. Risk Assessment: Do you want to hurt yourself or someone else? Patient reports no desire to harm self or others. Onset of symptoms was March 31, 2023. 11:55 Method Of Arrival: EMS: [facility] rs5 11:55 Acuity: KAREL 3 rs5 Historical: - Allergies: 11:58 No Known Allergies; rs5 - PMHx: 11:58 Atrial Fib; CHF; COPD; CVA (); Gout; High Cholesterol; Hypertension; rs5 11:58 Right sided weakness from previous CVA; rs5 - PSHx: 11:58 None; rs5 - Immunization history:: Adult Immunizations unknown. - Social history:: Smoking status: Patient denies any tobacco usage or history of. Screenin:[facility] ED Fall Risk Assessment (Adult) History of falling in the last 3 months, rs5 including since admission No falls in past 3 months (0 pts) Confusion or Disorientation Yes (5 pts) Intoxicated or Sedated No (0 pts) Impaired Gait Yes (1 pt) Mobility Assist Device Used No (0 pt) Altered Elimination No (0 pt) Score/Fall Risk Level 3 or more points = High Risk Oriented to surroundings, Maintained a safe environment. Abuse screen: Denies threats or abuse. Nutritional screening:. Nutritional screening: No deficits noted. Tuberculosis screening: No symptoms or risk factors identified. Assessment: 12:00 General: Appears in no apparent distress. uncomfortable, Behavior is calm, cooperative. rs5 Pain: Denies pain. Neuro: Level of Consciousness is awake, alert, obeys commands, confused, Oriented to person, [employer] are weak on right Weakness Facial symmetry appears normal, Pupils are PERRLA, Pupil Size: 3 mm Intact. Cardiovascular: Heart tones S1 S2 present Rhythm is regular. Respiratory: Airway is patent Respiratory effort is even, unlabored, Respiratory pattern is regular, symmetrical, Breath sounds are clear bilaterally. GI: Abdomen is round non-distended, Bowel sounds present X 4 quads. Abd is soft and non tender X 4 quads. : No signs and/or symptoms were reported regarding the genitourinary system. EENT: No signs and/or symptoms were reported regarding the EENT system. Derm: Skin is intact, Skin is pink, warm \\T\\ dry. Musculoskeletal: Capillary refill < 3 seconds, is brisk, in bilateral fingers. toes. Range of motion: limited in right side, right lower and right upper extremitties Daughter at bedside, daughter states "he had a stroke several years ago and is weak on his right side. We help him with everything, eating, drinking, etc. He doesn't walk, he's either bedbound or in a chair because he's really weak." quarter sized inch wound noted on lateral aspect of right foot. no sights of infection, drainage, redness. 13:05 Reassessment: No changes from previously documented assessment. rs5 14:20 Reassessment: No changes from previously documented assessment. Patient and/or family rs5 updated on plan of care and expected duration. Pain level reassessed. 15:30 Reassessment: Patient and/or family updated on plan of care and expected duration. Pain rs5 level reassessed. To bedside for lab redraw per MD orders, family at bedside. . 17:30 Reassessment: Pt up for discharge, family states "It would be extremely difficult for rs5 us to get him in the car, is there any way that he can be transported to our home by EMS?" provider and membership secretary notified. 17:50 Reassessment: Patient and/or family updated on plan of care and expected duration. Pain rs5 level reassessed. to bedside, pt urinated in brief. Pt cleaned and clean brief and blankets applied. 17:52 Reassessment: [place] states "I spoke with the family and arrangements have been rs5 made, EMS will transport him shortly". 19:07 Reassessment: EMS arrived, at bedside. rs5 Vital Signs: 11:55 BP 114 / 81; Pulse 80; Resp 17; Temp 97.5(O); Pulse Ox 98% on R/A; rs5 13:05 BP 127 / 83; Pulse 78; Resp 17; Pulse Ox 99% on R/A; rs5 14:20 BP 122 / 85; Pulse 77; Resp 18; Pulse Ox 99% on R/A; rs5 15:30 BP 125 / 84; Pulse 81; Resp 18; Pulse Ox 99% on R/A; rs5 19:00 BP 127 / 86; Pulse 78; Resp 17; Pulse Ox 99% on R/A; rs5 ED Course: 11:52 Patient arrived in ED. aa5 11:53 Matt Wheeler MD is Attending Physician. rt 11:55 Carlos Moy, NAVIN is Primary Nurse. rs5 11:58 Triage completed. rs5 12:00 Patient has correct armband on for positive identification. Fall risk band placed. rs5 Placed in gown. Bed in low position. Call light in reach. Side rails up X2. 12:07 Inserted saline lock: 20 gauge in left antecubital area, using aseptic technique. Blood rs5 collected. 12:51 CT Head Brain wo Cont In Process Unspecified. EDMS 13:28 XRAY Chest (1 view) In Process Unspecified. EDMS 15:35 No provider procedures requiring assistance completed. rs5 15:39 Troponin High Sensitivity Sent. rs5 19:06 IV discontinued, intact, bleeding controlled, No redness/swelling at site. Pressure rs5 dressing applied. Administered Medications: No medications were administered Medication: 15:35 VIS not applicable for this client. rs5 Outcome: 16:47 Discharge ordered by . rt 19:06 Discharged to home via ambulance, rs5 19:06 Condition: stable 19:06 Discharge instructions given to patient, family, Instructed on discharge instructions, follow up and referral plans. medication usage, Demonstrated understanding of instructions, follow-up care, medications, Prescriptions given X 1, 19:08 Patient left the ED. rs5 Signatures: Dispatcher [employer] EDNM Lili Jay RN RN aa5 Matt Wheeler MD MD rt Carlos Moy RN RN rs5 Corrections: (The following items were deleted from the chart) 15:36 15:35 Reassessment: No changes from previously documented assessment. Patient and/or rs5 family updated on plan of care and expected duration. Pain level reassessed. rs5 15:37 15:30 Reassessment: To bedside for lab redraw per MD orders. rs5 rs5
[2023-04-05 20:30] VITALS: TEMP 97.5
[2023-04-05 20:40] VITALS: O2SAT 99
[2023-04-05 20:43] VITALS: BP 127/86
== END 2023-04-05 19:08 | disposition home or self-care (01) ==
LOC: ER 11:42
DX: R53.1 Weakness (principal); E87.6 Hypokalemia; I50.9 Heart failure, unspecified; I10 Essential (primary) hypertension; J44.9 Chronic obstructive pulmonary disease, unspecified; I48.91 Unspecified atrial fibrillation
CPT/HCPCS: 36415; 70450; 71045; 80048; 80076; 81001; 83735; 83880; 84484; 85025; 85610; 93005; 99284